=== PATIENT | male | born 1965 | race Caucasian/White ===

== ENCOUNTER 2017-11-19 14:26 | Outpatient (RCR) | payer MEDICAID, SELFPAY ==
[2017-11-19 16:52] VITALS: BP 143/73; PULSE 69; RESP 24; TEMP 36.4; BMI 62.6
--- NOTE | 2017-11-19 18:53 | PCM.WC.HP ---
(1) Nonhealing ulcer of left lower extremity with fat layer exposed Status: Acute Code(s): L97.922 - Non-pressure chronic ulcer of unspecified part of left lower leg with fat layer exposed (2) Nonhealing ulcer of right lower extremity with fat layer exposed Status: Acute Code(s): L97.912 - Non-pressure chronic ulcer of unspecified part of right lower leg with fat layer exposed (3) Decreased dorsalis pedis pulse Status: Acute Code(s): R09.89 - Other specified symptoms and signs involving the circulatory and respiratory systems (4) Lymphedema of both lower extremities Status: Acute Code(s): I89.0 - Lymphedema, not elsewhere classified (5) Pain, lower extremity Status: Acute Code(s): M79.606 - Pain in leg, unspecified (6) Morbid obesity with BMI of 60.0-69.9, adult Status: Acute Code(s): E66.01 - Morbid (severe) obesity due to excess calories; Z68.44 - Body mass index (BMI) 60.0-69.9, adult History of Present Illness Date of Service: 11/19/17 Chief Complaint: Nonhealing ulcers bilateral lower extremities since July 2017 History of Wound: This is a 51-year-old morbidly obese white male who presents to the wound healing center with a chief complaint of nonhealing bilateral lower extremity ulcers since July 2017. He states that his wound treatment has consisted of covering with a dry dressing and gauze and that he wears compression stockings as well. He does state that he has a history of ulcers on the lower extremities as well and a history of venous insufficiency. No recent vascular studies. Patient denies any obvious trauma that preceded these ulcerations. He does state that the ulcerations are painful at times though denies any obvious exudate, warmth, or systemic signs of infection. He denies any other acute complaints at this time. The patient otherwise denies any fever, chills, nausea, vomiting, shortness of breath, chest pain or pressure, palpitations, orthopnea, lower extremity edema, syncope or presyncopal episodes. Past Medical History Surgical History: no surgical history Lives: Spouse/ Significant Other Smoking Status: Former smoker Alcohol: None Drugs: None Review of Systems Constitutional: Denies: Chills, Fever, Weight Change Eyes: Denies: Pain, Vision Change HEENT: Denies: Difficulty Hearing, Difficulty Swallowing, Sinus Congestion Cardiovascular: Denies: Chest Pain, Palpitations Respiratory: Denies: Cough, Shortness of Breath Gastrointestinal: Denies: Diarrhea, Nausea, Vomiting Genitourinary: Denies: Dysuria, Hematuria Skin: Reports: Wounds - See HPI Psychiatric: Denies: Anxiety, Depression Endocrine: Denies: Heat/ Cold Intolerance, Polydipsia, Polyuria Hematologic/ Lymphatic: Denies: Easy Bruising, Easy Bleeding - Physical Exam Vital Signs Temp Pulse Resp BP 97.5 F L 69 24 H 143/73 H 11/19/17 16:52 11/19/17 16:52 11/19/17 16:52 11/19/17 16:52 General: Alert, Oriented x3, Cooperative, No apparent distress HEENT: Atraumatic, PERRLA Neck: Supple, No JVD Lungs: Clear to auscultation, Normal air movement Cardiovascular: Regular rate, Regular Rhythm Abdomen: Soft, Non Tender, Obese, - - large circular area noted lower pannus beneath skin with palpable fluctuance- pt advised to follow up with PCP regarding this. Extremities: Capillary Refill Less than 3 Seconds, Diminished Peripheral Pulses, Edema - BLLE 3+ pitting Skin: Ulcer/ Wound - Bilateral lower extremity ulcers on the anterior surface with moderate amount of slough and fibrous tissue present. There is some degree of hemosiderin staining. 3+ bilateral pitting edema, no redness or warmth. Site is tender to touch Musculoskeletal: No Tenderness to Palpation of Joints or Extremities Lymphatic: No Cervical, Supraclavicular, or Inguinal Adenopathy Neurological: Neuro grossly intact Psych/Mental Status: Normal Affect, Alert and oriented to time, place, person, mood and affect Debridement Note Wound debrided: Right lower extremity ulcer anterior Laterality: Right Type of Debridement: Excisional debridement Anesthesia Used: 5% Lidocaine Gel Depth: in the subcutaneous layer Percentage of wound debrided: 100 Instrument Used: 5mm curette Tissue Removed: Slough and devitalized tissue Severity: Fat Layer Exposed Amount of bleeding with debridement: Mild Bleeding Controlled with: Pressure Patient tolerated procedure well - Additional Wound Wound debrided: Left anterior lower extremity ulcer Laterality: Left Type of Debridement: Excisional debridement Anesthesia Used: 5% Lidocaine Gel Depth: in the subcutaneous layer Percentage of wound debrided: 100 Instrument Used: 5mm curette Tissue Removed: Slough and devitalized tissue Severity: Fat Layer Exposed Amount of bleeding with debridement: Mild Bleeding Controlled with: Pressure Patient tolerated procedure: Patient tolerated procedure well Assessment/Plan Assessment: Nonhealing ulcers bilateral lower extremities with fat layer exposed. Bilateral lower extremity edema. Decreased dorsal pedis pulses. Morbid obesity with BMI greater than 60. History of chronic venous insufficiency Plan: The patient was seen and examined at the wound center today and was updated on the plan of care. A subcutaneous debridement was performed today. The patient tolerated the procedure well. The patients wound care will consist of: Aquasol silver dressings daily and continue with his home compression stockings that he is wearing for lymphedema management. Wound cultures were collected. Baseline bloodwork ordered. Vascular studies ordered. Patient educated on the importance of diet on wound healing and instructed to increase protein and vitamin C intake. Patient verbalized understanding. Patient will follow up at wound healing center in one week or sooner if needed. Discussed red flag symptoms of systemic infection that require urgent medical attention. this note was generated with [employer] dictation software. It may contain incorrect words, spelling, and punctuation that were not noted in checking the note before signing. Code Visit Office Visits / Consults: 20997 OV L4 Est 111xxx-113xx: [id number] Nneka subq tissue 20 sq cm/<
[2017-11-19 19:03] LABS: Hematocrit 44.9 % (40-54); Hemoglobin 14.7 g/dl (13.0-16.5); Mean Corp Hgb Conc 32.7 g/gl (32-36); Mean Corpuscular Hgb 29.2 pg (27.0-32.0); Mean Corpuscular Volume 89.1 fL (80-94); Mean Platelet Vol. 10.2 fl (6.2-12.0); Platelet Count 356 K/mm3 (150-450); RBC Distribution Width CV 13.8 % (11.6-14.6); RBC Distribution Width SD 44.7 fl (35.1-43.9); Red Blood Count 5.04 M/mm3 (4.6-6.2); White Blood Count 8.8 K/mm3 (4.4-11.0)
[2017-11-19 19:06] LABS: Scan Indicated on CBC? Y/N NO
[2017-11-19 19:21] LABS: ALB/GLOB Ratio 0.8 RATIO (0.9-2.4); AST(SGOT) 23 U/L (15-37); Alanine Aminotransfer ALT/SGPT 48 U/L (16-61); Albumin, Serum 3.5 g/dL (3.2-5.0); Alkaline Phosphatase 93 U/L (45-117); Anion Gap 3 (5-15); BUN 16 mg/dL (7-18); BUN/Creat Ratio 15.5 RATIO (10-20); Calcium,Total 9.1 mg/dL (8.5-10.1); Chloride 106 mmol/L (98-107); Creatinine, Serum 1.03 mg/dL (0.70-1.30); EST Glomerular Filtration Rate 81 mL/min (>60); Est Glom Filt Rate - Afr Amer 98 mL/min (>60); Estimated Creatinine Clearance 86.75 ml/min; Globulin 4.2 g/dL (2.2-4.2); Glucose 89 mg/dL (74-106); Potassium 4.3 mmol/L (3.5-5.1); Prealbumin 21.8 mg/dL (20.0-40.0); Protein, Total 7.7 g/dL (6.4-8.2); Sodium Level 140 mmol/L (136-145)
[2017-11-19 19:22] LABS: Hemoglobin A1c 5.4 % (4.2-6.3)
--- NOTE | 2017-11-25 16:03 | HP.PCM_ITS ---
(1) Nonhealing ulcer of left lower extremity with fat layer exposed Status: Acute Code(s): L97.922 - Non-pressure chronic ulcer of unspecified part of left lower leg with fat layer exposed (2) Nonhealing ulcer of right lower extremity with fat layer exposed Status: Acute Code(s): L97.912 - Non-pressure chronic ulcer of unspecified part of right lower leg with fat layer exposed (3) Decreased dorsalis pedis pulse Status: Acute Code(s): R09.89 - Other specified symptoms and signs involving the circulatory and respiratory systems (4) Lymphedema of both lower extremities Status: Acute Code(s): I89.0 - Lymphedema, not elsewhere classified (5) Pain, lower extremity Status: Acute Code(s): M79.606 - Pain in leg, unspecified (6) Morbid obesity with BMI of 60.0-69.9, adult Status: Acute Code(s): E66.01 - Morbid (severe) obesity due to excess calories ; Z68.44 - Body mass index (BMI) 60.0-69.9, adult History of Present Illness Date of Service: 11/19/17 Chief Complaint: Nonhealing ulcers bilateral lower extremities since July 2017 History of Wound: This is a 51-year-old morbidly obese white male who presents to the wound healing center with a chief complaint of nonhealing bilateral lower extremity ulcers since July 2017. He states that his wound treatment has consisted of covering with a dry dressing and gauze and that he wears compression stockings as well. He does state that he has a history of ulcers on the lower extremities as well and a history of venous insufficiency. No recent vascular studies. Patient denies any obvious trauma that preceded these ulcerations. He does state that the ulcerations are painful at times though denies any obvious exudate, warmth, or systemic signs of infection. He denies any other acute complaints at this time. The patient otherwise denies any fever , chills, nausea, vomiting, shortness of breath, chest pain or pressure, palpitations, orthopnea, lower extremity edema, syncope or presyncopal episodes. Past Medical History Surgical History: no surgical history Lives: Spouse/ Significant Other Smoking Status: Former smoker Alcohol: None Drugs: None Review of Systems Constitutional: Denies: Chills, Fever, Weight Change Eyes: Denies: Pain, Vision Change HEENT: Denies: Difficulty Hearing, Difficulty Swallowing, Sinus Congestion Cardiovascular: Denies: Chest Pain, Palpitations Respiratory: Denies: Cough, Shortness of Breath Gastrointestinal: Denies: Diarrhea, Nausea, Vomiting Genitourinary: Denies: Dysuria, Hematuria Skin: Reports: Wounds - See HPI Psychiatric: Denies: Anxiety, Depression Endocrine: Denies: Heat/ Cold Intolerance, Polydipsia, Polyuria Hematologic/ Lymphatic: Denies: Easy Bruising, Easy Bleeding - Physical Exam Vital Signs Temp Pulse Resp BP 97.5 F L 69 24 H 143/73 H 11/19/17 16:52 11/19/17 16:52 11/19/17 16:52 11/19/17 16:52 General: Alert, Oriented x3, Cooperative, No apparent distress HEENT: Atraumatic, PERRLA Neck: Supple, No JVD Lungs: Clear to auscultation, Normal air movement Cardiovascular: Regular rate, Regular Rhythm Abdomen: Soft, Non Tender, Obese, - - large circular area noted lower pannus beneath skin with palpable fluctuance- pt advised to follow up with PCP regarding this. Extremities: Capillary Refill Less than 3 Seconds, Diminished Peripheral Pulses , Edema - BLLE 3+ pitting Skin: Ulcer/ Wound - Bilateral lower extremity ulcers on the anterior surface with moderate amount of slough and fibrous tissue present. There is some degree of hemosiderin staining. 3+ bilateral pitting edema, no redness or warmth. Site is tender to touch Musculoskeletal: No Tenderness to Palpation of Joints or Extremities Lymphatic: No Cervical, Supraclavicular, or Inguinal Adenopathy Neurological: Neuro grossly intact Psych/Mental Status: Normal Affect, Alert and oriented to time, place, person, mood and affect Debridement Note Wound debrided: Right lower extremity ulcer anterior Laterality: Right Type of Debridement: Excisional debridement Anesthesia Used: 5% Lidocaine Gel Depth: in the subcutaneous layer Percentage of wound debrided: 100 Instrument Used: 5mm curette Tissue Removed: Slough and devitalized tissue Severity: Fat Layer Exposed Amount of bleeding with debridement: Mild Bleeding Controlled with: Pressure Patient tolerated procedure well - Additional Wound Wound debrided: Left anterior lower extremity ulcer Laterality: Left Type of Debridement: Excisional debridement Anesthesia Used: 5% Lidocaine Gel Depth: in the subcutaneous layer Percentage of wound debrided: 100 Instrument Used: 5mm curette Tissue Removed: Slough and devitalized tissue Severity: Fat Layer Exposed Amount of bleeding with debridement: Mild Bleeding Controlled with: Pressure Patient tolerated procedure: Patient tolerated procedure well Assessment/Plan Assessment: Nonhealing ulcers bilateral lower extremities with fat layer exposed. Bilateral lower extremity edema. Decreased dorsal pedis pulses. Morbid obesity with BMI greater than 60. History of chronic venous insufficiency Plan: The patient was seen and examined at the wound center today and was updated on the plan of care. A subcutaneous debridement was performed today. The patient tolerated the procedure well. The patients wound care will consist of: Aquasol silver dressings daily and continue with his home compression stockings that he is wearing for lymphedema management. Wound cultures were collected. Baseline bloodwork ordered. Vascular studies ordered. Patient educated on the importance of diet on wound healing and instructed to increase protein and vitamin C intake. Patient verbalized understanding. Patient will follow up at wound healing center in one week or sooner if needed. Discussed red flag symptoms of systemic infection that require urgent medical attention. this note was generated with [employer] dictation software. It may contain incorrect words, spelling, and punctuation that were not noted in checking the note before signing. Code Visit Office Visits / Consults: [id number] OV L4 Est 111xxx-113xx: [id number] Nneka subq tissue 20 sq cm/<
== END 2017-11-23 23:59 ==
LOC: WC 14:26
PROVIDERS: Family Provider Internal Medicine; PCP Internal Medicine; Visit Provider Nurse Practitioner Family
DX: I87.2 Venous insufficiency (chronic) (peripheral) (principal); I89.0 Lymphedema, not elsewhere classified; M79.606 Pain in leg, unspecified; E66.01 Morbid (severe) obesity due to excess calories; Z68.44 Body mass index [BMI] 60.0-69.9, adult; Z71.3 Dietary counseling and surveillance; Z87.891 Personal history of nicotine dependence; L97.822 Non-pressure chronic ulcer of other part of left lower leg with fat layer exposed; L97.812 Non-pressure chronic ulcer of other part of right lower leg with fat layer exposed; R60.0 Localized edema
CPT/HCPCS: 11042; 11045; 80053; 83036; 84134; 85027; 87070; 87075; 87077; 87186; 87205; 99204; G0463

== ENCOUNTER 2017-12-24 17:00 | Outpatient (RCR) | payer MEDICAID, SELFPAY ==
[2017-11-24 01:17] VITALS: PULSE 69; RESP 24; TEMP 36.4
[2017-11-26 15:19] VITALS: BP 137/64; PULSE 68; RESP 18; TEMP 36.2
--- NOTE | 2017-11-26 18:49 | PCM.WC.PN ---
(1) Nonhealing ulcer of right lower extremity with fat layer exposed Status: Acute Code(s): L97.912 - Non-pressure chronic ulcer of unspecified part of right lower leg with fat layer exposed (2) Nonhealing ulcer of left lower extremity with fat layer exposed Status: Acute Code(s): L97.922 - Non-pressure chronic ulcer of unspecified part of left lower leg with fat layer exposed (3) Decreased dorsalis pedis pulse Status: Acute Code(s): R09.89 - Other specified symptoms and signs involving the circulatory and respiratory systems (4) Lymphedema of both lower extremities Status: Acute Code(s): I89.0 - Lymphedema, not elsewhere classified (5) Morbid obesity with BMI of 60.0-69.9, adult Status: Acute Code(s): E66.01 - Morbid (severe) obesity due to excess calories; Z68.44 - Body mass index (BMI) 60.0-69.9, adult (6) Pain, lower extremity Status: Acute Code(s): M79.606 - Pain in leg, unspecified Type of Wound Date of Service: 11/26/17 Chief Complaint: nonhealing ulcers BLLE since July 2017 History of Wound: This is a 51-year-old morbidly obese white male who presents to the wound healing center with a chief complaint of nonhealing bilateral lower extremity ulcers since July 2017. He states that his wound treatment has consisted of covering with a dry dressing and gauze and that he wears compression stockings as well. He does state that he has a history of ulcers on the lower extremities as well and a history of venous insufficiency. No recent vascular studies. Patient denies any obvious trauma that preceded these ulcerations. He does state that the ulcerations are painful at times though denies any obvious exudate, warmth, or systemic signs of infection. He denies any other acute complaints at this time. The patient otherwise denies any fever, chills, nausea, vomiting, shortness of breath, chest pain or pressure, palpitations, orthopnea, lower extremity edema, syncope or presyncopal episodes. Progress of Wound: 11/26/2017 -stable, no marked improvement as patient missed 2 days of wound care due to lack of supplies, left lower extremity ulcer is worsened as patient states that he had a recent trauma to by bumping into a hard object. - Physical Exam Vital Signs Temp Pulse Resp BP 97.1 F L 68 18 137/64 H 11/26/17 15:19 11/26/17 15:19 11/26/17 15:19 11/26/17 15:19 General: Alert, Oriented x3, Cooperative, No apparent distress HEENT: Atraumatic Cardiovascular: Regular rate Extremities: Diminished Peripheral Pulses, Edema - 3+ BLLE Skin: Ulcer/ Wound - Ulcerations present bilateral lower extremity with large amount of slough present, Neurological: Neuro grossly intact Psych/Mental Status: Normal Affect, Appropriate, Alert and oriented to time, place, person, mood and affect Debridement Note Post-Debridement Measurements/Treatment WC - Nurse 2 - General Ulcer CM Notes Start: 11/26/17 15:18 Freq: Status: Active Protocol: Activity Type Activity Date Activity User E-Sign Co-Sign Detail Recorded Client Recorded Date Recorded By Document 11/26/17 16:09 DV [id number] 11/26/17 16:15 DV 11/26/17 16:09 Wound Center Nurse 2 #2 LEFT MARTINEZ -Time 16:10 -Correct Patient Yes -Correct Side, Site, Position Yes -Correct Procedure Yes -Procedure Performed Yes -Type of Procedure Debridement -Clinical Debridement Subcutaneous -Post Debridement Size (cm) - Length 8.0 -Post Debridement Size (cm) - Width 2.3 -Post Debridement Size (cm) - Depth 0.5 -Total Square Cm 18.40 -Wound/Ulcer Outcome Not Healed -Ulcer Cleansing Rinsed/ Irrigated with Saline -Foul Odor after Cleansing No -Bioengineered Tissue No -Bleeding Controlled with Pressure -Treatment Response Procedure Tolerated Well #1 RIGHT MARTINEZ -Time 16:12 -Correct Patient Yes -Correct Side, Site, Position Yes -Correct Procedure Yes -Procedure Performed Yes -Type of Procedure Debridement -Clinical Debridement Subcutaneous -Post Debridement Size (cm) - Length 10.5 -Post Debridement Size (cm) - Width 8.5 -Post Debridement Size (cm) - Depth 0.3 -Total Square Cm 89.25 -Wound/Ulcer Outcome Not Healed -Ulcer Cleansing Rinsed/ Irrigated with Saline -Foul Odor after Cleansing No -Bioengineered Tissue No -Bleeding Controlled with Pressure -Treatment Response Procedure Tolerated Well Pain Scale: 0-10 Numeric Is Patient Pain Free? Yes Wound debrided: Left anterior lower extremity ulcer Laterality: Left Anesthesia Used: 5% Lidocaine Gel Depth: Down to and including healthy tissue, in the subcutaneous layer Percentage of wound debrided: 100 Instrument Used: 7mm curette Tissue Removed: Large amount of slough and devitalized tissue Amount of bleeding with debridement: Mild Bleeding Controlled with: Pressure Patient tolerated procedure well - Additional Wound Wound debrided: Right anterior lower extremity ulcer Type of Debridement: Excisional debridement Anesthesia Used: 5% Lidocaine Gel Depth: in the subcutaneous layer Percentage of wound debrided: 100 Instrument Used: 7mm curette Tissue Removed: Large amount of slough and devitalized tissue Severity: Fat Layer Exposed Amount of bleeding with debridement: Mild Bleeding Controlled with: Pressure Patient tolerated procedure: Patient tolerated procedure well Assessment/Plan Assessment: Assessment: Nonhealing ulcers bilateral lower extremities with fat layer exposed. Bilateral lower extremity edema. Decreased dorsal pedis pulses. Morbid obesity with BMI greater than 60. History of chronic venous insufficiency Plan: Plan: The patient was seen and examined at the wound center today and was updated on the plan of care. A subcutaneous debridement was performed today. The patient tolerated the procedure well. The patients wound care will consist of: Aquasol silver dressings daily and continue with his home compression stockings that he is wearing for lymphedema management. Wound cultures were reviewed and demonstrated MRSA and a facialis, patient will be started on Bactrim DS twice daily ?10 days. Baseline bloodwork reviewed and demonstrated slightly low pre-albumin, encourage the use of [id number] diet. Vascular studies pending. Patient educated on the importance of diet on wound healing and instructed to increase protein and vitamin C intake. Patient verbalized understanding. Patient will follow up at wound healing center in one week or sooner if needed. Discussed red flag symptoms of systemic infection that require urgent medical attention. this note was generated with [employer] software. It may contain incorrect words, spelling, and punctuation that were not noted in checking the note before signing. Code Visit 111xxx-113xx: [id number] Nneka subq tissue 20 sq cm/< Add On Codes: [id number] Nneka subq tissue add-on
--- NOTE | 2017-12-02 13:50 | PN.PCM_ITS ---
(1) Nonhealing ulcer of right lower extremity with fat layer exposed Status: Acute Code(s): L97.912 - Non-pressure chronic ulcer of unspecified part of right lower leg with fat layer exposed (2) Nonhealing ulcer of left lower extremity with fat layer exposed Status: Acute Code(s): L97.922 - Non-pressure chronic ulcer of unspecified part of left lower leg with fat layer exposed (3) Decreased dorsalis pedis pulse Status: Acute Code(s): R09.89 - Other specified symptoms and signs involving the circulatory and respiratory systems (4) Lymphedema of both lower extremities Status: Acute Code(s): I89.0 - Lymphedema, not elsewhere classified (5) Morbid obesity with BMI of 60.0-69.9, adult Status: Acute Code(s): E66.01 - Morbid (severe) obesity due to excess calories ; Z68.44 - Body mass index (BMI) 60.0-69.9, adult (6) Pain, lower extremity Status: Acute Code(s): M79.606 - Pain in leg, unspecified Type of Wound Date of Service: 11/26/17 Chief Complaint: nonhealing ulcers BLLE since July 2017 History of Wound: This is a 51-year-old morbidly obese white male who presents to the wound healing center with a chief complaint of nonhealing bilateral lower extremity ulcers since July 2017. He states that his wound treatment has consisted of covering with a dry dressing and gauze and that he wears compression stockings as well. He does state that he has a history of ulcers on the lower extremities as well and a history of venous insufficiency. No recent vascular studies. Patient denies any obvious trauma that preceded these ulcerations. He does state that the ulcerations are painful at times though denies any obvious exudate, warmth, or systemic signs of infection. He denies any other acute complaints at this time. The patient otherwise denies any fever , chills, nausea, vomiting, shortness of breath, chest pain or pressure, palpitations, orthopnea, lower extremity edema, syncope or presyncopal episodes. Progress of Wound: 11/26/2017 -stable, no marked improvement as patient missed 2 days of wound care due to lack of supplies, left lower extremity ulcer is worsened as patient states that he had a recent trauma to by bumping into a hard object. - Physical Exam Vital Signs Temp Pulse Resp BP 97.1 F L 68 18 137/64 H 11/26/17 15:19 11/26/17 15:19 11/26/17 15:19 11/26/17 15:19 General: Alert, Oriented x3, Cooperative, No apparent distress HEENT: Atraumatic Cardiovascular: Regular rate Extremities: Diminished Peripheral Pulses, Edema - 3+ BLLE Skin: Ulcer/ Wound - Ulcerations present bilateral lower extremity with large amount of slough present, Neurological: Neuro grossly intact Psych/Mental Status: Normal Affect, Appropriate, Alert and oriented to time, place, person, mood and affect Debridement Note Post-Debridement Measurements/Treatment WC - Nurse 2 - General Ulcer CM Notes Start: 11/26/17 15:18 Freq: Status: Active Protocol: Activity Type Activity Date Activity User E-Sign Co-Sign Detail Recorded Client Recorded Date Recorded By Document 11/26/17 16:09 DV [id number] 11/26/17 16:15 DV 11/26/17 16:09 Wound Center Nurse 2 #2 LEFT MARTINEZ -Time 16:10 -Correct Patient Yes -Correct Side, Site, Position Yes -Correct Procedure Yes -Procedure Performed Yes -Type of Procedure Debridement -Clinical Debridement Subcutaneous -Post Debridement Size (cm) - Length 8.0 -Post Debridement Size (cm) - Width 2.3 -Post Debridement Size (cm) - Depth 0.5 -Total Square Cm 18.40 -Wound/Ulcer Outcome Not Healed -Ulcer Cleansing Rinsed/ Irrigated with Saline -Foul Odor after Cleansing No -Bioengineered Tissue No -Bleeding Controlled with Pressure -Treatment Response Procedure Tolerated Well #1 RIGHT MARTINEZ -Time 16:12 -Correct Patient Yes -Correct Side, Site, Position Yes -Correct Procedure Yes -Procedure Performed Yes -Type of Procedure Debridement -Clinical Debridement Subcutaneous -Post Debridement Size (cm) - Length 10.5 -Post Debridement Size (cm) - Width 8.5 -Post Debridement Size (cm) - Depth 0.3 -Total Square Cm 89.25 -Wound/Ulcer Outcome Not Healed -Ulcer Cleansing Rinsed/ Irrigated with Saline -Foul Odor after Cleansing No -Bioengineered Tissue No -Bleeding Controlled with Pressure -Treatment Response Procedure Tolerated Well Pain Scale: 0-10 Numeric Is Patient Pain Free? Yes Wound debrided: Left anterior lower extremity ulcer Laterality: Left Anesthesia Used: 5% Lidocaine Gel Depth: Down to and including healthy tissue, in the subcutaneous layer Percentage of wound debrided: 100 Instrument Used: 7mm curette Tissue Removed: Large amount of slough and devitalized tissue Amount of bleeding with debridement: Mild Bleeding Controlled with: Pressure Patient tolerated procedure well - Additional Wound Wound debrided: Right anterior lower extremity ulcer Type of Debridement: Excisional debridement Anesthesia Used: 5% Lidocaine Gel Depth: in the subcutaneous layer Percentage of wound debrided: 100 Instrument Used: 7mm curette Tissue Removed: Large amount of slough and devitalized tissue Severity: Fat Layer Exposed Amount of bleeding with debridement: Mild Bleeding Controlled with: Pressure Patient tolerated procedure: Patient tolerated procedure well Assessment/Plan Assessment: Assessment: Nonhealing ulcers bilateral lower extremities with fat layer exposed. Bilateral lower extremity edema. Decreased dorsal pedis pulses. Morbid obesity with BMI greater than 60. History of chronic venous insufficiency Plan: Plan: The patient was seen and examined at the wound center today and was updated on the plan of care. A subcutaneous debridement was performed today. The patient tolerated the procedure well. The patients wound care will consist of: Aquasol silver dressings daily and continue with his home compression stockings that he is wearing for lymphedema management. Wound cultures were reviewed and demonstrated MRSA and a facialis, patient will be started on Bactrim DS twice daily ?10 days. Baseline bloodwork reviewed and demonstrated slightly low pre-albumin, encourage the use of [id number] diet. Vascular studies pending. Patient educated on the importance of diet on wound healing and instructed to increase protein and vitamin C intake. Patient verbalized understanding. Patient will follow up at wound healing center in one week or sooner if needed. Discussed red flag symptoms of systemic infection that require urgent medical attention. this note was generated with [employer] software. It may contain incorrect words, spelling, and punctuation that were not noted in checking the note before signing. Code Visit 111xxx-113xx: 34587 Nneka subq tissue 20 sq cm/< Add On Codes: [id number] Nneka subq tissue add-on
[2017-12-10 14:36] VITALS: BP 152/89; PULSE 77; RESP 18; TEMP 36.8
--- NOTE | 2017-12-10 19:39 | PCM.WC.PN ---
(1) Nonhealing ulcer of right lower extremity with fat layer exposed Status: Acute Code(s): L97.912 - Non-pressure chronic ulcer of unspecified part of right lower leg with fat layer exposed (2) Nonhealing ulcer of left lower extremity with fat layer exposed Status: Acute Code(s): L97.922 - Non-pressure chronic ulcer of unspecified part of left lower leg with fat layer exposed (3) Decreased dorsalis pedis pulse Status: Acute Code(s): R09.89 - Other specified symptoms and signs involving the circulatory and respiratory systems (4) Lymphedema of both lower extremities Status: Acute Code(s): I89.0 - Lymphedema, not elsewhere classified (5) Morbid obesity with BMI of 60.0-69.9, adult Status: Acute Code(s): E66.01 - Morbid (severe) obesity due to excess calories; Z68.44 - Body mass index (BMI) 60.0-69.9, adult (6) Pain, lower extremity Status: Acute Code(s): M79.606 - Pain in leg, unspecified Type of Wound Date of Service: 12/10/17 Chief Complaint: nonhealing ulcers BLLE since July 2017 History of Wound: This is a 51-year-old morbidly obese white male who presents to the wound healing center with a chief complaint of nonhealing bilateral lower extremity ulcers since July 2017. He states that his wound treatment has consisted of covering with a dry dressing and gauze and that he wears compression stockings as well. He does state that he has a history of ulcers on the lower extremities as well and a history of venous insufficiency. No recent vascular studies. Patient denies any obvious trauma that preceded these ulcerations. He does state that the ulcerations are painful at times though denies any obvious exudate, warmth, or systemic signs of infection. He denies any other acute complaints at this time. The patient otherwise denies any fever, chills, nausea, vomiting, shortness of breath, chest pain or pressure, palpitations, orthopnea, lower extremity edema, syncope or presyncopal episodes. Progress of Wound: 11/26/2017 -stable, no marked improvement as patient missed 2 days of wound care due to lack of supplies, left lower extremity ulcer is worsened as patient states that he had a recent trauma to by bumping into a hard object. 12/10/2017-patient notes improvement in his wounds. He did miss his previous appointment however. His previous culture was reviewed with him and demonstrated MRSA and he started the Bactrim DS as ordered for him. He denies any signs of systemic infection at this time and denies any worsening pain or purulent drainage. - Physical Exam Vital Signs Temp Pulse Resp BP 98.2 F 77 18 152/89 H 12/10/17 14:36 12/10/17 14:36 12/10/17 14:36 12/10/17 14:36 General: Alert, Oriented x3, Cooperative, No apparent distress HEENT: Atraumatic Lungs: Clear to auscultation Cardiovascular: Regular rate Extremities: Diminished Peripheral Pulses, Edema Skin: Ulcer/ Wound - Ulcers present bilateral lower anterior extremities with moderate amount of slough present, no signs of cellulitis at this time, 2+ bilateral lower extremity edema. No signs of infection such as increase in warmth, drainage, or other systemic signs of infection. Debridement Note Post-Debridement Measurements/Treatment WC - Nurse 2 - General Ulcer CM Notes Start: 11/26/17 15:18 Freq: Status: Active Protocol: Activity Type Activity Date Activity User E-Sign Co-Sign Detail Recorded Client Recorded Date Recorded By Document 11/26/17 16:09 DV [id number] 11/26/17 16:15 DV Document 12/10/17 15:14 DV [id number] 12/10/17 15:18 DV 11/26/17 12/10/17 16:09 15:14 Wound Center Nurse 2 #2 LEFT MARTINEZ -Time 16:10 15:14 -Correct Patient Yes Yes -Correct Side, Site, Position Yes Yes -Correct Procedure Yes Yes -Procedure Performed Yes Yes -Type of Procedure Debridement Debridement -Clinical Debridement Subcutaneous Subcutaneous -Post Debridement Size (cm) - Length 8.0 4.0 -Post Debridement Size (cm) - Width 2.3 1.0 -Post Debridement Size (cm) - Depth 0.5 0.1 -Total Square Cm 18.40 4.00 -Wound/Ulcer Outcome Not Healed Not Healed -Ulcer Cleansing Rinsed/ Rinsed/ Irrigated with Irrigated with Saline Saline -Foul Odor after Cleansing No No -Bioengineered Tissue No No -Bleeding Controlled with Pressure Pressure -Treatment Response Procedure Procedure Tolerated Well Tolerated Well #1 RIGHT MARTINEZ -Time 16:12 15:16 -Correct Patient Yes Yes -Correct Side, Site, Position Yes Yes -Correct Procedure Yes Yes -Procedure Performed Yes Yes -Type of Procedure Debridement Debridement -Clinical Debridement Subcutaneous Subcutaneous -Post Debridement Size (cm) - Length 10.5 10.2 -Post Debridement Size (cm) - Width 8.5 7.1 -Post Debridement Size (cm) - Depth 0.3 0.2 -Total Square Cm 89.25 72.42 -Wound/Ulcer Outcome Not Healed Not Healed -Ulcer Cleansing Rinsed/ Rinsed/ Irrigated with Irrigated with Saline Saline -Foul Odor after Cleansing No No -Bioengineered Tissue No No -Bleeding Controlled with Pressure NA -Treatment Response Procedure Procedure Tolerated Well Tolerated Well Pain Scale: 0-10 Numeric Is Patient Pain Free? Yes Yes Wound debrided: Left lower extremity ulcer Laterality: Left Type of Debridement: Excisional debridement Anesthesia Used: 5% Lidocaine Gel Depth: in the subcutaneous layer Percentage of wound debrided: 100 Instrument Used: 7mm curette Tissue Removed: Slough and fibrous tissue Severity: Fat Layer Exposed Amount of bleeding with debridement: Mild Bleeding Controlled with: Pressure Patient tolerated procedure well - Additional Wound Wound debrided: Right lower extremity ulcer Laterality: Right Type of Debridement: Excisional debridement Anesthesia Used: 5% Lidocaine Gel Depth: in the subcutaneous layer Percentage of wound debrided: 100 Instrument Used: 7mm curette Tissue Removed: Slough and fibrous tissue Severity: Fat Layer Exposed Amount of bleeding with debridement: Mild Bleeding Controlled with: Pressure Patient tolerated procedure: Patient tolerated procedure well Assessment/Plan Assessment: Assessment: Nonhealing ulcers bilateral lower extremities with fat layer exposed. Bilateral lower extremity edema. Decreased dorsal pedis pulses. Morbid obesity with BMI greater than 60. History of chronic venous insufficiency Plan: Plan: The patient was seen and examined at the wound center today and was updated on the plan of care. A subcutaneous debridement was performed today. The patient tolerated the procedure well. The patients wound care will consist of: Cleanse bilateral lower extremities with Jacinta hex then apply Aquasol silver dressings daily and continue with his home compression stockings that he is wearing for lymphedema management. Wound cultures were reviewed and demonstrated MRSA and a facialis, patient was started on Bactrim DS twice daily ?10 days. Baseline bloodwork reviewed and demonstrated slightly low pre-albumin, encourage the use of [id number] diet. Vascular studies pending. Patient educated on the importance of diet on wound healing and instructed to increase protein and vitamin C intake. Patient verbalized understanding. Patient will follow up at wound healing center in one week or sooner if needed. Discussed red flag symptoms of systemic infection that require urgent medical attention. this note was generated with [employer] dictation software. It may contain incorrect words, spelling, and punctuation that were not noted in checking the note before signing. Code Visit 111xxx-113xx: 95074 Nneka subq tissue 20 sq cm/< Add On Codes: [id number] Nneka subq tissue add-on
--- NOTE | 2017-12-14 19:50 | PN.PCM_ITS ---
(1) Nonhealing ulcer of right lower extremity with fat layer exposed Status: Acute Code(s): L97.912 - Non-pressure chronic ulcer of unspecified part of right lower leg with fat layer exposed (2) Nonhealing ulcer of left lower extremity with fat layer exposed Status: Acute Code(s): L97.922 - Non-pressure chronic ulcer of unspecified part of left lower leg with fat layer exposed (3) Decreased dorsalis pedis pulse Status: Acute Code(s): R09.89 - Other specified symptoms and signs involving the circulatory and respiratory systems (4) Lymphedema of both lower extremities Status: Acute Code(s): I89.0 - Lymphedema, not elsewhere classified (5) Morbid obesity with BMI of 60.0-69.9, adult Status: Acute Code(s): E66.01 - Morbid (severe) obesity due to excess calories ; Z68.44 - Body mass index (BMI) 60.0-69.9, adult (6) Pain, lower extremity Status: Acute Code(s): M79.606 - Pain in leg, unspecified Type of Wound Date of Service: 12/10/17 Chief Complaint: nonhealing ulcers BLLE since July 2017 History of Wound: This is a 51-year-old morbidly obese white male who presents to the wound healing center with a chief complaint of nonhealing bilateral lower extremity ulcers since July 2017. He states that his wound treatment has consisted of covering with a dry dressing and gauze and that he wears compression stockings as well. He does state that he has a history of ulcers on the lower extremities as well and a history of venous insufficiency. No recent vascular studies. Patient denies any obvious trauma that preceded these ulcerations. He does state that the ulcerations are painful at times though denies any obvious exudate, warmth, or systemic signs of infection. He denies any other acute complaints at this time. The patient otherwise denies any fever , chills, nausea, vomiting, shortness of breath, chest pain or pressure, palpitations, orthopnea, lower extremity edema, syncope or presyncopal episodes. Progress of Wound: 11/26/2017 -stable, no marked improvement as patient missed 2 days of wound care due to lack of supplies, left lower extremity ulcer is worsened as patient states that he had a recent trauma to by bumping into a hard object. 12/10/2017-patient notes improvement in his wounds. He did miss his previous appointment however. His previous culture was reviewed with him and demonstrated MRSA and he started the Bactrim DS as ordered for him. He denies any signs of systemic infection at this time and denies any worsening pain or purulent drainage. - Physical Exam Vital Signs Temp Pulse Resp BP 98.2 F 77 18 152/89 H 12/10/17 14:36 12/10/17 14:36 12/10/17 14:36 12/10/17 14:36 General: Alert, Oriented x3, Cooperative, No apparent distress HEENT: Atraumatic Lungs: Clear to auscultation Cardiovascular: Regular rate Extremities: Diminished Peripheral Pulses, Edema Skin: Ulcer/ Wound - Ulcers present bilateral lower anterior extremities with moderate amount of slough present, no signs of cellulitis at this time, 2+ bilateral lower extremity edema. No signs of infection such as increase in warmth, drainage, or other systemic signs of infection. Debridement Note Post-Debridement Measurements/Treatment WC - Nurse 2 - General Ulcer CM Notes Start: 11/26/17 15:18 Freq: Status: Active Protocol: Activity Type Activity Date Activity User E-Sign Co-Sign Detail Recorded Client Recorded Date Recorded By Document 11/26/17 16:09 DV [id number] 11/26/17 16:15 DV Document 12/10/17 15:14 DV [id number] 12/10/17 15:18 DV 11/26/17 12/10/17 16:09 15:14 Wound Center Nurse 2 #2 LEFT MARTINEZ -Time 16:10 15:14 -Correct Patient Yes Yes -Correct Side, Site, Position Yes Yes -Correct Procedure Yes Yes -Procedure Performed Yes Yes -Type of Procedure Debridement Debridement -Clinical Debridement Subcutaneous Subcutaneous -Post Debridement Size (cm) - Length 8.0 4.0 -Post Debridement Size (cm) - Width 2.3 1.0 -Post Debridement Size (cm) - Depth 0.5 0.1 -Total Square Cm 18.40 4.00 -Wound/Ulcer Outcome Not Healed Not Healed -Ulcer Cleansing Rinsed/ Rinsed/ Irrigated with Irrigated with Saline Saline -Foul Odor after Cleansing No No -Bioengineered Tissue No No -Bleeding Controlled with Pressure Pressure -Treatment Response Procedure Procedure Tolerated Well Tolerated Well #1 RIGHT MARTINEZ -Time 16:12 15:16 -Correct Patient Yes Yes -Correct Side, Site, Position Yes Yes -Correct Procedure Yes Yes -Procedure Performed Yes Yes -Type of Procedure Debridement Debridement -Clinical Debridement Subcutaneous Subcutaneous -Post Debridement Size (cm) - Length 10.5 10.2 -Post Debridement Size (cm) - Width 8.5 7.1 -Post Debridement Size (cm) - Depth 0.3 0.2 -Total Square Cm 89.25 72.42 -Wound/Ulcer Outcome Not Healed Not Healed -Ulcer Cleansing Rinsed/ Rinsed/ Irrigated with Irrigated with Saline Saline -Foul Odor after Cleansing No No -Bioengineered Tissue No No -Bleeding Controlled with Pressure NA -Treatment Response Procedure Procedure Tolerated Well Tolerated Well Pain Scale: 0-10 Numeric Is Patient Pain Free? Yes Yes Wound debrided: Left lower extremity ulcer Laterality: Left Type of Debridement: Excisional debridement Anesthesia Used: 5% Lidocaine Gel Depth: in the subcutaneous layer Percentage of wound debrided: 100 Instrument Used: 7mm curette Tissue Removed: Slough and fibrous tissue Severity: Fat Layer Exposed Amount of bleeding with debridement: Mild Bleeding Controlled with: Pressure Patient tolerated procedure well - Additional Wound Wound debrided: Right lower extremity ulcer Laterality: Right Type of Debridement: Excisional debridement Anesthesia Used: 5% Lidocaine Gel Depth: in the subcutaneous layer Percentage of wound debrided: 100 Instrument Used: 7mm curette Tissue Removed: Slough and fibrous tissue Severity: Fat Layer Exposed Amount of bleeding with debridement: Mild Bleeding Controlled with: Pressure Patient tolerated procedure: Patient tolerated procedure well Assessment/Plan Assessment: Assessment: Nonhealing ulcers bilateral lower extremities with fat layer exposed. Bilateral lower extremity edema. Decreased dorsal pedis pulses. Morbid obesity with BMI greater than 60. History of chronic venous insufficiency Plan: Plan: The patient was seen and examined at the wound center today and was updated on the plan of care. A subcutaneous debridement was performed today. The patient tolerated the procedure well. The patients wound care will consist of: Cleanse bilateral lower extremities with Jacinta hex then apply Aquasol silver dressings daily and continue with his home compression stockings that he is wearing for lymphedema management. Wound cultures were reviewed and demonstrated MRSA and a facialis, patient was started on Bactrim DS twice daily ?10 days. Baseline bloodwork reviewed and demonstrated slightly low pre-albumin , encourage the use of akhv-szuygro-hcbetfltdm diet. Vascular studies pending. Patient educated on the importance of diet on wound healing and instructed to increase protein and vitamin C intake. Patient verbalized understanding. Patient will follow up at wound healing center in one week or sooner if needed. Discussed red flag symptoms of systemic infection that require urgent medical attention. this note was generated with [employer] dictation software. It may contain incorrect words, spelling, and punctuation that were not noted in checking the note before signing. Code Visit 111xxx-113xx: 07606 Nneka subq tissue 20 sq cm/< Add On Codes: [id number] Nneka subq tissue add-on
[2017-12-17 17:47] VITALS: BP 140/78; PULSE 70; RESP 24; TEMP 36.2
--- NOTE | 2017-12-17 19:28 | PCM.WC.PN ---
(1) Nonhealing ulcer of right lower extremity with fat layer exposed Status: Acute Code(s): L97.912 - Non-pressure chronic ulcer of unspecified part of right lower leg with fat layer exposed (2) Nonhealing ulcer of left lower extremity with fat layer exposed Status: Acute Code(s): L97.922 - Non-pressure chronic ulcer of unspecified part of left lower leg with fat layer exposed (3) Decreased dorsalis pedis pulse Status: Acute Code(s): R09.89 - Other specified symptoms and signs involving the circulatory and respiratory systems (4) Lymphedema of both lower extremities Status: Acute Code(s): I89.0 - Lymphedema, not elsewhere classified (5) Morbid obesity with BMI of 60.0-69.9, adult Status: Acute Code(s): E66.01 - Morbid (severe) obesity due to excess calories; Z68.44 - Body mass index (BMI) 60.0-69.9, adult (6) Pain, lower extremity Status: Acute Code(s): M79.606 - Pain in leg, unspecified Type of Wound Date of Service: 12/17/17 Chief Complaint: nonhealing ulcers BLLE since July 2017 History of Wound: This is a 51-year-old morbidly obese white male who presents to the wound healing center with a chief complaint of nonhealing bilateral lower extremity ulcers since July 2017. He states that his wound treatment has consisted of covering with a dry dressing and gauze and that he wears compression stockings as well. He does state that he has a history of ulcers on the lower extremities as well and a history of venous insufficiency. No recent vascular studies. Patient denies any obvious trauma that preceded these ulcerations. He does state that the ulcerations are painful at times though denies any obvious exudate, warmth, or systemic signs of infection. He denies any other acute complaints at this time. The patient otherwise denies any fever, chills, nausea, vomiting, shortness of breath, chest pain or pressure, palpitations, orthopnea, lower extremity edema, syncope or presyncopal episodes. Progress of Wound: 11/26/2017 -stable, no marked improvement as patient missed 2 days of wound care due to lack of supplies, left lower extremity ulcer is worsened as patient states that he had a recent trauma to by bumping into a hard object. 12/10/2017-patient notes improvement in his wounds. He did miss his previous appointment however. His previous culture was reviewed with him and demonstrated MRSA and he started the Bactrim DS as ordered for him. He denies any signs of systemic infection at this time and denies any worsening pain or purulent drainage. 12/17/17-patient notes improvement in his wounds, left lower extremity ulcer healed. His previous culture was reviewed with him and demonstrated MRSA and has completed the Bactrim DS as ordered for him. He denies any signs of systemic infection at this time and denies any worsening pain or purulent drainage. - Physical Exam Vital Signs Temp Pulse Resp BP 97.1 F L 70 24 H 140/78 H 12/17/17 17:47 12/17/17 17:47 12/17/17 17:47 12/17/17 17:47 General: Alert, Oriented x3, Cooperative, No apparent distress HEENT: Atraumatic Cardiovascular: Regular rate Extremities: Diminished Peripheral Pulses, Edema - 2+ bilateral lower extremity edema Skin: Ulcer/ Wound - Lower extremity ulcer has healed, right anterior lower extremity with large amount of slough present. No purulent drainage, redness, warmth, or increase in pain noted Neurological: Neuro grossly intact Psych/Mental Status: Normal Affect, Alert and oriented to time, place, person, mood and affect Debridement Note Post-Debridement Measurements/Treatment WC - Nurse 2 - General Ulcer CM Notes Start: 11/26/17 15:18 Freq: Status: Active Protocol: Activity Type Activity Date Activity User E-Sign Co-Sign Detail Recorded Client Recorded Date Recorded By Document 11/26/17 16:09 DV [id number] 11/26/17 16:15 DV Document 12/10/17 15:14 DV [id number] 12/10/17 15:18 DV Document 12/17/17 18:12 JS [id number] 12/17/17 18:21 JS 11/26/17 12/10/17 12/17/17 16:09 15:14 18:12 Wound Center Nurse 2 #2 LEFT MARTINEZ -Time 16:10 15:14 18:12 -Correct Patient Yes Yes Yes -Correct Side, Site, Position Yes Yes Yes -Correct Procedure Yes Yes Yes -Procedure Performed Yes Yes No -Type of Procedure Debridement Debridement -Clinical Debridement Subcutaneous Subcutaneous -Post Debridement Size (cm) - Length 8.0 4.0 0 -Post Debridement Size (cm) - Width 2.3 1.0 0 -Post Debridement Size (cm) - Depth 0.5 0.1 0 -Total Square Cm 18.40 4.00 0 -Wound/Ulcer Outcome Not Healed Not Healed Healed- Epithelialized -Ulcer Cleansing Rinsed/ Rinsed/ Irrigated with Irrigated with Saline Saline -Foul Odor after Cleansing No No -Bioengineered Tissue No No -Bleeding Controlled with Pressure Pressure -Treatment Response Procedure Procedure Tolerated Well Tolerated Well #1 RIGHT MARTINEZ -Time 16:12 15:16 18:12 -Correct Patient Yes Yes Yes -Correct Side, Site, Position Yes Yes Yes -Correct Procedure Yes Yes Yes -Procedure Performed Yes Yes Yes -Type of Procedure Debridement Debridement Debridement -Clinical Debridement Subcutaneous Subcutaneous Subcutaneous -Post Debridement Size (cm) - Length 10.5 10.2 7.5 -Post Debridement Size (cm) - Width 8.5 7.1 6.7 -Post Debridement Size (cm) - Depth 0.3 0.2 0.2 -Total Square Cm 89.25 72.42 50.25 -Wound/Ulcer Outcome Not Healed Not Healed Not Healed -Ulcer Cleansing Rinsed/ Rinsed/ Rinsed/ Irrigated with Irrigated with Irrigated with Saline Saline Saline -Foul Odor after Cleansing No No No -Bioengineered Tissue No No No -Topical Lidocaine (%) 4 -Lidocaine (ml) 10 -Bleeding Controlled with Pressure NA NA -Treatment Response Procedure Procedure Procedure Tolerated Well Tolerated Well Tolerated Well Pain Scale: 0-10 Numeric Is Patient Pain Free? Yes Yes Yes Wound debrided: Right lower extremity ulcer Laterality: Right Type of Debridement: Excisional debridement Anesthesia Used: 5% Lidocaine Gel Depth: Down to and including healthy tissue, in the subcutaneous layer Percentage of wound debrided: 100 Instrument Used: 7mm curette Tissue Removed: Large amount of adherent slough and devitalized tissue Severity: Fat Layer Exposed Amount of bleeding with debridement: Mild Bleeding Controlled with: Pressure Patient tolerated procedure well Assessment/Plan Assessment: Assessment: Nonhealing ulcers bilateral lower extremities with fat layer exposed. Bilateral lower extremity edema. Decreased dorsal pedis pulses. Morbid obesity with BMI greater than 60. History of chronic venous insufficiency Plan: Plan: The patient was seen and examined at the wound center today and was updated on the plan of care. His left lower extremity ulcer has healed. A subcutaneous debridement was performed today as described above. The patient tolerated the procedure well. The patients wound care will consist of: Cleanse bilateral lower extremities with Jacinta hex then apply Aquacel silver dressing daily and continue with his home compression stockings that he is wearing for lymphedema management, though currently not compliant with. Wound cultures were reviewed and demonstrated MRSA and a facialis, patient was started on Bactrim DS twice daily ?10 days. Baseline bloodwork reviewed and demonstrated slightly low pre-albumin, encourage the use of [id number] diet. Vascular studies pending. Patient educated on the importance of diet on wound healing and instructed to increase protein and vitamin C intake. Patient verbalized understanding. Patient will follow up at wound healing center in one week or sooner if needed. Discussed red flag symptoms of systemic infection that require urgent medical attention. this note was generated with [employer] dictation software. It may contain incorrect words, spelling, and punctuation that were not noted in checking the note before signing. Code Visit 111xxx-113xx: [id number] Nneka subq tissue 20 sq cm/<
--- NOTE | 2017-12-23 11:36 | PN.PCM_ITS ---
(1) Nonhealing ulcer of right lower extremity with fat layer exposed Status: Acute Code(s): L97.912 - Non-pressure chronic ulcer of unspecified part of right lower leg with fat layer exposed (2) Nonhealing ulcer of left lower extremity with fat layer exposed Status: Acute Code(s): L97.922 - Non-pressure chronic ulcer of unspecified part of left lower leg with fat layer exposed (3) Decreased dorsalis pedis pulse Status: Acute Code(s): R09.89 - Other specified symptoms and signs involving the circulatory and respiratory systems (4) Lymphedema of both lower extremities Status: Acute Code(s): I89.0 - Lymphedema, not elsewhere classified (5) Morbid obesity with BMI of 60.0-69.9, adult Status: Acute Code(s): E66.01 - Morbid (severe) obesity due to excess calories ; Z68.44 - Body mass index (BMI) 60.0-69.9, adult (6) Pain, lower extremity Status: Acute Code(s): M79.606 - Pain in leg, unspecified Type of Wound Date of Service: 12/17/17 Chief Complaint: nonhealing ulcers BLLE since July 2017 History of Wound: This is a 51-year-old morbidly obese white male who presents to the wound healing center with a chief complaint of nonhealing bilateral lower extremity ulcers since July 2017. He states that his wound treatment has consisted of covering with a dry dressing and gauze and that he wears compression stockings as well. He does state that he has a history of ulcers on the lower extremities as well and a history of venous insufficiency. No recent vascular studies. Patient denies any obvious trauma that preceded these ulcerations. He does state that the ulcerations are painful at times though denies any obvious exudate, warmth, or systemic signs of infection. He denies any other acute complaints at this time. The patient otherwise denies any fever , chills, nausea, vomiting, shortness of breath, chest pain or pressure, palpitations, orthopnea, lower extremity edema, syncope or presyncopal episodes. Progress of Wound: 11/26/2017 -stable, no marked improvement as patient missed 2 days of wound care due to lack of supplies, left lower extremity ulcer is worsened as patient states that he had a recent trauma to by bumping into a hard object. 12/10/2017-patient notes improvement in his wounds. He did miss his previous appointment however. His previous culture was reviewed with him and demonstrated MRSA and he started the Bactrim DS as ordered for him. He denies any signs of systemic infection at this time and denies any worsening pain or purulent drainage. 12/17/17-patient notes improvement in his wounds, left lower extremity ulcer healed. His previous culture was reviewed with him and demonstrated MRSA and has completed the Bactrim DS as ordered for him. He denies any signs of systemic infection at this time and denies any worsening pain or purulent drainage. - Physical Exam Vital Signs Temp Pulse Resp BP 97.1 F L 70 24 H 140/78 H 12/17/17 17:47 12/17/17 17:47 12/17/17 17:47 12/17/17 17:47 General: Alert, Oriented x3, Cooperative, No apparent distress HEENT: Atraumatic Cardiovascular: Regular rate Extremities: Diminished Peripheral Pulses, Edema - 2+ bilateral lower extremity edema Skin: Ulcer/ Wound - Lower extremity ulcer has healed, right anterior lower extremity with large amount of slough present. No purulent drainage, redness, warmth, or increase in pain noted Neurological: Neuro grossly intact Psych/Mental Status: Normal Affect, Alert and oriented to time, place, person, mood and affect Debridement Note Post-Debridement Measurements/Treatment WC - Nurse 2 - General Ulcer CM Notes Start: 11/26/17 15:18 Freq: Status: Active Protocol: Activity Type Activity Date Activity User E-Sign Co-Sign Detail Recorded Client Recorded Date Recorded By Document 11/26/17 16:09 DV [id number] 11/26/17 16:15 DV Document 12/10/17 15:14 DV [id number] 12/10/17 15:18 DV Document 12/17/17 18:12 JS [id number] 12/17/17 18:21 JS 11/26/17 12/10/17 12/17/17 16:09 15:14 18:12 Wound Center Nurse 2 #2 LEFT MARTINEZ -Time 16:10 15:14 18:12 -Correct Patient Yes Yes Yes -Correct Side, Site, Position Yes Yes Yes -Correct Procedure Yes Yes Yes -Procedure Performed Yes Yes No -Type of Procedure Debridement Debridement -Clinical Debridement Subcutaneous Subcutaneous -Post Debridement Size (cm) - Length 8.0 4.0 0 -Post Debridement Size (cm) - Width 2.3 1.0 0 -Post Debridement Size (cm) - Depth 0.5 0.1 0 -Total Square Cm 18.40 4.00 0 -Wound/Ulcer Outcome Not Healed Not Healed Healed- Epithelialized -Ulcer Cleansing Rinsed/ Rinsed/ Irrigated with Irrigated with Saline Saline -Foul Odor after Cleansing No No -Bioengineered Tissue No No -Bleeding Controlled with Pressure Pressure -Treatment Response Procedure Procedure Tolerated Well Tolerated Well #1 RIGHT MARTINEZ -Time 16:12 15:16 18:12 -Correct Patient Yes Yes Yes -Correct Side, Site, Position Yes Yes Yes -Correct Procedure Yes Yes Yes -Procedure Performed Yes Yes Yes -Type of Procedure Debridement Debridement Debridement -Clinical Debridement Subcutaneous Subcutaneous Subcutaneous -Post Debridement Size (cm) - Length 10.5 10.2 7.5 -Post Debridement Size (cm) - Width 8.5 7.1 6.7 -Post Debridement Size (cm) - Depth 0.3 0.2 0.2 -Total Square Cm 89.25 72.42 50.25 -Wound/Ulcer Outcome Not Healed Not Healed Not Healed -Ulcer Cleansing Rinsed/ Rinsed/ Rinsed/ Irrigated with Irrigated with Irrigated with Saline Saline Saline -Foul Odor after Cleansing No No No -Bioengineered Tissue No No No -Topical Lidocaine (%) 4 -Lidocaine (ml) 10 -Bleeding Controlled with Pressure NA NA -Treatment Response Procedure Procedure Procedure Tolerated Well Tolerated Well Tolerated Well Pain Scale: 0-10 Numeric Is Patient Pain Free? Yes Yes Yes Wound debrided: Right lower extremity ulcer Laterality: Right Type of Debridement: Excisional debridement Anesthesia Used: 5% Lidocaine Gel Depth: Down to and including healthy tissue, in the subcutaneous layer Percentage of wound debrided: 100 Instrument Used: 7mm curette Tissue Removed: Large amount of adherent slough and devitalized tissue Severity: Fat Layer Exposed Amount of bleeding with debridement: Mild Bleeding Controlled with: Pressure Patient tolerated procedure well Assessment/Plan Assessment: Assessment: Nonhealing ulcers bilateral lower extremities with fat layer exposed. Bilateral lower extremity edema. Decreased dorsal pedis pulses. Morbid obesity with BMI greater than 60. History of chronic venous insufficiency Plan: Plan: The patient was seen and examined at the wound center today and was updated on the plan of care. His left lower extremity ulcer has healed. A subcutaneous debridement was performed today as described above. The patient tolerated the procedure well. The patients wound care will consist of: Cleanse bilateral lower extremities with Jacinta hex then apply Aquacel silver dressing daily and continue with his home compression stockings that he is wearing for lymphedema management, though currently not compliant with. Wound cultures were reviewed and demonstrated MRSA and a facialis, patient was started on Bactrim DS twice daily ?10 days. Baseline bloodwork reviewed and demonstrated slightly low pre-albumin, encourage the use of [id number] diet. Vascular studies pending. Patient educated on the importance of diet on wound healing and instructed to increase protein and vitamin C intake. Patient verbalized understanding. Patient will follow up at wound healing center in one week or sooner if needed. Discussed red flag symptoms of systemic infection that require urgent medical attention. this note was generated with [employer] dictation software. It may contain incorrect words, spelling, and punctuation that were not noted in checking the note before signing. Code Visit 111xxx-113xx: [id number] Nneka subq tissue 20 sq cm/<
--- NOTE | 2017-12-24 08:58 | VDLE_ITS ---
Reason For Study: Non-healing wound RIGHT LEFT CFV is compressible, spontaneous, phasic, CFV is compressible, spontaneous, phasic, competent and demonstrates normal competent, and demonstrates normal augmentation. augmentation. FV is compressible, spontaneous, phasic, FV is compressible, spontaneous, phasic, competent and demonstrates normal competent and demonstrates normal augmentation. augmentation. POP V is compressible, spontaneous, phasic, POP V is compressible, spontaneous, phasic, competent and demonstrates normal competent and demonstrates normal augmentation. augmentation. T/P Trunk is compressible. T/P Trunk is compressible. PTV is compressible. PTV is compressible. GSV competent GSV INCOMPETENT reflux greater than .5 sec SSV competent. and diameter of.75 x .79 cm Procedure SSV is competent. Exam performed in department. Technically limited due to body habitus. SFJ not assessed. PER V not visualized. A preliminary report was called and/or faxed to [facility]. Interpretation Summary Deep veins of the lower extremities are bilaterally patent and compressible segmentally. There is no evidence of deep vein thrombosis on either side. Valvular competence appears intact within the proximal deep venous systems bilaterally. The greater saphenous veins appear bilaterally patent and compressible segmentally. The right greater saphenous vein appears segmentally competent. The left greater saphenous vein appears segmentally incompetent. Small saphenous veins are patent and competent bilaterally. Ordering Physician: Geoffrey Kiser Referring Physician: Geoffrey Kiser Performed By: Daxa Lucero RVT
[2017-12-24 16:53] VITALS: BP 129/72; PULSE 83; RESP 20; TEMP 36.3
--- NOTE | 2017-12-24 19:06 | PCM.WC.PN ---
(1) Nonhealing ulcer of right lower extremity with fat layer exposed Status: Acute Code(s): L97.912 - Non-pressure chronic ulcer of unspecified part of right lower leg with fat layer exposed (2) Nonhealing ulcer of left lower extremity with fat layer exposed Status: Acute Code(s): L97.922 - Non-pressure chronic ulcer of unspecified part of left lower leg with fat layer exposed (3) Decreased dorsalis pedis pulse Status: Acute Code(s): R09.89 - Other specified symptoms and signs involving the circulatory and respiratory systems (4) Lymphedema of both lower extremities Status: Acute Code(s): I89.0 - Lymphedema, not elsewhere classified (5) Morbid obesity with BMI of 60.0-69.9, adult Status: Acute Code(s): E66.01 - Morbid (severe) obesity due to excess calories; Z68.44 - Body mass index (BMI) 60.0-69.9, adult (6) Pain, lower extremity Status: Acute Code(s): M79.606 - Pain in leg, unspecified Type of Wound Date of Service: 12/24/17 Chief Complaint: nonhealing ulcers BLLE since July 2017 History of Wound: This is a 51-year-old morbidly obese white male who presents to the wound healing center with a chief complaint of nonhealing bilateral lower extremity ulcers since July 2017. He states that his wound treatment has consisted of covering with a dry dressing and gauze and that he wears compression stockings as well. He does state that he has a history of ulcers on the lower extremities as well and a history of venous insufficiency. No recent vascular studies. Patient denies any obvious trauma that preceded these ulcerations. He does state that the ulcerations are painful at times though denies any obvious exudate, warmth, or systemic signs of infection. He denies any other acute complaints at this time. The patient otherwise denies any fever, chills, nausea, vomiting, shortness of breath, chest pain or pressure, palpitations, orthopnea, lower extremity edema, syncope or presyncopal episodes. Progress of Wound: 11/26/2017 -stable, no marked improvement as patient missed 2 days of wound care due to lack of supplies, left lower extremity ulcer is worsened as patient states that he had a recent trauma to by bumping into a hard object. 12/10/2017-patient notes improvement in his wounds. He did miss his previous appointment however. His previous culture was reviewed with him and demonstrated MRSA and he started the Bactrim DS as ordered for him. He denies any signs of systemic infection at this time and denies any worsening pain or purulent drainage. 12/17/17-patient notes improvement in his wounds, left lower extremity ulcer healed. His previous culture was reviewed with him and demonstrated MRSA and has completed the Bactrim DS as ordered for him. He denies any signs of systemic infection at this time and denies any worsening pain or purulent drainage. 12/24/2017, patient notes subjective improvement in his wounds, however he notes that the swelling has increased due to him having increased fluid intake in his diet. He previously completed his antibiotic and denies any systemic infection at this time. Vascular studies were done which demonstrated right PATRICK 1.3 and left PATRICK 1.28. - Physical Exam Vital Signs Temp Pulse Resp BP 97.3 F L 83 20 H 129/72 H 12/24/17 16:53 12/24/17 16:53 12/24/17 16:53 12/24/17 16:53 General: Alert, Oriented x3, Cooperative, No apparent distress HEENT: Atraumatic Extremities: Diminished Peripheral Pulses, Edema - 2-3+ pitting edema bilateral lower extremities with hemosiderin staining Skin: Ulcer/ Wound - Ulcer present right lower anterior extremity with large amount of adherent slough present, no purulent drainage or signs of infection at this time. Wound Measurements and Assessment WC - Nurse 1 - General Ulcer Measurement Start: 11/26/17 15:18 Freq: Status: Active Protocol: Activity Type Activity Date Activity User E-Sign Co-Sign Detail Recorded Client Recorded Date Recorded By Document 12/24/17 16:53 DL [id number] 12/24/17 17:08 DL 12/24/17 16:53 Wound Center Nurse 1 [Ulcer Assessment] #1 RIGHT MARTINEZ -Combined with other wound No -Current Size (cm) - Length 7.0 -Current Size (cm) - Width 6.7 -Current Size (cm) - Depth 0.3 -Total Square Cm 46.90 -Date of Last Picture (Recall this 12/17/17 field) -Photo Taken No -Epithelialization Small 1-33% -Tunneling No -Undermining/Tunneling No -Circular Undermining No -Classification - Thickness Full Thickness without Exposed Support Structure -Exudate Amt Medium (34-66%) -Exudate Type Serosanguineous -Wound Margin Distinct, Outline Attached -Granulation Amt Small (1-33%) -Granulation Quality Red -Slough/Fibrin Yes -Necrosis Amt None Present (0 %) -Necrotic Tissue Type Adherent Slough -Structure Exposed None/Limited to Skin Breakdown -Texture (Meri-wound Skin Appearance) Localized Edema -Moisture (Meri-wound Skin Appearance Maceration ) -Color (Meri-wound Skin Appearance) No Abnormality -Temperature (Meri-wound Skin No Abnormality Appearance) (Pt Warm) -Tenderness on Palpation (Meri-wound No Skin Appearance) -Ulcer Cleansing Rinsed/ Irrigated with Saline -Foul Odor after Cleansing No -Anesthetic Used 4% Lidocaine Solution [Edema Assessment] -Lower Limb Edema Present Yes -Right Calf (cm) 54 -Right Ankle (cm) 33 -Left Calf (cm) 54 -Left Ankle (cm) 33.5 WC - Nurse 2 - General Ulcer CM Notes Start: 11/26/17 15:18 Freq: Status: Active Protocol: Activity Type Activity Date Activity User E-Sign Co-Sign Detail Recorded Client Recorded Date Recorded By Document 12/24/17 16:53 DL [id number] 12/24/17 17:08 DL 12/24/17 16:53 Wound Center Nurse 2 [Procedure/Treatment] #1 RIGHT MARTINEZ -Time 17:02 -Correct Patient Yes -Correct Side, Site, Position Yes -Correct Procedure Yes -Procedure Performed Yes -Type of Procedure Debridement -Clinical Debridement Subcutaneous -Post Debridement Size (cm) - Length 7.1 -Post Debridement Size (cm) - Width 7.0 -Post Debridement Size (cm) - Depth 0.2 -Total Square Cm 49.70 -Wound/Ulcer Outcome Not Healed -Ulcer Cleansing Rinsed/ Irrigated with Saline -Foul Odor after Cleansing No -Bioengineered Tissue No -Topical Lidocaine (%) 4 -Lidocaine (ml) 20 -Bleeding Controlled with NA -Treatment Response Procedure Tolerated Well Neurological: Neuro grossly intact Psych/Mental Status: Normal Affect, Alert and oriented to time, place, person, mood and affect Debridement Note Post-Debridement Measurements/Treatment WC - Nurse 2 - General Ulcer CM Notes Start: 11/26/17 15:18 Freq: Status: Active Protocol: Activity Type Activity Date Activity User E-Sign Co-Sign Detail Recorded Client Recorded Date Recorded By Document 11/26/17 16:09 DV [id number] 11/26/17 16:15 DV Document 12/10/17 15:14 DV [id number] 12/10/17 15:18 DV Document 12/17/17 18:12 JS [id number] 12/17/17 18:21 JS Document 12/24/17 16:53 DL [id number] 12/24/17 17:08 DL 11/26/17 12/10/17 12/17/17 16:09 15:14 18:12 Wound Center Nurse 2 #2 LEFT MARTINEZ -Time 16:10 15:14 18:12 -Correct Patient Yes Yes Yes -Correct Side, Site, Position Yes Yes Yes -Correct Procedure Yes Yes Yes -Procedure Performed Yes Yes No -Type of Procedure Debridement Debridement -Clinical Debridement Subcutaneous Subcutaneous -Post Debridement Size (cm) - Length 8.0 4.0 0 -Post Debridement Size (cm) - Width 2.3 1.0 0 -Post Debridement Size (cm) - Depth 0.5 0.1 0 -Total Square Cm 18.40 4.00 0 -Wound/Ulcer Outcome Not Healed Not Healed Healed- Epithelialized -Ulcer Cleansing Rinsed/ Rinsed/ Irrigated with Irrigated with Saline Saline -Foul Odor after Cleansing No No -Bioengineered Tissue No No -Bleeding Controlled with Pressure Pressure -Treatment Response Procedure Procedure Tolerated Well Tolerated Well #1 RIGHT MARTINEZ -Time 16:12 15:16 18:12 -Correct Patient Yes Yes Yes -Correct Side, Site, Position Yes Yes Yes -Correct Procedure Yes Yes Yes -Procedure Performed Yes Yes Yes -Type of Procedure Debridement Debridement Debridement -Clinical Debridement Subcutaneous Subcutaneous Subcutaneous -Post Debridement Size (cm) - Length 10.5 10.2 7.5 -Post Debridement Size (cm) - Width 8.5 7.1 6.7 -Post Debridement Size (cm) - Depth 0.3 0.2 0.2 -Total Square Cm 89.25 72.42 50.25 -Wound/Ulcer Outcome Not Healed Not Healed Not Healed -Ulcer Cleansing Rinsed/ Rinsed/ Rinsed/ Irrigated with Irrigated with Irrigated with Saline Saline Saline -Foul Odor after Cleansing No No No -Bioengineered Tissue No No No -Topical Lidocaine (%) 4 -Lidocaine (ml) 10 -Bleeding Controlled with Pressure NA NA -Treatment Response Procedure Procedure Procedure Tolerated Well Tolerated Well Tolerated Well Pain Scale: 0-10 Numeric Is Patient Pain Free? Yes Yes Yes 12/24/17 16:53 Wound Center Nurse 2 #2 LEFT MARTINEZ -Time -Correct Patient -Correct Side, Site, Position -Correct Procedure -Procedure Performed -Type of Procedure -Clinical Debridement -Post Debridement Size (cm) - Length -Post Debridement Size (cm) - Width -Post Debridement Size (cm) - Depth -Total Square Cm -Wound/Ulcer Outcome -Ulcer Cleansing -Foul Odor after Cleansing -Bioengineered Tissue -Bleeding Controlled with -Treatment Response #1 RIGHT MARTINEZ -Time 17:02 -Correct Patient Yes -Correct Side, Site, Position Yes -Correct Procedure Yes -Procedure Performed Yes -Type of Procedure Debridement -Clinical Debridement Subcutaneous -Post Debridement Size (cm) - Length 7.1 -Post Debridement Size (cm) - Width 7.0 -Post Debridement Size (cm) - Depth 0.2 -Total Square Cm 49.70 -Wound/Ulcer Outcome Not Healed -Ulcer Cleansing Rinsed/ Irrigated with Saline -Foul Odor after Cleansing No -Bioengineered Tissue No -Topical Lidocaine (%) 4 -Lidocaine (ml) 20 -Bleeding Controlled with NA -Treatment Response Procedure Tolerated Well Pain Scale: 0-10 Numeric Is Patient Pain Free? Wound debrided: Right anterior lower extremity ulcer Laterality: Right Type of Debridement: Excisional debridement Anesthesia Used: 5% Lidocaine Gel Depth: in the subcutaneous layer Percentage of wound debrided: 100 Instrument Used: 7mm curette Tissue Removed: Large amount of slough removed Severity: Fat Layer Exposed Amount of bleeding with debridement: Mild Bleeding Controlled with: Pressure Patient tolerated procedure well Assessment/Plan Assessment: Assessment: Nonhealing ulcers bilateral lower extremities with fat layer exposed. Bilateral lower extremity edema. Decreased dorsal pedis pulses. Morbid obesity with BMI greater than 60. History of chronic venous insufficiency Plan: Plan: The patient was seen and examined at the wound center today and was updated on the plan of care. His left lower extremity ulcer has healed. A subcutaneous debridement was performed today as described above. The patient tolerated the procedure well. The patients wound care will consist of: Aquasol silver and 3M wraps bilaterally for edema. Wound cultures were reviewed and demonstrated MRSA and a facialis, patient was started on Bactrim DS twice daily ?10 days which she completed. Baseline bloodwork reviewed and demonstrated slightly low pre-albumin, encourage the use of [id number] diet. Vascular studies demonstrated minimal venous insufficiency and a right PATRICK of 1.3 and a left PATRICK of 1.28. Patient educated on the importance of diet on wound healing and instructed to increase protein and vitamin C intake. Patient verbalized understanding. Patient will follow up at wound healing center in one week or sooner if needed. Discussed red flag symptoms of systemic infection that require urgent medical attention. this note was generated with [employer] dictation software. It may contain incorrect words, spelling, and punctuation that were not noted in checking the note before signing. Code Visit 111xxx-113xx: 68803 Nneka subq tissue 20 sq cm/<
--- NOTE | 2017-12-26 11:09 | PN.PCM_ITS ---
(1) Nonhealing ulcer of right lower extremity with fat layer exposed Status: Acute Code(s): L97.912 - Non-pressure chronic ulcer of unspecified part of right lower leg with fat layer exposed (2) Nonhealing ulcer of left lower extremity with fat layer exposed Status: Acute Code(s): L97.922 - Non-pressure chronic ulcer of unspecified part of left lower leg with fat layer exposed (3) Decreased dorsalis pedis pulse Status: Acute Code(s): R09.89 - Other specified symptoms and signs involving the circulatory and respiratory systems (4) Lymphedema of both lower extremities Status: Acute Code(s): I89.0 - Lymphedema, not elsewhere classified (5) Morbid obesity with BMI of 60.0-69.9, adult Status: Acute Code(s): E66.01 - Morbid (severe) obesity due to excess calories ; Z68.44 - Body mass index (BMI) 60.0-69.9, adult (6) Pain, lower extremity Status: Acute Code(s): M79.606 - Pain in leg, unspecified Type of Wound Date of Service: 12/24/17 Chief Complaint: nonhealing ulcers BLLE since July 2017 History of Wound: This is a 51-year-old morbidly obese white male who presents to the wound healing center with a chief complaint of nonhealing bilateral lower extremity ulcers since July 2017. He states that his wound treatment has consisted of covering with a dry dressing and gauze and that he wears compression stockings as well. He does state that he has a history of ulcers on the lower extremities as well and a history of venous insufficiency. No recent vascular studies. Patient denies any obvious trauma that preceded these ulcerations. He does state that the ulcerations are painful at times though denies any obvious exudate, warmth, or systemic signs of infection. He denies any other acute complaints at this time. The patient otherwise denies any fever , chills, nausea, vomiting, shortness of breath, chest pain or pressure, palpitations, orthopnea, lower extremity edema, syncope or presyncopal episodes. Progress of Wound: 11/26/2017 -stable, no marked improvement as patient missed 2 days of wound care due to lack of supplies, left lower extremity ulcer is worsened as patient states that he had a recent trauma to by bumping into a hard object. 12/10/2017-patient notes improvement in his wounds. He did miss his previous appointment however. His previous culture was reviewed with him and demonstrated MRSA and he started the Bactrim DS as ordered for him. He denies any signs of systemic infection at this time and denies any worsening pain or purulent drainage. 12/17/17-patient notes improvement in his wounds, left lower extremity ulcer healed. His previous culture was reviewed with him and demonstrated MRSA and has completed the Bactrim DS as ordered for him. He denies any signs of systemic infection at this time and denies any worsening pain or purulent drainage. 12/24/2017, patient notes subjective improvement in his wounds, however he notes that the swelling has increased due to him having increased fluid intake in his diet. He previously completed his antibiotic and denies any systemic infection at this time. Vascular studies were done which demonstrated right PATRICK 1.3 and left PATRICK 1.28. - Physical Exam Vital Signs Temp Pulse Resp BP 97.3 F L 83 20 H 129/72 H 12/24/17 16:53 12/24/17 16:53 12/24/17 16:53 12/24/17 16:53 General: Alert, Oriented x3, Cooperative, No apparent distress HEENT: Atraumatic Extremities: Diminished Peripheral Pulses, Edema - 2-3+ pitting edema bilateral lower extremities with hemosiderin staining Skin: Ulcer/ Wound - Ulcer present right lower anterior extremity with large amount of adherent slough present, no purulent drainage or signs of infection at this time. Wound Measurements and Assessment WC - Nurse 1 - General Ulcer Measurement Start: 11/26/17 15:18 Freq: Status: Active Protocol: Activity Type Activity Date Activity User E-Sign Co-Sign Detail Recorded Client Recorded Date Recorded By Document 12/24/17 16:53 DL [id number] 12/24/17 17:08 DL 12/24/17 16:53 Wound Center Nurse 1 [Ulcer Assessment] #1 RIGHT MARTINEZ -Combined with other wound No -Current Size (cm) - Length 7.0 -Current Size (cm) - Width 6.7 -Current Size (cm) - Depth 0.3 -Total Square Cm 46.90 -Date of Last Picture (Recall this 12/17/17 field) -Photo Taken No -Epithelialization Small 1-33% -Tunneling No -Undermining/Tunneling No -Circular Undermining No -Classification - Thickness Full Thickness without Exposed Support Structure -Exudate Amt Medium (34-66%) -Exudate Type Serosanguineous -Wound Margin Distinct, Outline Attached -Granulation Amt Small (1-33%) -Granulation Quality Red -Slough/Fibrin Yes -Necrosis Amt None Present (0 %) -Necrotic Tissue Type Adherent Slough -Structure Exposed None/Limited to Skin Breakdown -Texture (Meri-wound Skin Appearance) Localized Edema -Moisture (Meri-wound Skin Appearance Maceration ) -Color (Meri-wound Skin Appearance) No Abnormality -Temperature (Meri-wound Skin No Abnormality Appearance) (Pt Warm) -Tenderness on Palpation (Meri-wound No Skin Appearance) -Ulcer Cleansing Rinsed/ Irrigated with Saline -Foul Odor after Cleansing No -Anesthetic Used 4% Lidocaine Solution [Edema Assessment] -Lower Limb Edema Present Yes -Right Calf (cm) 54 -Right Ankle (cm) 33 -Left Calf (cm) 54 -Left Ankle (cm) 33.5 WC - Nurse 2 - General Ulcer CM Notes Start: 11/26/17 15:18 Freq: Status: Active Protocol: Activity Type Activity Date Activity User E-Sign Co-Sign Detail Recorded Client Recorded Date Recorded By Document 12/24/17 16:53 DL [id number] 12/24/17 17:08 DL 12/24/17 16:53 Wound Center Nurse 2 [Procedure/Treatment] #1 RIGHT MARTINEZ -Time 17:02 -Correct Patient Yes -Correct Side, Site, Position Yes -Correct Procedure Yes -Procedure Performed Yes -Type of Procedure Debridement -Clinical Debridement Subcutaneous -Post Debridement Size (cm) - Length 7.1 -Post Debridement Size (cm) - Width 7.0 -Post Debridement Size (cm) - Depth 0.2 -Total Square Cm 49.70 -Wound/Ulcer Outcome Not Healed -Ulcer Cleansing Rinsed/ Irrigated with Saline -Foul Odor after Cleansing No -Bioengineered Tissue No -Topical Lidocaine (%) 4 -Lidocaine (ml) 20 -Bleeding Controlled with NA -Treatment Response Procedure Tolerated Well Neurological: Neuro grossly intact Psych/Mental Status: Normal Affect, Alert and oriented to time, place, person, mood and affect Debridement Note Post-Debridement Measurements/Treatment WC - Nurse 2 - General Ulcer CM Notes Start: 11/26/17 15:18 Freq: Status: Active Protocol: Activity Type Activity Date Activity User E-Sign Co-Sign Detail Recorded Client Recorded Date Recorded By Document 11/26/17 16:09 DV [id number] 11/26/17 16:15 DV Document 12/10/17 15:14 DV [id number] 12/10/17 15:18 DV Document 12/17/17 18:12 JS [id number] 12/17/17 18:21 JS Document 12/24/17 16:53 DL [id number] 12/24/17 17:08 DL 11/26/17 12/10/17 12/17/17 16:09 15:14 18:12 Wound Center Nurse 2 #2 LEFT MARTINEZ -Time 16:10 15:14 18:12 -Correct Patient Yes Yes Yes -Correct Side, Site, Position Yes Yes Yes -Correct Procedure Yes Yes Yes -Procedure Performed Yes Yes No -Type of Procedure Debridement Debridement -Clinical Debridement Subcutaneous Subcutaneous -Post Debridement Size (cm) - Length 8.0 4.0 0 -Post Debridement Size (cm) - Width 2.3 1.0 0 -Post Debridement Size (cm) - Depth 0.5 0.1 0 -Total Square Cm 18.40 4.00 0 -Wound/Ulcer Outcome Not Healed Not Healed Healed- Epithelialized -Ulcer Cleansing Rinsed/ Rinsed/ Irrigated with Irrigated with Saline Saline -Foul Odor after Cleansing No No -Bioengineered Tissue No No -Bleeding Controlled with Pressure Pressure -Treatment Response Procedure Procedure Tolerated Well Tolerated Well #1 RIGHT MARTINEZ -Time 16:12 15:16 18:12 -Correct Patient Yes Yes Yes -Correct Side, Site, Position Yes Yes Yes -Correct Procedure Yes Yes Yes -Procedure Performed Yes Yes Yes -Type of Procedure Debridement Debridement Debridement -Clinical Debridement Subcutaneous Subcutaneous Subcutaneous -Post Debridement Size (cm) - Length 10.5 10.2 7.5 -Post Debridement Size (cm) - Width 8.5 7.1 6.7 -Post Debridement Size (cm) - Depth 0.3 0.2 0.2 -Total Square Cm 89.25 72.42 50.25 -Wound/Ulcer Outcome Not Healed Not Healed Not Healed -Ulcer Cleansing Rinsed/ Rinsed/ Rinsed/ Irrigated with Irrigated with Irrigated with Saline Saline Saline -Foul Odor after Cleansing No No No -Bioengineered Tissue No No No -Topical Lidocaine (%) 4 -Lidocaine (ml) 10 -Bleeding Controlled with Pressure NA NA -Treatment Response Procedure Procedure Procedure Tolerated Well Tolerated Well Tolerated Well Pain Scale: 0-10 Numeric Is Patient Pain Free? Yes Yes Yes 12/24/17 16:53 Wound Center Nurse 2 #2 LEFT MARTINEZ -Time -Correct Patient -Correct Side, Site, Position -Correct Procedure -Procedure Performed -Type of Procedure -Clinical Debridement -Post Debridement Size (cm) - Length -Post Debridement Size (cm) - Width -Post Debridement Size (cm) - Depth -Total Square Cm -Wound/Ulcer Outcome -Ulcer Cleansing -Foul Odor after Cleansing -Bioengineered Tissue -Bleeding Controlled with -Treatment Response #1 RIGHT MARTINEZ -Time 17:02 -Correct Patient Yes -Correct Side, Site, Position Yes -Correct Procedure Yes -Procedure Performed Yes -Type of Procedure Debridement -Clinical Debridement Subcutaneous -Post Debridement Size (cm) - Length 7.1 -Post Debridement Size (cm) - Width 7.0 -Post Debridement Size (cm) - Depth 0.2 -Total Square Cm 49.70 -Wound/Ulcer Outcome Not Healed -Ulcer Cleansing Rinsed/ Irrigated with Saline -Foul Odor after Cleansing No -Bioengineered Tissue No -Topical Lidocaine (%) 4 -Lidocaine (ml) 20 -Bleeding Controlled with NA -Treatment Response Procedure Tolerated Well Pain Scale: 0-10 Numeric Is Patient Pain Free? Wound debrided: Right anterior lower extremity ulcer Laterality: Right Type of Debridement: Excisional debridement Anesthesia Used: 5% Lidocaine Gel Depth: in the subcutaneous layer Percentage of wound debrided: 100 Instrument Used: 7mm curette Tissue Removed: Large amount of slough removed Severity: Fat Layer Exposed Amount of bleeding with debridement: Mild Bleeding Controlled with: Pressure Patient tolerated procedure well Assessment/Plan Assessment: Assessment: Nonhealing ulcers bilateral lower extremities with fat layer exposed. Bilateral lower extremity edema. Decreased dorsal pedis pulses. Morbid obesity with BMI greater than 60. History of chronic venous insufficiency Plan: Plan: The patient was seen and examined at the wound center today and was updated on the plan of care. His left lower extremity ulcer has healed. A subcutaneous debridement was performed today as described above. The patient tolerated the procedure well. The patients wound care will consist of: Aquasol silver and 3M wraps bilaterally for edema. Wound cultures were reviewed and demonstrated MRSA and a facialis, patient was started on Bactrim DS twice daily ?10 days which she completed. Baseline bloodwork reviewed and demonstrated slightly low pre-albumin, encourage the use of [id number] diet. Vascular studies demonstrated minimal venous insufficiency and a right PATRICK of 1.3 and a left PATRICK of 1.28. Patient educated on the importance of diet on wound healing and instructed to increase protein and vitamin C intake. Patient verbalized understanding. Patient will follow up at wound healing center in one week or sooner if needed. Discussed red flag symptoms of systemic infection that require urgent medical attention. this note was generated with [employer] dictation software. It may contain incorrect words, spelling, and punctuation that were not noted in checking the note before signing. Code Visit 111xxx-113xx: [id number] Nneka subq tissue 20 sq cm/<
--- NOTE | 2018-01-08 17:41 | LEAS ---
Arterial Study - Arterial Study Arterial Study: This is a 52-year-old male with a history of smoking. The patient presents with a chronic, nonhealing wound to the right lower extremity. Suspecting the presence of atherosclerotic peripheral arterial occlusive disease, the patient was brought to the noninvasive vascular laboratory at this time for the purpose of bilateral noninvasive lower extremity arterial assessment. Doppler signal assessment was used to evaluate the pulses at ankle level bilaterally. The posterior tibial and dorsalis pedis pulses were triphasic bilaterally. Segmental limb pressures were obtained bilaterally. The right ankle pressure, as determined by posterior tibial pulse, was measured at 168 mmHg. The right ankle pressure, as determined by dorsalis pedis pulse, was measured at 179 mmHg. The right digital pressure was measured at 171 mmHg. The left ankle pressure, as determined by posterior tibial pulse, was measured at 177 mmHg. The left ankle pressure, as determined by dorsalis pedis pulse, was measured at 162 mmHg. The left digital pressure was measured at 170 mmHg. Pulse-volume recordings were obtained bilaterally and segmentally. Waveform amplitudes appeared to be satisfactory at all levels bilaterally, including calf, ankle, and digital levels. Resting ankle-brachial indices were calculated bilaterally. The resting right ankle-brachial index was calculated to be 1.30. The resting left ankle-brachial index was calculated to be 1.28. Digital-brachial indices were calculated bilaterally. The right digital-brachial index was calculated to be 1.24. The left digital-brachial index was calculated to be 1.23. Impression: Based upon the findings of this resting noninvasive lower extremity arterial study, there is no evidence of significant atherosclerotic peripheral arterial occlusive disease in the lower extremities bilaterally. Triphasic waveforms were noted at ankle level bilaterally. Resting ankle-brachial indices were bilaterally normal. Digital-brachial indices were also normal bilaterally. In summary, this represents a normal resting noninvasive lower extremity arterial study bilaterally.
--- NOTE | 2018-01-08 17:48 | LEAS_ITS ---
Arterial Study - Arterial Study Arterial Study: This is a 52-year-old male with a history of smoking. The patient presents with a chronic, nonhealing wound to the right lower extremity. Suspecting the presence of atherosclerotic peripheral arterial occlusive disease, the patient was brought to the noninvasive vascular laboratory at this time for the purpose of bilateral noninvasive lower extremity arterial assessment. Doppler signal assessment was used to evaluate the pulses at ankle level bilaterally. The posterior tibial and dorsalis pedis pulses were triphasic bilaterally. Segmental limb pressures were obtained bilaterally. The right ankle pressure, as determined by posterior tibial pulse, was measured at 168 mmHg. The right ankle pressure, as determined by dorsalis pedis pulse, was measured at 179 mmHg. The right digital pressure was measured at 171 mmHg. The left ankle pressure, as determined by posterior tibial pulse, was measured at 177 mmHg. The left ankle pressure, as determined by dorsalis pedis pulse, was measured at 162 mmHg. The left digital pressure was measured at 170 mmHg. Pulse-volume recordings were obtained bilaterally and segmentally. Waveform amplitudes appeared to be satisfactory at all levels bilaterally, including calf , ankle, and digital levels. Resting ankle-brachial indices were calculated bilaterally. The resting right ankle-brachial index was calculated to be 1.30. The resting left ankle- brachial index was calculated to be 1.28. Digital-brachial indices were calculated bilaterally. The right digital- brachial index was calculated to be 1.24. The left digital-brachial index was calculated to be 1.23. Impression: Based upon the findings of this resting noninvasive lower extremity arterial study, there is no evidence of significant atherosclerotic peripheral arterial occlusive disease in the lower extremities bilaterally. Triphasic waveforms were noted at ankle level bilaterally. Resting ankle-brachial indices were bilaterally normal. Digital-brachial indices were also normal bilaterally. In summary, this represents a normal resting noninvasive lower extremity arterial study bilaterally.
== END 2017-12-24 23:59 ==
LOC: WC 17:00
PROVIDERS: Family Provider Internal Medicine; PCP Internal Medicine; Visit Provider Nurse Practitioner Family
DX: L97.912 Non-pressure chronic ulcer of unspecified part of right lower leg with fat layer exposed (principal); L97.922 Non-pressure chronic ulcer of unspecified part of left lower leg with fat layer exposed; R09.89 Other specified symptoms and signs involving the circulatory and respiratory systems; I89.0 Lymphedema, not elsewhere classified; E66.01 Morbid (severe) obesity due to excess calories; M79.606 Pain in leg, unspecified; Z68.44 Body mass index [BMI] 60.0-69.9, adult
CPT/HCPCS: 11042; 11045; 29581; 93923; 93970

== ENCOUNTER 2018-01-21 16:00 | Outpatient (RCR) | payer MEDICAID, SELFPAY ==
[2017-12-25 01:04] VITALS: BP 129/72; PULSE 83; RESP 20; TEMP 36.3
--- NOTE | 2017-12-31 11:11 | PCM.WC.PN ---
(1) Lymphedema of both lower extremities Status: Acute Code(s): I89.0 - Lymphedema, not elsewhere classified (2) Morbid obesity with BMI of 60.0-69.9, adult Status: Acute Code(s): E66.01 - Morbid (severe) obesity due to excess calories; Z68.44 - Body mass index (BMI) 60.0-69.9, adult (3) Nonhealing ulcer of right lower extremity with fat layer exposed Status: Acute Code(s): L97.912 - Non-pressure chronic ulcer of unspecified part of right lower leg with fat layer exposed (4) Pain, lower extremity Status: Acute Code(s): M79.606 - Pain in leg, unspecified Type of Wound Date of Service: 12/31/17 Chief Complaint: nonhealing ulcers BLLE since July 2017 History of Wound: This is a 51-year-old morbidly obese white male who presents to the wound healing center with a chief complaint of nonhealing bilateral lower extremity ulcers since July 2017. He states that his wound treatment has consisted of covering with a dry dressing and gauze and that he wears compression stockings as well. He does state that he has a history of ulcers on the lower extremities as well and a history of venous insufficiency. No recent vascular studies. Patient denies any obvious trauma that preceded these ulcerations. He does state that the ulcerations are painful at times though denies any obvious exudate, warmth, or systemic signs of infection. He denies any other acute complaints at this time. The patient otherwise denies any fever, chills, nausea, vomiting, shortness of breath, chest pain or pressure, palpitations, orthopnea, lower extremity edema, syncope or presyncopal episodes. Progress of Wound: 11/26/2017 -stable, no marked improvement as patient missed 2 days of wound care due to lack of supplies, left lower extremity ulcer is worsened as patient states that he had a recent trauma to by bumping into a hard object. 12/10/2017-patient notes improvement in his wounds. He did miss his previous appointment however. His previous culture was reviewed with him and demonstrated MRSA and he started the Bactrim DS as ordered for him. He denies any signs of systemic infection at this time and denies any worsening pain or purulent drainage. 12/17/17-patient notes improvement in his wounds, left lower extremity ulcer healed. His previous culture was reviewed with him and demonstrated MRSA and has completed the Bactrim DS as ordered for him. He denies any signs of systemic infection at this time and denies any worsening pain or purulent drainage. 12/31/17- Patient completed abx and states pain and size of wound RLE improving, denies systemic signs of infection - Physical Exam Vital Signs Temp Pulse Resp BP 97.3 F L 83 20 H 129/72 H 12/25/17 01:04 12/25/17 01:04 12/25/17 01:04 12/25/17 01:04 General: Alert, Oriented x3, Cooperative, No apparent distress HEENT: Atraumatic Cardiovascular: Regular rate Extremities: Edema - =1 BLLE pitting edema Skin: Ulcer/ Wound - right lower extremity with slough present Neurological: Neuro grossly intact Psych/Mental Status: Normal Affect, Alert and oriented to time, place, person, mood and affect Debridement Note Wound debrided: RLE ulcer Laterality: Right Type of Debridement: Excisional debridement Anesthesia Used: 5% Lidocaine Gel Depth: in the subcutaneous layer Percentage of wound debrided: 100 Instrument Used: 7mm curette Tissue Removed: slough and devitalized tissue Severity: Fat Layer Exposed Amount of bleeding with debridement: Mild Bleeding Controlled with: Pressure Patient tolerated procedure well Assessment/Plan Assessment: Assessment: Nonhealing ulcers bilateral lower extremities with fat layer exposed. Bilateral lower extremity edema. Decreased dorsal pedis pulses. Morbid obesity with BMI greater than 60. History of chronic venous insufficiency Plan: Plan: The patient was seen and examined at the wound center today and was updated on the plan of care. His left lower extremity ulcer has healed. A subcutaneous debridement was performed today as described above. The patient tolerated the procedure well. The patients wound care will consist of: aquacell silver with 3M wrap applied for compression. Wound cultures were reviewed and demonstrated MRSA and a facialis, patient was started on Bactrim DS twice daily ?10 days. Baseline bloodwork reviewed and demonstrated slightly low pre-albumin, encourage the use of [id number] diet. Vascular studies pending. Patient educated on the importance of diet on wound healing and instructed to increase protein and vitamin C intake. Patient verbalized understanding. Patient will follow up at wound healing center in one week or sooner if needed. Discussed red flag symptoms of systemic infection that require urgent medical attention. this note was generated with [employer] dictation software. It may contain incorrect words, spelling, and punctuation that were not noted in checking the note before signing. Code Visit 111xxx-113xx: 07296 Nneka subq tissue 20 sq cm/<
--- NOTE | 2018-01-06 11:15 | PN.PCM_ITS ---
(1) Lymphedema of both lower extremities Status: Acute Code(s): I89.0 - Lymphedema, not elsewhere classified (2) Morbid obesity with BMI of 60.0-69.9, adult Status: Acute Code(s): E66.01 - Morbid (severe) obesity due to excess calories ; Z68.44 - Body mass index (BMI) 60.0-69.9, adult (3) Nonhealing ulcer of right lower extremity with fat layer exposed Status: Acute Code(s): L97.912 - Non-pressure chronic ulcer of unspecified part of right lower leg with fat layer exposed (4) Pain, lower extremity Status: Acute Code(s): M79.606 - Pain in leg, unspecified Type of Wound Date of Service: 12/31/17 Chief Complaint: nonhealing ulcers BLLE since July 2017 History of Wound: This is a 51-year-old morbidly obese white male who presents to the wound healing center with a chief complaint of nonhealing bilateral lower extremity ulcers since July 2017. He states that his wound treatment has consisted of covering with a dry dressing and gauze and that he wears compression stockings as well. He does state that he has a history of ulcers on the lower extremities as well and a history of venous insufficiency. No recent vascular studies. Patient denies any obvious trauma that preceded these ulcerations. He does state that the ulcerations are painful at times though denies any obvious exudate, warmth, or systemic signs of infection. He denies any other acute complaints at this time. The patient otherwise denies any fever , chills, nausea, vomiting, shortness of breath, chest pain or pressure, palpitations, orthopnea, lower extremity edema, syncope or presyncopal episodes. Progress of Wound: 11/26/2017 -stable, no marked improvement as patient missed 2 days of wound care due to lack of supplies, left lower extremity ulcer is worsened as patient states that he had a recent trauma to by bumping into a hard object. 12/10/2017-patient notes improvement in his wounds. He did miss his previous appointment however. His previous culture was reviewed with him and demonstrated MRSA and he started the Bactrim DS as ordered for him. He denies any signs of systemic infection at this time and denies any worsening pain or purulent drainage. 12/17/17-patient notes improvement in his wounds, left lower extremity ulcer healed. His previous culture was reviewed with him and demonstrated MRSA and has completed the Bactrim DS as ordered for him. He denies any signs of systemic infection at this time and denies any worsening pain or purulent drainage. 12/31/17- Patient completed abx and states pain and size of wound RLE improving, denies systemic signs of infection - Physical Exam Vital Signs Temp Pulse Resp BP 97.3 F L 83 20 H 129/72 H 12/25/17 01:04 12/25/17 01:04 12/25/17 01:04 12/25/17 01:04 General: Alert, Oriented x3, Cooperative, No apparent distress HEENT: Atraumatic Cardiovascular: Regular rate Extremities: Edema - =1 BLLE pitting edema Skin: Ulcer/ Wound - right lower extremity with slough present Neurological: Neuro grossly intact Psych/Mental Status: Normal Affect, Alert and oriented to time, place, person, mood and affect Debridement Note Wound debrided: RLE ulcer Laterality: Right Type of Debridement: Excisional debridement Anesthesia Used: 5% Lidocaine Gel Depth: in the subcutaneous layer Percentage of wound debrided: 100 Instrument Used: 7mm curette Tissue Removed: slough and devitalized tissue Severity: Fat Layer Exposed Amount of bleeding with debridement: Mild Bleeding Controlled with: Pressure Patient tolerated procedure well Assessment/Plan Assessment: Assessment: Nonhealing ulcers bilateral lower extremities with fat layer exposed. Bilateral lower extremity edema. Decreased dorsal pedis pulses. Morbid obesity with BMI greater than 60. History of chronic venous insufficiency Plan: Plan: The patient was seen and examined at the wound center today and was updated on the plan of care. His left lower extremity ulcer has healed. A subcutaneous debridement was performed today as described above. The patient tolerated the procedure well. The patients wound care will consist of: aquacell silver with 3M wrap applied for compression. Wound cultures were reviewed and demonstrated MRSA and a facialis, patient was started on Bactrim DS twice daily ?10 days. Baseline bloodwork reviewed and demonstrated slightly low pre-albumin , encourage the use of [id number] diet. Vascular studies pending. Patient educated on the importance of diet on wound healing and instructed to increase protein and vitamin C intake. Patient verbalized understanding. Patient will follow up at wound healing center in one week or sooner if needed. Discussed red flag symptoms of systemic infection that require urgent medical attention. this note was generated with [employer] dictation software. It may contain incorrect words, spelling, and punctuation that were not noted in checking the note before signing. Code Visit 111xxx-113xx: 48604 Nneka subq tissue 20 sq cm/<
[2018-01-07 16:27] VITALS: BP 129/70; PULSE 72; RESP 18; TEMP 36.9
--- NOTE | 2018-01-07 21:52 | PCM.WC.PN ---
(1) Nonhealing ulcer of right lower extremity with fat layer exposed Status: Acute Code(s): L97.912 - Non-pressure chronic ulcer of unspecified part of right lower leg with fat layer exposed (2) Lymphedema of both lower extremities Status: Acute Code(s): I89.0 - Lymphedema, not elsewhere classified (3) Morbid obesity with BMI of 60.0-69.9, adult Status: Acute Code(s): E66.01 - Morbid (severe) obesity due to excess calories; Z68.44 - Body mass index (BMI) 60.0-69.9, adult (4) Pain, lower extremity Status: Acute Code(s): M79.606 - Pain in leg, unspecified Type of Wound Date of Service: 01/07/18 Chief Complaint: nonhealing ulcers BLLE since July 2017 History of Wound: This is a 51-year-old morbidly obese white male who presents to the wound healing center with a chief complaint of nonhealing bilateral lower extremity ulcers since July 2017. He states that his wound treatment has consisted of covering with a dry dressing and gauze and that he wears compression stockings as well. He does state that he has a history of ulcers on the lower extremities as well and a history of venous insufficiency. No recent vascular studies. Patient denies any obvious trauma that preceded these ulcerations. He does state that the ulcerations are painful at times though denies any obvious exudate, warmth, or systemic signs of infection. He denies any other acute complaints at this time. The patient otherwise denies any fever, chills, nausea, vomiting, shortness of breath, chest pain or pressure, palpitations, orthopnea, lower extremity edema, syncope or presyncopal episodes. Progress of Wound: 11/26/2017 -stable, no marked improvement as patient missed 2 days of wound care due to lack of supplies, left lower extremity ulcer is worsened as patient states that he had a recent trauma to by bumping into a hard object. 12/10/2017-patient notes improvement in his wounds. He did miss his previous appointment however. His previous culture was reviewed with him and demonstrated MRSA and he started the Bactrim DS as ordered for him. He denies any signs of systemic infection at this time and denies any worsening pain or purulent drainage. 12/17/17-patient notes improvement in his wounds, left lower extremity ulcer healed. His previous culture was reviewed with him and demonstrated MRSA and has completed the Bactrim DS as ordered for him. He denies any signs of systemic infection at this time and denies any worsening pain or purulent drainage. 12/31/17- Patient completed abx and states pain and size of wound RLE improving, denies systemic signs of infection. 01/07/2018, patient states pain has improved and the size of the right lower extremity ulcer improving, denies any systemic signs of infection at this time. - Physical Exam Vital Signs Temp Pulse Resp BP 98.4 F 72 18 129/70 H 01/07/18 16:27 01/07/18 16:27 01/07/18 16:27 01/07/18 16:27 General: Alert, Oriented x3, Cooperative HEENT: Atraumatic Lungs: Clear to auscultation, Normal air movement Cardiovascular: Regular rate, Regular Rhythm Abdomen: Obese Extremities: Edema - +1 pitting bilateral lower extremity edema Skin: Ulcer/ Wound - Right lower extremity ulcer present with slough and macerated wound edges due to have a drainage though overall ulcer has improved, no signs of infection at this time. Neurological: Neuro grossly intact Psych/Mental Status: Normal Affect, Alert and oriented to time, place, person, mood and affect Debridement Note Post-Debridement Measurements/Treatment WC - Nurse 2 - General Ulcer CM Notes Start: 01/07/18 16:27 Freq: Status: Active Protocol: Activity Type Activity Date Activity User E-Sign Co-Sign Detail Recorded Client Recorded Date Recorded By Document 01/07/18 17:21 DV [id number] 01/07/18 17:23 DV 01/07/18 17:21 Wound Center Nurse 2 #1 RIGHT MARTINEZ -Time 17:22 -Correct Patient Yes -Correct Side, Site, Position Yes -Correct Procedure Yes -Procedure Performed Yes -Type of Procedure Debridement -Clinical Debridement Subcutaneous -Post Debridement Size (cm) - Length 6.4 -Post Debridement Size (cm) - Width 6.4 -Post Debridement Size (cm) - Depth 0.1 -Total Square Cm 40.96 -Wound/Ulcer Outcome Not Healed -Ulcer Cleansing Rinsed/ Irrigated with Saline -Foul Odor after Cleansing No -Bioengineered Tissue No -Bleeding Controlled with Pressure -Treatment Response Procedure Tolerated Well Pain Scale: 0-10 Numeric Is Patient Pain Free? Yes Wound debrided: Right lower extremity ulcer Laterality: Right Type of Debridement: Excisional debridement Anesthesia Used: 5% Lidocaine Gel Depth: in the subcutaneous layer Percentage of wound debrided: 100 Instrument Used: 7mm curette Tissue Removed: Slough and devitalized tissue and macerated wound edges Severity: Fat Layer Exposed Amount of bleeding with debridement: Mild Bleeding Controlled with: Pressure Patient tolerated procedure well Assessment/Plan Assessment: Assessment: Nonhealing ulcers bilateral lower extremities with fat layer exposed. Bilateral lower extremity edema. Decreased dorsal pedis pulses. Morbid obesity with BMI greater than 60. History of chronic venous insufficiency Plan: Plan: The patient was seen and examined at the wound center today and was updated on the plan of care. His left lower extremity ulcer has healed. A subcutaneous debridement was performed today as described above. The patient tolerated the procedure well. The patients wound care will consist of: double layer melgisorb for heavy drainage with 3M wrap applied for compression. Wound cultures were reviewed and demonstrated MRSA and a facialis, patient was started on Bactrim DS twice daily ?10 days which he completed. Baseline bloodwork reviewed and demonstrated slightly low pre-albumin, encourage the use of [id number] diet. Vascular studies pending. Patient educated on the importance of diet on wound healing and instructed to increase protein and vitamin C intake. Patient verbalized understanding. Patient will follow up at wound healing center in one week or sooner if needed. Discussed red flag symptoms of systemic infection that require urgent medical attention. this note was generated with [employer] dictation software. It may contain incorrect words, spelling, and punctuation that were not noted in checking the note before signing. Code Visit 111xxx-113xx: 19079 Nneka subq tissue 20 sq cm/< Add On Codes: 32078 Nneka subq tissue add-on
--- NOTE | 2018-01-13 09:56 | PN.PCM_ITS ---
(1) Nonhealing ulcer of right lower extremity with fat layer exposed Status: Acute Code(s): L97.912 - Non-pressure chronic ulcer of unspecified part of right lower leg with fat layer exposed (2) Lymphedema of both lower extremities Status: Acute Code(s): I89.0 - Lymphedema, not elsewhere classified (3) Morbid obesity with BMI of 60.0-69.9, adult Status: Acute Code(s): E66.01 - Morbid (severe) obesity due to excess calories ; Z68.44 - Body mass index (BMI) 60.0-69.9, adult (4) Pain, lower extremity Status: Acute Code(s): M79.606 - Pain in leg, unspecified Type of Wound Date of Service: 01/07/18 Chief Complaint: nonhealing ulcers BLLE since July 2017 History of Wound: This is a 51-year-old morbidly obese white male who presents to the wound healing center with a chief complaint of nonhealing bilateral lower extremity ulcers since July 2017. He states that his wound treatment has consisted of covering with a dry dressing and gauze and that he wears compression stockings as well. He does state that he has a history of ulcers on the lower extremities as well and a history of venous insufficiency. No recent vascular studies. Patient denies any obvious trauma that preceded these ulcerations. He does state that the ulcerations are painful at times though denies any obvious exudate, warmth, or systemic signs of infection. He denies any other acute complaints at this time. The patient otherwise denies any fever , chills, nausea, vomiting, shortness of breath, chest pain or pressure, palpitations, orthopnea, lower extremity edema, syncope or presyncopal episodes. Progress of Wound: 11/26/2017 -stable, no marked improvement as patient missed 2 days of wound care due to lack of supplies, left lower extremity ulcer is worsened as patient states that he had a recent trauma to by bumping into a hard object. 12/10/2017-patient notes improvement in his wounds. He did miss his previous appointment however. His previous culture was reviewed with him and demonstrated MRSA and he started the Bactrim DS as ordered for him. He denies any signs of systemic infection at this time and denies any worsening pain or purulent drainage. 12/17/17-patient notes improvement in his wounds, left lower extremity ulcer healed. His previous culture was reviewed with him and demonstrated MRSA and has completed the Bactrim DS as ordered for him. He denies any signs of systemic infection at this time and denies any worsening pain or purulent drainage. 12/31/17- Patient completed abx and states pain and size of wound RLE improving, denies systemic signs of infection. 01/07/2018, patient states pain has improved and the size of the right lower extremity ulcer improving, denies any systemic signs of infection at this time. - Physical Exam Vital Signs Temp Pulse Resp BP 98.4 F 72 18 129/70 H 01/07/18 16:27 01/07/18 16:27 01/07/18 16:27 01/07/18 16:27 General: Alert, Oriented x3, Cooperative HEENT: Atraumatic Lungs: Clear to auscultation, Normal air movement Cardiovascular: Regular rate, Regular Rhythm Abdomen: Obese Extremities: Edema - +1 pitting bilateral lower extremity edema Skin: Ulcer/ Wound - Right lower extremity ulcer present with slough and macerated wound edges due to have a drainage though overall ulcer has improved, no signs of infection at this time. Neurological: Neuro grossly intact Psych/Mental Status: Normal Affect, Alert and oriented to time, place, person, mood and affect Debridement Note Post-Debridement Measurements/Treatment WC - Nurse 2 - General Ulcer CM Notes Start: 01/07/18 16:27 Freq: Status: Active Protocol: Activity Type Activity Date Activity User E-Sign Co-Sign Detail Recorded Client Recorded Date Recorded By Document 01/07/18 17:21 DV [id number] 01/07/18 17:23 DV 01/07/18 17:21 Wound Center Nurse 2 #1 RIGHT MARTINEZ -Time 17:22 -Correct Patient Yes -Correct Side, Site, Position Yes -Correct Procedure Yes -Procedure Performed Yes -Type of Procedure Debridement -Clinical Debridement Subcutaneous -Post Debridement Size (cm) - Length 6.4 -Post Debridement Size (cm) - Width 6.4 -Post Debridement Size (cm) - Depth 0.1 -Total Square Cm 40.96 -Wound/Ulcer Outcome Not Healed -Ulcer Cleansing Rinsed/ Irrigated with Saline -Foul Odor after Cleansing No -Bioengineered Tissue No -Bleeding Controlled with Pressure -Treatment Response Procedure Tolerated Well Pain Scale: 0-10 Numeric Is Patient Pain Free? Yes Wound debrided: Right lower extremity ulcer Laterality: Right Type of Debridement: Excisional debridement Anesthesia Used: 5% Lidocaine Gel Depth: in the subcutaneous layer Percentage of wound debrided: 100 Instrument Used: 7mm curette Tissue Removed: Slough and devitalized tissue and macerated wound edges Severity: Fat Layer Exposed Amount of bleeding with debridement: Mild Bleeding Controlled with: Pressure Patient tolerated procedure well Assessment/Plan Assessment: Assessment: Nonhealing ulcers bilateral lower extremities with fat layer exposed. Bilateral lower extremity edema. Decreased dorsal pedis pulses. Morbid obesity with BMI greater than 60. History of chronic venous insufficiency Plan: Plan: The patient was seen and examined at the wound center today and was updated on the plan of care. His left lower extremity ulcer has healed. A subcutaneous debridement was performed today as described above. The patient tolerated the procedure well. The patients wound care will consist of: double layer melgisorb for heavy drainage with 3M wrap applied for compression. Wound cultures were reviewed and demonstrated MRSA and a facialis, patient was started on Bactrim DS twice daily ?10 days which he completed. Baseline bloodwork reviewed and demonstrated slightly low pre-albumin, encourage the use of lykj-suciuvs-fptjrlwjys diet. Vascular studies pending. Patient educated on the importance of diet on wound healing and instructed to increase protein and vitamin C intake. Patient verbalized understanding. Patient will follow up at wound healing center in one week or sooner if needed. Discussed red flag symptoms of systemic infection that require urgent medical attention. this note was generated with [facility] dictation software. It may contain incorrect words, spelling, and punctuation that were not noted in checking the note before signing. Code Visit 111xxx-113xx: 79768 Nneka subq tissue 20 sq cm/< Add On Codes: 55414 Nneka subq tissue add-on
[2018-01-14 16:24] VITALS: BP 137/70; PULSE 70; RESP 18; TEMP 36.3
--- NOTE | 2018-01-14 21:22 | PCM.WC.PN ---
(1) Nonhealing ulcer of right lower extremity with fat layer exposed Status: Acute Code(s): L97.912 - Non-pressure chronic ulcer of unspecified part of right lower leg with fat layer exposed (2) Lymphedema of both lower extremities Status: Acute Code(s): I89.0 - Lymphedema, not elsewhere classified (3) Morbid obesity with BMI of 60.0-69.9, adult Status: Acute Code(s): E66.01 - Morbid (severe) obesity due to excess calories; Z68.44 - Body mass index (BMI) 60.0-69.9, adult (4) Pain, lower extremity Status: Acute Code(s): M79.606 - Pain in leg, unspecified Type of Wound Date of Service: 01/14/18 Chief Complaint: nonhealing ulcers BLLE since July 2017 History of Wound: This is a 51-year-old morbidly obese white male who presents to the wound healing center with a chief complaint of nonhealing bilateral lower extremity ulcers since July 2017. He states that his wound treatment has consisted of covering with a dry dressing and gauze and that he wears compression stockings as well. He does state that he has a history of ulcers on the lower extremities as well and a history of venous insufficiency. No recent vascular studies. Patient denies any obvious trauma that preceded these ulcerations. He does state that the ulcerations are painful at times though denies any obvious exudate, warmth, or systemic signs of infection. He denies any other acute complaints at this time. The patient otherwise denies any fever, chills, nausea, vomiting, shortness of breath, chest pain or pressure, palpitations, orthopnea, lower extremity edema, syncope or presyncopal episodes. Progress of Wound: 11/26/2017 -stable, no marked improvement as patient missed 2 days of wound care due to lack of supplies, left lower extremity ulcer is worsened as patient states that he had a recent trauma to by bumping into a hard object. 12/10/2017-patient notes improvement in his wounds. He did miss his previous appointment however. His previous culture was reviewed with him and demonstrated MRSA and he started the Bactrim DS as ordered for him. He denies any signs of systemic infection at this time and denies any worsening pain or purulent drainage. 12/17/17-patient notes improvement in his wounds, left lower extremity ulcer healed. His previous culture was reviewed with him and demonstrated MRSA and has completed the Bactrim DS as ordered for him. He denies any signs of systemic infection at this time and denies any worsening pain or purulent drainage. 12/31/17- Patient completed abx and states pain and size of wound RLE improving, denies systemic signs of infection. 01/07/2018, patient states pain has improved and the size of the right lower extremity ulcer improving, denies any systemic signs of infection at this time. 01/20/18- site is improving, size decreasing and pain decreased - Physical Exam Vital Signs Temp Pulse Resp BP 97.3 F L 70 18 137/70 H 01/14/18 16:24 01/14/18 16:24 01/14/18 16:24 01/14/18 16:24 General: Alert, Oriented x3, Cooperative, No apparent distress HEENT: Atraumatic Cardiovascular: Regular rate Abdomen: Obese Extremities: Edema - +1 BLLE Skin: Ulcer/ Wound - RLE ulcer present with adherant slough, no signs of acute infection, no pain or purulent drainage Neurological: Neuro grossly intact Psych/Mental Status: Normal Affect, Alert and oriented to time, place, person, mood and affect Debridement Note Post-Debridement Measurements/Treatment WC - Nurse 2 - General Ulcer CM Notes Start: 01/07/18 16:27 Freq: Status: Active Protocol: Activity Type Activity Date Activity User E-Sign Co-Sign Detail Recorded Client Recorded Date Recorded By Document 01/07/18 17:21 DV [id number] 01/07/18 17:23 DV 01/07/18 17:21 Wound Center Nurse 2 #1 RIGHT MARTINEZ -Time 17:22 -Correct Patient Yes -Correct Side, Site, Position Yes -Correct Procedure Yes -Procedure Performed Yes -Type of Procedure Debridement -Clinical Debridement Subcutaneous -Post Debridement Size (cm) - Length 6.4 -Post Debridement Size (cm) - Width 6.4 -Post Debridement Size (cm) - Depth 0.1 -Total Square Cm 40.96 -Wound/Ulcer Outcome Not Healed -Ulcer Cleansing Rinsed/ Irrigated with Saline -Foul Odor after Cleansing No -Bioengineered Tissue No -Bleeding Controlled with Pressure -Treatment Response Procedure Tolerated Well Pain Scale: 0-10 Numeric Is Patient Pain Free? Yes Wound debrided: RLE ulcer Laterality: Right Type of Debridement: Excisional debridement Anesthesia Used: 5% Lidocaine Gel Depth: in the subcutaneous layer Percentage of wound debrided: 100 Instrument Used: 7mm curette Tissue Removed: slough and devitalized tissue Severity: Fat Layer Exposed Amount of bleeding with debridement: Mild Bleeding Controlled with: Pressure Patient tolerated procedure well Assessment/Plan Assessment: Assessment: Nonhealing ulcers bilateral lower extremities with fat layer exposed. Bilateral lower extremity edema. Decreased dorsal pedis pulses. Morbid obesity with BMI greater than 60. History of chronic venous insufficiency Plan: Plan: The patient was seen and examined at the wound center today and was updated on the plan of care. His left lower extremity ulcer has healed. A subcutaneous debridement was performed today as described above. The patient tolerated the procedure well. The patients wound care will consist of: double layer melgisorb for heavy drainage with 3M wrap applied for compression. Wound cultures were reviewed and demonstrated MRSA and a facialis, patient was started on Bactrim DS twice daily ?10 days which he completed. Baseline bloodwork reviewed and demonstrated slightly low pre-albumin, encourage the use of nmei-jqvseyn-ijcpahccsm diet. Vascular studies pending. Patient educated on the importance of diet on wound healing and instructed to increase protein and vitamin C intake. Patient verbalized understanding. Patient will follow up at wound healing center in one week or sooner if needed. Discussed red flag symptoms of systemic infection that require urgent medical attention. this note was generated with [employer] dictation software. It may contain incorrect words, spelling, and punctuation that were not noted in checking the note before signing. Code Visit 111xxx-113xx: 33535 Nneka subq tissue 20 sq cm/<
--- NOTE | 2018-01-20 10:25 | PN.PCM_ITS ---
(1) Nonhealing ulcer of right lower extremity with fat layer exposed Status: Acute Code(s): L97.912 - Non-pressure chronic ulcer of unspecified part of right lower leg with fat layer exposed (2) Lymphedema of both lower extremities Status: Acute Code(s): I89.0 - Lymphedema, not elsewhere classified (3) Morbid obesity with BMI of 60.0-69.9, adult Status: Acute Code(s): E66.01 - Morbid (severe) obesity due to excess calories ; Z68.44 - Body mass index (BMI) 60.0-69.9, adult (4) Pain, lower extremity Status: Acute Code(s): M79.606 - Pain in leg, unspecified Type of Wound Date of Service: 01/14/18 Chief Complaint: nonhealing ulcers BLLE since July 2017 History of Wound: This is a 51-year-old morbidly obese white male who presents to the wound healing center with a chief complaint of nonhealing bilateral lower extremity ulcers since July 2017. He states that his wound treatment has consisted of covering with a dry dressing and gauze and that he wears compression stockings as well. He does state that he has a history of ulcers on the lower extremities as well and a history of venous insufficiency. No recent vascular studies. Patient denies any obvious trauma that preceded these ulcerations. He does state that the ulcerations are painful at times though denies any obvious exudate, warmth, or systemic signs of infection. He denies any other acute complaints at this time. The patient otherwise denies any fever , chills, nausea, vomiting, shortness of breath, chest pain or pressure, palpitations, orthopnea, lower extremity edema, syncope or presyncopal episodes. Progress of Wound: 11/26/2017 -stable, no marked improvement as patient missed 2 days of wound care due to lack of supplies, left lower extremity ulcer is worsened as patient states that he had a recent trauma to by bumping into a hard object. 12/10/2017-patient notes improvement in his wounds. He did miss his previous appointment however. His previous culture was reviewed with him and demonstrated MRSA and he started the Bactrim DS as ordered for him. He denies any signs of systemic infection at this time and denies any worsening pain or purulent drainage. 12/17/17-patient notes improvement in his wounds, left lower extremity ulcer healed. His previous culture was reviewed with him and demonstrated MRSA and has completed the Bactrim DS as ordered for him. He denies any signs of systemic infection at this time and denies any worsening pain or purulent drainage. 12/31/17- Patient completed abx and states pain and size of wound RLE improving, denies systemic signs of infection. 01/07/2018, patient states pain has improved and the size of the right lower extremity ulcer improving, denies any systemic signs of infection at this time. 01/20/18- site is improving, size decreasing and pain decreased - Physical Exam Vital Signs Temp Pulse Resp BP 97.3 F L 70 18 137/70 H 01/14/18 16:24 01/14/18 16:24 01/14/18 16:24 01/14/18 16:24 General: Alert, Oriented x3, Cooperative, No apparent distress HEENT: Atraumatic Cardiovascular: Regular rate Abdomen: Obese Extremities: Edema - +1 BLLE Skin: Ulcer/ Wound - RLE ulcer present with adherant slough, no signs of acute infection, no pain or purulent drainage Neurological: Neuro grossly intact Psych/Mental Status: Normal Affect, Alert and oriented to time, place, person, mood and affect Debridement Note Post-Debridement Measurements/Treatment WC - Nurse 2 - General Ulcer CM Notes Start: 01/07/18 16:27 Freq: Status: Active Protocol: Activity Type Activity Date Activity User E-Sign Co-Sign Detail Recorded Client Recorded Date Recorded By Document 01/07/18 17:21 DV [id number] 01/07/18 17:23 DV 01/07/18 17:21 Wound Center Nurse 2 #1 RIGHT MARTINEZ -Time 17:22 -Correct Patient Yes -Correct Side, Site, Position Yes -Correct Procedure Yes -Procedure Performed Yes -Type of Procedure Debridement -Clinical Debridement Subcutaneous -Post Debridement Size (cm) - Length 6.4 -Post Debridement Size (cm) - Width 6.4 -Post Debridement Size (cm) - Depth 0.1 -Total Square Cm 40.96 -Wound/Ulcer Outcome Not Healed -Ulcer Cleansing Rinsed/ Irrigated with Saline -Foul Odor after Cleansing No -Bioengineered Tissue No -Bleeding Controlled with Pressure -Treatment Response Procedure Tolerated Well Pain Scale: 0-10 Numeric Is Patient Pain Free? Yes Wound debrided: RLE ulcer Laterality: Right Type of Debridement: Excisional debridement Anesthesia Used: 5% Lidocaine Gel Depth: in the subcutaneous layer Percentage of wound debrided: 100 Instrument Used: 7mm curette Tissue Removed: slough and devitalized tissue Severity: Fat Layer Exposed Amount of bleeding with debridement: Mild Bleeding Controlled with: Pressure Patient tolerated procedure well Assessment/Plan Assessment: Assessment: Nonhealing ulcers bilateral lower extremities with fat layer exposed. Bilateral lower extremity edema. Decreased dorsal pedis pulses. Morbid obesity with BMI greater than 60. History of chronic venous insufficiency Plan: Plan: The patient was seen and examined at the wound center today and was updated on the plan of care. His left lower extremity ulcer has healed. A subcutaneous debridement was performed today as described above. The patient tolerated the procedure well. The patients wound care will consist of: double layer melgisorb for heavy drainage with 3M wrap applied for compression. Wound cultures were reviewed and demonstrated MRSA and a facialis, patient was started on Bactrim DS twice daily ?10 days which he completed. Baseline bloodwork reviewed and demonstrated slightly low pre-albumin, encourage the use of [id number]-[id number] diet. Vascular studies pending. Patient educated on the importance of diet on wound healing and instructed to increase protein and vitamin C intake. Patient verbalized understanding. Patient will follow up at wound healing center in one week or sooner if needed. Discussed red flag symptoms of systemic infection that require urgent medical attention. this note was generated with [email or web address] dictation software. It may contain incorrect words, spelling, and punctuation that were not noted in checking the note before signing. Code Visit 111xxx-113xx: 09369 Nneka subq tissue 20 sq cm/<
[2018-01-21 16:32] VITALS: BP 146/72; PULSE 63; RESP 18; TEMP 36.6
--- NOTE | 2018-01-21 20:14 | PCM.WC.PN ---
(1) Nonhealing ulcer of right lower extremity with fat layer exposed Status: Acute Code(s): L97.912 - Non-pressure chronic ulcer of unspecified part of right lower leg with fat layer exposed (2) Lymphedema of both lower extremities Status: Acute Code(s): I89.0 - Lymphedema, not elsewhere classified (3) Morbid obesity with BMI of 60.0-69.9, adult Status: Acute Code(s): E66.01 - Morbid (severe) obesity due to excess calories; Z68.44 - Body mass index (BMI) 60.0-69.9, adult (4) Pain, lower extremity Status: Acute Code(s): M79.606 - Pain in leg, unspecified Type of Wound Date of Service: 01/21/18 Chief Complaint: nonhealing ulcers BLLE since July 2017 History of Wound: This is a 51-year-old morbidly obese white male who presents to the wound healing center with a chief complaint of nonhealing bilateral lower extremity ulcers since July 2017. He states that his wound treatment has consisted of covering with a dry dressing and gauze and that he wears compression stockings as well. He does state that he has a history of ulcers on the lower extremities as well and a history of venous insufficiency. No recent vascular studies. Patient denies any obvious trauma that preceded these ulcerations. He does state that the ulcerations are painful at times though denies any obvious exudate, warmth, or systemic signs of infection. He denies any other acute complaints at this time. The patient otherwise denies any fever, chills, nausea, vomiting, shortness of breath, chest pain or pressure, palpitations, orthopnea, lower extremity edema, syncope or presyncopal episodes. Progress of Wound: 11/26/2017 -stable, no marked improvement as patient missed 2 days of wound care due to lack of supplies, left lower extremity ulcer is worsened as patient states that he had a recent trauma to by bumping into a hard object. 12/10/2017-patient notes improvement in his wounds. He did miss his previous appointment however. His previous culture was reviewed with him and demonstrated MRSA and he started the Bactrim DS as ordered for him. He denies any signs of systemic infection at this time and denies any worsening pain or purulent drainage. 12/17/17-patient notes improvement in his wounds, left lower extremity ulcer healed. His previous culture was reviewed with him and demonstrated MRSA and has completed the Bactrim DS as ordered for him. He denies any signs of systemic infection at this time and denies any worsening pain or purulent drainage. 12/31/17- Patient completed abx and states pain and size of wound RLE improving, denies systemic signs of infection. 01/07/2018, patient states pain has improved and the size of the right lower extremity ulcer improving, denies any systemic signs of infection at this time. 01/21/18- site is improving, size decreasing and pain decreased - Physical Exam Vital Signs Temp Pulse Resp BP 97.8 F 63 18 146/72 H 01/21/18 16:32 01/21/18 16:32 01/21/18 16:32 01/21/18 16:32 General: Alert, Oriented x3, Cooperative, No apparent distress HEENT: Atraumatic Cardiovascular: Regular rate Abdomen: Obese Extremities: Diminished Peripheral Pulses, Edema - 1+ pitting edema bilateral lower extremity Skin: Ulcer/ Wound - Ulcer present right lower extremity with adherent slough, no signs of acute infection at this time Debridement Note Post-Debridement Measurements/Treatment WC - Nurse 2 - General Ulcer CM Notes Start: 01/07/18 16:27 Freq: Status: Active Protocol: Activity Type Activity Date Activity User E-Sign Co-Sign Detail Recorded Client Recorded Date Recorded By Document 01/07/18 17:21 DV [id number] 01/07/18 17:23 DV Document 01/21/18 17:04 [id number] 01/21/18 17:10 01/07/18 01/21/18 17:21 17:04 Wound Center Nurse 2 #1 RIGHT MARTINEZ -Time 17:22 17:04 -Correct Patient Yes Yes -Correct Side, Site, Position Yes Yes -Correct Procedure Yes Yes -Procedure Performed Yes Yes -Type of Procedure Debridement Debridement -Clinical Debridement Subcutaneous Subcutaneous -Post Debridement Size (cm) - Length 6.4 5.4 -Post Debridement Size (cm) - Width 6.4 4.9 -Post Debridement Size (cm) - Depth 0.1 0.1 -Total Square Cm 40.96 26.46 -Wound/Ulcer Outcome Not Healed Not Healed -Ulcer Cleansing Rinsed/ Rinsed/ Irrigated with Irrigated with Saline Saline -Foul Odor after Cleansing No No -Bioengineered Tissue No No -Topical Lidocaine (%) 4 -Lidocaine (ml) 5 -Bleeding Controlled with Pressure NA -Treatment Response Procedure Procedure Tolerated Well Tolerated Well Pain Scale: 0-10 Numeric Is Patient Pain Free? Yes Yes Wound debrided: Right lower anterior extremity ulcer Laterality: Right Type of Debridement: Excisional debridement Anesthesia Used: 5% Lidocaine Gel Depth: in the subcutaneous layer Percentage of wound debrided: 100 Instrument Used: 7mm curette Tissue Removed: Slough and devitalized tissue Severity: Fat Layer Exposed Amount of bleeding with debridement: Mild Bleeding Controlled with: Pressure Patient tolerated procedure well Assessment/Plan Assessment: Assessment: Nonhealing ulcers bilateral lower extremities with fat layer exposed. Bilateral lower extremity edema. Decreased dorsal pedis pulses. Morbid obesity with BMI greater than 60. History of chronic venous insufficiency Plan: Plan: The patient was seen and examined at the wound center today and was updated on the plan of care. His left lower extremity ulcer has healed. A subcutaneous debridement was performed today as described above. The patient tolerated the procedure well. The patients wound care will consist of: double layer melgisorb for heavy drainage with 3M wrap applied for compression. Circaids will be ordered for compression after wounds are healed. Wound cultures were reviewed and demonstrated MRSA and a facialis, patient was started on Bactrim DS twice daily ?10 days which he completed. Baseline bloodwork reviewed and demonstrated slightly low pre-albumin, encourage the use of [id number] diet. Vascular studies pending. Patient educated on the importance of diet on wound healing and instructed to increase protein and vitamin C intake. Patient verbalized understanding. Patient will follow up at wound healing center in one week or sooner if needed. Discussed red flag symptoms of systemic infection that require urgent medical attention. this note was generated with [employer] dictation software. It may contain incorrect words, spelling, and punctuation that were not noted in checking the note before signing. Code Visit 111xxx-113xx: 33535 Nneka subq tissue 20 sq cm/<
--- NOTE | 2018-01-28 13:17 | PN.PCM_ITS ---
(1) Nonhealing ulcer of right lower extremity with fat layer exposed Status: Acute Code(s): L97.912 - Non-pressure chronic ulcer of unspecified part of right lower leg with fat layer exposed (2) Lymphedema of both lower extremities Status: Acute Code(s): I89.0 - Lymphedema, not elsewhere classified (3) Morbid obesity with BMI of 60.0-69.9, adult Status: Acute Code(s): E66.01 - Morbid (severe) obesity due to excess calories ; Z68.44 - Body mass index (BMI) 60.0-69.9, adult (4) Pain, lower extremity Status: Acute Code(s): M79.606 - Pain in leg, unspecified Type of Wound Date of Service: 01/21/18 Chief Complaint: nonhealing ulcers BLLE since July 2017 History of Wound: This is a 51-year-old morbidly obese white male who presents to the wound healing center with a chief complaint of nonhealing bilateral lower extremity ulcers since July 2017. He states that his wound treatment has consisted of covering with a dry dressing and gauze and that he wears compression stockings as well. He does state that he has a history of ulcers on the lower extremities as well and a history of venous insufficiency. No recent vascular studies. Patient denies any obvious trauma that preceded these ulcerations. He does state that the ulcerations are painful at times though denies any obvious exudate, warmth, or systemic signs of infection. He denies any other acute complaints at this time. The patient otherwise denies any fever , chills, nausea, vomiting, shortness of breath, chest pain or pressure, palpitations, orthopnea, lower extremity edema, syncope or presyncopal episodes. Progress of Wound: 11/26/2017 -stable, no marked improvement as patient missed 2 days of wound care due to lack of supplies, left lower extremity ulcer is worsened as patient states that he had a recent trauma to by bumping into a hard object. 12/10/2017-patient notes improvement in his wounds. He did miss his previous appointment however. His previous culture was reviewed with him and demonstrated MRSA and he started the Bactrim DS as ordered for him. He denies any signs of systemic infection at this time and denies any worsening pain or purulent drainage. 12/17/17-patient notes improvement in his wounds, left lower extremity ulcer healed. His previous culture was reviewed with him and demonstrated MRSA and has completed the Bactrim DS as ordered for him. He denies any signs of systemic infection at this time and denies any worsening pain or purulent drainage. 12/31/17- Patient completed abx and states pain and size of wound RLE improving, denies systemic signs of infection. 01/07/2018, patient states pain has improved and the size of the right lower extremity ulcer improving, denies any systemic signs of infection at this time. 01/21/18- site is improving, size decreasing and pain decreased - Physical Exam Vital Signs Temp Pulse Resp BP 97.8 F 63 18 146/72 H 01/21/18 16:32 01/21/18 16:32 01/21/18 16:32 01/21/18 16:32 General: Alert, Oriented x3, Cooperative, No apparent distress HEENT: Atraumatic Cardiovascular: Regular rate Abdomen: Obese Extremities: Diminished Peripheral Pulses, Edema - 1+ pitting edema bilateral lower extremity Skin: Ulcer/ Wound - Ulcer present right lower extremity with adherent slough, no signs of acute infection at this time Debridement Note Post-Debridement Measurements/Treatment WC - Nurse 2 - General Ulcer CM Notes Start: 01/07/18 16:27 Freq: Status: Active Protocol: Activity Type Activity Date Activity User E-Sign Co-Sign Detail Recorded Client Recorded Date Recorded By Document 01/07/18 17:21 DV [id number] 01/07/18 17:23 DV Document 01/21/18 17:04 [id number] 01/21/18 17:10 01/07/18 01/21/18 17:21 17:04 Wound Center Nurse 2 #1 RIGHT MARTINEZ -Time 17:22 17:04 -Correct Patient Yes Yes -Correct Side, Site, Position Yes Yes -Correct Procedure Yes Yes -Procedure Performed Yes Yes -Type of Procedure Debridement Debridement -Clinical Debridement Subcutaneous Subcutaneous -Post Debridement Size (cm) - Length 6.4 5.4 -Post Debridement Size (cm) - Width 6.4 4.9 -Post Debridement Size (cm) - Depth 0.1 0.1 -Total Square Cm 40.96 26.46 -Wound/Ulcer Outcome Not Healed Not Healed -Ulcer Cleansing Rinsed/ Rinsed/ Irrigated with Irrigated with Saline Saline -Foul Odor after Cleansing No No -Bioengineered Tissue No No -Topical Lidocaine (%) 4 -Lidocaine (ml) 5 -Bleeding Controlled with Pressure NA -Treatment Response Procedure Procedure Tolerated Well Tolerated Well Pain Scale: 0-10 Numeric Is Patient Pain Free? Yes Yes Wound debrided: Right lower anterior extremity ulcer Laterality: Right Type of Debridement: Excisional debridement Anesthesia Used: 5% Lidocaine Gel Depth: in the subcutaneous layer Percentage of wound debrided: 100 Instrument Used: 7mm curette Tissue Removed: Slough and devitalized tissue Severity: Fat Layer Exposed Amount of bleeding with debridement: Mild Bleeding Controlled with: Pressure Patient tolerated procedure well Assessment/Plan Assessment: Assessment: Nonhealing ulcers bilateral lower extremities with fat layer exposed. Bilateral lower extremity edema. Decreased dorsal pedis pulses. Morbid obesity with BMI greater than 60. History of chronic venous insufficiency Plan: Plan: The patient was seen and examined at the wound center today and was updated on the plan of care. His left lower extremity ulcer has healed. A subcutaneous debridement was performed today as described above. The patient tolerated the procedure well. The patients wound care will consist of: double layer melgisorb for heavy drainage with 3M wrap applied for compression. Circaids will be ordered for compression after wounds are healed. Wound cultures were reviewed and demonstrated MRSA and a facialis, patient was started on Bactrim DS twice daily ?10 days which he completed. Baseline bloodwork reviewed and demonstrated slightly low pre-albumin, encourage the use of [id number] diet. Vascular studies pending. Patient educated on the importance of diet on wound healing and instructed to increase protein and vitamin C intake. Patient verbalized understanding. Patient will follow up at wound healing center in one week or sooner if needed. Discussed red flag symptoms of systemic infection that require urgent medical attention. this note was generated with [employer] dictation software. It may contain incorrect words, spelling, and punctuation that were not noted in checking the note before signing. Code Visit 111xxx-113xx: 45829 Nneka subq tissue 20 sq cm/<
== END 2018-01-23 23:59 ==
LOC: WC 16:00
PROVIDERS: Family Provider Internal Medicine; PCP Internal Medicine; Visit Provider Nurse Practitioner Family
DX: I87.2 Venous insufficiency (chronic) (peripheral) (principal); I89.0 Lymphedema, not elsewhere classified; E66.01 Morbid (severe) obesity due to excess calories; Z68.44 Body mass index [BMI] 60.0-69.9, adult; Z71.3 Dietary counseling and surveillance; M79.606 Pain in leg, unspecified; L97.812 Non-pressure chronic ulcer of other part of right lower leg with fat layer exposed; Z86.14 Personal history of Methicillin resistant Staphylococcus aureus infection
CPT/HCPCS: 11042; 11045; 29581; 99212; G0463

== ENCOUNTER 2018-02-11 16:15 | Outpatient (RCR) | payer MEDICAID, SELFPAY ==
[2018-01-24 00:53] VITALS: BP 146/72; PULSE 63; RESP 18; TEMP 36.6
[2018-01-28 16:51] VITALS: BP 164/84; PULSE 84; RESP 18; TEMP 36.3
--- NOTE | 2018-01-28 19:16 | PCM.WC.PN ---
(1) Nonhealing ulcer of right lower extremity with fat layer exposed Status: Acute Code(s): L97.912 - Non-pressure chronic ulcer of unspecified part of right lower leg with fat layer exposed (2) Skin tear of left lower leg without complication Status: Acute Code(s): S81.812A - Laceration without foreign body, left lower leg, initial encounter (3) Decreased dorsalis pedis pulse Status: Acute Code(s): R09.89 - Other specified symptoms and signs involving the circulatory and respiratory systems (4) Lymphedema of both lower extremities Status: Acute Code(s): I89.0 - Lymphedema, not elsewhere classified (5) Morbid obesity with BMI of 60.0-69.9, adult Status: Acute Code(s): E66.01 - Morbid (severe) obesity due to excess calories; Z68.44 - Body mass index (BMI) 60.0-69.9, adult Type of Wound Date of Service: 01/28/18 Chief Complaint: nonhealing ulcers BLLE since July 2017 History of Wound: This is a 51-year-old morbidly obese white male who presents to the wound healing center with a chief complaint of nonhealing bilateral lower extremity ulcers since July 2017. He states that his wound treatment has consisted of covering with a dry dressing and gauze and that he wears compression stockings as well. He does state that he has a history of ulcers on the lower extremities as well and a history of venous insufficiency. No recent vascular studies. Patient denies any obvious trauma that preceded these ulcerations. He does state that the ulcerations are painful at times though denies any obvious exudate, warmth, or systemic signs of infection. He denies any other acute complaints at this time. The patient otherwise denies any fever, chills, nausea, vomiting, shortness of breath, chest pain or pressure, palpitations, orthopnea, lower extremity edema, syncope or presyncopal episodes. Progress of Wound: 11/26/2017 -stable, no marked improvement as patient missed 2 days of wound care due to lack of supplies, left lower extremity ulcer is worsened as patient states that he had a recent trauma to by bumping into a hard object. 12/10/2017-patient notes improvement in his wounds. He did miss his previous appointment however. His previous culture was reviewed with him and demonstrated MRSA and he started the Bactrim DS as ordered for him. He denies any signs of systemic infection at this time and denies any worsening pain or purulent drainage. 12/17/17-patient notes improvement in his wounds, left lower extremity ulcer healed. His previous culture was reviewed with him and demonstrated MRSA and has completed the Bactrim DS as ordered for him. He denies any signs of systemic infection at this time and denies any worsening pain or purulent drainage. 12/31/17- Patient completed abx and states pain and size of wound RLE improving, denies systemic signs of infection. 01/07/2018, patient states pain has improved and the size of the right lower extremity ulcer improving, denies any systemic signs of infection at this time. 01/20/18- site is improving, size decreasing and pain decreased. 01/28/18- RLE improving almost healed, new skin tear left lower extremity after rubbing up against blackberry rey - Physical Exam Vital Signs Temp Pulse Resp BP 97.3 F L 84 18 164/84 H 01/28/18 16:51 01/28/18 16:51 01/28/18 16:51 01/28/18 16:51 General: Alert, Oriented x3, Cooperative, No apparent distress HEENT: Atraumatic Cardiovascular: Regular rate Abdomen: Obese Skin: Ulcer/ Wound - ulcer rle with adherant slough, Skin Tear - small skin tear left lower extremity without signs of infection, anterior Neurological: Neuro grossly intact Psych/Mental Status: Normal Affect, Appropriate, Alert and oriented to time, place, person, mood and affect Debridement Note Post-Debridement Measurements/Treatment WC - Nurse 2 - General Ulcer CM Notes Start: 01/28/18 16:51 Freq: Status: Active Protocol: Activity Type Activity Date Activity User E-Sign Co-Sign Detail Recorded Client Recorded Date Recorded By Document 01/28/18 17:16 [id number] 01/28/18 17:18 01/28/18 17:16 Wound Center Nurse 2 #3-left superior rodrigues -Time 17:16 -Correct Patient Yes -Correct Side, Site, Position Yes -Correct Procedure Yes -Procedure Performed Yes -Type of Procedure Debridement -Clinical Debridement Subcutaneous -Post Debridement Size (cm) - Length 0.9 -Post Debridement Size (cm) - Width 1.0 -Post Debridement Size (cm) - Depth 0.1 -Total Square Cm 0.90 -Wound/Ulcer Outcome Not Healed -Ulcer Cleansing Rinsed/ Irrigated with Saline -Foul Odor after Cleansing No -Bioengineered Tissue No -Topical Lidocaine (%) 4 -Bleeding Controlled with Pressure -Treatment Response Procedure Tolerated Well #1 RIGHT RODRIGUES -Time 17:17 -Correct Patient Yes -Correct Side, Site, Position Yes -Correct Procedure Yes -Procedure Performed Yes -Type of Procedure Debridement -Clinical Debridement Subcutaneous -Post Debridement Size (cm) - Length 0.4 -Post Debridement Size (cm) - Width 2.0 -Post Debridement Size (cm) - Depth 0.1 -Total Square Cm 0.80 -Wound/Ulcer Outcome Not Healed -Ulcer Cleansing Rinsed/ Irrigated with Saline -Foul Odor after Cleansing No -Bioengineered Tissue No -Topical Lidocaine (%) 4 -Bleeding Controlled with Pressure -Treatment Response Procedure Tolerated Well Pain Scale: 0-10 Numeric Is Patient Pain Free? Yes Wound debrided: RLE ulcer Type of Debridement: Excisional debridement Anesthesia Used: 5% Lidocaine Gel Depth: in the subcutaneous layer Percentage of wound debrided: 100 Instrument Used: 7mm curette Tissue Removed: slough and devitalized tissue Severity: Fat Layer Exposed Amount of bleeding with debridement: Mild Bleeding Controlled with: Pressure Patient tolerated procedure well Assessment/Plan Assessment: Assessment: Nonhealing ulcers bilateral lower extremities with fat layer exposed. Bilateral lower extremity edema. Decreased dorsal pedis pulses. Morbid obesity with BMI greater than 60. History of chronic venous insufficiency Plan: Plan: The patient was seen and examined at the wound center today and was updated on the plan of care. His left lower extremity ulcer has healed. New small left skin tear anterior lower extremity as described above. A subcutaneous debridement was performed today as described above. The patient tolerated the procedure well. The patients wound care will consist of: datatracker ag with 3M wrap applied for compression. Wound cultures were reviewed and demonstrated MRSA and a facialis, patient was started on Bactrim DS twice daily ?10 days which he completed. Baseline bloodwork reviewed and demonstrated slightly low pre-albumin, encourage the use of [id number] diet. Vascular studies demonstrated venous insufficiency. Patient educated on the importance of diet on wound healing and instructed to increase protein and vitamin C intake. Patient verbalized understanding. Patient will follow up at wound healing center in one week or sooner if needed. Circaid script pending. Discussed red flag symptoms of systemic infection that require urgent medical attention. this note was generated with [email or web address] dictation software. It may contain incorrect words, spelling, and punctuation that were not noted in checking the note before signing. Code Visit 111xxx-113xx: 71098 Nneka subq tissue 20 sq cm/<
--- NOTE | 2018-02-02 11:23 | PN.PCM_ITS ---
(1) Nonhealing ulcer of right lower extremity with fat layer exposed Status: Acute Code(s): L97.912 - Non-pressure chronic ulcer of unspecified part of right lower leg with fat layer exposed (2) Skin tear of left lower leg without complication Status: Acute Code(s): S81.812A - Laceration without foreign body, left lower leg, initial encounter (3) Decreased dorsalis pedis pulse Status: Acute Code(s): R09.89 - Other specified symptoms and signs involving the circulatory and respiratory systems (4) Lymphedema of both lower extremities Status: Acute Code(s): I89.0 - Lymphedema, not elsewhere classified (5) Morbid obesity with BMI of 60.0-69.9, adult Status: Acute Code(s): E66.01 - Morbid (severe) obesity due to excess calories ; Z68.44 - Body mass index (BMI) 60.0-69.9, adult Type of Wound Date of Service: 01/28/18 Chief Complaint: nonhealing ulcers BLLE since July 2017 History of Wound: This is a 51-year-old morbidly obese white male who presents to the wound healing center with a chief complaint of nonhealing bilateral lower extremity ulcers since July 2017. He states that his wound treatment has consisted of covering with a dry dressing and gauze and that he wears compression stockings as well. He does state that he has a history of ulcers on the lower extremities as well and a history of venous insufficiency. No recent vascular studies. Patient denies any obvious trauma that preceded these ulcerations. He does state that the ulcerations are painful at times though denies any obvious exudate, warmth, or systemic signs of infection. He denies any other acute complaints at this time. The patient otherwise denies any fever , chills, nausea, vomiting, shortness of breath, chest pain or pressure, palpitations, orthopnea, lower extremity edema, syncope or presyncopal episodes. Progress of Wound: 11/26/2017 -stable, no marked improvement as patient missed 2 days of wound care due to lack of supplies, left lower extremity ulcer is worsened as patient states that he had a recent trauma to by bumping into a hard object. 12/10/2017-patient notes improvement in his wounds. He did miss his previous appointment however. His previous culture was reviewed with him and demonstrated MRSA and he started the Bactrim DS as ordered for him. He denies any signs of systemic infection at this time and denies any worsening pain or purulent drainage. 12/17/17-patient notes improvement in his wounds, left lower extremity ulcer healed. His previous culture was reviewed with him and demonstrated MRSA and has completed the Bactrim DS as ordered for him. He denies any signs of systemic infection at this time and denies any worsening pain or purulent drainage. 12/31/17- Patient completed abx and states pain and size of wound RLE improving, denies systemic signs of infection. 01/07/2018, patient states pain has improved and the size of the right lower extremity ulcer improving, denies any systemic signs of infection at this time. 01/20/18- site is improving, size decreasing and pain decreased. 01/28/18- RLE improving almost healed, new skin tear left lower extremity after rubbing up against blackberry rey - Physical Exam Vital Signs Temp Pulse Resp BP 97.3 F L 84 18 164/84 H 01/28/18 16:51 01/28/18 16:51 01/28/18 16:51 01/28/18 16:51 General: Alert, Oriented x3, Cooperative, No apparent distress HEENT: Atraumatic Cardiovascular: Regular rate Abdomen: Obese Skin: Ulcer/ Wound - ulcer rle with adherant slough, Skin Tear - small skin tear left lower extremity without signs of infection, anterior Neurological: Neuro grossly intact Psych/Mental Status: Normal Affect, Appropriate, Alert and oriented to time, place, person, mood and affect Debridement Note Post-Debridement Measurements/Treatment WC - Nurse 2 - General Ulcer CM Notes Start: 01/28/18 16:51 Freq: Status: Active Protocol: Activity Type Activity Date Activity User E-Sign Co-Sign Detail Recorded Client Recorded Date Recorded By Document 01/28/18 17:16 [id number] 01/28/18 17:18 01/28/18 17:16 Wound Center Nurse 2 #3-left superior rodrigues -Time 17:16 -Correct Patient Yes -Correct Side, Site, Position Yes -Correct Procedure Yes -Procedure Performed Yes -Type of Procedure Debridement -Clinical Debridement Subcutaneous -Post Debridement Size (cm) - Length 0.9 -Post Debridement Size (cm) - Width 1.0 -Post Debridement Size (cm) - Depth 0.1 -Total Square Cm 0.90 -Wound/Ulcer Outcome Not Healed -Ulcer Cleansing Rinsed/ Irrigated with Saline -Foul Odor after Cleansing No -Bioengineered Tissue No -Topical Lidocaine (%) 4 -Bleeding Controlled with Pressure -Treatment Response Procedure Tolerated Well #1 RIGHT RODRIGUES -Time 17:17 -Correct Patient Yes -Correct Side, Site, Position Yes -Correct Procedure Yes -Procedure Performed Yes -Type of Procedure Debridement -Clinical Debridement Subcutaneous -Post Debridement Size (cm) - Length 0.4 -Post Debridement Size (cm) - Width 2.0 -Post Debridement Size (cm) - Depth 0.1 -Total Square Cm 0.80 -Wound/Ulcer Outcome Not Healed -Ulcer Cleansing Rinsed/ Irrigated with Saline -Foul Odor after Cleansing No -Bioengineered Tissue No -Topical Lidocaine (%) 4 -Bleeding Controlled with Pressure -Treatment Response Procedure Tolerated Well Pain Scale: 0-10 Numeric Is Patient Pain Free? Yes Wound debrided: RLE ulcer Type of Debridement: Excisional debridement Anesthesia Used: 5% Lidocaine Gel Depth: in the subcutaneous layer Percentage of wound debrided: 100 Instrument Used: 7mm curette Tissue Removed: slough and devitalized tissue Severity: Fat Layer Exposed Amount of bleeding with debridement: Mild Bleeding Controlled with: Pressure Patient tolerated procedure well Assessment/Plan Assessment: Assessment: Nonhealing ulcers bilateral lower extremities with fat layer exposed. Bilateral lower extremity edema. Decreased dorsal pedis pulses. Morbid obesity with BMI greater than 60. History of chronic venous insufficiency Plan: Plan: The patient was seen and examined at the wound center today and was updated on the plan of care. His left lower extremity ulcer has healed. New small left skin tear anterior lower extremity as described above. A subcutaneous debridement was performed today as described above. The patient tolerated the procedure well. The patients wound care will consist of: PenBlade ag with 3M wrap applied for compression. Wound cultures were reviewed and demonstrated MRSA and a facialis, patient was started on Bactrim DS twice daily ?10 days which he completed. Baseline bloodwork reviewed and demonstrated slightly low pre-albumin, encourage the use of qxdx-xnwyebo-dkhrncdoit diet. Vascular studies demonstrated venous insufficiency. Patient educated on the importance of diet on wound healing and instructed to increase protein and vitamin C intake. Patient verbalized understanding. Patient will follow up at wound healing center in one week or sooner if needed. Circaid script pending. Discussed red flag symptoms of systemic infection that require urgent medical attention. this note was generated with [employer] dictation software. It may contain incorrect words, spelling, and punctuation that were not noted in checking the note before signing. Code Visit 111xxx-113xx: 32669 Nneka subq tissue 20 sq cm/<
[2018-02-04 15:39] VITALS: BP 148/71; PULSE 76; RESP 24; TEMP 36.4
--- NOTE | 2018-02-04 19:11 | PCM.WC.PN ---
(1) Nonhealing ulcer of right lower extremity with fat layer exposed Status: Acute Code(s): L97.912 - Non-pressure chronic ulcer of unspecified part of right lower leg with fat layer exposed (2) Skin tear of left lower leg without complication Status: Acute Code(s): S81.812A - Laceration without foreign body, left lower leg, initial encounter (3) Decreased dorsalis pedis pulse Status: Acute Code(s): R09.89 - Other specified symptoms and signs involving the circulatory and respiratory systems (4) Lymphedema of both lower extremities Status: Acute Code(s): I89.0 - Lymphedema, not elsewhere classified (5) Morbid obesity with BMI of 60.0-69.9, adult Status: Acute Code(s): E66.01 - Morbid (severe) obesity due to excess calories; Z68.44 - Body mass index (BMI) 60.0-69.9, adult Type of Wound Date of Service: 02/04/18 Chief Complaint: nonhealing ulcers BLLE since July 2017 History of Wound: This is a 51-year-old morbidly obese white male who presents to the wound healing center with a chief complaint of nonhealing bilateral lower extremity ulcers since July 2017. He states that his wound treatment has consisted of covering with a dry dressing and gauze and that he wears compression stockings as well. He does state that he has a history of ulcers on the lower extremities as well and a history of venous insufficiency. No recent vascular studies. Patient denies any obvious trauma that preceded these ulcerations. He does state that the ulcerations are painful at times though denies any obvious exudate, warmth, or systemic signs of infection. He denies any other acute complaints at this time. The patient otherwise denies any fever, chills, nausea, vomiting, shortness of breath, chest pain or pressure, palpitations, orthopnea, lower extremity edema, syncope or presyncopal episodes. Progress of Wound: 11/26/2017 -stable, no marked improvement as patient missed 2 days of wound care due to lack of supplies, left lower extremity ulcer is worsened as patient states that he had a recent trauma to by bumping into a hard object. 12/10/2017-patient notes improvement in his wounds. He did miss his previous appointment however. His previous culture was reviewed with him and demonstrated MRSA and he started the Bactrim DS as ordered for him. He denies any signs of systemic infection at this time and denies any worsening pain or purulent drainage. 12/17/17-patient notes improvement in his wounds, left lower extremity ulcer healed. His previous culture was reviewed with him and demonstrated MRSA and has completed the Bactrim DS as ordered for him. He denies any signs of systemic infection at this time and denies any worsening pain or purulent drainage. 12/31/17- Patient completed abx and states pain and size of wound RLE improving, denies systemic signs of infection. 01/07/2018, patient states pain has improved and the size of the right lower extremity ulcer improving, denies any systemic signs of infection at this time. 01/20/18- site is improving, size decreasing and pain decreased. 01/28/18- RLE improving almost healed, new skin tear left lower extremity after rubbing up against blackberry rey. 02/09- RLE is almost entirely healed, pending lypmhedema pumps ordered at this time - Physical Exam Vital Signs Temp Pulse Resp BP 97.5 F L 76 24 H 148/71 H 02/04/18 15:39 02/04/18 15:39 02/04/18 15:39 02/04/18 15:39 General: Alert, Oriented x3, Cooperative, No apparent distress HEENT: Atraumatic Abdomen: Obese Extremities: Edema - 1+ BLLE edema Skin: Ulcer/ Wound - Very small ulceration RLE with adherant slough Debridement Note Post-Debridement Measurements/Treatment WC - Nurse 2 - General Ulcer CM Notes Start: 01/28/18 16:51 Freq: Status: Active Protocol: Activity Type Activity Date Activity User E-Sign Co-Sign Detail Recorded Client Recorded Date Recorded By Document 01/28/18 17:16 TM [id number] 01/28/18 17:18 TM Document 02/04/18 16:36 JS [id number] 02/04/18 16:39 01/28/18 02/04/18 17:16 16:36 Wound Center Nurse 2 #3-left superior rodrigues -Time 17:16 16:36 -Correct Patient Yes Yes -Correct Side, Site, Position Yes Yes -Correct Procedure Yes Yes -Procedure Performed Yes Yes -Type of Procedure Debridement Debridement -Clinical Debridement Subcutaneous Subcutaneous -Post Debridement Size (cm) - Length 0.9 0.1 -Post Debridement Size (cm) - Width 1.0 0.1 -Post Debridement Size (cm) - Depth 0.1 0.1 -Total Square Cm 0.90 0.01 -Wound/Ulcer Outcome Not Healed Not Healed -Ulcer Cleansing Rinsed/ Rinsed/ Irrigated with Irrigated with Saline Saline -Foul Odor after Cleansing No No -Bioengineered Tissue No No -Topical Lidocaine (%) 4 4 -Lidocaine (ml) 5 -Bleeding Controlled with Pressure NA -Treatment Response Procedure Procedure Tolerated Well Tolerated Well #1 RIGHT RODRIGUES -Time 17:17 16:36 -Correct Patient Yes Yes -Correct Side, Site, Position Yes Yes -Correct Procedure Yes Yes -Procedure Performed Yes Yes -Type of Procedure Debridement Debridement -Clinical Debridement Subcutaneous Subcutaneous -Post Debridement Size (cm) - Length 0.4 0.1 -Post Debridement Size (cm) - Width 2.0 0.1 -Post Debridement Size (cm) - Depth 0.1 0.1 -Total Square Cm 0.80 0.01 -Wound/Ulcer Outcome Not Healed Not Healed -Ulcer Cleansing Rinsed/ Rinsed/ Irrigated with Irrigated with Saline Saline -Foul Odor after Cleansing No No -Bioengineered Tissue No No -Topical Lidocaine (%) 4 4 -Lidocaine (ml) 5 -Bleeding Controlled with Pressure NA -Treatment Response Procedure Procedure Tolerated Well Tolerated Well Pain Scale: 0-10 Numeric Is Patient Pain Free? Yes Yes Wound debrided: RLE ulcer Laterality: Right Type of Debridement: Excisional debridement Anesthesia Used: 5% Lidocaine Gel Depth: in the subcutaneous layer Percentage of wound debrided: 100 Instrument Used: 5mm curette Tissue Removed: slough and devitalized tissue Severity: Fat Layer Exposed Amount of bleeding with debridement: Mild Bleeding Controlled with: Pressure Patient tolerated procedure well Assessment/Plan Assessment: Assessment: Nonhealing ulcers bilateral lower extremities with fat layer exposed. Bilateral lower extremity edema. Decreased dorsal pedis pulses. Morbid obesity with BMI greater than 60. History of chronic venous insufficiency Plan: Plan: The patient was seen and examined at the wound center today and was updated on the plan of care. His left lower extremity ulcer has healed. New small left skin tear anterior lower extremity healed and RLE ulcer is almost entirely healed. A subcutaneous debridement was performed today as described above. The patient tolerated the procedure well. The patients wound care will consist of: aquacell ag with 3M wrap applied for compression. Wound cultures were reviewed and demonstrated MRSA and a facialis, patient was started on Bactrim DS twice daily ?10 days which he completed. Baseline bloodwork reviewed and demonstrated slightly low pre-albumin, encourage the use of bimz-cilqcbo-rrlkwfklir diet. Vascular studies demonstrated venous insufficiency. Patient educated on the importance of diet on wound healing and instructed to increase protein and vitamin C intake. Patient verbalized understanding. Patient will follow up at wound healing center in one week or sooner if needed. Lymphedema pumps pending. Discussed red flag symptoms of systemic infection that require urgent medical attention. this note was generated with [employer] dictation software. It may contain incorrect words, spelling, and punctuation that were not noted in checking the note before signing. Code Visit 111xxx-113xx: 28935 Nneka subq tissue 20 sq cm/<
--- NOTE | 2018-02-09 11:14 | PN.PCM_ITS ---
(1) Nonhealing ulcer of right lower extremity with fat layer exposed Status: Acute Code(s): L97.912 - Non-pressure chronic ulcer of unspecified part of right lower leg with fat layer exposed (2) Skin tear of left lower leg without complication Status: Acute Code(s): S81.812A - Laceration without foreign body, left lower leg, initial encounter (3) Decreased dorsalis pedis pulse Status: Acute Code(s): R09.89 - Other specified symptoms and signs involving the circulatory and respiratory systems (4) Lymphedema of both lower extremities Status: Acute Code(s): I89.0 - Lymphedema, not elsewhere classified (5) Morbid obesity with BMI of 60.0-69.9, adult Status: Acute Code(s): E66.01 - Morbid (severe) obesity due to excess calories ; Z68.44 - Body mass index (BMI) 60.0-69.9, adult Type of Wound Date of Service: 02/04/18 Chief Complaint: nonhealing ulcers BLLE since July 2017 History of Wound: This is a 51-year-old morbidly obese white male who presents to the wound healing center with a chief complaint of nonhealing bilateral lower extremity ulcers since July 2017. He states that his wound treatment has consisted of covering with a dry dressing and gauze and that he wears compression stockings as well. He does state that he has a history of ulcers on the lower extremities as well and a history of venous insufficiency. No recent vascular studies. Patient denies any obvious trauma that preceded these ulcerations. He does state that the ulcerations are painful at times though denies any obvious exudate, warmth, or systemic signs of infection. He denies any other acute complaints at this time. The patient otherwise denies any fever , chills, nausea, vomiting, shortness of breath, chest pain or pressure, palpitations, orthopnea, lower extremity edema, syncope or presyncopal episodes. Progress of Wound: 11/26/2017 -stable, no marked improvement as patient missed 2 days of wound care due to lack of supplies, left lower extremity ulcer is worsened as patient states that he had a recent trauma to by bumping into a hard object. 12/10/2017-patient notes improvement in his wounds. He did miss his previous appointment however. His previous culture was reviewed with him and demonstrated MRSA and he started the Bactrim DS as ordered for him. He denies any signs of systemic infection at this time and denies any worsening pain or purulent drainage. 12/17/17-patient notes improvement in his wounds, left lower extremity ulcer healed. His previous culture was reviewed with him and demonstrated MRSA and has completed the Bactrim DS as ordered for him. He denies any signs of systemic infection at this time and denies any worsening pain or purulent drainage. 12/31/17- Patient completed abx and states pain and size of wound RLE improving, denies systemic signs of infection. 01/07/2018, patient states pain has improved and the size of the right lower extremity ulcer improving, denies any systemic signs of infection at this time. 01/20/18- site is improving, size decreasing and pain decreased. 01/28/18- RLE improving almost healed, new skin tear left lower extremity after rubbing up against blackberry rey. 02/09- RLE is almost entirely healed, pending lypmhedema pumps ordered at this time - Physical Exam Vital Signs Temp Pulse Resp BP 97.5 F L 76 24 H 148/71 H 02/04/18 15:39 02/04/18 15:39 02/04/18 15:39 02/04/18 15:39 General: Alert, Oriented x3, Cooperative, No apparent distress HEENT: Atraumatic Abdomen: Obese Extremities: Edema - 1+ BLLE edema Skin: Ulcer/ Wound - Very small ulceration RLE with adherant slough Debridement Note Post-Debridement Measurements/Treatment WC - Nurse 2 - General Ulcer CM Notes Start: 01/28/18 16:51 Freq: Status: Active Protocol: Activity Type Activity Date Activity User E-Sign Co-Sign Detail Recorded Client Recorded Date Recorded By Document 01/28/18 17:16 TM [id number] 01/28/18 17:18 TM Document 02/04/18 16:36 JS [id number] 02/04/18 16:39 01/28/18 02/04/18 17:16 16:36 Wound Center Nurse 2 #3-left superior rodrigues -Time 17:16 16:36 -Correct Patient Yes Yes -Correct Side, Site, Position Yes Yes -Correct Procedure Yes Yes -Procedure Performed Yes Yes -Type of Procedure Debridement Debridement -Clinical Debridement Subcutaneous Subcutaneous -Post Debridement Size (cm) - Length 0.9 0.1 -Post Debridement Size (cm) - Width 1.0 0.1 -Post Debridement Size (cm) - Depth 0.1 0.1 -Total Square Cm 0.90 0.01 -Wound/Ulcer Outcome Not Healed Not Healed -Ulcer Cleansing Rinsed/ Rinsed/ Irrigated with Irrigated with Saline Saline -Foul Odor after Cleansing No No -Bioengineered Tissue No No -Topical Lidocaine (%) 4 4 -Lidocaine (ml) 5 -Bleeding Controlled with Pressure NA -Treatment Response Procedure Procedure Tolerated Well Tolerated Well #1 RIGHT RODRIGUES -Time 17:17 16:36 -Correct Patient Yes Yes -Correct Side, Site, Position Yes Yes -Correct Procedure Yes Yes -Procedure Performed Yes Yes -Type of Procedure Debridement Debridement -Clinical Debridement Subcutaneous Subcutaneous -Post Debridement Size (cm) - Length 0.4 0.1 -Post Debridement Size (cm) - Width 2.0 0.1 -Post Debridement Size (cm) - Depth 0.1 0.1 -Total Square Cm 0.80 0.01 -Wound/Ulcer Outcome Not Healed Not Healed -Ulcer Cleansing Rinsed/ Rinsed/ Irrigated with Irrigated with Saline Saline -Foul Odor after Cleansing No No -Bioengineered Tissue No No -Topical Lidocaine (%) 4 4 -Lidocaine (ml) 5 -Bleeding Controlled with Pressure NA -Treatment Response Procedure Procedure Tolerated Well Tolerated Well Pain Scale: 0-10 Numeric Is Patient Pain Free? Yes Yes Wound debrided: RLE ulcer Laterality: Right Type of Debridement: Excisional debridement Anesthesia Used: 5% Lidocaine Gel Depth: in the subcutaneous layer Percentage of wound debrided: 100 Instrument Used: 5mm curette Tissue Removed: slough and devitalized tissue Severity: Fat Layer Exposed Amount of bleeding with debridement: Mild Bleeding Controlled with: Pressure Patient tolerated procedure well Assessment/Plan Assessment: Assessment: Nonhealing ulcers bilateral lower extremities with fat layer exposed. Bilateral lower extremity edema. Decreased dorsal pedis pulses. Morbid obesity with BMI greater than 60. History of chronic venous insufficiency Plan: Plan: The patient was seen and examined at the wound center today and was updated on the plan of care. His left lower extremity ulcer has healed. New small left skin tear anterior lower extremity healed and RLE ulcer is almost entirely healed. A subcutaneous debridement was performed today as described above. The patient tolerated the procedure well. The patients wound care will consist of: aquacell ag with 3M wrap applied for compression. Wound cultures were reviewed and demonstrated MRSA and a facialis, patient was started on Bactrim DS twice daily ?10 days which he completed. Baseline bloodwork reviewed and demonstrated slightly low pre-albumin, encourage the use of high-protein- containing diet. Vascular studies demonstrated venous insufficiency. Patient educated on the importance of diet on wound healing and instructed to increase protein and vitamin C intake. Patient verbalized understanding. Patient will follow up at wound healing center in one week or sooner if needed. Lymphedema pumps pending. Discussed red flag symptoms of systemic infection that require urgent medical attention. this note was generated with [employer] dictation software. It may contain incorrect words, spelling, and punctuation that were not noted in checking the note before signing. Code Visit 111xxx-113xx: 46410 Nneka subq tissue 20 sq cm/<
--- NOTE | 2018-02-11 16:16 | PCM.WC.PN ---
(1) Nonhealing ulcer of right lower extremity with fat layer exposed Status: Acute Code(s): L97.912 - Non-pressure chronic ulcer of unspecified part of right lower leg with fat layer exposed (2) Skin tear of left lower leg without complication Status: Acute Code(s): S81.812A - Laceration without foreign body, left lower leg, initial encounter (3) Decreased dorsalis pedis pulse Status: Acute Code(s): R09.89 - Other specified symptoms and signs involving the circulatory and respiratory systems (4) Lymphedema of both lower extremities Status: Acute Code(s): I89.0 - Lymphedema, not elsewhere classified (5) Morbid obesity with BMI of 60.0-69.9, adult Status: Acute Code(s): E66.01 - Morbid (severe) obesity due to excess calories; Z68.44 - Body mass index (BMI) 60.0-69.9, adult Type of Wound Date of Service: 02/11/18 Chief Complaint: nonhealing ulcers BLLE since July 2017 History of Wound: This is a 51-year-old morbidly obese white male who presents to the wound healing center with a chief complaint of nonhealing bilateral lower extremity ulcers since July 2017. He states that his wound treatment has consisted of covering with a dry dressing and gauze and that he wears compression stockings as well. He does state that he has a history of ulcers on the lower extremities as well and a history of venous insufficiency. No recent vascular studies. Patient denies any obvious trauma that preceded these ulcerations. He does state that the ulcerations are painful at times though denies any obvious exudate, warmth, or systemic signs of infection. He denies any other acute complaints at this time. The patient otherwise denies any fever, chills, nausea, vomiting, shortness of breath, chest pain or pressure, palpitations, orthopnea, lower extremity edema, syncope or presyncopal episodes. Progress of Wound: 11/26/2017 -stable, no marked improvement as patient missed 2 days of wound care due to lack of supplies, left lower extremity ulcer is worsened as patient states that he had a recent trauma to by bumping into a hard object. 12/10/2017-patient notes improvement in his wounds. He did miss his previous appointment however. His previous culture was reviewed with him and demonstrated MRSA and he started the Bactrim DS as ordered for him. He denies any signs of systemic infection at this time and denies any worsening pain or purulent drainage. 12/17/17-patient notes improvement in his wounds, left lower extremity ulcer healed. His previous culture was reviewed with him and demonstrated MRSA and has completed the Bactrim DS as ordered for him. He denies any signs of systemic infection at this time and denies any worsening pain or purulent drainage. 12/31/17- Patient completed abx and states pain and size of wound RLE improving, denies systemic signs of infection. 01/07/2018, patient states pain has improved and the size of the right lower extremity ulcer improving, denies any systemic signs of infection at this time. 01/20/18- site is improving, size decreasing and pain decreased. 01/28/18- RLE improving almost healed, new skin tear left lower extremity after rubbing up against blackberry rey. 02/11- RLE is almost entirely healed, pending lypmhedema pumps ordered at this time - Physical Exam Vital Signs Temp Pulse Resp BP 98.0 F 76 20 H 150/66 H 02/11/18 16:29 02/11/18 16:29 02/11/18 16:29 02/11/18 16:29 General: Alert, Oriented x3, Cooperative, No apparent distress HEENT: Atraumatic Cardiovascular: Regular rate Extremities: Edema - generalized BLLE edema Skin: Ulcer/ Wound - very small Ulcer present RLE. woundbed moist no slough Neurological: Neuro grossly intact Psych/Mental Status: Normal Affect, Appropriate Debridement Note Post-Debridement Measurements/Treatment WC - Nurse 2 - General Ulcer CM Notes Start: 01/28/18 16:51 Freq: Status: Active Protocol: Activity Type Activity Date Activity User E-Sign Co-Sign Detail Recorded Client Recorded Date Recorded By Document 01/28/18 17:16 TM [id number] 01/28/18 17:18 Document 02/04/18 16:36 [id number] 02/04/18 16:39 01/28/18 02/04/18 17:16 16:36 Wound Center Nurse 2 #3-left superior rodrigues -Time 17:16 16:36 -Correct Patient Yes Yes -Correct Side, Site, Position Yes Yes -Correct Procedure Yes Yes -Procedure Performed Yes Yes -Type of Procedure Debridement Debridement -Clinical Debridement Subcutaneous Subcutaneous -Post Debridement Size (cm) - Length 0.9 0.1 -Post Debridement Size (cm) - Width 1.0 0.1 -Post Debridement Size (cm) - Depth 0.1 0.1 -Total Square Cm 0.90 0.01 -Wound/Ulcer Outcome Not Healed Not Healed -Ulcer Cleansing Rinsed/ Rinsed/ Irrigated with Irrigated with Saline Saline -Foul Odor after Cleansing No No -Bioengineered Tissue No No -Topical Lidocaine (%) 4 4 -Lidocaine (ml) 5 -Bleeding Controlled with Pressure NA -Treatment Response Procedure Procedure Tolerated Well Tolerated Well #1 RIGHT RODRIGUES -Time 17:17 16:36 -Correct Patient Yes Yes -Correct Side, Site, Position Yes Yes -Correct Procedure Yes Yes -Procedure Performed Yes Yes -Type of Procedure Debridement Debridement -Clinical Debridement Subcutaneous Subcutaneous -Post Debridement Size (cm) - Length 0.4 0.1 -Post Debridement Size (cm) - Width 2.0 0.1 -Post Debridement Size (cm) - Depth 0.1 0.1 -Total Square Cm 0.80 0.01 -Wound/Ulcer Outcome Not Healed Not Healed -Ulcer Cleansing Rinsed/ Rinsed/ Irrigated with Irrigated with Saline Saline -Foul Odor after Cleansing No No -Bioengineered Tissue No No -Topical Lidocaine (%) 4 4 -Lidocaine (ml) 5 -Bleeding Controlled with Pressure NA -Treatment Response Procedure Procedure Tolerated Well Tolerated Well Pain Scale: 0-10 Numeric Is Patient Pain Free? Yes Yes No debridement was completed today - no adherant slough and wound is .1 x .1x .1 RLE ulcer Assessment/Plan Assessment: Assessment: Nonhealing ulcers bilateral lower extremities with fat layer exposed. Bilateral lower extremity edema. Decreased dorsal pedis pulses. Morbid obesity with BMI greater than 60. History of chronic venous insufficiency Plan: Plan: The patient was seen and examined at the wound center today and was updated on the plan of care. His left lower extremity ulcer has healed. New small left skin tear anterior lower extremity healed and RLE ulcer is almost entirely healed. A subcutaneous debridement was not performed today as no indication. The patient tolerated the procedure well. The patients wound care will consist of: IceRocket with 3M wrap applied for compression. Wound cultures were reviewed and demonstrated MRSA and a facialis, patient was started on Bactrim DS twice daily ?10 days which he completed. Baseline bloodwork reviewed and demonstrated slightly low pre-albumin, encourage the use of [id number] diet. Vascular studies demonstrated venous insufficiency. Patient educated on the importance of diet on wound healing and instructed to increase protein and vitamin C intake. Patient verbalized understanding. Patient will follow up at wound healing center in one week or sooner if needed for nurse visit to change wraps and 2 weeks with provider. Lymphedema pumps pending. Discussed red flag symptoms of systemic infection that require urgent medical attention. this note was generated with [employer] dictation software. It may contain incorrect words, spelling, and punctuation that were not noted in checking the note before signing. Code Visit Office Visits / Consults: [id number] OV L3 Est
[2018-02-11 16:29] VITALS: BP 150/66; PULSE 76; RESP 20; TEMP 36.7
--- NOTE | 2018-02-16 16:21 | PN.PCM_ITS ---
(1) Nonhealing ulcer of right lower extremity with fat layer exposed Status: Acute Code(s): L97.912 - Non-pressure chronic ulcer of unspecified part of right lower leg with fat layer exposed (2) Skin tear of left lower leg without complication Status: Acute Code(s): S81.812A - Laceration without foreign body, left lower leg, initial encounter (3) Decreased dorsalis pedis pulse Status: Acute Code(s): R09.89 - Other specified symptoms and signs involving the circulatory and respiratory systems (4) Lymphedema of both lower extremities Status: Acute Code(s): I89.0 - Lymphedema, not elsewhere classified (5) Morbid obesity with BMI of 60.0-69.9, adult Status: Acute Code(s): E66.01 - Morbid (severe) obesity due to excess calories ; Z68.44 - Body mass index (BMI) 60.0-69.9, adult Type of Wound Date of Service: 02/11/18 Chief Complaint: nonhealing ulcers BLLE since July 2017 History of Wound: This is a 51-year-old morbidly obese white male who presents to the wound healing center with a chief complaint of nonhealing bilateral lower extremity ulcers since July 2017. He states that his wound treatment has consisted of covering with a dry dressing and gauze and that he wears compression stockings as well. He does state that he has a history of ulcers on the lower extremities as well and a history of venous insufficiency. No recent vascular studies. Patient denies any obvious trauma that preceded these ulcerations. He does state that the ulcerations are painful at times though denies any obvious exudate, warmth, or systemic signs of infection. He denies any other acute complaints at this time. The patient otherwise denies any fever , chills, nausea, vomiting, shortness of breath, chest pain or pressure, palpitations, orthopnea, lower extremity edema, syncope or presyncopal episodes. Progress of Wound: 11/26/2017 -stable, no marked improvement as patient missed 2 days of wound care due to lack of supplies, left lower extremity ulcer is worsened as patient states that he had a recent trauma to by bumping into a hard object. 12/10/2017-patient notes improvement in his wounds. He did miss his previous appointment however. His previous culture was reviewed with him and demonstrated MRSA and he started the Bactrim DS as ordered for him. He denies any signs of systemic infection at this time and denies any worsening pain or purulent drainage. 12/17/17-patient notes improvement in his wounds, left lower extremity ulcer healed. His previous culture was reviewed with him and demonstrated MRSA and has completed the Bactrim DS as ordered for him. He denies any signs of systemic infection at this time and denies any worsening pain or purulent drainage. 12/31/17- Patient completed abx and states pain and size of wound RLE improving, denies systemic signs of infection. 01/07/2018, patient states pain has improved and the size of the right lower extremity ulcer improving, denies any systemic signs of infection at this time. 01/20/18- site is improving, size decreasing and pain decreased. 01/28/18- RLE improving almost healed, new skin tear left lower extremity after rubbing up against blackberry rey. 02/11- RLE is almost entirely healed, pending lypmhedema pumps ordered at this time - Physical Exam Vital Signs Temp Pulse Resp BP 98.0 F 76 20 H 150/66 H 02/11/18 16:29 02/11/18 16:29 02/11/18 16:29 02/11/18 16:29 General: Alert, Oriented x3, Cooperative, No apparent distress HEENT: Atraumatic Cardiovascular: Regular rate Extremities: Edema - generalized BLLE edema Skin: Ulcer/ Wound - very small Ulcer present RLE. woundbed moist no slough Neurological: Neuro grossly intact Psych/Mental Status: Normal Affect, Appropriate Debridement Note Post-Debridement Measurements/Treatment WC - Nurse 2 - General Ulcer CM Notes Start: 01/28/18 16:51 Freq: Status: Active Protocol: Activity Type Activity Date Activity User E-Sign Co-Sign Detail Recorded Client Recorded Date Recorded By Document 01/28/18 17:16 TM [id number] 01/28/18 17:18 Document 02/04/18 16:36 [id number] 02/04/18 16:39 01/28/18 02/04/18 17:16 16:36 Wound Center Nurse 2 #3-left superior rodrigues -Time 17:16 16:36 -Correct Patient Yes Yes -Correct Side, Site, Position Yes Yes -Correct Procedure Yes Yes -Procedure Performed Yes Yes -Type of Procedure Debridement Debridement -Clinical Debridement Subcutaneous Subcutaneous -Post Debridement Size (cm) - Length 0.9 0.1 -Post Debridement Size (cm) - Width 1.0 0.1 -Post Debridement Size (cm) - Depth 0.1 0.1 -Total Square Cm 0.90 0.01 -Wound/Ulcer Outcome Not Healed Not Healed -Ulcer Cleansing Rinsed/ Rinsed/ Irrigated with Irrigated with Saline Saline -Foul Odor after Cleansing No No -Bioengineered Tissue No No -Topical Lidocaine (%) 4 4 -Lidocaine (ml) 5 -Bleeding Controlled with Pressure NA -Treatment Response Procedure Procedure Tolerated Well Tolerated Well #1 RIGHT RODRIGUES -Time 17:17 16:36 -Correct Patient Yes Yes -Correct Side, Site, Position Yes Yes -Correct Procedure Yes Yes -Procedure Performed Yes Yes -Type of Procedure Debridement Debridement -Clinical Debridement Subcutaneous Subcutaneous -Post Debridement Size (cm) - Length 0.4 0.1 -Post Debridement Size (cm) - Width 2.0 0.1 -Post Debridement Size (cm) - Depth 0.1 0.1 -Total Square Cm 0.80 0.01 -Wound/Ulcer Outcome Not Healed Not Healed -Ulcer Cleansing Rinsed/ Rinsed/ Irrigated with Irrigated with Saline Saline -Foul Odor after Cleansing No No -Bioengineered Tissue No No -Topical Lidocaine (%) 4 4 -Lidocaine (ml) 5 -Bleeding Controlled with Pressure NA -Treatment Response Procedure Procedure Tolerated Well Tolerated Well Pain Scale: 0-10 Numeric Is Patient Pain Free? Yes Yes No debridement was completed today - no adherant slough and wound is .1 x .1x .1 RLE ulcer Assessment/Plan Assessment: Assessment: Nonhealing ulcers bilateral lower extremities with fat layer exposed. Bilateral lower extremity edema. Decreased dorsal pedis pulses. Morbid obesity with BMI greater than 60. History of chronic venous insufficiency Plan: Plan: The patient was seen and examined at the wound center today and was updated on the plan of care. His left lower extremity ulcer has healed. New small left skin tear anterior lower extremity healed and RLE ulcer is almost entirely healed. A subcutaneous debridement was not performed today as no indication. The patient tolerated the procedure well. The patients wound care will consist of: Aqua-tools with 3M wrap applied for compression. Wound cultures were reviewed and demonstrated MRSA and a facialis, patient was started on Bactrim DS twice daily ?10 days which he completed. Baseline bloodwork reviewed and demonstrated slightly low pre-albumin, encourage the use of [id number] diet. Vascular studies demonstrated venous insufficiency. Patient educated on the importance of diet on wound healing and instructed to increase protein and vitamin C intake. Patient verbalized understanding. Patient will follow up at wound healing center in one week or sooner if needed for nurse visit to change wraps and 2 weeks with provider. Lymphedema pumps pending. Discussed red flag symptoms of systemic infection that require urgent medical attention. this note was generated with [employer] dictation software. It may contain incorrect words, spelling, and punctuation that were not noted in checking the note before signing. Code Visit Office Visits / Consults: [id number] OV L3 Est
[2018-02-17 14:30] VITALS: BP 127/62; PULSE 73; RESP 22; TEMP 37.1
== END 2018-02-23 23:59 ==
LOC: WC 16:15
PROVIDERS: Family Provider Internal Medicine; PCP Internal Medicine; Visit Provider Nurse Practitioner Family
DX: I87.2 Venous insufficiency (chronic) (peripheral) (principal); I89.0 Lymphedema, not elsewhere classified; E66.01 Morbid (severe) obesity due to excess calories; Z68.44 Body mass index [BMI] 60.0-69.9, adult; Z71.3 Dietary counseling and surveillance; L97.912 Non-pressure chronic ulcer of unspecified part of right lower leg with fat layer exposed; R60.0 Localized edema; S81.812A Laceration without foreign body, left lower leg, initial encounter; W26.8XXA Contact with other sharp object(s), not elsewhere classified, initial encounter
CPT/HCPCS: 11042; 29581; 99211; 99212; G0463

== ENCOUNTER 2018-02-25 14:07 | Outpatient (RCR) | payer MEDICAID, SELFPAY ==
[2018-02-24 00:52] VITALS: BP 127/62; PULSE 73; RESP 22; TEMP 37.1
[2018-02-25 16:14] VITALS: BP 142/69; PULSE 76; RESP 18; TEMP 36.3
--- NOTE | 2018-02-25 20:43 | PCM.WC.PN ---
(1) Nonhealing ulcer of right lower extremity with fat layer exposed Status: Acute Code(s): L97.912 - Non-pressure chronic ulcer of unspecified part of right lower leg with fat layer exposed (2) Decreased dorsalis pedis pulse Status: Acute Code(s): R09.89 - Other specified symptoms and signs involving the circulatory and respiratory systems (3) Lymphedema of both lower extremities Status: Acute Code(s): I89.0 - Lymphedema, not elsewhere classified (4) Morbid obesity with BMI of 60.0-69.9, adult Status: Acute Code(s): E66.01 - Morbid (severe) obesity due to excess calories; Z68.44 - Body mass index (BMI) 60.0-69.9, adult (5) Nonhealing ulcer of left lower extremity with fat layer exposed Status: Acute Code(s): L97.922 - Non-pressure chronic ulcer of unspecified part of left lower leg with fat layer exposed (6) Pain, lower extremity Status: Acute Code(s): M79.606 - Pain in leg, unspecified (7) Skin tear of left lower leg without complication Status: Acute Code(s): S81.812A - Laceration without foreign body, left lower leg, initial encounter Type of Wound Date of Service: 02/25/18 Chief Complaint: nonhealing ulcers BLLE since July 2017 History of Wound: This is a 51-year-old morbidly obese white male who presents to the wound healing center with a chief complaint of nonhealing bilateral lower extremity ulcers since July 2017. He states that his wound treatment has consisted of covering with a dry dressing and gauze and that he wears compression stockings as well. He does state that he has a history of ulcers on the lower extremities as well and a history of venous insufficiency. No recent vascular studies. Patient denies any obvious trauma that preceded these ulcerations. He does state that the ulcerations are painful at times though denies any obvious exudate, warmth, or systemic signs of infection. He denies any other acute complaints at this time. The patient otherwise denies any fever, chills, nausea, vomiting, shortness of breath, chest pain or pressure, palpitations, orthopnea, lower extremity edema, syncope or presyncopal episodes. Progress of Wound: 11/26/2017 -stable, no marked improvement as patient missed 2 days of wound care due to lack of supplies, left lower extremity ulcer is worsened as patient states that he had a recent trauma to by bumping into a hard object. 12/10/2017-patient notes improvement in his wounds. He did miss his previous appointment however. His previous culture was reviewed with him and demonstrated MRSA and he started the Bactrim DS as ordered for him. He denies any signs of systemic infection at this time and denies any worsening pain or purulent drainage. 12/17/17-patient notes improvement in his wounds, left lower extremity ulcer healed. His previous culture was reviewed with him and demonstrated MRSA and has completed the Bactrim DS as ordered for him. He denies any signs of systemic infection at this time and denies any worsening pain or purulent drainage. 12/31/17- Patient completed abx and states pain and size of wound RLE improving, denies systemic signs of infection. 01/07/2018, patient states pain has improved and the size of the right lower extremity ulcer improving, denies any systemic signs of infection at this time. 01/20/18- site is improving, size decreasing and pain decreased. 01/28/18- RLE improving almost healed, new skin tear left lower extremity after rubbing up against blackberry rey. 02/11- RLE is almost entirely healed, pending lypmhedema pumps ordered at this time. 02/25/18- all wounds are healed and edema is minimal, pt brought in double layer compression stockings and return demnstrated on how to utilize them. Denies any signs of infection, denies and fever, chills nausea vomitting SOB, CP syncope or presyncope. - Physical Exam Vital Signs Temp Pulse Resp BP 97.4 F L 76 18 142/69 H 02/25/18 16:14 02/25/18 16:14 02/25/18 16:14 02/25/18 16:14 General: Alert, Oriented x3, Cooperative, No apparent distress HEENT: Atraumatic, PERRLA Lungs: Clear to auscultation, Normal air movement Cardiovascular: Regular rate, Regular Rhythm Abdomen: Bowel Sounds Present, Obese Extremities: No clubbing, No cyanosis, No edema, Peripheral Pulses Normal Skin: Ulcer/ Wound - all wounds healed Neurological: Neuro grossly intact Psych/Mental Status: Normal Affect, Appropriate, Alert and oriented to time, place, person, mood and affect Debridement Note Post-Debridement Measurements/Treatment WC - Nurse 2 - General Ulcer CM Notes Start: 02/25/18 16:14 Freq: Status: Active Protocol: Activity Type Activity Date Activity User E-Sign Co-Sign Detail Recorded Client Recorded Date Recorded By Document 02/25/18 16:35 CS [id number] 02/25/18 16:36 CS 02/25/18 16:35 Pain Scale: 0-10 Numeric Is Patient Pain Free? Yes No debridement was completed today Assessment/Plan Assessment: Assessment: Nonhealing ulcers bilateral lower extremities with fat layer exposed. Bilateral lower extremity edema. Decreased dorsal pedis pulses. Morbid obesity with BMI greater than 60. History of chronic venous insufficiency Plan: Plan: The patient was seen and examined at the wound center today and was updated on the plan of care. All wounds are now healed. For compression the patient will utilize double layer compression stockings. Return demonstration done in office how to use them. Patient to f/u with podiatry for onychomycosis of toenails. Pt to f.u at [facility]. Discharged from [facility] today. Code Visit Office Visits / Consults: [id number] OV L3 Est
--- NOTE | 2018-03-02 11:48 | PN.PCM_ITS ---
(1) Nonhealing ulcer of right lower extremity with fat layer exposed Status: Acute Code(s): L97.912 - Non-pressure chronic ulcer of unspecified part of right lower leg with fat layer exposed (2) Decreased dorsalis pedis pulse Status: Acute Code(s): R09.89 - Other specified symptoms and signs involving the circulatory and respiratory systems (3) Lymphedema of both lower extremities Status: Acute Code(s): I89.0 - Lymphedema, not elsewhere classified (4) Morbid obesity with BMI of 60.0-69.9, adult Status: Acute Code(s): E66.01 - Morbid (severe) obesity due to excess calories ; Z68.44 - Body mass index (BMI) 60.0-69.9, adult (5) Nonhealing ulcer of left lower extremity with fat layer exposed Status: Acute Code(s): L97.922 - Non-pressure chronic ulcer of unspecified part of left lower leg with fat layer exposed (6) Pain, lower extremity Status: Acute Code(s): M79.606 - Pain in leg, unspecified (7) Skin tear of left lower leg without complication Status: Acute Code(s): S81.812A - Laceration without foreign body, left lower leg, initial encounter Type of Wound Date of Service: 02/25/18 Chief Complaint: nonhealing ulcers BLLE since July 2017 History of Wound: This is a 51-year-old morbidly obese white male who presents to the wound healing center with a chief complaint of nonhealing bilateral lower extremity ulcers since July 2017. He states that his wound treatment has consisted of covering with a dry dressing and gauze and that he wears compression stockings as well. He does state that he has a history of ulcers on the lower extremities as well and a history of venous insufficiency. No recent vascular studies. Patient denies any obvious trauma that preceded these ulcerations. He does state that the ulcerations are painful at times though denies any obvious exudate, warmth, or systemic signs of infection. He denies any other acute complaints at this time. The patient otherwise denies any fever , chills, nausea, vomiting, shortness of breath, chest pain or pressure, palpitations, orthopnea, lower extremity edema, syncope or presyncopal episodes. Progress of Wound: 11/26/2017 -stable, no marked improvement as patient missed 2 days of wound care due to lack of supplies, left lower extremity ulcer is worsened as patient states that he had a recent trauma to by bumping into a hard object. 12/10/2017-patient notes improvement in his wounds. He did miss his previous appointment however. His previous culture was reviewed with him and demonstrated MRSA and he started the Bactrim DS as ordered for him. He denies any signs of systemic infection at this time and denies any worsening pain or purulent drainage. 12/17/17-patient notes improvement in his wounds, left lower extremity ulcer healed. His previous culture was reviewed with him and demonstrated MRSA and has completed the Bactrim DS as ordered for him. He denies any signs of systemic infection at this time and denies any worsening pain or purulent drainage. 12/31/17- Patient completed abx and states pain and size of wound RLE improving, denies systemic signs of infection. 01/07/2018, patient states pain has improved and the size of the right lower extremity ulcer improving, denies any systemic signs of infection at this time. 01/20/18- site is improving, size decreasing and pain decreased. 01/28/18- RLE improving almost healed, new skin tear left lower extremity after rubbing up against blackberry rey. 02/11- RLE is almost entirely healed, pending lypmhedema pumps ordered at this time. 02/25/18- all wounds are healed and edema is minimal, pt brought in double layer compression stockings and return demnstrated on how to utilize them. Denies any signs of infection, denies and fever, chills nausea vomitting SOB, CP syncope or presyncope. - Physical Exam Vital Signs Temp Pulse Resp BP 97.4 F L 76 18 142/69 H 02/25/18 16:14 02/25/18 16:14 02/25/18 16:14 02/25/18 16:14 General: Alert, Oriented x3, Cooperative, No apparent distress HEENT: Atraumatic, PERRLA Lungs: Clear to auscultation, Normal air movement Cardiovascular: Regular rate, Regular Rhythm Abdomen: Bowel Sounds Present, Obese Extremities: No clubbing, No cyanosis, No edema, Peripheral Pulses Normal Skin: Ulcer/ Wound - all wounds healed Neurological: Neuro grossly intact Psych/Mental Status: Normal Affect, Appropriate, Alert and oriented to time, place, person, mood and affect Debridement Note Post-Debridement Measurements/Treatment WC - Nurse 2 - General Ulcer CM Notes Start: 02/25/18 16:14 Freq: Status: Active Protocol: Activity Type Activity Date Activity User E-Sign Co-Sign Detail Recorded Client Recorded Date Recorded By Document 02/25/18 16:35 CS [id number] 02/25/18 16:36 CS 02/25/18 16:35 Pain Scale: 0-10 Numeric Is Patient Pain Free? Yes No debridement was completed today Assessment/Plan Assessment: Assessment: Nonhealing ulcers bilateral lower extremities with fat layer exposed. Bilateral lower extremity edema. Decreased dorsal pedis pulses. Morbid obesity with BMI greater than 60. History of chronic venous insufficiency Plan: Plan: The patient was seen and examined at the wound center today and was updated on the plan of care. All wounds are now healed. For compression the patient will utilize double layer compression stockings. Return demonstration done in office how to use them. Patient to f/u with podiatry for onychomycosis of toenails. Pt to f.u at [facility]. Discharged from [facility] today. Code Visit Office Visits / Consults: [id number] OV L3 Est
== END 2018-03-26 23:59 ==
LOC: WC 14:07
PROVIDERS: Family Provider Internal Medicine; PCP Internal Medicine; Visit Provider Nurse Practitioner Family
DX: Z09 Encounter for follow-up examination after completed treatment for conditions other than malignant neoplasm (principal); I87.2 Venous insufficiency (chronic) (peripheral)
CPT/HCPCS: 99211; G0463

== ENCOUNTER 2018-05-20 14:00 | Outpatient (RCR) | payer MEDICAID, SELFPAY ==
[2018-05-06 13:52] VITALS: BP 165/73; PULSE 81; RESP 20; TEMP 36.9; BMI 58.8
--- NOTE | 2018-05-07 09:31 | PCM.WC.HP ---
(1) Nonhealing ulcer of right lower extremity with fat layer exposed Status: Acute Current Visit: Yes Code(s): L97.912 - Non-pressure chronic ulcer of unspecified part of right lower leg with fat layer exposed (2) Decreased dorsalis pedis pulse Status: Acute Current Visit: Yes Code(s): R09.89 - Other specified symptoms and signs involving the circulatory and respiratory systems (3) Lymphedema of both lower extremities Status: Acute Current Visit: Yes Code(s): I89.0 - Lymphedema, not elsewhere classified (4) Morbid obesity with BMI of 60.0-69.9, adult Status: Acute Current Visit: Yes Code(s): E66.01 - Morbid (severe) obesity due to excess calories; Z68.44 - Body mass index (BMI) 60.0-69.9, adult (5) Venous insufficiency (chronic) (peripheral) Status: Acute Current Visit: Yes Code(s): I87.2 - Venous insufficiency (chronic) (peripheral) History of Present Illness Chief Complaint: nonhealing ulcers RLE x 1 month History of Wound: This is a 51-year-old morbidly obese white male who presents to the wound healing center with a chief complaint of nonhealing right lower extremity ulcer x 1 month. He has a past medical history as listed above and is a known patient to me. He was recently discharged from the wound center approximately 2 months ago. He states that recently his diuretics were adjusted down and he was not being compliant with his compression stockings and he noted an increase in fluid retention to his bilateral lower extremities. He stated about a month ago, fluid started seeping out of the anterior right lower extremity and this developed into an ulceration. He was using leftover Aquacel silver that he had and did not note much improvement. He has not discussed with his primary care about adjusting his diuretics. He had vascular studies done in which demonstrated venous insufficiency and a right PATRICK of 1.3 and a left PATRICK 1.28. In the past he has done well with 3M wraps when he was not being compliant with his compression stockings. Patient denies any obvious trauma that preceded these ulcerations. He does state that the ulceration is painful at times though denies any obvious exudate, warmth, or systemic signs of infection. He denies any other acute complaints at this time. The patient otherwise denies any fever, chills, nausea, vomiting, shortness of breath, chest pain or pressure, palpitations, orthopnea, syncope or presyncopal episodes. Past Medical History Allergies/Adverse Reactions: Allergies No Known Allergies Allergy (Verified 05/06/18 14:07) Home Medications: Ambulatory Orders Medication Instructions Recorded Aldactone 1 tablet PO BID 05/06/18 Lasix 80 mg PO BREAKFAST 05/06/18 Smoking Status: Former smoker Review of Systems Constitutional: Denies: Chills, Fever, Weight Change Eyes: Denies: Pain, Vision Change HEENT: Denies: Difficulty Hearing, Difficulty Swallowing, Sinus Congestion Cardiovascular: Reports: Edema - BLLE edema. Denies: Chest Pain, Orthopnea, Palpitations Respiratory: Denies: Cough, Shortness of Breath Gastrointestinal: Denies: Diarrhea, Nausea, Vomiting Genitourinary: Denies: Dysuria, Hematuria Skin: Reports: Wounds - see hpi Psychiatric: Denies: Anxiety, Depression Endocrine: Denies: Heat/ Cold Intolerance, Polydipsia, Polyuria Hematologic/ Lymphatic: Denies: Easy Bruising, Easy Bleeding - Physical Exam Vital Signs Temp Pulse Resp BP 98.4 F 81 20 H 165/73 H 05/06/18 13:52 05/06/18 13:52 05/06/18 13:52 05/06/18 13:52 General: Alert, Oriented x3, Cooperative, No apparent distress HEENT: Atraumatic, PERRLA Lungs: Clear to auscultation, Normal air movement Cardiovascular: Regular rate, Regular Rhythm Abdomen: Obese Extremities: No clubbing, No cyanosis, Diminished Peripheral Pulses, Edema - 4+ BLLE edema pitting Skin: Ulcer/ Wound Wound Measurements and Assessment WC - Nurse 1 - General Ulcer Measurement Start: 05/06/18 13:52 Freq: Status: Active Protocol: Activity Type Activity Date Activity User E-Sign Co-Sign Detail Recorded Client Recorded Date Recorded By Document 05/06/18 13:52 DONATO [id number] 05/06/18 14:00 DONATO 05/06/18 13:52 Wound Center Nurse 1 [Ulcer Assessment] #4 RIGHT ANTERIOR WSHIN -Combined with other wound No -Current Size (cm) - Length 5.2 -Current Size (cm) - Width 4.0 -Current Size (cm) - Depth 0.1 -Total Square Cm 20.80 -Date of Last Picture (Recall this 05/06/18 field) -Photo Taken Yes -Tunneling No -Undermining/Tunneling No -Circular Undermining No -Classification - Thickness Full Thickness without Exposed Support Structure -Exudate Amt Medium (34-66%) -Exudate Type Serous -Wound Margin Distinct, Outline Attached -Granulation Amt Small (1-33%) -Granulation Quality [place] Red -Slough/Fibrin Yes -Necrosis Amt None Present (0 %) -Necrotic Tissue Type Adherent Slough -Structure Exposed None/Limited to Skin Breakdown -Texture (Meri-wound Skin Appearance) Friable -Moisture (Meri-wound Skin Appearance Maceration ) -Color (Meri-wound Skin Appearance) No Abnormality Hemosiderin Staining -Temperature (Meri-wound Skin No Abnormality Appearance) (Pt Warm) -Tenderness on Palpation (Meri-wound No Skin Appearance) -Ulcer Cleansing Rinsed/ Irrigated with Saline -Foul Odor after Cleansing No -Anesthetic Used 4% Lidocaine Solution [Edema Assessment] -Lower Limb Edema Present Yes -Right Calf (cm) 61.5 -Right Ankle (cm) 31.6 -Left Calf (cm) 55.5 -Left Ankle (cm) 30.5 WC - Nurse 2 - General Ulcer CM Notes Start: 05/06/18 13:52 Freq: Status: Active Protocol: Activity Type Activity Date Activity User E-Sign Co-Sign Detail Recorded Client Recorded Date Recorded By Document 05/06/18 14:54 [id number] 05/06/18 14:58 05/06/18 14:54 Wound Center Nurse 2 [Procedure/Treatment] #4 RIGHT ANTERIOR WSHIN -Time 14:55 -Correct Patient Yes -Correct Side, Site, Position Yes -Correct Procedure Yes -Procedure Performed Yes -Type of Procedure Debridement -Clinical Debridement Subcutaneous -Post Debridement Size (cm) - Length 5.4 -Post Debridement Size (cm) - Width 3.9 -Post Debridement Size (cm) - Depth 0.1 -Total Square Cm 21.06 -Wound/Ulcer Outcome Not Healed -Ulcer Cleansing Rinsed/ Irrigated with Saline -Foul Odor after Cleansing No -Bioengineered Tissue No -Topical Lidocaine (%) 4 -Bleeding Controlled with Pressure -Treatment Response Procedure Tolerated Well [See Physician Procedure note for Specifics] Pain Scale: 0-10 Numeric [Pain] -Is Patient Pain Free? Yes Musculoskeletal: No Muscle Wasting Neurological: Cranial nerves II-XII grossly intact, Neuro grossly intact Psych/Mental Status: Normal Affect, Appropriate, Alert and oriented to time, place, person, mood and affect Debridement Note Post-Debridement Measurements/Treatment WC - Nurse 2 - General Ulcer CM Notes Start: 05/06/18 13:52 Freq: Status: Active Protocol: Activity Type Activity Date Activity User E-Sign Co-Sign Detail Recorded Client Recorded Date Recorded By Document 05/06/18 14:54 [id number] 05/06/18 14:58 05/06/18 14:54 Wound Center Nurse 2 #4 RIGHT ANTERIOR WSHIN -Time 14:55 -Correct Patient Yes -Correct Side, Site, Position Yes -Correct Procedure Yes -Procedure Performed Yes -Type of Procedure Debridement -Clinical Debridement Subcutaneous -Post Debridement Size (cm) - Length 5.4 -Post Debridement Size (cm) - Width 3.9 -Post Debridement Size (cm) - Depth 0.1 -Total Square Cm 21.06 -Wound/Ulcer Outcome Not Healed -Ulcer Cleansing Rinsed/ Irrigated with Saline -Foul Odor after Cleansing No -Bioengineered Tissue No -Topical Lidocaine (%) 4 -Bleeding Controlled with Pressure -Treatment Response Procedure Tolerated Well Pain Scale: 0-10 Numeric Is Patient Pain Free? Yes Wound debrided: right lower extremity anterior ulcer Laterality: Right Type of Debridement: Excisional debridement Anesthesia Used: 5% Lidocaine Gel Depth: in the subcutaneous layer Percentage of wound debrided: 100 Instrument Used: 5mm curette Tissue Removed: slough and devitalized tissue Severity: Fat Layer Exposed Amount of bleeding with debridement: Mild Bleeding Controlled with: Pressure Patient tolerated procedure well Assessment/Plan Active Problems Nonhealing ulcer of right lower extremity with fat layer exposed (Acute) Decreased dorsalis pedis pulse (Acute) Lymphedema of both lower extremities (Acute) Morbid obesity with BMI of 60.0-69.9, adult (Acute) Venous insufficiency (chronic) (peripheral) (Acute) Assessment: Assessment: Nonhealing ulcers right lower extremities with fat layer exposed. Bilateral lower extremity edema. Decreased dorsal pedis pulses. Morbid obesity with BMI greater than 60. chronic venous insufficiency Plan: Plan: The patient was seen and examined at the wound center today and was updated on the plan of care. Patient has done well with 3M wraps in the past, will utilize Aquacel AG over the ulcer and then bilateral 3M wraps. After edema is controlled, will resume his compression stockings. Instructed on the importance of adhering to his daily compression stocking regimen. Patient verbalized understanding. Did discuss following up with his PCP regarding management of his diuretics. We will hold off on cultures at this time due to presentation of ulceration. No vascular sugar blood work indicated at this time as this was recently done earlier this year and reviewed. Educated on the importance of increasing protein intake and vitamin C for wound healing. Patient verbalized understanding. Patient to follow-up in 1 week for nurse visit and 2 weeks for provider visit. This note was generated with [employer] dictation software. It may contain incorrect words, spelling, and punctuation that were not noted in checking the note before signing. Code Visit Office Visits / Consults: [id number] OV L4 Est 114x: [id number] Exc tr-ext b9+hali 1.1-2 cm
[2018-05-13 11:18] VITALS: BP 132/68; PULSE 81; RESP 20; TEMP 36.9; BMI 58.8
[2018-05-20 14:14] VITALS: BP 162/74; PULSE 80; RESP 18; TEMP 37.2; BMI 58.8
[2018-05-20 14:19] VITALS: BP 162/74; PULSE 80; RESP 18; TEMP 37.2; BMI 58.8
--- NOTE | 2018-05-20 17:34 | PCM.WC.PN ---
(1) Nonhealing ulcer of right lower extremity with fat layer exposed Status: Acute Current Visit: Yes Code(s): L97.912 - Non-pressure chronic ulcer of unspecified part of right lower leg with fat layer exposed (2) Decreased dorsalis pedis pulse Status: Acute Current Visit: Yes Code(s): R09.89 - Other specified symptoms and signs involving the circulatory and respiratory systems (3) Lymphedema of both lower extremities Status: Acute Current Visit: Yes Code(s): I89.0 - Lymphedema, not elsewhere classified (4) Morbid obesity with BMI of 60.0-69.9, adult Status: Acute Current Visit: Yes Code(s): E66.01 - Morbid (severe) obesity due to excess calories; Z68.44 - Body mass index (BMI) 60.0-69.9, adult (5) Venous insufficiency (chronic) (peripheral) Status: Acute Current Visit: Yes Code(s): I87.2 - Venous insufficiency (chronic) (peripheral) Type of Wound Date of Service: 05/20/18 Chief Complaint: nonhealing ulcers RLE x 1 month History of Wound: This is a 51-year-old morbidly obese white male who presents to the wound healing center with a chief complaint of nonhealing right lower extremity ulcer x 1 month. He has a past medical history as listed above and is a known patient to me. He was recently discharged from the wound center approximately 2 months ago. He states that recently his diuretics were adjusted down and he was not being compliant with his compression stockings and he noted an increase in fluid retention to his bilateral lower extremities. He stated about a month ago, fluid started seeping out of the anterior right lower extremity and this developed into an ulceration. He was using leftover Aquacel silver that he had and did not note much improvement. He has not discussed with his primary care about adjusting his diuretics. He had vascular studies done in which demonstrated venous insufficiency and a right PATRICK of 1.3 and a left PATRICK 1.28. In the past he has done well with 3M wraps when he was not being compliant with his compression stockings. Patient denies any obvious trauma that preceded these ulcerations. He does state that the ulceration is painful at times though denies any obvious exudate, warmth, or systemic signs of infection. He denies any other acute complaints at this time. The patient otherwise denies any fever, chills, nausea, vomiting, shortness of breath, chest pain or pressure, palpitations, orthopnea, syncope or presyncopal episodes. Progress of Wound: Ulcer on RLE is now healed. Patient denies any signs of infection at this time. Denies any fever, chills, nausea, vomiting, shortness of breath, chest pain or pressure, syncope or presyncopal episodes. - Physical Exam Vital Signs Temp Pulse Resp BP 98.9 F 80 18 162/74 H 05/20/18 14:19 05/20/18 14:19 05/20/18 14:19 05/20/18 14:19 General: Alert, Oriented x3, Cooperative, No apparent distress HEENT: Atraumatic Neck: Supple, No JVD, Negative Carotid Bruits Lungs: Clear to auscultation Cardiovascular: Regular rate, Regular Rhythm Abdomen: Obese Extremities: Edema - 2+ pitting edema bilateral lower extremities Skin: Ulcer/ Wound - Ulcer right lower extremity healed Wound Measurements and Assessment WC - Nurse 1 - General Ulcer Measurement Start: 05/06/18 13:52 Freq: Status: Active Protocol: Activity Type Activity Date Activity User E-Sign Co-Sign Detail Recorded Client Recorded Date Recorded By Document 05/20/18 14:14 [facility] [id number] 05/20/18 14:18 [facility] Document 05/20/18 14:19 [facility] [id number] 05/20/18 14:23 [facility] 05/20/18 05/20/18 14:14 14:19 Wound Center Nurse 1 [Ulcer Assessment] #4 RIGHT ANTERIOR WSHIN -Combined with other wound No -Current Size (cm) - Length 0.1 -Current Size (cm) - Width 0.1 -Current Size (cm) - Depth 0.1 -Total Square Cm 0.01 -Photo Taken Yes -Epithelialization None Present -Tunneling No -Undermining/Tunneling No -Circular Undermining No -Exudate Amt None Present (0 %) -Granulation Amt None Present (0 %) -Necrosis Amt None Present (0 %) -Structure Exposed None/Limited to Skin Breakdown -Texture (Meri-wound Skin Appearance) Localized Edema -Color (Meri-wound Skin Appearance) Erythema -Temperature (Meri-wound Skin No Abnormality Appearance) (Pt Warm) -Tenderness on Palpation (Meri-wound No Skin Appearance) -Ulcer Cleansing soap and water -Foul Odor after Cleansing No [Edema Assessment] -Right Calf (cm) 53.1 -Right Ankle (cm) 30.5 -Left Calf (cm) 58.6 -Left Ankle (cm) 29.7 Neurological: Neuro grossly intact Psych/Mental Status: Normal Affect, Appropriate, Alert and oriented to time, place, person, mood and affect Debridement Note Post-Debridement Measurements/Treatment WC - Nurse 2 - General Ulcer CM Notes Start: 05/06/18 13:52 Freq: Status: Active Protocol: Activity Type Activity Date Activity User E-Sign Co-Sign Detail Recorded Client Recorded Date Recorded By Document 05/06/18 14:54 [id number] 05/06/18 14:58 05/06/18 14:54 Wound Center Nurse 2 #4 RIGHT ANTERIOR WSHIN -Time 14:55 -Correct Patient Yes -Correct Side, Site, Position Yes -Correct Procedure Yes -Procedure Performed Yes -Type of Procedure Debridement -Clinical Debridement Subcutaneous -Post Debridement Size (cm) - Length 5.4 -Post Debridement Size (cm) - Width 3.9 -Post Debridement Size (cm) - Depth 0.1 -Total Square Cm 21.06 -Wound/Ulcer Outcome Not Healed -Ulcer Cleansing Rinsed/ Irrigated with Saline -Foul Odor after Cleansing No -Bioengineered Tissue No -Topical Lidocaine (%) 4 -Bleeding Controlled with Pressure -Treatment Response Procedure Tolerated Well Pain Scale: 0-10 Numeric Is Patient Pain Free? Yes No debridement was completed today Assessment/Plan Active Problems Nonhealing ulcer of right lower extremity with fat layer exposed (Acute) Decreased dorsalis pedis pulse (Acute) Lymphedema of both lower extremities (Acute) Morbid obesity with BMI of 60.0-69.9, adult (Acute) Venous insufficiency (chronic) (peripheral) (Acute) Assessment: Assessment: Nonhealing ulcers right lower extremities with fat layer exposed. Bilateral lower extremity edema. Decreased dorsal pedis pulses. Morbid obesity with BMI greater than 60. chronic venous insufficiency Plan: Plan: The patient was seen and examined at the wound center today and was updated on the plan of care. Patient has done well with 3M wraps and his right lower extremity ulceration is now healed. Did discuss the importance of adhering to his daily compression stocking regimen. He does have double layer compression stockings at home. Patient verbalized understanding. Did discuss following up with his PCP regarding management of his diuretics. Educated on the importance of increasing protein intake and vitamin C for wound healing. Patient verbalized understanding. Discussed signs and symptoms of infection that require urgent medical attention. Patient discharged from the wound healing center and to follow-up as needed. This note was generated with [employer] dictation software. It may contain incorrect words, spelling, and punctuation that were not noted in checking the note before signing. Code Visit Office Visits / Consults: [id number] OV L3 Est
--- NOTE | 2018-05-21 16:38 | PN.PCM_ITS ---
(1) Nonhealing ulcer of right lower extremity with fat layer exposed Status: Acute Current Visit: Yes Code(s): L97.912 - Non-pressure chronic ulcer of unspecified part of right lower leg with fat layer exposed (2) Decreased dorsalis pedis pulse Status: Acute Current Visit: Yes Code(s): R09.89 - Other specified symptoms and signs involving the circulatory and respiratory systems (3) Lymphedema of both lower extremities Status: Acute Current Visit: Yes Code(s): I89.0 - Lymphedema, not elsewhere classified (4) Morbid obesity with BMI of 60.0-69.9, adult Status: Acute Current Visit: Yes Code(s): E66.01 - Morbid (severe) obesity due to excess calories; Z68.44 - Body mass index (BMI) 60.0-69.9, adult (5) Venous insufficiency (chronic) (peripheral) Status: Acute Current Visit: Yes Code(s): I87.2 - Venous insufficiency (chronic) (peripheral) Type of Wound Date of Service: 05/20/18 Chief Complaint: nonhealing ulcers RLE x 1 month History of Wound: This is a 51-year-old morbidly obese white male who presents to the wound healing center with a chief complaint of nonhealing right lower extremity ulcer x 1 month. He has a past medical history as listed above and is a known patient to me. He was recently discharged from the wound center approximately 2 months ago. He states that recently his diuretics were adjusted down and he was not being compliant with his compression stockings and he noted an increase in fluid retention to his bilateral lower extremities. He stated about a month ago, fluid started seeping out of the anterior right lower extremity and this developed into an ulceration. He was using leftover Aquacel silver that he had and did not note much improvement. He has not discussed with his primary care about adjusting his diuretics. He had vascular studies done in which demonstrated venous insufficiency and a right PATRICK of 1.3 and a left PATRICK 1.28. In the past he has done well with 3M wraps when he was not being compliant with his compression stockings. Patient denies any obvious trauma that preceded these ulcerations. He does state that the ulceration is painful at times though denies any obvious exudate, warmth, or systemic signs of infection. He denies any other acute complaints at this time. The patient otherwise denies any fever, chills, nausea, vomiting, shortness of breath, chest pain or pressure, palpitations, orthopnea, syncope or presyncopal episodes. Progress of Wound: Ulcer on RLE is now healed. Patient denies any signs of infection at this time. Denies any fever, chills, nausea, vomiting, shortness of breath, chest pain or pressure, syncope or presyncopal episodes. - Physical Exam Vital Signs Temp Pulse Resp BP 98.9 F 80 18 162/74 H 05/20/18 14:19 05/20/18 14:19 05/20/18 14:19 05/20/18 14:19 General: Alert, Oriented x3, Cooperative, No apparent distress HEENT: Atraumatic Neck: Supple, No JVD, Negative Carotid Bruits Lungs: Clear to auscultation Cardiovascular: Regular rate, Regular Rhythm Abdomen: Obese Extremities: Edema - 2+ pitting edema bilateral lower extremities Skin: Ulcer/ Wound - Ulcer right lower extremity healed Wound Measurements and Assessment WC - Nurse 1 - General Ulcer Measurement Start: 05/06/18 13:52 Freq: Status: Active Protocol: Activity Type Activity Date Activity User E-Sign Co-Sign Detail Recorded Client Recorded Date Recorded By Document 05/20/18 14:14 [facility] [id number] 05/20/18 14:18 [facility] Document 05/20/18 14:19 [facility] [id number] 05/20/18 14:23 [facility] 05/20/18 05/20/18 14:14 14:19 Wound Center Nurse 1 [Ulcer Assessment] #4 RIGHT ANTERIOR WSHIN -Combined with other wound No -Current Size (cm) - Length 0.1 -Current Size (cm) - Width 0.1 -Current Size (cm) - Depth 0.1 -Total Square Cm 0.01 -Photo Taken Yes -Epithelialization None Present -Tunneling No -Undermining/Tunneling No -Circular Undermining No -Exudate Amt None Present (0 %) -Granulation Amt None Present (0 %) -Necrosis Amt None Present (0 %) -Structure Exposed None/Limited to Skin Breakdown -Texture (Meri-wound Skin Appearance) Localized Edema -Color (Meri-wound Skin Appearance) Erythema -Temperature (Meri-wound Skin No Abnormality Appearance) (Pt Warm) -Tenderness on Palpation (Meri-wound No Skin Appearance) -Ulcer Cleansing soap and water -Foul Odor after Cleansing No [Edema Assessment] -Right Calf (cm) 53.1 -Right Ankle (cm) 30.5 -Left Calf (cm) 58.6 -Left Ankle (cm) 29.7 Neurological: Neuro grossly intact Psych/Mental Status: Normal Affect, Appropriate, Alert and oriented to time, place, person, mood and affect Debridement Note Post-Debridement Measurements/Treatment WC - Nurse 2 - General Ulcer CM Notes Start: 05/06/18 13:52 Freq: Status: Active Protocol: Activity Type Activity Date Activity User E-Sign Co-Sign Detail Recorded Client Recorded Date Recorded By Document 05/06/18 14:54 [id number] 05/06/18 14:58 05/06/18 14:54 Wound Center Nurse 2 #4 RIGHT ANTERIOR WSHIN -Time 14:55 -Correct Patient Yes -Correct Side, Site, Position Yes -Correct Procedure Yes -Procedure Performed Yes -Type of Procedure Debridement -Clinical Debridement Subcutaneous -Post Debridement Size (cm) - Length 5.4 -Post Debridement Size (cm) - Width 3.9 -Post Debridement Size (cm) - Depth 0.1 -Total Square Cm 21.06 -Wound/Ulcer Outcome Not Healed -Ulcer Cleansing Rinsed/ Irrigated with Saline -Foul Odor after Cleansing No -Bioengineered Tissue No -Topical Lidocaine (%) 4 -Bleeding Controlled with Pressure -Treatment Response Procedure Tolerated Well Pain Scale: 0-10 Numeric Is Patient Pain Free? Yes No debridement was completed today Assessment/Plan Active Problems Nonhealing ulcer of right lower extremity with fat layer exposed (Acute) Decreased dorsalis pedis pulse (Acute) Lymphedema of both lower extremities (Acute) Morbid obesity with BMI of 60.0-69.9, adult (Acute) Venous insufficiency (chronic) (peripheral) (Acute) Assessment: Assessment: Nonhealing ulcers right lower extremities with fat layer exposed. Bilateral lower extremity edema. Decreased dorsal pedis pulses. Morbid obesity with BMI greater than 60. chronic venous insufficiency Plan: Plan: The patient was seen and examined at the wound center today and was updated on the plan of care. Patient has done well with 3M wraps and his right lower extremity ulceration is now healed. Did discuss the importance of adhering to his daily compression stocking regimen. He does have double layer compression stockings at home. Patient verbalized understanding. Did discuss following up with his PCP regarding management of his diuretics. Educated on the importance of increasing protein intake and vitamin C for wound healing. Patient verbalized understanding. Discussed signs and symptoms of infection that require urgent medical attention. Patient discharged from the wound healing center and to follow-up as needed. This note was generated with [employer] dictation software. It may contain incorrect words, spelling, and punctuation that were not noted in checking the note before signing. Code Visit Office Visits / Consults: [id number] OV L3 Est
== END 2018-05-26 23:59 ==
LOC: WC 14:00
PROVIDERS: Family Provider Internal Medicine; PCP Internal Medicine; Visit Provider Nurse Practitioner Family
DX: I87.2 Venous insufficiency (chronic) (peripheral) (principal); L97.812 Non-pressure chronic ulcer of other part of right lower leg with fat layer exposed; I89.0 Lymphedema, not elsewhere classified; E66.01 Morbid (severe) obesity due to excess calories; Z68.43 Body mass index [BMI] 50.0-59.9, adult; Z71.3 Dietary counseling and surveillance
CPT/HCPCS: 11042; 11045; 29581; 99212; 99213; G0463

== ENCOUNTER 2018-09-23 14:30 | Outpatient (RCR) | payer MEDICAID, SELFPAY ==
[2018-09-16 13:40] VITALS: BP 146/83; PULSE 77; RESP 20; TEMP 36.9; BMI 63.0
--- NOTE | 2018-09-16 16:59 | PCM.WC.HP ---
(1) Nonhealing ulcer of right lower extremity with fat layer exposed Status: Acute Current Visit: Yes Code(s): L97.912 - Non-pressure chronic ulcer of unspecified part of right lower leg with fat layer exposed (2) Nonhealing ulcer of left lower extremity with fat layer exposed Status: Acute Current Visit: Yes Code(s): L97.922 - Non-pressure chronic ulcer of unspecified part of left lower leg with fat layer exposed Comment: x 2 anterior and posterior (3) Decreased dorsalis pedis pulse Status: Acute Current Visit: Yes Code(s): R09.89 - Other specified symptoms and signs involving the circulatory and respiratory systems (4) Lymphedema of both lower extremities Status: Acute Current Visit: Yes Code(s): I89.0 - Lymphedema, not elsewhere classified (5) Morbid obesity with BMI of 60.0-69.9, adult Status: Acute Current Visit: Yes Code(s): E66.01 - Morbid (severe) obesity due to excess calories; Z68.44 - Body mass index (BMI) 60.0-69.9, adult (6) Venous insufficiency (chronic) (peripheral) Status: Acute Current Visit: Yes Code(s): I87.2 - Venous insufficiency (chronic) (peripheral) History of Present Illness Date of Service: 09/16/18 Chief Complaint: nonhealing ulcers BLLE x 1 month History of Wound: This is a 52-year-old morbidly obese white male who presents to the wound healing center with a chief complaint of nonhealing bilateral lower extremity ulcers x 1 month. He has a past medical history as listed above and is a known patient to me. He was seen by myself at the wound center in the past. The patient states that he has not been using his compression appropriately as he did not feel as necessary. He does note an increase in fluid retention to his bilateral lower extremities. He states that at first he used some of his excess Aquasol silver, however he ran out of the supplies and has not been using anything for the last couple weeks for wound care. He had vascular studies done in which demonstrated venous insufficiency and a right PATRICK of 1.3 and a left PATRICK 1.28. In the past he has done well with 3M wraps when he was not being compliant with his compression stockings. Patient denies any obvious trauma that preceded these ulcerations. He does state that the ulceration is painful at times though denies any obvious exudate, warmth, or systemic signs of infection. He denies any other acute complaints at this time. The patient otherwise denies any fever, chills, nausea, vomiting, shortness of breath, chest pain or pressure, palpitations, orthopnea, syncope or presyncopal episodes. Past Medical History Allergies/Adverse Reactions: Allergies No Known Allergies Allergy (Verified 09/16/18 14:37) Home Medications: Ambulatory Orders Medication Instructions Recorded Aldactone 20 mg PO BID 05/06/18 Lasix 100 mg PO BREAKFAST 05/06/18 Lisinopril 5 mg PO DAILY 09/16/18 Smoking Status: Former smoker Review of Systems Constitutional: Denies: Chills, Fever, Weight Change Eyes: Denies: Pain, Vision Change HEENT: Denies: Difficulty Hearing, Difficulty Swallowing, Sinus Congestion Cardiovascular: Denies: Chest Pain, Palpitations Respiratory: Denies: Cough, Shortness of Breath Gastrointestinal: Denies: Diarrhea, Nausea, Vomiting Genitourinary: Denies: Dysuria, Hematuria Skin: Reports: Wounds - see hpi Psychiatric: Denies: Anxiety, Depression Endocrine: Denies: Heat/ Cold Intolerance, Polydipsia, Polyuria Hematologic/ Lymphatic: Denies: Easy Bruising, Easy Bleeding - Physical Exam Vital Signs Temp Pulse Resp BP 98.4 F 77 20 H 146/83 H 09/16/18 13:40 09/16/18 13:40 09/16/18 13:40 09/16/18 13:40 General: Alert, Oriented x3, Cooperative, No apparent distress HEENT: Atraumatic, PERRLA Oral: Moist Mucosa Neck: Supple, No JVD Lungs: Clear to auscultation, Normal air movement Cardiovascular: Regular rate, Regular Rhythm, Normal S1, Normal S2 Abdomen: Bowel Sounds Present, Soft, Non Tender, Non-Distended, Obese Extremities: No clubbing, No cyanosis, Diminished Peripheral Pulses, Edema Skin: Ulcer/ Wound - Cluster ulceration present right anterior lower extremity with adherent slough, cluster ulcer present left anterior and posterior lower extremity with adherent slough, no signs of infection, no foul-smelling discharge or signs of cellulitis at this time, no redness, streaking, or purulent drainage. Wound Measurements and Assessment WC - Nurse 1 - General Ulcer Measurement Start: 09/16/18 13:40 Freq: Status: Active Protocol: Activity Type Activity Date Activity User E-Sign Co-Sign Detail Recorded Client Recorded Date Recorded By Document 09/16/18 13:40 [facility] [id number] 09/16/18 14:02 [facility] 09/16/18 13:40 Wound Center Nurse 1 [Ulcer Assessment] #7- LT CALF -Combined with other wound No -Current Size (cm) - Length 0.8 -Current Size (cm) - Width 1 -Current Size (cm) - Depth 0.2 -Total Square Cm 0.8 -Date of Last Picture (Recall this 09/16/18 field) -Photo Taken Yes -Epithelialization None Present -Tunneling No -Undermining/Tunneling No -Circular Undermining No -Exudate Amt Small -Exudate Type Serous -Wound Margin Flat & Intact -Granulation Amt Large (67-100%) -Granulation Quality Red -Slough/Fibrin Yes -Necrosis Amt Small (1-33%) -Necrotic Tissue Type Adherent Slough -Texture (Meri-wound Skin Appearance) Scarring -Moisture (Meri-wound Skin Appearance Dry/Scaly ) -Color (Meri-wound Skin Appearance) Hemosiderin Staining -Temperature (Meri-wound Skin No Abnormality Appearance) (Pt Warm) -Tenderness on Palpation (Meri-wound No Skin Appearance) -Ulcer Cleansing Wound Cleanser -Foul Odor after Cleansing No -Anesthetic Used 5% Lidocaine Gel #6- LT MARTINEZ CLUSTER -Combined with other wound No -Current Size (cm) - Length 7.3 -Current Size (cm) - Width 1.5 -Current Size (cm) - Depth 0.1 -Total Square Cm 10.95 -Date of Last Picture (Recall this 09/16/18 field) -Photo Taken Yes -Epithelialization None Present -Tunneling No -Undermining/Tunneling No -Circular Undermining No -Exudate Amt Medium -Exudate Type Serous -Wound Margin Flat & Intact -Granulation Amt Small (1-33%) -Granulation Quality [place] -Slough/Fibrin Yes -Necrosis Amt Large (67-100%) -Necrotic Tissue Type Adherent Slough -Texture (Meri-wound Skin Appearance) Scarring -Moisture (Meri-wound Skin Appearance Maceration ) Dry/Scaly -Color (Meri-wound Skin Appearance) Hemosiderin Staining Palor -Temperature (Meri-wound Skin No Abnormality Appearance) (Pt Warm) -Tenderness on Palpation (Meri-wound No Skin Appearance) -Ulcer Cleansing Wound Cleanser -Foul Odor after Cleansing No -Anesthetic Used 5% Lidocaine Gel #5- RT MARTINEZ CLUSTER -Combined with other wound No -Current Size (cm) - Length 13.5 -Current Size (cm) - Width 15 -Current Size (cm) - Depth 0.1 -Total Square Cm 202.5 -Date of Last Picture (Recall this 09/16/18 field) -Photo Taken Yes -Epithelialization None Present -Tunneling No -Undermining/Tunneling No -Circular Undermining No -Exudate Amt Medium -Exudate Type Serous -Wound Margin Flat & Intact -Granulation Amt Medium (34-66%) -Granulation Quality [place] -Slough/Fibrin Yes -Necrosis Amt Medium (34-66%) -Necrotic Tissue Type Adherent Slough -Structure Exposed None/Limited to Skin Breakdown -Texture (Meri-wound Skin Appearance) Scarring -Moisture (Meri-wound Skin Appearance Maceration ) Dry/Scaly -Color (Meri-wound Skin Appearance) Hemosiderin Staining Palor -Temperature (Meri-wound Skin No Abnormality Appearance) (Pt Warm) -Tenderness on Palpation (Meri-wound No Skin Appearance) -Ulcer Cleansing Wound Cleanser -Foul Odor after Cleansing No -Anesthetic Used 5% Lidocaine Gel [Edema Assessment] -Lower Limb Edema Present Yes -Right Calf (cm) 62 -Right Ankle (cm) 33.1 -Left Calf (cm) 55.1 -Left Ankle (cm) 32.6 WC - Nurse 2 - General Ulcer CM Notes Start: 09/16/18 13:40 Freq: Status: Active Protocol: Activity Type Activity Date Activity User E-Sign Co-Sign Detail Recorded Client Recorded Date Recorded By Document 09/16/18 14:26 DV [id number] 09/16/18 14:34 DV 09/16/18 14:26 Wound Center Nurse 2 [Procedure/Treatment] #7- LT CALF -Time 14:27 -Correct Patient Yes -Correct Side, Site, Position Yes -Correct Procedure Yes -Procedure Performed Yes -Type of Procedure Debridement -Clinical Debridement Subcutaneous -Post Debridement Size (cm) - Length 4.0 -Post Debridement Size (cm) - Width 1.5 -Post Debridement Size (cm) - Depth 0.1 -Total Square Cm 6.00 -Wound/Ulcer Outcome Not Healed -Ulcer Cleansing Rinsed/ Irrigated with Saline -Foul Odor after Cleansing No -Bioengineered Tissue No -Bleeding Controlled with Pressure -Offloading No -Treatment Response Procedure Tolerated Well #6- LT MARTINEZ CLUSTER -Time 14:27 -Correct Patient Yes -Correct Side, Site, Position Yes -Correct Procedure Yes -Procedure Performed Yes -Type of Procedure Debridement -Clinical Debridement Subcutaneous -Post Debridement Size (cm) - Length 7.6 -Post Debridement Size (cm) - Width 2.0 -Post Debridement Size (cm) - Depth 0.1 -Total Square Cm 15.20 -Wound/Ulcer Outcome Not Healed -Ulcer Cleansing Rinsed/ Irrigated with Saline -Foul Odor after Cleansing No -Bioengineered Tissue No -Bleeding Controlled with Pressure -Offloading No -Treatment Response Procedure Tolerated Well #5- RT MARTINEZ CLUSTER -Time 14:28 -Correct Patient Yes -Correct Side, Site, Position Yes -Correct Procedure Yes -Procedure Performed Yes -Type of Procedure Debridement -Clinical Debridement Subcutaneous -Post Debridement Size (cm) - Length 12.0 -Post Debridement Size (cm) - Width 15.0 -Post Debridement Size (cm) - Depth 0.1 -Total Square Cm 180.00 -Wound/Ulcer Outcome Not Healed -Ulcer Cleansing Rinsed/ Irrigated with Saline -Foul Odor after Cleansing No -Bioengineered Tissue No -Bleeding Controlled with Pressure -Offloading No -Treatment Response Procedure Tolerated Well [See Physician Procedure note for Specifics] Pain Scale: 0-10 Numeric [Pain] -Is Patient Pain Free? Yes Musculoskeletal: No Muscle Wasting Neurological: Neuro grossly intact Psych/Mental Status: Normal Affect, Appropriate, Alert and oriented to time, place, person, mood and affect Debridement Note Post-Debridement Measurements/Treatment WC - Nurse 2 - General Ulcer CM Notes Start: 09/16/18 13:40 Freq: Status: Active Protocol: Activity Type Activity Date Activity User E-Sign Co-Sign Detail Recorded Client Recorded Date Recorded By Document 09/16/18 14:26 DV [id number] 09/16/18 14:34 DV 09/16/18 14:26 Wound Center Nurse 2 #7- LT CALF -Time 14:27 -Correct Patient Yes -Correct Side, Site, Position Yes -Correct Procedure Yes -Procedure Performed Yes -Type of Procedure Debridement -Clinical Debridement Subcutaneous -Post Debridement Size (cm) - Length 4.0 -Post Debridement Size (cm) - Width 1.5 -Post Debridement Size (cm) - Depth 0.1 -Total Square Cm 6.00 -Wound/Ulcer Outcome Not Healed -Ulcer Cleansing Rinsed/ Irrigated with Saline -Foul Odor after Cleansing No -Bioengineered Tissue No -Bleeding Controlled with Pressure -Offloading No -Treatment Response Procedure Tolerated Well #6- LT MARTINEZ CLUSTER -Time 14:27 -Correct Patient Yes -Correct Side, Site, Position Yes -Correct Procedure Yes -Procedure Performed Yes -Type of Procedure Debridement -Clinical Debridement Subcutaneous -Post Debridement Size (cm) - Length 7.6 -Post Debridement Size (cm) - Width 2.0 -Post Debridement Size (cm) - Depth 0.1 -Total Square Cm 15.20 -Wound/Ulcer Outcome Not Healed -Ulcer Cleansing Rinsed/ Irrigated with Saline -Foul Odor after Cleansing No -Bioengineered Tissue No -Bleeding Controlled with Pressure -Offloading No -Treatment Response Procedure Tolerated Well #5- RT MARTINEZ CLUSTER -Time 14:28 -Correct Patient Yes -Correct Side, Site, Position Yes -Correct Procedure Yes -Procedure Performed Yes -Type of Procedure Debridement -Clinical Debridement Subcutaneous -Post Debridement Size (cm) - Length 12.0 -Post Debridement Size (cm) - Width 15.0 -Post Debridement Size (cm) - Depth 0.1 -Total Square Cm 180.00 -Wound/Ulcer Outcome Not Healed -Ulcer Cleansing Rinsed/ Irrigated with Saline -Foul Odor after Cleansing No -Bioengineered Tissue No -Bleeding Controlled with Pressure -Offloading No -Treatment Response Procedure Tolerated Well Pain Scale: 0-10 Numeric Is Patient Pain Free? Yes Wound debrided: Left anterior and posterior lower extremity venous leg ulcer Type of Debridement: Excisional debridement Anesthesia Used: 5% Lidocaine Gel Depth: in the subcutaneous layer Percentage of wound debrided: 100 Instrument Used: 7mm curette Tissue Removed: Slough and devitalized tissue Severity: Fat Layer Exposed Amount of bleeding with debridement: Mild Bleeding Controlled with: Pressure Patient tolerated procedure well - Additional Wound Wound debrided: Right anterior lower extremity ulcer venous Laterality: Right Type of Debridement: Excisional debridement Anesthesia Used: 5% Lidocaine Gel Depth: in the subcutaneous layer Percentage of wound debrided: 100 Instrument Used: 7mm curette Tissue Removed: Slough and devitalized tissue Severity: Fat Layer Exposed Amount of bleeding with debridement: Mild Bleeding Controlled with: Pressure Patient tolerated procedure: Patient tolerated procedure well Assessment/Plan Active Problems Nonhealing ulcer of left lower extremity with fat layer exposed (Acute) x 2 anterior and posterior Nonhealing ulcer of right lower extremity with fat layer exposed (Acute) Decreased dorsalis pedis pulse (Acute) Lymphedema of both lower extremities (Acute) Morbid obesity with BMI of 60.0-69.9, adult (Acute) Venous insufficiency (chronic) (peripheral) (Acute) Assessment: Assessment: Nonhealing venous ulcers bilateral lower extremities with fat layer exposed. Bilateral lower extremity edema. Decreased dorsal pedis pulses. Morbid obesity with BMI greater than 60. chronic venous insufficiency Plan: Plan: The patient was seen and examined at the wound center today and was updated on the plan of care. Patient's wound care will consist of application of double layer Aquacel extra with 3M wrap for compression as he has done well with this in the past. Did discuss the importance of adhering to his daily compression stocking regimen. He does have double layer compression stockings at home but is noncompliant with them. Patient verbalized understanding. Educated on the importance of increasing protein intake and vitamin C for wound healing. Patient verbalized understanding. Discussed signs and symptoms of infection that require urgent medical attention. Patient discharged from the wound healing center and to follow-up as needed. This note was generated with [employer] dictation software. It may contain incorrect words, spelling, and punctuation that were not noted in checking the note before signing. Code Visit Office Visits / Consults: [id number] OV L4 Est [id number]: [id number] Nneka subq tissue 20 sq cm/<
[2018-09-23 14:57] VITALS: BP 136/73; PULSE 83; RESP 16; TEMP 37.1; BMI 63.0
--- NOTE | 2018-09-23 18:35 | PCM.WC.PN ---
(1) Nonhealing ulcer of right lower extremity with fat layer exposed Status: Acute Code(s): L97.912 - Non-pressure chronic ulcer of unspecified part of right lower leg with fat layer exposed (2) Nonhealing ulcer of left lower extremity with fat layer exposed Status: Acute Code(s): L97.922 - Non-pressure chronic ulcer of unspecified part of left lower leg with fat layer exposed Comment: x 2 anterior and posterior (3) Decreased dorsalis pedis pulse Status: Acute Code(s): R09.89 - Other specified symptoms and signs involving the circulatory and respiratory systems (4) Lymphedema of both lower extremities Status: Acute Code(s): I89.0 - Lymphedema, not elsewhere classified (5) Morbid obesity with BMI of 60.0-69.9, adult Status: Acute Code(s): E66.01 - Morbid (severe) obesity due to excess calories; Z68.44 - Body mass index (BMI) 60.0-69.9, adult (6) Venous insufficiency (chronic) (peripheral) Status: Acute Code(s): I87.2 - Venous insufficiency (chronic) (peripheral) Type of Wound Date of Service: 09/23/18 Chief Complaint: nonhealing ulcers BLLE x 1 month History of Wound: This is a 52-year-old morbidly obese white male who presents to the wound healing center with a chief complaint of nonhealing bilateral lower extremity ulcers x 1 month. He has a past medical history as listed above and is a known patient to me. He was seen by myself at the wound center in the past. The patient states that he has not been using his compression appropriately as he did not feel as necessary. He does note an increase in fluid retention to his bilateral lower extremities. He states that at first he used some of his excess Aquasol silver, however he ran out of the supplies and has not been using anything for the last couple weeks for wound care. He had vascular studies done in which demonstrated venous insufficiency and a right PATRICK of 1.3 and a left PATRICK 1.28. In the past he has done well with 3M wraps when he was not being compliant with his compression stockings. Patient denies any obvious trauma that preceded these ulcerations. He does state that the ulceration is painful at times though denies any obvious exudate, warmth, or systemic signs of infection. He denies any other acute complaints at this time. The patient otherwise denies any fever, chills, nausea, vomiting, shortness of breath, chest pain or pressure, palpitations, orthopnea, syncope or presyncopal episodes. Progress of Wound: Patient's ulcerations are improving, wound beds are moist and pink and without signs of infection at this time. - Physical Exam Vital Signs Temp Pulse Resp BP 98.7 F 83 16 136/73 H 09/23/18 14:57 09/23/18 14:57 09/23/18 14:57 09/23/18 14:57 General: Alert, Oriented x3, Cooperative, No apparent distress HEENT: Atraumatic Lungs: Clear to auscultation Cardiovascular: Regular rate Abdomen: Obese Skin: Ulcer/ Wound - Ulcerations to left anterior and posterior lower extremity and right anterior lower extremity with adherent slough to wound bed, no signs of infection at this time, no redness, streaking, warmth, or exudate noted on exam Neurological: Neuro grossly intact Psych/Mental Status: Normal Affect, Appropriate, Alert and oriented to time, place, person, mood and affect Debridement Note Post-Debridement Measurements/Treatment WC - Nurse 2 - General Ulcer CM Notes Start: 09/16/18 13:40 Freq: Status: Active Protocol: Activity Type Activity Date Activity User E-Sign Co-Sign Detail Recorded Client Recorded Date Recorded By Document 09/16/18 14:26 DV [id number] 09/16/18 14:34 DV Document 09/23/18 15:29 MW [id number] 09/23/18 15:35 MW 09/16/18 09/23/18 14:26 15:29 Wound Center Nurse 2 #7- LT CALF -Time 14:27 15:29 -Correct Patient Yes Yes -Correct Side, Site, Position Yes Yes -Correct Procedure Yes Yes -Procedure Performed Yes Yes -Type of Procedure Debridement Debridement -Clinical Debridement Subcutaneous Subcutaneous -Post Debridement Size (cm) - Length 4.0 2.0 -Post Debridement Size (cm) - Width 1.5 1.0 -Post Debridement Size (cm) - Depth 0.1 0.1 -Total Square Cm 6.00 2.00 -Wound/Ulcer Outcome Not Healed Not Healed -Ulcer Cleansing Rinsed/ Rinsed/ Irrigated with Irrigated with Saline Saline -Foul Odor after Cleansing No No -Bioengineered Tissue No No -Bleeding Controlled with Pressure Pressure -Offloading No No -Treatment Response Procedure Procedure Tolerated Well Tolerated Well #6- LT MARTINEZ CLUSTER -Time 14:27 15:29 -Correct Patient Yes Yes -Correct Side, Site, Position Yes Yes -Correct Procedure Yes Yes -Procedure Performed Yes Yes -Type of Procedure Debridement Debridement -Clinical Debridement Subcutaneous Subcutaneous -Post Debridement Size (cm) - Length 7.6 4.5 -Post Debridement Size (cm) - Width 2.0 1.0 -Post Debridement Size (cm) - Depth 0.1 0.1 -Total Square Cm 15.20 4.50 -Wound/Ulcer Outcome Not Healed Not Healed -Ulcer Cleansing Rinsed/ Rinsed/ Irrigated with Irrigated with Saline Saline -Foul Odor after Cleansing No No -Bioengineered Tissue No No -Bleeding Controlled with Pressure Pressure -Offloading No No -Treatment Response Procedure Procedure Tolerated Well Tolerated Well #5- RT MARTINEZ CLUSTER -Time 14:28 15:30 -Correct Patient Yes Yes -Correct Side, Site, Position Yes Yes -Correct Procedure Yes Yes -Procedure Performed Yes Yes -Type of Procedure Debridement Debridement -Clinical Debridement Subcutaneous Subcutaneous -Post Debridement Size (cm) - Length 12.0 6.5 -Post Debridement Size (cm) - Width 15.0 1.0 -Post Debridement Size (cm) - Depth 0.1 0.1 -Total Square Cm 180.00 6.50 -Wound/Ulcer Outcome Not Healed Not Healed -Ulcer Cleansing Rinsed/ Rinsed/ Irrigated with Irrigated with Saline Saline -Foul Odor after Cleansing No No -Bioengineered Tissue No No -Bleeding Controlled with Pressure Pressure -Offloading No No -Treatment Response Procedure Procedure Tolerated Well Tolerated Well Pain Scale: 0-10 Numeric Is Patient Pain Free? Yes Yes Wound debrided: Anterior and posterior venous leg ulcer Laterality: Left Type of Debridement: Excisional debridement Anesthesia Used: 5% Lidocaine Gel Depth: in the subcutaneous layer Percentage of wound debrided: 100 Instrument Used: 5mm curette Tissue Removed: Slough and devitalized tissue Severity: Fat Layer Exposed Amount of bleeding with debridement: Mild Bleeding Controlled with: Pressure Patient tolerated procedure well - Additional Wound Wound debrided: Right anterior venous leg ulcer Laterality: Right Type of Debridement: Excisional debridement Anesthesia Used: 5% Lidocaine Gel Depth: in the subcutaneous layer Percentage of wound debrided: 100 Instrument Used: 5mm curette Tissue Removed: Slough and devitalized tissue Severity: Fat Layer Exposed Amount of bleeding with debridement: Mild Bleeding Controlled with: Pressure Patient tolerated procedure: Patient tolerated procedure well Assessment/Plan Assessment: Assessment: Nonhealing venous ulcers bilateral lower extremities with fat layer exposed. Bilateral lower extremity edema. Decreased dorsal pedis pulses. Morbid obesity with BMI greater than 60. chronic venous insufficiency Plan: Plan: The patient was seen and examined at the wound center today and was updated on the plan of care. Patient's wound care will consist of application of double layer Aquacel extra with 3M wrap for compression as he has done well with this in the past. Did discuss the importance of adhering to his daily compression stocking regimen. He does have double layer compression stockings at home but is noncompliant with them. Patient verbalized understanding. Educated on the importance of increasing protein intake and vitamin C for wound healing. Patient verbalized understanding. Discussed signs and symptoms of infection that require urgent medical attention. This note was generated with [employer] dictation software. It may contain incorrect words, spelling, and punctuation that were not noted in checking the note before signing. Code Visit 111xxx-113xx: [id number] Nneka subq tissue 20 sq cm/<
== END 2018-09-23 23:59 ==
LOC: WC 14:30
PROVIDERS: Family Provider Internal Medicine; PCP Internal Medicine; Visit Provider Nurse Practitioner Family
DX: I87.2 Venous insufficiency (chronic) (peripheral) (principal); I89.0 Lymphedema, not elsewhere classified; E66.01 Morbid (severe) obesity due to excess calories; Z68.44 Body mass index [BMI] 60.0-69.9, adult; Z71.3 Dietary counseling and surveillance; Z87.891 Personal history of nicotine dependence; L97.822 Non-pressure chronic ulcer of other part of left lower leg with fat layer exposed; L97.812 Non-pressure chronic ulcer of other part of right lower leg with fat layer exposed
CPT/HCPCS: 11042; 11045; 29581; 99213; G0463

== ENCOUNTER 2018-10-21 14:45 | Outpatient (RCR) | payer MEDICAID, SELFPAY ==
[2018-09-24 01:50] VITALS: BP 136/73; PULSE 83; RESP 16; TEMP 37.1
[2018-09-30 15:10] VITALS: BP 131/66; PULSE 75; RESP 16; TEMP 36.1; BMI 63.0
--- NOTE | 2018-10-05 11:41 | PN.PCM_ITS ---
(1) Nonhealing ulcer of right lower extremity with fat layer exposed Status: Acute Code(s): L97.912 - Non-pressure chronic ulcer of unspecified part of right lower leg with fat layer exposed (2) Nonhealing ulcer of left lower extremity with fat layer exposed Status: Acute Code(s): L97.922 - Non-pressure chronic ulcer of unspecified part of left lower leg with fat layer exposed Comment: x 2 anterior and posterior (3) Decreased dorsalis pedis pulse Status: Acute Code(s): R09.89 - Other specified symptoms and signs involving the circulatory and respiratory systems (4) Lymphedema of both lower extremities Status: Acute Code(s): I89.0 - Lymphedema, not elsewhere classified (5) Morbid obesity with BMI of 60.0-69.9, adult Status: Acute Code(s): E66.01 - Morbid (severe) obesity due to excess calories; Z68.44 - Body mass index (BMI) 60.0-69.9, adult (6) Venous insufficiency (chronic) (peripheral) Status: Acute Code(s): I87.2 - Venous insufficiency (chronic) (peripheral) Type of Wound Date of Service: 09/30/18 Chief Complaint: nonhealing ulcers BLLE x 1 month History of Wound: This is a 52-year-old morbidly obese white male who presents to the wound healing center with a chief complaint of nonhealing bilateral lower extremity ulcers x 1 month. He has a past medical history as listed above and is a known patient to me. He was seen by myself at the wound center in the past. The patient states that he has not been using his compression appropr iately as he did not feel as necessary. He does note an increase in fluid retention to his bilateral lower extremities. He states that at first he used some of his excess Aquasol silver, however he ran out of the supplies and has not been using anything for the last couple weeks for wound care. He had vascular studies done in which demonstrated venous insufficiency and a right PATRICK of 1.3 and a left PATRICK 1.28. In the past he has done well with 3M wraps when he was not being compliant with his compression stockings. Patient denies any obvious trauma that preceded these ulcerations. He does state that the ulceration is painful at times though denies any obvious exudate, warmth, or systemic signs of infection. He denies any other acute complaints at this time. The patient otherwise denies any fever, chills, nausea, vomiting, shortness of breath, chest pain or pressure, palpitations, orthopnea, syncope or presyncopal episodes. Progress of Wound: All wounds are improving and size, wound beds are moist and pink without signs of infection at this time. - Physical Exam Vital Signs Temp Pulse Resp BP 97.0 F L 75 16 131/66 H 09/30/18 15:10 09/30/18 15:10 09/30/18 15:10 09/30/18 15:10 General: Alert, Oriented x3, Cooperative, No apparent distress HEENT: Atraumatic Oral: Moist Mucosa Lungs: Clear to auscultation Cardiovascular: Regular rate Abdomen: Soft, Non Tender, Obese Extremities: No clubbing, No cyanosis, Diminished Peripheral Pulses, Edema - 2+ bilateral lower extremity pitting edema Skin: Ulcer/ Wound - Ulcerations to right anterior lower extremity, left anterior and posterior lower extremity with adherent slough to the wound bed, no signs of infection at this time. Neurological: Neuro grossly intact Psych/Mental Status: Normal Affect, Appropriate, Alert and oriented to time, place, person, mood and affect Debridement Note Post-Debridement Measurements/Treatment WC - Nurse 2 - General Ulcer CM Notes Start: 09/30/18 14:51 Freq: Status: Active Protocol: Activity Type Activity Date Activity User E-Sign Co-Sign Detail Recorded Client Recorded Date Recorded By Document 09/30/18 15:35 AN [id number] 09/30/18 15:43 AN 09/30/18 15:35 Wound Center Nurse 2 #7- LT CALF posterior -Time 15:41 -Correct Patient Yes -Correct Side, Site, Position Yes -Correct Procedure Yes -Procedure Performed Yes -Type of Procedure Debridement -Clinical Debridement Subcutaneous -Post Debridement Size (cm) - Length 2.3 -Post Debridement Size (cm) - Width 0.9 -Post Debridement Size (cm) - Depth 0.1 -Total Square Cm 2.07 -Wound/Ulcer Outcome Not Healed -Ulcer Cleansing Rinsed/ Irrigated with Saline -Foul Odor after Cleansing No -Bioengineered Tissue No -Bleeding Controlled with Pressure -Offloading No -Treatment Response Procedure Tolerated Well #6- LT MARTINEZ CLUSTER -Time 15:36 -Correct Patient Yes -Correct Side, Site, Position Yes -Correct Procedure Yes -Procedure Performed Yes -Type of Procedure Debridement -Clinical Debridement Subcutaneous -Post Debridement Size (cm) - Length 3 -Post Debridement Size (cm) - Width 0.5 -Post Debridement Size (cm) - Depth 0.1 -Total Square Cm 1.5 -Wound/Ulcer Outcome Not Healed -Ulcer Cleansing Rinsed/ Irrigated with Saline -Foul Odor after Cleansing No -Bleeding Controlled with Pressure -Offloading No -Treatment Response Procedure Tolerated Well #5- RT MARTINEZ CLUSTER -Time 15:35 -Correct Patient Yes -Correct Side, Site, Position Yes -Correct Procedure Yes -Procedure Performed Yes -Type of Procedure Debridement -Clinical Debridement Subcutaneous -Post Debridement Size (cm) - Length 5.5 -Post Debridement Size (cm) - Width 1 -Post Debridement Size (cm) - Depth 0.1 -Total Square Cm 5.5 -Wound/Ulcer Outcome Not Healed -Ulcer Cleansing Rinsed/ Irrigated with Saline -Foul Odor after Cleansing No -Bioengineered Tissue No -Bleeding Controlled with Pressure -Offloading No -Treatment Response Procedure Tolerated Well Wound debrided: Right anterior lower extremity venous leg ulcer Laterality: Right Type of Debridement: Excisional debridement Anesthesia Used: 5% Lidocaine Gel Depth: in the subcutaneous layer Percentage of wound debrided: 100 Instrument Used: 5mm curette Tissue Removed: Slough and devitalized tissue Severity: Fat Layer Exposed Amount of bleeding with debridement: Mild Bleeding Controlled with: Pressure Patient tolerated procedure well - Additional Wound Wound debrided: Left anterior and posterior venous leg ulcer Laterality: Left Type of Debridement: Excisional debridement Anesthesia Used: 5% Lidocaine Gel Depth: in the subcutaneous layer Percentage of wound debrided: 100 Instrument Used: 5mm curette Tissue Removed: Slough and devitalized tissue Severity: Fat Layer Exposed Amount of bleeding with debridement: Mild Bleeding Controlled with: Pressure Patient tolerated procedure: Patient tolerated procedure well Assessment/Plan Assessment: Assessment: Nonhealing venous ulcers bilateral lower extremities with fat layer exposed. Bilateral lower extremity edema. Decreased dorsal pedis pulses. Morbid obesity with BMI greater than 60. chronic venous insufficiency Plan: Plan: The patient was seen and examined at the wound center today and was updated on the plan of care. Patient's wound care will consist of application of double layer Aquacel extra with 3M wrap for compression as he has done well with this in the past. Did discuss the importance of adhering to his daily compression stocking regimen. He does have double layer compression stockings at home but is noncompliant with them. Patient verbalized understanding. Educated on the importance of increasing protein intake and vitamin C for wound healing. Patient verbalized understanding. Discussed signs and symptoms of infection that require urgent medical attention. Patient discharged from the wound healing center and to follow-up as needed. This note was generated with [employer] dictation software. It may contain incorrect words, spelling, and punctuation that were not noted in checking the note before signing. Code Visit 111xxx-113xx: [id number] Nneka subq tissue 20 sq cm/<
[2018-10-07 15:10] VITALS: BP 135/67; PULSE 83; RESP 20; TEMP 37.2; BMI 63.0
--- NOTE | 2018-10-12 13:32 | PN.PCM_ITS ---
(1) Nonhealing ulcer of right lower extremity with fat layer exposed Status: Acute Code(s): L97.912 - Non-pressure chronic ulcer of unspecified part of right lower leg with fat layer exposed (2) Nonhealing ulcer of left lower extremity with fat layer exposed Status: Acute Code(s): L97.922 - Non-pressure chronic ulcer of unspecified part of left lower leg with fat layer exposed Comment: x 2 anterior and posterior (3) Decreased dorsalis pedis pulse Status: Acute Code(s): R09.89 - Other specified symptoms and signs involving the circulatory and respiratory systems (4) Lymphedema of both lower extremities Status: Acute Code(s): I89.0 - Lymphedema, not elsewhere classified (5) Morbid obesity with BMI of 60.0-69.9, adult Status: Acute Code(s): E66.01 - Morbid (severe) obesity due to excess calories; Z68.44 - Body mass index (BMI) 60.0-69.9, adult (6) Venous insufficiency (chronic) (peripheral) Status: Acute Code(s): I87.2 - Venous insufficiency (chronic) (peripheral) Type of Wound Date of Service: 10/07/18 Chief Complaint: nonhealing ulcers BLLE x 1 month History of Wound: This is a 52-year-old morbidly obese white male who presents to the wound healing center with a chief complaint of nonhealing bilateral lower extremity ulcers x 1 month. He has a past medical history as listed above and is a known patient to me. He was seen by myself at the wound center in the past. The patient states that he has not been using his compression appropr iately as he did not feel as necessary. He does note an increase in fluid retention to his bilateral lower extremities. He states that at first he used some of his excess Aquasol silver, however he ran out of the supplies and has not been using anything for the last couple weeks for wound care. He had vascular studies done in which demonstrated venous insufficiency and a right PATRICK of 1.3 and a left PATRICK 1.28. In the past he has done well with 3M wraps when he was not being compliant with his compression stockings. Patient denies any obvious trauma that preceded these ulcerations. He does state that the ulceration is painful at times though denies any obvious exudate, warmth, or systemic signs of infection. He denies any other acute complaints at this time. The patient otherwise denies any fever, chills, nausea, vomiting, shortness of breath, chest pain or pressure, palpitations, orthopnea, syncope or presyncopal episodes. Progress of Wound: All ulcers are improving and size, wound beds are moist and pink without signs of infection at this time. Ulcers to left leg have now healed - Physical Exam Vital Signs Temp Pulse Resp BP 98.9 F 83 20 H 135/67 H 10/07/18 15:10 10/07/18 15:10 10/07/18 15:10 10/07/18 15:10 General: Alert, Oriented x3, Cooperative, No apparent distress HEENT: Atraumatic Oral: Moist Mucosa Lungs: Clear to auscultation Cardiovascular: Regular rate Abdomen: Soft, Non Tender, Obese Extremities: No clubbing, No cyanosis, Diminished Peripheral Pulses, Edema - 2+ pitting edema bilateral lower extremities Skin: Ulcer/ Wound - Ulceration to right anterior lower extremity with adherent slough, otherwise wound bed appears moist and without any signs of infection at this time Neurological: Neuro grossly intact Psych/Mental Status: Normal Affect, Appropriate, Alert and oriented to time, place, person, mood and affect Debridement Note Post-Debridement Measurements/Treatment WC - Nurse 2 - General Ulcer CM Notes Start: 09/30/18 14:51 Freq: Status: Active Protocol: Activity Type Activity Date Activity User E-Sign Co-Sign Detail Recorded Client Recorded Date Recorded By Document 09/30/18 15:35 AN [id number] 09/30/18 15:43 AN Document 10/07/18 15:55 AN [id number] 10/07/18 15:58 AN 09/30/18 10/07/18 15:35 15:55 Wound Center Nurse 2 #7- LT CALF posterior -Time 15:41 15:57 -Correct Patient Yes -Correct Side, Site, Position Yes -Correct Procedure Yes -Procedure Performed Yes -Type of Procedure Debridement -Clinical Debridement Subcutaneous -Post Debridement Size (cm) - Length 2.3 0.1 -Post Debridement Size (cm) - Width 0.9 0.1 -Post Debridement Size (cm) - Depth 0.1 0.1 -Total Square Cm 2.07 0.01 -Wound/Ulcer Outcome Not Healed -Ulcer Cleansing Rinsed/ Irrigated with Saline -Foul Odor after Cleansing No -Bioengineered Tissue No -Bleeding Controlled with Pressure -Offloading No -Treatment Response Procedure Tolerated Well #6- LT MARTINEZ CLUSTER -Time 15:36 -Correct Patient Yes -Correct Side, Site, Position Yes -Correct Procedure Yes -Procedure Performed Yes -Type of Procedure Debridement -Clinical Debridement Subcutaneous -Post Debridement Size (cm) - Length 3 -Post Debridement Size (cm) - Width 0.5 -Post Debridement Size (cm) - Depth 0.1 -Total Square Cm 1.5 -Wound/Ulcer Outcome Not Healed -Ulcer Cleansing Rinsed/ Irrigated with Saline -Foul Odor after Cleansing No -Bleeding Controlled with Pressure -Offloading No -Treatment Response Procedure Tolerated Well #5- RT MARTINEZ CLUSTER -Time 15:35 15:57 -Correct Patient Yes Yes -Correct Side, Site, Position Yes Yes -Correct Procedure Yes Yes -Procedure Performed Yes Yes -Type of Procedure Debridement Debridement -Clinical Debridement Subcutaneous Subcutaneous -Post Debridement Size (cm) - Length 5.5 2.9 -Post Debridement Size (cm) - Width 1 1 -Post Debridement Size (cm) - Depth 0.1 0.1 -Total Square Cm 5.5 2.9 -Wound/Ulcer Outcome Not Healed Not Healed -Ulcer Cleansing Rinsed/ Rinsed/ Irrigated with Irrigated with Saline Saline -Foul Odor after Cleansing No No -Bioengineered Tissue No No -Bleeding Controlled with Pressure Pressure -Offloading No No -Treatment Response Procedure Procedure Tolerated Well Tolerated Well Pain Scale: 0-10 Numeric Is Patient Pain Free? Yes Wound debrided: Right anterior lower extremity venous ulceration Laterality: Right Type of Debridement: Excisional debridement Anesthesia Used: 5% Lidocaine Gel Depth: in the subcutaneous layer Percentage of wound debrided: 100 Instrument Used: 5mm curette Tissue Removed: Slough and devitalized tissue Severity: Fat Layer Exposed Amount of bleeding with debridement: Mild Bleeding Controlled with: Pressure Patient tolerated procedure well Assessment/Plan Assessment: Assessment: Nonhealing venous ulcers bilateral lower extremities with fat layer exposed. Bilateral lower extremity edema. Decreased dorsal pedis pulses. Morbid obesity with BMI greater than 60. chronic venous insufficiency Plan: Plan: The patient was seen and examined at the wound center today and was updated on the plan of care. Patient's wound care will consist of application of double layer Aquacel extra with 3M wrap for compression as he has done well with this in the past. Did discuss the importance of adhering to his daily compression stocking regimen. He does have double layer compression stockings at home but is noncompliant with them. Patient verbalized understanding. Educated on the importance of increasing protein intake and vitamin C for wound healing. Patient verbalized understanding. Discussed signs and symptoms of infection that require urgent medical attention. Patient discharged from the wound healing center and to follow-up as needed. This note was generated with [employer] dictation software. It may contain incorrect words, spelling, and punctuation that were not noted in checking the note before signing. Code Visit 111xxx-113xx: [id number] Nneka subq tissue 20 sq cm/<
[2018-10-21 14:50] VITALS: BP 132/66; PULSE 76; RESP 18; TEMP 37; BMI 63.0
--- NOTE | 2018-10-21 20:39 | PCM.WC.PN ---
(1) Nonhealing ulcer of right lower extremity with fat layer exposed Status: Acute Code(s): L97.912 - Non-pressure chronic ulcer of unspecified part of right lower leg with fat layer exposed (2) Nonhealing ulcer of left lower extremity with fat layer exposed Status: Acute Code(s): L97.922 - Non-pressure chronic ulcer of unspecified part of left lower leg with fat layer exposed Comment: x 2 anterior and posterior (3) Decreased dorsalis pedis pulse Status: Acute Code(s): R09.89 - Other specified symptoms and signs involving the circulatory and respiratory systems (4) Lymphedema of both lower extremities Status: Acute Code(s): I89.0 - Lymphedema, not elsewhere classified (5) Morbid obesity with BMI of 60.0-69.9, adult Status: Acute Code(s): E66.01 - Morbid (severe) obesity due to excess calories; Z68.44 - Body mass index (BMI) 60.0-69.9, adult (6) Venous insufficiency (chronic) (peripheral) Status: Acute Code(s): I87.2 - Venous insufficiency (chronic) (peripheral) Type of Wound Date of Service: 10/21/18 Chief Complaint: nonhealing ulcers BLLE x 1 month History of Wound: This is a 52-year-old morbidly obese white male who presents to the wound healing center with a chief complaint of nonhealing bilateral lower extremity ulcers x 1 month. He has a past medical history as listed above and is a known patient to me. He was seen by myself at the wound center in the past. The patient states that he has not been using his compression appropriately as he did not feel as necessary. He does note an increase in fluid retention to his bilateral lower extremities. He states that at first he used some of his excess Aquasol silver, however he ran out of the supplies and has not been using anything for the last couple weeks for wound care. He had vascular studies done in which demonstrated venous insufficiency and a right PATRICK of 1.3 and a left PATRICK 1.28. In the past he has done well with 3M wraps when he was not being compliant with his compression stockings. Patient denies any obvious trauma that preceded these ulcerations. He does state that the ulceration is painful at times though denies any obvious exudate, warmth, or systemic signs of infection. He denies any other acute complaints at this time. The patient otherwise denies any fever, chills, nausea, vomiting, shortness of breath, chest pain or pressure, palpitations, orthopnea, syncope or presyncopal episodes. Progress of Wound: All ulcers have healed without signs of infection at this time. Patient denies any signs of infection at this time. The patient otherwise denies any fever, chills, nausea, vomiting, shortness of breath, chest pain or pressure, palpitations, orthopnea, lower extremity edema, syncope or presyncopal episodes. - Physical Exam Vital Signs Temp Pulse Resp BP 98.6 F 76 18 132/66 H 10/21/18 14:50 10/21/18 14:50 10/21/18 14:50 10/21/18 14:50 General: Alert, Oriented x3, Cooperative, No apparent distress HEENT: Atraumatic Neck: Supple Lungs: Clear to auscultation, Normal air movement, No rhonchi, No wheeze, No rales Cardiovascular: Regular rate, Regular Rhythm Abdomen: Obese Extremities: No clubbing, No cyanosis, Edema - +1 pitting edema bilateral lower extremities starts just below the calf Skin: Ulcer/ Wound - All ulcerations are healed Neurological: Neuro grossly intact Psych/Mental Status: Normal Affect, Appropriate, Alert and oriented to time, place, person, mood and affect Debridement Note Post-Debridement Measurements/Treatment WC - Nurse 2 - General Ulcer CM Notes Start: 09/30/18 14:51 Freq: Status: Active Protocol: Activity Type Activity Date Activity User E-Sign Co-Sign Detail Recorded Client Recorded Date Recorded By Document 09/30/18 15:35 AN [id number] 09/30/18 15:43 AN Document 10/07/18 15:55 AN [id number] 10/07/18 15:58 AN Document 10/21/18 16:47 AN [id number] 10/21/18 16:49 AN 09/30/18 10/07/18 10/21/18 15:35 15:55 16:47 Wound Center Nurse 2 #7- LT CALF posterior -Time 15:41 15:57 -Correct Patient Yes -Correct Side, Site, Position Yes -Correct Procedure Yes -Procedure Performed Yes -Type of Procedure Debridement -Clinical Debridement Subcutaneous -Post Debridement Size (cm) - Length 2.3 0.1 -Post Debridement Size (cm) - Width 0.9 0.1 -Post Debridement Size (cm) - Depth 0.1 0.1 -Total Square Cm 2.07 0.01 -Wound/Ulcer Outcome Not Healed -Ulcer Cleansing Rinsed/ Irrigated with Saline -Foul Odor after Cleansing No -Bioengineered Tissue No -Bleeding Controlled with Pressure -Offloading No -Treatment Response Procedure Tolerated Well #6- LT MARTINEZ CLUSTER -Time 15:36 -Correct Patient Yes -Correct Side, Site, Position Yes -Correct Procedure Yes -Procedure Performed Yes -Type of Procedure Debridement -Clinical Debridement Subcutaneous -Post Debridement Size (cm) - Length 3 -Post Debridement Size (cm) - Width 0.5 -Post Debridement Size (cm) - Depth 0.1 -Total Square Cm 1.5 -Wound/Ulcer Outcome Not Healed -Ulcer Cleansing Rinsed/ Irrigated with Saline -Foul Odor after Cleansing No -Bleeding Controlled with Pressure -Offloading No -Treatment Response Procedure Tolerated Well #5- RT MARTINEZ CLUSTER -Time 15:35 15:57 -Correct Patient Yes Yes -Correct Side, Site, Position Yes Yes -Correct Procedure Yes Yes -Procedure Performed Yes Yes -Type of Procedure Debridement Debridement -Clinical Debridement Subcutaneous Subcutaneous -Post Debridement Size (cm) - Length 5.5 2.9 -Post Debridement Size (cm) - Width 1 1 -Post Debridement Size (cm) - Depth 0.1 0.1 -Total Square Cm 5.5 2.9 -Wound/Ulcer Outcome Not Healed Not Healed -Ulcer Cleansing Rinsed/ Rinsed/ Irrigated with Irrigated with Saline Saline -Foul Odor after Cleansing No No -Bioengineered Tissue No No -Bleeding Controlled with Pressure Pressure -Offloading No No -Treatment Response Procedure Procedure Tolerated Well Tolerated Well Pain Scale: 0-10 Numeric Is Patient Pain Free? Yes Yes No debridement was completed today Assessment/Plan Assessment: Assessment: Nonhealing venous ulcers bilateral lower extremities with fat layer exposed. Bilateral lower extremity edema. Decreased dorsal pedis pulses. Morbid obesity with BMI greater than 60. chronic venous insufficiency Plan: Plan: The patient was seen and examined at the wound center today and was updated on the plan of care. All of the patient's ulcers are healed at this time. Did discuss the importance of compliance with his double layer to compression stockings. Will be discharged from the wound healing center and instructed to follow-up in 1 week for a nurse visit for a recheck to make sure patient is remaining compliant with his compression. Discussed signs and symptoms of infection that require urgent medical attention. Patient discharged from the wound healing center and to follow-up as needed. This note was generated with [employer] software. It may contain incorrect words, spelling, and punctuation that were not noted in checking the note before signing. Code Visit Office Visits / Consults: [id number] OV L3 Est
--- NOTE | 2018-10-27 10:43 | PN.PCM_ITS ---
(1) Nonhealing ulcer of right lower extremity with fat layer exposed Status: Acute Code(s): L97.912 - Non-pressure chronic ulcer of unspecified part of right lower leg with fat layer exposed (2) Nonhealing ulcer of left lower extremity with fat layer exposed Status: Acute Code(s): L97.922 - Non-pressure chronic ulcer of unspecified part of left lower leg with fat layer exposed Comment: x 2 anterior and posterior (3) Decreased dorsalis pedis pulse Status: Acute Code(s): R09.89 - Other specified symptoms and signs involving the circulatory and respiratory systems (4) Lymphedema of both lower extremities Status: Acute Code(s): I89.0 - Lymphedema, not elsewhere classified (5) Morbid obesity with BMI of 60.0-69.9, adult Status: Acute Code(s): E66.01 - Morbid (severe) obesity due to excess calories; Z68.44 - Body mass index (BMI) 60.0-69.9, adult (6) Venous insufficiency (chronic) (peripheral) Status: Acute Code(s): I87.2 - Venous insufficiency (chronic) (peripheral) Type of Wound Date of Service: 10/21/18 Chief Complaint: nonhealing ulcers BLLE x 1 month History of Wound: This is a 52-year-old morbidly obese white male who presents to the wound healing center with a chief complaint of nonhealing bilateral lower extremity ulcers x 1 month. He has a past medical history as listed above and is a known patient to me. He was seen by myself at the wound center in the past. The patient states that he has not been using his compression appropr iately as he did not feel as necessary. He does note an increase in fluid retention to his bilateral lower extremities. He states that at first he used some of his excess Aquasol silver, however he ran out of the supplies and has not been using anything for the last couple weeks for wound care. He had vascular studies done in which demonstrated venous insufficiency and a right PATRICK of 1.3 and a left PATRICK 1.28. In the past he has done well with 3M wraps when he was not being compliant with his compression stockings. Patient denies any obvious trauma that preceded these ulcerations. He does state that the ulceration is painful at times though denies any obvious exudate, warmth, or systemic signs of infection. He denies any other acute complaints at this time. The patient otherwise denies any fever, chills, nausea, vomiting, shortness of breath, chest pain or pressure, palpitations, orthopnea, syncope or presyncopal episodes. Progress of Wound: All ulcers have healed without signs of infection at this time. Patient denies any signs of infection at this time. The patient otherwise denies any fever, chills, nausea, vomiting, shortness of breath, chest pain or pressure, palpitations, orthopnea, lower extremity edema, syncope or presyncopal episodes. - Physical Exam Vital Signs Temp Pulse Resp BP 98.6 F 76 18 132/66 H 10/21/18 14:50 10/21/18 14:50 10/21/18 14:50 10/21/18 14:50 General: Alert, Oriented x3, Cooperative, No apparent distress HEENT: Atraumatic Neck: Supple Lungs: Clear to auscultation, Normal air movement, No rhonchi, No wheeze, No rales Cardiovascular: Regular rate, Regular Rhythm Abdomen: Obese Extremities: No clubbing, No cyanosis, Edema - +1 pitting edema bilateral lower extremities starts just below the calf Skin: Ulcer/ Wound - All ulcerations are healed Neurological: Neuro grossly intact Psych/Mental Status: Normal Affect, Appropriate, Alert and oriented to time, place, person, mood and affect Debridement Note Post-Debridement Measurements/Treatment WC - Nurse 2 - General Ulcer CM Notes Start: 09/30/18 14:51 Freq: Status: Active Protocol: Activity Type Activity Date Activity User E-Sign Co-Sign Detail Recorded Client Recorded Date Recorded By Document 09/30/18 15:35 AN [id number] 09/30/18 15:43 AN Document 10/07/18 15:55 AN [id number] 10/07/18 15:58 AN Document 10/21/18 16:47 AN [id number] 10/21/18 16:49 AN 09/30/18 10/07/18 10/21/18 15:35 15:55 16:47 Wound Center Nurse 2 #7- LT CALF posterior -Time 15:41 15:57 -Correct Patient Yes -Correct Side, Site, Position Yes -Correct Procedure Yes -Procedure Performed Yes -Type of Procedure Debridement -Clinical Debridement Subcutaneous -Post Debridement Size (cm) - Length 2.3 0.1 -Post Debridement Size (cm) - Width 0.9 0.1 -Post Debridement Size (cm) - Depth 0.1 0.1 -Total Square Cm 2.07 0.01 -Wound/Ulcer Outcome Not Healed -Ulcer Cleansing Rinsed/ Irrigated with Saline -Foul Odor after Cleansing No -Bioengineered Tissue No -Bleeding Controlled with Pressure -Offloading No -Treatment Response Procedure Tolerated Well #6- LT MARTINEZ CLUSTER -Time 15:36 -Correct Patient Yes -Correct Side, Site, Position Yes -Correct Procedure Yes -Procedure Performed Yes -Type of Procedure Debridement -Clinical Debridement Subcutaneous -Post Debridement Size (cm) - Length 3 -Post Debridement Size (cm) - Width 0.5 -Post Debridement Size (cm) - Depth 0.1 -Total Square Cm 1.5 -Wound/Ulcer Outcome Not Healed -Ulcer Cleansing Rinsed/ Irrigated with Saline -Foul Odor after Cleansing No -Bleeding Controlled with Pressure -Offloading No -Treatment Response Procedure Tolerated Well #5- RT MARTINEZ CLUSTER -Time 15:35 15:57 -Correct Patient Yes Yes -Correct Side, Site, Position Yes Yes -Correct Procedure Yes Yes -Procedure Performed Yes Yes -Type of Procedure Debridement Debridement -Clinical Debridement Subcutaneous Subcutaneous -Post Debridement Size (cm) - Length 5.5 2.9 -Post Debridement Size (cm) - Width 1 1 -Post Debridement Size (cm) - Depth 0.1 0.1 -Total Square Cm 5.5 2.9 -Wound/Ulcer Outcome Not Healed Not Healed -Ulcer Cleansing Rinsed/ Rinsed/ Irrigated with Irrigated with Saline Saline -Foul Odor after Cleansing No No -Bioengineered Tissue No No -Bleeding Controlled with Pressure Pressure -Offloading No No -Treatment Response Procedure Procedure Tolerated Well Tolerated Well Pain Scale: 0-10 Numeric Is Patient Pain Free? Yes Yes No debridement was completed today Assessment/Plan Assessment: Assessment: Nonhealing venous ulcers bilateral lower extremities with fat layer exposed. Bilateral lower extremity edema. Decreased dorsal pedis pulses. Morbid obesity with BMI greater than 60. chronic venous insufficiency Plan: Plan: The patient was seen and examined at the wound center today and was updated on the plan of care. All of the patient's ulcers are healed at this time. Did discuss the importance of compliance with his double layer to compression stockings. Will be discharged from the wound healing center and instructed to follow-up in 1 week for a nurse visit for a recheck to make sure patient is remaining compliant with his compression. Discussed signs and symptoms of infection that require urgent medical attention. Patient discharged from the wound healing center and to follow-up as needed. This note was generated with [employer] dictation software. It may contain incorrect words, spelling, and punctuation that were not noted in checking the note before signing. Code Visit Office Visits / Consults: [id number] OV L3 Est
== END 2018-10-24 23:59 ==
LOC: WC 14:45
PROVIDERS: Family Provider Internal Medicine; PCP Internal Medicine; Visit Provider Nurse Practitioner Family
DX: I87.2 Venous insufficiency (chronic) (peripheral) (principal); L97.812 Non-pressure chronic ulcer of other part of right lower leg with fat layer exposed; L97.822 Non-pressure chronic ulcer of other part of left lower leg with fat layer exposed; E66.01 Morbid (severe) obesity due to excess calories; Z68.44 Body mass index [BMI] 60.0-69.9, adult; Z71.3 Dietary counseling and surveillance; I89.0 Lymphedema, not elsewhere classified; Z91.19 Patient's noncompliance with other medical treatment and regimen
CPT/HCPCS: 11042; 99213; G0463

== ENCOUNTER 2020-05-22 09:45 | Outpatient (RCR) | payer MEDICAID, SELFPAY ==
[2020-05-15 10:53] VITALS: BP 152/87; PULSE 74; RESP 16; TEMP 36.7; BMI 64.2
--- NOTE | 2020-05-15 12:53 | HP.PCM_ITS ---
(1) Swelling of lower extremity Status: Chronic Code(s): M79.89 - Other specified soft tissue disorders (2) Edema of both legs Status: Chronic Code(s): R60.0 - Localized edema (3) Ulcer of right lower leg Status: Chronic Qualifiers: Non-pressure ulcer stage: with fat layer exposed Qualified Code(s): L97.912 - Non-pressure chronic ulcer of unspecified part of right lower leg with fat layer exposed Code(s): L97.919 - Non-pressure chronic ulcer of unspecified part of right lower leg with unspecified severity (4) Venous stasis ulcer Status: Chronic Qualifiers: Venous stasis ulcer site: calf Varicose vein presence: without varicose veins Laterality: right Non-pressure ulcer stage: with fat layer exposed Qualified Code(s): I87.2 - Venous insufficiency (chronic) (peripheral); L97.212 - Non-pressure chronic ulcer of right calf with fat layer exposed Code(s): I83.009 - Varicose veins of unspecified lower extremity with ulcer of unspecified site; L97.909 - Non-pressure chronic ulcer of unspecified part of unspecified lower leg with unspecified severity (5) Dependent edema Status: Chronic Code(s): R60.9 - Edema, unspecified (6) Venous hypertension, chronic, with ulcer and inflammation Status: Chronic Qualifiers: Laterality: bilateral Qualified Code(s): I87.333 - Chronic venous hypertension (idiopathic) with ulcer and inflammation of bilateral lower extremity; L97.919 - Non-pressure chronic ulcer of unspecified part of right lower leg with unspecified severity; L97.929 - Non-pressure chronic ulcer of unspecified part of left lower leg with unspecified severity Code(s): I87.339 - Chronic venous hypertension (idiopathic) with ulcer and inflammation of unspecified lower extremity; L97.909 - Non-pressure chronic ulcer of unspecified part of unspecified lower leg with unspecified severity (7) Venous stasis dermatitis Status: Chronic Qualifiers: Laterality: bilateral Qualified Code(s): I87.2 - Venous insufficiency (chronic) (peripheral) Code(s): I87.2 - Venous insufficiency (chronic) (peripheral) (8) Diabetes mellitus Status: Chronic Qualifiers: Diabetes mellitus type: type 2 Code(s): E11.9 - Type 2 diabetes mellitus without complications (9) Gout Status: Chronic Code(s): M10.9 - Gout, unspecified (10) MASON (obstructive sleep apnea) Status: Chronic Code(s): G47.33 - Obstructive sleep apnea (adult) (pediatric) (11) Hypertension Status: Chronic Code(s): I10 - Essential (primary) hypertension (12) Lymphedema of both lower extremities Status: Chronic Code(s): I89.0 - Lymphedema, not elsewhere classified (13) Morbid obesity with BMI of 60.0-69.9, adult Status: Chronic Code(s): E66.01 - Morbid (severe) obesity due to excess calories; Z68.44 - Body mass index [BMI] 60.0-69.9, adult (14) Venous insufficiency (chronic) (peripheral) Status: Chronic Code(s): I87.2 - Venous insufficiency (chronic) (peripheral) History of Present Illness Date of Service: 05/15/20 Chief Complaint: Severe swelling, edema, and lymphedema of the lower extremities, with ulceration of the right distal lower extremity History of Wound: This is a 54-year-old morbidly obese white male who presents with chronic swelling, edema, and lymphedema in his lower extremities, and a recent ulceration on the right lateral calf. Patient has been treated at our facility in the past for similar medical problems. With respect to his current problems, he has been receiving care recently at a wound clinic in [place], [place]. However, the patient has become dissatisfied with the care he is receiving, and is seeking medical care with our facility. Patient states that the ulceration on the right lateral calf has been present for several months. He has noticed very little improvement. It appears as though debridements have been performed serially, and weekly wraps have been implemented using 3M 2 layer compression wraps. He has recently obtained mechanical pneumatic compression pumps as well. He has a history of MRSA, and is currently on a prophylactic dose of azithromycin 250 mg p.o. daily. Patient claims to sleep on a flat mattress at night. However, he is not active, and spends a good deal of each day in a sitting position. He denies a history of deep vein thrombosis. It appears as though a venous duplex examination has been recently performed in [place], [place], at [facility]. We will attempt to obtain these results. A noninvasive lower extremity arterial study has been performed in 2018, the results of which revealed no evidence of arterial occlusive disease in the lower extremities. The patient also indicates that he was hospitalized for 2 days at [facility] in [place], [place], in January 2020, which was for treatment relative to his lower extremity problems. Past Medical History Past Medical History: Chronic Problems Lymphedema of both lower extremities (Chronic) Morbid obesity with BMI of 60.0-69.9, adult (Chronic) Venous insufficiency (chronic) (peripheral) (Chronic) Swelling of lower extremity (Chronic) Edema of both legs (Chronic) Ulcer of right lower leg (Chronic) Venous stasis ulcer (Chronic) Dependent edema (Chronic) Venous hypertension, chronic, with ulcer and inflammation (Chronic) Venous stasis dermatitis (Chronic) Diabetes mellitus (Chronic) Gout (Chronic) MASON (obstructive sleep apnea) (Chronic) Hypertension (Chronic) Past Medical History: The patient denies a history of myocardial infarction, congestive heart failure, cerebrovascular accident, thyroid disease, and hyperlipidemia. He does have a history of diabetes mellitus, gout, obstructive sleep apnea, hypertension, chronic venous insufficiency, and morbid obesity. Surgical History: herniorrhaphy - Left inguinal Allergies/Adverse Reactions: Allergies shellfish derived Allergy (Verified 05/15/20 11:16) Food Allergy Home Medications: Ambulatory Orders Medication Instructions Recorded Aldactone 25 mg PO BID 05/06/18 Lasix 80 mg PO DAILY 05/06/18 Lisinopril 20 mg PO DAILY 09/16/18 Allopurinol 300 mg PO DAILY 05/15/20 Azithromycin 250 mg PO DAILY 05/15/20 - Family History Paternal - - The patient's father at the age of 68 with a history of renal failure. Patient's mother is living, age 74, and suffers from atrial fibrillation. Social History: The patient is . He denies use of alcohol and tobacco products. He is currently unemployed. Lives: Spouse/ Significant Other Smoking Status: Former smoker Tobacco Use: Non-smoker Alcohol: None Drugs: None Review of Systems Constitutional: Denies: Chills, Fever, Weight Change Eyes: Denies: Pain, Vision Change HEENT: Denies: Difficulty Hearing, Difficulty Swallowing, Sinus Congestion Cardiovascular: Denies: Chest Pain, Palpitations Respiratory: Denies: Cough, Shortness of Breath Gastrointestinal: Denies: Diarrhea, Nausea, Vomiting Genitourinary: Denies: Dysuria, Hematuria Endocrine: Denies: Heat/ Cold Intolerance, Polydipsia, Polyuria Hematologic/ Lymphatic: Denies: Easy Bruising, Easy Bleeding - Physical Exam Vital Signs Temp Pulse Resp BP 98.1 F 74 16 152/87 H 05/15/20 10:53 05/15/20 10:53 05/15/20 10:53 05/15/20 10:53 General: Alert, Oriented x3, Cooperative, No apparent distress, Well developed, Well nourished, - - The patient is morbidly obese HEENT: Atraumatic, PERRLA, EOMI, Normocephalic Oral: Moist Mucosa Neck: No JVD, No Nuchal Rigidity, Trachea Midline Lungs: Normal air movement Abdomen: Non-Distended, Obese Extremities: No clubbing, No cyanosis, No Calf Tenderness Addt'l Extremities Findings: Severe swelling, edema, and lymphedema noted in the patient's lower extremities bilaterally. Severe venous stasis changes are also noted, with hypertrophic changes of the skin. A small ulceration is noted on the right lateral calf. There is no sign of infection or cellulitis. Dimensions are documented elsewhere. There is a moderate amount of bioburden. Wound Measurements and Assessment WC - Nurse 1 - General Ulcer Measurement Start: 05/15/20 10:52 Freq: Status: Active Protocol: Activity Type Activity Date Activity User E-Sign Co-Sign Detail Recorded Client Recorded Date Recorded By Document 05/15/20 10:53 [facility] [id number] 05/15/20 11:14 BM 05/15/20 10:53 Wound Center Nurse 1 [Ulcer Assessment] #8- RLE CIRCUMFERENTIAL -Combined with other wound No -Current Size (cm) - Length 21.4 -Current Size (cm) - Width 49.5 -Current Size (cm) - Depth 0.3 -Total Square Cm 1059.30 -Date of Last Picture (Recall this 05/15/20 field) -Photo Taken Yes -Epithelialization None Present -Tunneling No -Undermining/Tunneling No -Circular Undermining No -Exudate Amt Large -Exudate Type Serosanguineous -Wound Margin Distinct, Outline Attached -Granulation Amt Large (67-100%) -Granulation Quality Pale,[place] -Slough/Fibrin Yes -Necrosis Amt Small (1-33%) -Necrotic Tissue Type Adherent Slough -Texture (Meri-wound Skin Appearance) Assessed, Scarring -Moisture (Meri-wound Skin Appearance Assessed, ) Maceration, Weeping,Dry/ Scaly -Color (Meri-wound Skin Appearance) Assessed, Erythema -Temperature (Meri-wound Skin No Abnormality Appearance) (Pt Warm) -Tenderness on Palpation (Meri-wound No Skin Appearance) -Ulcer Cleansing SOAPY WATER -Foul Odor after Cleansing No -Anesthetic Used 4% Lidocaine Solution [Edema Assessment] -Lower Limb Edema Present Yes -Right Calf (cm) 65 -Right Ankle (cm) 33.5 -Left Calf (cm) 62.1 -Left Ankle (cm) 31.3 WC - Nurse 3 - General Ulcer D/C NN Start: 05/15/20 10:52 Freq: Status: Active Protocol: Activity Type Activity Date Activity User E-Sign Co-Sign Detail Recorded Client Recorded Date Recorded By Document 05/15/20 12:21 [facility] [id number] 05/15/20 12:22 [facility] 05/15/20 12:21 Wound Care Nurse 3 [Wound Dressing] #8- RLE CIRCUMFERENTIAL -Ulcer Cleansing Rinsed/ Irrigated with Saline -Foul Odor after Cleansing No -Primary Dressing Applied Other -Other Dressing UNNA BOOT [Compression Applied] Right -Multi-Layered Wrap Application Unna Boot - Bilateral ($) -Unna Boots (Bilat) ($) 2 Left -Multi-Layered Wrap Application Unna Boot - Bilateral ($) -Unna Boots (Bilat) ($) 2 Pain Scale: 0-10 Numeric [Pain] -Is Patient Pain Free? Yes - Visit Discharge [Visit Discharge Information] -Discharge Condition Stable -Ambulatory Status Ambulatory -Transportation Private Auto -Accompanied by Musculoskeletal: No Muscle Wasting Neurological: Cranial nerves II-XII grossly intact, Neuro grossly intact Psych/Mental Status: Normal Affect, Appropriate, Alert and oriented to time, place, person, mood and affect Debridement Note Post-Debridement Measurements/Treatment - Nurse 3 - General Ulcer D/C NN Start: 05/15/20 10:52 Freq: Status: Active Protocol: Activity Type Activity Date Activity User E-Sign Co-Sign Detail Recorded Client Recorded Date Recorded By Document 05/15/20 12:21 [facility] [id number] 05/15/20 12:22 [facility] 05/15/20 12:21 Wound Care Nurse 3 #8- RLE CIRCUMFERENTIAL -Ulcer Cleansing Rinsed/ Irrigated with Saline -Foul Odor after Cleansing No -Primary Dressing Applied Other -Other Dressing UNNA BOOT Right -Multi-Layered Wrap Application Unna Boot - Bilateral ($) -Unna Boots (Bilat) ($) 2 Left -Multi-Layered Wrap Application Unna Boot - Bilateral ($) -Unna Boots (Bilat) ($) 2 Pain Scale: 0-10 Numeric Is Patient Pain Free? Yes WC - Visit Discharge Discharge Condition Stable Ambulatory Status Ambulatory Transportation Private Auto Accompanied by Laterality: Right - Lateral calf Type of Debridement: Excisional debridement Anesthesia Used: 5% Lidocaine Gel Depth: Down to and including healthy tissue, in the subcutaneous layer Percentage of wound debrided: 100 Instrument Used: 5mm curette Tissue Removed: Bioburden Severity: Fat Layer Exposed Amount of bleeding with debridement: Mild Bleeding Controlled with: Compression and gauze Patient tolerated procedure well Assessment/Plan Active Problems Lymphedema of both lower extremities (Chronic) Morbid obesity with BMI of 60.0-69.9, adult (Chronic) Venous insufficiency (chronic) (peripheral) (Chronic) Swelling of lower extremity (Chronic) Edema of both legs (Chronic) Ulcer of right lower leg (Chronic) Venous stasis ulcer (Chronic) Dependent edema (Chronic) Venous hypertension, chronic, with ulcer and inflammation (Chronic) Venous stasis dermatitis (Chronic) Diabetes mellitus (Chronic) Gout (Chronic) MASON (obstructive sleep apnea) (Chronic) Hypertension (Chronic) Assessment: This is a 54-year-old morbidly obese diabetic white male with multiple medical problems. He presents with profound venous stasis changes in both lower extremities, as well as a small ulceration on the right lateral calf. Is morbidly obese, and relatively inactive. He spends the large portions of each day in an idle sitting position. He has recently received care at a wound clinic in [place], [place]. His prior care has involved serial debridements and the use of multilayer compression wraps. Plan: A lengthy discussion has been undertaken with the patient, and his at the bedside. Conservative treatment measures are to be implemented. There is question as to the patient's likely level of compliance. He has been advised to continue sleeping on a flat mattress at night. Leg elevation has been recommended during daytime hours as well. Leg elevation is to be to heart level, or higher. This is to be accomplished as much as possible. Prolonged idle sitting has been discouraged. Activity has been encouraged, though the patient's morbid obesity will likely preclude any significant increase or enhancement of the patient's activity level. Patient appears to have previously tolerated 3M 2 layer compression wraps to the lower extremities. Therefore, we are to continue compression in both lower extremities, though using a multilayer Unna boot compression wrap bilaterally. This will be changed twice weekly. The patient has in his possession pneumatic mechanical compression pumps, and has been encouraged to use these at least 2 or 3 times daily. We are to request the patient's recent venous duplex examinations from [facility] in [place]. A noninvasive lower extremity arterial study will be obtained in the near future, though a similar study 2 years ago revealed no evidence of significant arterial occlusive disease. Patient is to be scheduled for a dietary consultation for nutrition counseling, as weight loss should be a long-term objective. Optimization of the patient's glycemic control has been recommended. Upon the patient's return, we will arrange for routine laboratory studies as well. The patient is to follow-up in 1 week for reevaluation. The patient is not a smoker. Influenza vaccine was not administered today. The patient weighs 435 pounds. He stands 5 feet 9 inches tall. His BMI is 64.2. Weight loss has been recommended, in collaboration with the patient's primary care physician has been advised.
[2020-05-17 15:40] VITALS: BP 127/67; PULSE 74; RESP 18; TEMP 36.1; BMI 64.2
[2020-05-22 09:21] VITALS: BP 175/90; PULSE 74; RESP 20; TEMP 36.6; BMI 64.2
--- NOTE | 2020-05-22 10:27 | HP.PCM_ITS ---
(1) Swelling of lower extremity Status: Chronic Code(s): M79.89 - Other specified soft tissue disorders (2) Edema of both legs Status: Chronic Code(s): R60.0 - Localized edema (3) Ulcer of right lower leg Status: Chronic Qualifiers: Non-pressure ulcer stage: with fat layer exposed Qualified Code(s): L97.912 - Non-pressure chronic ulcer of unspecified part of right lower leg with fat layer exposed Code(s): L97.919 - Non-pressure chronic ulcer of unspecified part of right lower leg with unspecified severity (4) Venous stasis ulcer Status: Chronic Qualifiers: Venous stasis ulcer site: calf Varicose vein presence: without varicose veins Laterality: right Non-pressure ulcer stage: with fat layer exposed Qualified Code(s): I87.2 - Venous insufficiency (chronic) (peripheral); L97.212 - Non-pressure chronic ulcer of right calf with fat layer exposed Code(s): I83.009 - Varicose veins of unspecified lower extremity with ulcer of unspecified site; L97.909 - Non-pressure chronic ulcer of unspecified part of unspecified lower leg with unspecified severity (5) Dependent edema Status: Chronic Code(s): R60.9 - Edema, unspecified (6) Venous hypertension, chronic, with ulcer and inflammation Status: Chronic Qualifiers: Laterality: bilateral Qualified Code(s): I87.333 - Chronic venous hypertension (idiopathic) with ulcer and inflammation of bilateral lower extremity; L97.919 - Non-pressure chronic ulcer of unspecified part of right lower leg with unspecified severity; L97.929 - Non-pressure chronic ulcer of unspecified part of left lower leg with unspecified severity Code(s): I87.339 - Chronic venous hypertension (idiopathic) with ulcer and inflammation of unspecified lower extremity; L97.909 - Non-pressure chronic ulcer of unspecified part of unspecified lower leg with unspecified severity (7) Venous stasis dermatitis Status: Chronic Qualifiers: Laterality: bilateral Qualified Code(s): I87.2 - Venous insufficiency (chronic) (peripheral) Code(s): I87.2 - Venous insufficiency (chronic) (peripheral) (8) Diabetes mellitus Status: Chronic Qualifiers: Diabetes mellitus type: type 2 Code(s): E11.9 - Type 2 diabetes mellitus without complications (9) Gout Status: Chronic Code(s): M10.9 - Gout, unspecified (10) MASON (obstructive sleep apnea) Status: Chronic Code(s): G47.33 - Obstructive sleep apnea (adult) (pediatric) (11) Hypertension Status: Chronic Code(s): I10 - Essential (primary) hypertension (12) Lymphedema of both lower extremities Status: Chronic Code(s): I89.0 - Lymphedema, not elsewhere classified (13) Morbid obesity with BMI of 60.0-69.9, adult Status: Chronic Code(s): E66.01 - Morbid (severe) obesity due to excess calories; Z68.44 - Body mass index [BMI] 60.0-69.9, adult (14) Venous insufficiency (chronic) (peripheral) Status: Chronic Code(s): I87.2 - Venous insufficiency (chronic) (peripheral) History of Present Illness Date of Service: 05/22/20 Chief Complaint: Severe swelling, edema, and lymphedema of the lower extremities, with ulceration of the right distal lower extremity History of Wound: This is a 54-year-old morbidly obese white male who presented with chronic swelling, edema, and lymphedema in his lower extremities, and a recent ulceration on the right lateral calf. The patient has been treated at our facility in the past for similar medical problems. With respect to his current problems, he has been receiving care recently at a wound clinic in [place], [place]. However, the patient has become dissatisfied with the care he is receiving, and is seeking medical care with our facility. Patient states that the ulceration on the right lateral calf has been present for several months. He has noticed very little improvement. It appears as though debridements have been performed serially, and weekly wraps have been imp lemented using 3M 2 layer compression wraps. He has recently obtained mechanical pneumatic compression pumps as well. He has a history of MRSA, and is currently on a prophylactic dose of azithromycin 250 mg p.o. daily. Patient claims to sleep on a flat mattress at night. However, he is not active, and spends a good deal of each day in a sitting position. He denies a history of deep vein thrombosis. It appears as though a venous duplex examination has been recently performed in [place], [place], at [facility]. We will attempt to obtain these results. A noninvasive lower extremity arterial study has been performed in 2018, the results of which revealed no evidence of arterial occlusive disease in the lower extremities. The patient also indicates that he was hospitalized for 2 days at [facility] in [place], [place], in January 2020, which was for treatment relative to his lower extremity problems. Past Medical History Past Medical History: Chronic Problems Lymphedema of both lower extremities (Chronic) Morbid obesity with BMI of 60.0-69.9, adult (Chronic) Venous insufficiency (chronic) (peripheral) (Chronic) Swelling of lower extremity (Chronic) Edema of both legs (Chronic) Ulcer of right lower leg (Chronic) Venous stasis ulcer (Chronic) Dependent edema (Chronic) Venous hypertension, chronic, with ulcer and inflammation (Chronic) Venous stasis dermatitis (Chronic) Diabetes mellitus (Chronic) Gout (Chronic) MASON (obstructive sleep apnea) (Chronic) Hypertension (Chronic) Surgical History: herniorrhaphy - Left inguinal Allergies/Adverse Reactions: Allergies shellfish derived Allergy (Verified 05/15/20 11:16) Food Allergy Home Medications: Ambulatory Orders Medication Instructions Recorded Aldactone 25 mg PO BID 05/06/18 Lasix 80 mg PO DAILY 05/06/18 Lisinopril 20 mg PO DAILY 09/16/18 Allopurinol 300 mg PO DAILY 05/15/20 Azithromycin 250 mg PO DAILY 05/15/20 - Family History Paternal - - The patient's father at the age of 68 with a history of renal failure. Patient's mother is living, age 74, and suffers from atrial fibrillation. Lives: Spouse/ Significant Other Smoking Status: Former smoker Tobacco Use: Non-smoker Alcohol: None Drugs: None Review of Systems Constitutional: Denies: Chills, Fever, Weight Change Eyes: Denies: Pain, Vision Change HEENT: Denies: Difficulty Hearing, Difficulty Swallowing, Sinus Congestion Cardiovascular: Denies: Chest Pain, Palpitations Respiratory: Denies: Cough, Shortness of Breath Gastrointestinal: Denies: Diarrhea, Nausea, Vomiting Genitourinary: Denies: Dysuria, Hematuria Endocrine: Denies: Heat/ Cold Intolerance, Polydipsia, Polyuria Hematologic/ Lymphatic: Denies: Easy Bruising, Easy Bleeding - Physical Exam Vital Signs Temp Pulse Resp BP 97.8 F 74 20 H 175/90 H 05/22/20 09:21 05/22/20 09:21 05/22/20 09:21 05/22/20 09:21 General: Alert, Oriented x3, Cooperative, No apparent distress, Well developed, Well nourished, - - The patient is morbidly obese. HEENT: Atraumatic, PERRLA, EOMI, Normocephalic Oral: Moist Mucosa Neck: No JVD Lungs: Normal air movement Abdomen: Non-Distended, Obese Extremities: No clubbing, No cyanosis, No Calf Tenderness, Edema, - - Severe swelling and edema persist in the patient's lower extremities bilaterally. Severe venous stasis dermatitis persists as well in both lower extremities, though with slight improvement over that noted previously. Addt'l Wound Findings: The ulceration on the right lateral calf persists. It appears to be smaller in size. It is generally pink and healthy in appearance. Dimensions are documented elsewhere. There is significant venous stasis dermatitis bilaterally in the distal lower extremities. The swelling in the lower extremities is decreased, both visually and by means of circumference measurements, which are documented elsewhere. There is no sign of infection or cellulitis. Wound Measurements and Assessment WC - Nurse 1 - General Ulcer Measurement Start: 05/15/20 10:52 Freq: Status: Active Protocol: Activity Type Activity Date Activity User E-Sign Co-Sign Detail Recorded Client Recorded Date Recorded By Document 05/22/20 09:21 [facility] [id number] 05/22/20 09:35 [facility] 05/22/20 09:21 Wound Center Nurse 1 [Ulcer Assessment] #8- RLE CIRCUMFERENTIAL -Combined with other wound No -Current Size (cm) - Length 1.7 -Current Size (cm) - Width 0.9 -Current Size (cm) - Depth 0.3 -Total Square Cm 1.53 -Photo Taken No -Epithelialization Large 67-100% -Tunneling No -Undermining/Tunneling No -Circular Undermining No -Exudate Amt Small -Exudate Type Serosanguineous -Granulation Amt Small (1-33%) -Granulation Quality Volente -Slough/Fibrin Yes -Necrosis Amt Large (67-100%) -Necrotic Tissue Type Adherent Slough -Texture (Meri-wound Skin Appearance) Assessed, Scarring -Moisture (Meri-wound Skin Appearance Assessed,Dry/ ) Scaly -Color (Meri-wound Skin Appearance) Assessed, Hemosiderin Staining -Temperature (Meri-wound Skin No Abnormality Appearance) (Pt Warm) -Tenderness on Palpation (Meri-wound No Skin Appearance) -Ulcer Cleansing soapy water -Foul Odor after Cleansing No -Anesthetic Used 4% Lidocaine Solution [Edema Assessment] -Lower Limb Edema Present Yes -Right Calf (cm) 58.7 -Right Ankle (cm) 31.6 -Left Calf (cm) 54.5 -Left Ankle (cm) 31.6 Neurological: Cranial nerves II-XII grossly intact, Neuro grossly intact Psych/Mental Status: Normal Affect, Appropriate, Alert and oriented to time, place, person, mood and affect Debridement Note Post-Debridement Measurements/Treatment WC - Nurse 2 - General Ulcer CM Notes Start: 05/15/20 10:52 Freq: Status: Active Protocol: Activity Type Activity Date Activity User E-Sign Co-Sign Detail Recorded Client Recorded Date Recorded By Document 05/15/20 13:20 PL [id number] 05/15/20 13:21 PL 05/15/20 13:20 Wound Center Nurse 2 #8- RLE CIRCUMFERENTIAL -Time 11:53 -Correct Patient Yes -Correct Side, Site, Position Yes -Correct Procedure Yes -Procedure Performed Yes -Type of Procedure Debridement -Clinical Debridement Subcutaneous -Tissue Removed Subcutaneous -Post Debridement (cm) - Length 21.4 -Post Debridement (cm) - Width 49.5 -Post Debridement (cm) - Depth 0.3 -Total Square (Post) (cm) 1059.30 -Area of Debridement (cm) - Length 5 -Area of Debridement (cm) - Width 2 -Total Square (Area) (cm) 10 -Tunneling No -Undermining/Tunneling No -Circular Undermining No -Wound/Ulcer Outcome Not Healed -Ulcer Cleansing Rinsed/ Irrigated with Saline -Foul Odor after Cleansing No -Bioengineered Tissue No -Debridement - Subq, 1st 20sq cm Yes Pain Scale: 0-10 Numeric Is Patient Pain Free? Yes WC - Nurse 3 - General Ulcer D/C NN Start: 05/15/20 10:52 Freq: Status: Active Protocol: Activity Type Activity Date Activity User E-Sign Co-Sign Detail Recorded Client Recorded Date Recorded By Document 05/15/20 12:21 BMF [id number] 05/15/20 12:22 BMF Document 05/17/20 15:40 RB [id number] 05/17/20 15:43 RB 05/15/20 05/17/20 12:21 15:40 Wound Care Nurse 3 #8- RLE CIRCUMFERENTIAL -Ulcer Cleansing Rinsed/ Wound Cleanser Irrigated with Saline -Foul Odor after Cleansing No -Primary Dressing Applied Other -Other Dressing UNNA BOOT Right -Multi-Layered Wrap Application Unna Boot - Unna Boot - Bilateral ($) Bilateral ($) -Unna Boots (Bilat) ($) 2 2 Left -Other bilateral unna boots applied Treatment Response Procedure Tolerated Well Vital Signs Temperature (97.8 F-99.1 F) 97 F L Temperature Source Temporal Pulse Rate (60-100) 74 Pulse Location Monitor Respiratory Rate (12-18) 18 Respiratory rate source Observation Blood Pressure (90/60-120/80) 127/67 H Blood Pressure Mean (mm Hg) 87 Source Monitor Position Semi-Fowlers Blood Pressure Location Left Arm Pain Scale: 0-10 Numeric Is Patient Pain Free? Yes Yes WC - Visit Discharge Discharge Condition Stable Stable Ambulatory Status Ambulatory Ambulatory Transportation Private Auto Private Auto Accompanied by Medication Reconcilliation completed & No provided to patient/care provider Clinical Summary of Care Provided Yes Laterality: Right - Lateral calf Type of Debridement: Excisional debridement Anesthesia Used: 5% Lidocaine Gel Depth: Down to and including healthy tissue, in the subcutaneous layer Percentage of wound debrided: 100 Instrument Used: 5mm curette Tissue Removed: Bioburden Severity: Fat Layer Exposed Amount of bleeding with debridement: Mild Bleeding Controlled with: Compression and gauze Patient tolerated procedure well Assessment/Plan Active Problems Lymphedema of both lower extremities (Chronic) Morbid obesity with BMI of 60.0-69.9, adult (Chronic) Venous insufficiency (chronic) (peripheral) (Chronic) Swelling of lower extremity (Chronic) Edema of both legs (Chronic) Ulcer of right lower leg (Chronic) Venous stasis ulcer (Chronic) Dependent edema (Chronic) Venous hypertension, chronic, with ulcer and inflammation (Chronic) Venous stasis dermatitis (Chronic) Diabetes mellitus (Chronic) Gout (Chronic) MASON (obstructive sleep apnea) (Chronic) Hypertension (Chronic) Assessment: This is a 54-year-old morbidly obese diabetic white male with multiple medical problems. He presented with profound venous stasis changes in both lower extremities, as well as a small ulceration on the right lateral calf. He is morbidly obese, and relatively inactive. He spends large portions of each day in an idle sitting position. He has recently received care at a wound clinic in [place], [place]. His prior care has involved serial debridements and the use of multilayer compression wraps. Plan: A lengthy discussion has been undertaken with the patient once again. Conservative treatment measures are to be continued. There is question as to the patient's likely level of compliance. He has been advised to continue sleeping on a flat mattress at night. Leg elevation has been recommended during daytime hours as well. Leg elevation is to be to heart level, or higher. This is to be accomplished as much as possible. Prolonged idle sitting has been discouraged. Activity has been encouraged, though the patient's morbid obesity will likely preclude any significant increase or enhancement of the patient's activity level. Patient appears to have previously tolerated 3M 2 layer compr ession wraps to the lower extremities. Therefore, we are to continue compression in both lower extremities, though using a multilayer Unna boot compression wrap bilaterally. This will be changed twice weekly. The patient has in his possession pneumatic mechanical compression pumps, and has been encouraged to use these at least 2 or 3 times daily. We are to request the patient's recent venous duplex examinations from [facility] in [place]. A noninvasive lower extremity arterial study will be performed later today. Patient is to be scheduled for a dietary consultation for nutrition counseling, as weight loss should be a long-term objective. Optimization of the patient's glycemic control has been recommended. We are to obtain routine laboratory studies as well. The patient is to follow-up in 1 week for reevaluation. The patient is not a smoker. Influenza vaccine was not administered today. The patient weighs 435 pounds. He stands 5 feet 9 inches tall. His BMI is 64.2. Weight loss has been recommended, in collaboration with the patient's primary care physician has been advised.
--- NOTE | 2020-05-22 11:02 | ART_ITS ---
Reason For Study: ulcer Procedure A bilateral lower extremity continuous wave Doppler with analog waveform analysis,segmental pressures,and ankle brachial indexes without exercise. Left Segmental Pressures Left brachial= 142mmHg. Left posterior tibial artery = 151mmHg. Left dorsalis pedis artery = 153mmHg. Left digit = 159 mmHg. The left dorsalis pedis waveforms are triphasic. The left posterior tibial artery waveforms are triphasic. Right Segmental Pressures Right brachial= 141mmHg. Right posterior tibial artery = 162mmHg. Right dorsalis pedis artery = 181mmHg. Right digit = 163 mmHg. The right dorsalis pedis waveforms are triphasic. The right posterior tibial artery waveforms are triphasic. Indices The right ankle brachial index by the dorsalis pedis is 1.27. The right ankle brachial index by the posterior tibial artery is 1.14. The right digital-brachial index is 1.15. The left ankle brachial index by the dorsalis pedis is 1.08. The left ankle brachial index by the posterior tibial artery is 1.06. The left digital-brachial index is 1.12. Interpretation Summary Triphasic Doppler waveforms are noted at ankle level bilaterally. Pulse-volume recordings appear satisfactory at all levels bilaterally, including low-thigh, calf, ankle, and digital levels. Resting ankle-brachial indices are normal bilaterally. Digital-brachial indices are normal bilaterally. There is no evidence of significant arterial occlusive disease in the lower extremities bilaterally. Ordering Physician: Artemio Medina Performed By: Bladimir Stewart RVT and Student
[2020-05-22 11:47] LABS: Absolute Lymphocyte Count 1.48 X10^3/uL (0.83-4.51); Absolute Neutrophil Count 3.2 X10^3/uL (2.0-7.7); Basophil# 0.07 X10^3/uL; Basophil% 1.2 % (0-1); Eosinophil# 0.24 X10^3/uL; Eosinophils% 4.2 % (0-5); Hematocrit 43.7 % (40-54); Hemoglobin 13.8 g/dL (13.0-16.5); Lymphocyte # 1.48 X10^3/ul (4.0); Lymphocyte % 25.9 % (19-41); Mean Corp Hgb Conc 31.6 g/dL (32-36); Mean Corpuscular Hgb 28.4 pg (27.0-32.0); Mean Corpuscular Volume 89.9 fL (80-94); Mean Platelet Vol. 9.4 fl (6.2-12.0); Monocyte# 0.71 X10^3/uL; Monocyte% 12.4 % (0-10); NRBC Flagged by Analyzer 0 % (0-5); Neutrophil # 3.18 X10^3/uL (2.7-7.7); Neutrophil % 55.6 % (47-70); Platelet Count 404 K/mm3 (150-450); RBC Distribution Width CV 13.8 % (11.6-14.6); Red Blood Count 4.86 M/mm3 (4.6-6.2); White Blood Count 5.7 K/mm3 (4.4-11.0)
[2020-05-22 13:42] LABS: Hemoglobin A1c 5.5 % (3.8-5.6)
[2020-05-22 14:55] LABS: ALB/GLOB Ratio 0.8 RATIO (0.9-2.4); AST(SGOT) 25 U/L (15-37); Albumin, Serum 3.4 g/dL (3.2-5.0); BUN 11 mg/dL (7-18); BUN/Creat Ratio 11.3 RATIO (10-20); Calcium,Total 9.1 mg/dL (8.5-10.1); Creatinine, Serum 0.97 mg/dL (0.70-1.30); EST Glomerular Filtration Rate 86 mL/min (>60); Est Glom Filt Rate - Afr Amer 104 mL/min (>60); Estimated Creatinine Clearance 89.08 ml/min; Globulin 4.4 g/dL (2.2-4.2); Glucose 93 mg/dL (74-106); Protein, Total 7.8 g/dL (6.4-8.2)
[2020-05-22 14:56] LABS: Alanine Aminotransfer ALT/SGPT 46 U/L (16-61); Alkaline Phosphatase 78 U/L (45-117); Anion Gap 4 (5-15); Chloride 104 mmol/L (98-107); Potassium 4.3 mmol/L (3.5-5.1); Prealbumin 26.9 mg/dL (20.0-40.0); Sodium Level 139 mmol/L (136-145)
== END 2020-05-26 23:59 ==
LOC: WC 09:45
PROVIDERS: PCP Internal Medicine; Referring Provider Surgery; Visit Provider Surgery
DX: E11.621 Type 2 diabetes mellitus with foot ulcer (principal); L97.212 Non-pressure chronic ulcer of right calf with fat layer exposed; I87.2 Venous insufficiency (chronic) (peripheral); I87.8 Other specified disorders of veins; R60.9 Edema, unspecified; I87.333 Chronic venous hypertension (idiopathic) with ulcer and inflammation of bilateral lower extremity; M79.89 Other specified soft tissue disorders; M10.9 Gout, unspecified; G47.33 Obstructive sleep apnea (adult) (pediatric); I10 Essential (primary) hypertension; I89.0 Lymphedema, not elsewhere classified; E66.01 Morbid (severe) obesity due to excess calories; Z68.44 Body mass index [BMI] 60.0-69.9, adult; Z56.0 Unemployment, unspecified
CPT/HCPCS: 11042; 29580; 36415; 80053; 83036; 84134; 85025; 93923; 99213; G0463

== ENCOUNTER 2020-06-20 14:15 | Outpatient (RCR) | payer MEDICAID, SELFPAY ==
[2020-06-12 09:55] VITALS: BMI 64.2
[2020-06-19 10:27] VITALS: BMI 64.2
== END 2020-06-25 23:59 ==
LOC: DC 14:15
PROVIDERS: PCP Internal Medicine; Visit Provider Surgery
DX: Z71.3 Dietary counseling and surveillance (principal)
CPT/HCPCS: G0108

== ENCOUNTER 2020-06-22 12:15 | Outpatient (RCR) | payer MEDICAID, SELFPAY ==
[2020-05-27 00:38] VITALS: BP 175/90; PULSE 74; RESP 20; TEMP 36.6
[2020-05-29 10:09] VITALS: BP 138/84; PULSE 77; RESP 20; TEMP 36.3; BMI 64.2
--- NOTE | 2020-05-29 10:24 | PCM.WC.HP ---
(1) Nonhealing ulcer of left lower extremity with fat layer exposed Status: Resolved Code(s): L97.922 - Non-pressure chronic ulcer of unspecified part of left lower leg with fat layer exposed Comment: x 2 anterior and posterior (2) Nonhealing ulcer of right lower extremity with fat layer exposed Status: Chronic Code(s): L97.912 - Non-pressure chronic ulcer of unspecified part of right lower leg with fat layer exposed (3) Decreased dorsalis pedis pulse Status: Chronic Code(s): R09.89 - Other specified symptoms and signs involving the circulatory and respiratory systems (4) Lymphedema of both lower extremities Status: Chronic Code(s): I89.0 - Lymphedema, not elsewhere classified (5) Pain, lower extremity Status: Chronic Qualifiers: Laterality: bilateral Qualified Code(s): M79.604 - Pain in right leg; M79.605 - Pain in left leg Code(s): M79.606 - Pain in leg, unspecified (6) Morbid obesity with BMI of 60.0-69.9, adult Status: Chronic Code(s): E66.01 - Morbid (severe) obesity due to excess calories; Z68.44 - Body mass index [BMI] 60.0-69.9, adult (7) Skin tear of left lower leg without complication Status: Resolved Qualifiers: Encounter type: subsequent encounter Qualified Code(s): S81.812D - Laceration without foreign body, left lower leg, subsequent encounter Code(s): S81.812A - Laceration without foreign body, left lower leg, initial encounter (8) Venous insufficiency (chronic) (peripheral) Status: Chronic Code(s): I87.2 - Venous insufficiency (chronic) (peripheral) (9) Swelling of lower extremity Status: Chronic Code(s): M79.89 - Other specified soft tissue disorders (10) Edema of both legs Status: Chronic Code(s): R60.0 - Localized edema (11) Ulcer of right lower leg Status: Chronic Qualifiers: Non-pressure ulcer stage: with fat layer exposed Code(s): L97.919 - Non-pressure chronic ulcer of unspecified part of right lower leg with unspecified severity (12) Venous stasis ulcer Status: Chronic Qualifiers: Venous stasis ulcer site: calf Laterality: right Non-pressure ulcer stage: with fat layer exposed Code(s): I83.009 - Varicose veins of unspecified lower extremity with ulcer of unspecified site; L97.909 - Non-pressure chronic ulcer of unspecified part of unspecified lower leg with unspecified severity (13) Dependent edema Status: Chronic Code(s): R60.9 - Edema, unspecified (14) Venous hypertension, chronic, with ulcer and inflammation Status: Chronic Qualifiers: Laterality: bilateral Code(s): I87.339 - Chronic venous hypertension (idiopathic) with ulcer and inflammation of unspecified lower extremity; L97.909 - Non-pressure chronic ulcer of unspecified part of unspecified lower leg with unspecified severity (15) Venous stasis dermatitis Status: Chronic Qualifiers: Laterality: bilateral Code(s): I87.2 - Venous insufficiency (chronic) (peripheral) (16) Diabetes mellitus Status: Chronic Code(s): E11.9 - Type 2 diabetes mellitus without complications (17) Gout Status: Chronic Code(s): M10.9 - Gout, unspecified (18) MASON (obstructive sleep apnea) Status: Chronic Code(s): G47.33 - Obstructive sleep apnea (adult) (pediatric) (19) Hypertension Status: Chronic Code(s): I10 - Essential (primary) hypertension History of Present Illness Date of Service: 05/29/20 Chief Complaint: Severe swelling, edema, and lymphedema of the lower extremities, with ulceration of the right distal lower extremity History of Wound: This is a 54-year-old morbidly obese white male who presented with chronic swelling, edema, and lymphedema in his lower extremities, and a recent ulceration on the right lateral calf. The patient has been treated at our facility in the past for similar medical problems. With respect to his current problems, he has been receiving care recently at a wound clinic in [place], [place]. However, the patient has become dissatisfied with the care he is receiving, and is seeking medical care with our facility. Patient states that the ulceration on the right lateral calf has been present for several months. He has noticed very little improvement. It appears as though debridements have been performed serially, and weekly wraps have been implemented using 3M 2 layer compression wraps. He has recently obtained mechanical pneumatic compression pumps as well. He has a history of MRSA, and is currently on a prophylactic dose of azithromycin 250 mg p.o. daily. Patient claims to sleep on a flat mattress at night. However, he is not active, and spends a good deal of each day in a sitting position. He denies a history of deep vein thrombosis. It appears as though a venous duplex examination has been recently performed in [place], [place], at [facility]. We will attempt to obtain these results. A noninvasive lower extremity arterial study has been performed in 2018, the results of which revealed no evidence of arterial occlusive disease in the lower extremities. The patient also indicates that he was hospitalized for 2 days at [facility] in [place], [place], in January 2020, which was for treatment relative to his lower extremity problems. Past Medical History Past Medical History: Chronic Problems Nonhealing ulcer of right lower extremity with fat layer exposed (Chronic) Decreased dorsalis pedis pulse (Chronic) Lymphedema of both lower extremities (Chronic) Pain, lower extremity (Chronic) Morbid obesity with BMI of 60.0-69.9, adult (Chronic) Venous insufficiency (chronic) (peripheral) (Chronic) Swelling of lower extremity (Chronic) Edema of both legs (Chronic) Ulcer of right lower leg (Chronic) Venous stasis ulcer (Chronic) Dependent edema (Chronic) Venous hypertension, chronic, with ulcer and inflammation (Chronic) Venous stasis dermatitis (Chronic) Diabetes mellitus (Chronic) Gout (Chronic) MASON (obstructive sleep apnea) (Chronic) Hypertension (Chronic) Surgical History: herniorrhaphy - Left inguinal Allergies/Adverse Reactions: Allergies shellfish derived Allergy (Verified 05/15/20 11:16) Food Allergy Home Medications: Ambulatory Orders Medication Instructions Recorded Aldactone 25 mg PO BID 05/06/18 Lasix 80 mg PO DAILY 05/06/18 Lisinopril 20 mg PO DAILY 09/16/18 Allopurinol 300 mg PO DAILY 05/15/20 Azithromycin 250 mg PO DAILY 05/15/20 - Family History Paternal - - The patient's father at the age of 68 with a history of renal failure. Patient's mother is living, age 74, and suffers from atrial fibrillation. Smoking Status: Former smoker Tobacco Use: Non-smoker Review of Systems Constitutional: Denies: Chills, Fever, Weight Change Eyes: Denies: Pain, Vision Change HEENT: Denies: Difficulty Hearing, Difficulty Swallowing, Sinus Congestion Cardiovascular: Denies: Chest Pain, Palpitations Respiratory: Denies: Cough, Shortness of Breath Gastrointestinal: Denies: Diarrhea, Nausea, Vomiting Genitourinary: Denies: Dysuria, Hematuria Endocrine: Denies: Heat/ Cold Intolerance, Polydipsia, Polyuria Hematologic/ Lymphatic: Denies: Easy Bruising, Easy Bleeding - Physical Exam Vital Signs Temp Pulse Resp BP 97.3 F L 77 20 H 138/84 H 05/29/20 10:09 05/29/20 10:09 05/29/20 10:09 05/29/20 10:09 General: Alert, Oriented x3, Cooperative, No apparent distress, Well developed, Well nourished, - - The patient is morbidly obese HEENT: Atraumatic, PERRLA, EOMI, Normocephalic Oral: Moist Mucosa Neck: No JVD Lungs: Normal air movement Abdomen: Non-Distended Extremities: No clubbing, No cyanosis, No Calf Tenderness, - - Severe swelling and edema is noted bilaterally in the patient's lower extremities. However, calf and ankle circumferences are diminished bilaterally, according to today's documented measurements. There is mild venous stasis dermatitis bilaterally. Addt'l Wound Findings: An ulceration persists on the right anterolateral calf. There is no sign of infection or cellulitis. Dimensions are documented elsewhere. There is a small amount of bioburden. Wound Measurements and Assessment WC - Nurse 1 - General Ulcer Measurement Start: 05/29/20 10:09 Freq: Status: Active Protocol: Activity Type Activity Date Activity User E-Sign Co-Sign Detail Recorded Client Recorded Date Recorded By Document 05/29/20 10:09 [facility] [id number] 05/29/20 10:10 [facility] 05/29/20 10:09 W[facility] Nurse 1 [Ulcer Assessment] #8- RLE CIRCUMFERENTIAL -Combined with other wound No -Current Size (cm) - Length 0.4 -Current Size (cm) - Width 0.5 -Current Size (cm) - Depth 0.3 -Total Square Cm 0.20 -Photo Taken No -Epithelialization Small 1-33% -Tunneling No -Undermining/Tunneling No -Circular Undermining No -Exudate Amt Small -Exudate Type Serosanguineous -Wound Margin Distinct, Outline Attached -Granulation Amt Small (1-33%) -Granulation Quality Red -Slough/Fibrin Yes -Necrosis Amt Medium (34-66%) -Necrotic Tissue Type Adherent Slough -Texture (Meri-wound Skin Appearance) Assessed, Scarring -Moisture (Meri-wound Skin Appearance Assessed,Dry/ ) Scaly -Color (Meri-wound Skin Appearance) Assessed, Hemosiderin Staining -Temperature (Meri-wound Skin No Abnormality Appearance) (Pt Warm) -Tenderness on Palpation (Meri-wound No Skin Appearance) -Ulcer Cleansing soapy water -Foul Odor after Cleansing No -Anesthetic Used 4% Lidocaine Solution [Edema Assessment] -Lower Limb Edema Present Yes -Right Calf (cm) 56 -Right Ankle (cm) 34.5 -Left Calf (cm) 53 -Left Ankle (cm) 32.2 Musculoskeletal: No Muscle Wasting Neurological: Cranial nerves II-XII grossly intact, Neuro grossly intact Psych/Mental Status: Normal Affect, Appropriate, Alert and oriented to time, place, person, mood and affect Debridement Note Laterality: Right - Anterolateral calf Type of Debridement: Excisional debridement Anesthesia Used: 5% Lidocaine Gel Depth: Down to and including healthy tissue, in the subcutaneous layer Percentage of wound debrided: 100 Instrument Used: 3mm curette Tissue Removed: Bioburden Severity: Fat Layer Exposed Amount of bleeding with debridement: Mild Bleeding Controlled with: Compression and gauze Patient tolerated procedure well Assessment/Plan Assessment: This is a 54-year-old morbidly obese diabetic white male with multiple medical problems. He presented with profound venous stasis changes in both lower extremities, as well as a small ulceration on the right lateral calf. He is morbidly obese, and relatively inactive. He spends large portions of each day in an idle sitting position. He has recently received care at a wound clinic in [place], [place]. His prior care has involved serial debridements and the use of multilayer compression wraps. Routine laboratory studies have been obtained since the patient's last visit, the results of which are as follows: White blood count 5.7, hemoglobin 13.8, hematocrit 43.7, platelets 404,000, glucose 93, BUN 11, creatinine 0.97, total protein 7.8, calcium 9.1, AST 25, alkaline phosphatase 78, ALT 46, total bilirubin 0.40, sodium 139, potassium 4.3, chloride 104, serum prealbumin 26.9. A noninvasive lower extremity arterial study reveals no evidence of significant arterial occlusive disease in the lower extremities bilaterally. Plan: A lengthy discussion has been undertaken with the patient once again. Conservative treatment measures are to be continued. There is question as to the patient's likely level of compliance. He has been advised to continue sleeping on a flat mattress at night. Leg elevation has been recommended during daytime hours as well. Leg elevation is to be to heart level, or higher. This is to be accomplished as much as possible. Prolonged idle sitting has been discouraged. Activity has been encouraged, though the patient's morbid obesity will likely preclude any significant increase or enhancement of the patient's activity level. Patient appears to have previously tolerated 3M 2 layer compression wraps to the lower extremities. Therefore, we are to continue compression in both lower extremities, though using a multilayer Unna boot compression wrap bilaterally. This will be changed twice weekly. The patient has in his possession pneumatic mechanical compression pumps, and has been encouraged to use these at least 2 or 3 times daily. We are to request the patient's recent venous duplex examinations from [facility] in [place]. Patient is to be scheduled for a dietary consultation for nutrition counseling, as weight loss should be a long-term objective. Optimization of the patient's glycemic control has been recommended. The patient is to follow-up in 1 week for reevaluation. The patient is not a smoker. Influenza vaccine was not administered today. The patient weighs 435 pounds. He stands 5 feet 9 inches tall. His BMI is 64.2. Weight loss has been recommended, in collaboration with the patient's primary care physician has been advised.
[2020-05-29 10:44] VITALS: BP 144/68; PULSE 66; RESP 18
[2020-06-05 09:46] VITALS: BP 131/62; PULSE 90; RESP 24; TEMP 36.7; BMI 64.2
--- NOTE | 2020-06-05 14:04 | HP.PCM_ITS ---
(1) Nonhealing ulcer of left lower extremity with fat layer exposed Status: Resolved Code(s): L97.922 - Non-pressure chronic ulcer of unspecified part of left lower leg with fat layer exposed Comment: x 2 anterior and posterior (2) Nonhealing ulcer of right lower extremity with fat layer exposed Status: Chronic Code(s): L97.912 - Non-pressure chronic ulcer of unspecified part of right lower leg with fat layer exposed (3) Decreased dorsalis pedis pulse Status: Chronic Code(s): R09.89 - Other specified symptoms and signs involving the circulatory and respiratory systems (4) Lymphedema of both lower extremities Status: Chronic Code(s): I89.0 - Lymphedema, not elsewhere classified (5) Pain, lower extremity Status: Chronic Qualifiers: Laterality: bilateral Qualified Code(s): M79.604 - Pain in right leg; M79.605 - Pain in left leg Code(s): M79.606 - Pain in leg, unspecified (6) Morbid obesity with BMI of 60.0-69.9, adult Status: Chronic Code(s): E66.01 - Morbid (severe) obesity due to excess calories; Z68.44 - Body mass index [BMI] 60.0-69.9, adult (7) Skin tear of left lower leg without complication Status: Resolved Qualifiers: Encounter type: subsequent encounter Qualified Code(s): S81.812D - Laceration without foreign body, left lower leg, subsequent encounter Code(s): S81.812A - Laceration without foreign body, left lower leg, initial encounter (8) Venous insufficiency (chronic) (peripheral) Status: Chronic Code(s): I87.2 - Venous insufficiency (chronic) (peripheral) (9) Swelling of lower extremity Status: Chronic Code(s): M79.89 - Other specified soft tissue disorders (10) Edema of both legs Status: Chronic Code(s): R60.0 - Localized edema (11) Ulcer of right lower leg Status: Chronic Qualifiers: Non-pressure ulcer stage: with fat layer exposed Code(s): L97.919 - Non-pressure chronic ulcer of unspecified part of right lower leg with unspecified severity (12) Venous stasis ulcer Status: Chronic Qualifiers: Venous stasis ulcer site: calf Laterality: right Non-pressure ulcer stage: with fat layer exposed Code(s): I83.009 - Varicose veins of unspecified lower extremity with ulcer of unspecified site; L97.909 - Non-pressure chronic ulcer of unspecified part of unspecified lower leg with unspecified severity (13) Dependent edema Status: Chronic Code(s): R60.9 - Edema, unspecified (14) Venous hypertension, chronic, with ulcer and inflammation Status: Chronic Qualifiers: Laterality: bilateral Code(s): I87.339 - Chronic venous hypertension (idiopathic) with ulcer and inflammation of unspecified lower extremity; L97.909 - Non-pressure chronic ulcer of unspecified part of unspecified lower leg with unspecified severity (15) Venous stasis dermatitis Status: Chronic Qualifiers: Laterality: bilateral Code(s): I87.2 - Venous insufficiency (chronic) (peripheral) (16) Diabetes mellitus Status: Chronic Code(s): E11.9 - Type 2 diabetes mellitus without complications (17) Gout Status: Chronic Code(s): M10.9 - Gout, unspecified (18) MASON (obstructive sleep apnea) Status: Chronic Code(s): G47.33 - Obstructive sleep apnea (adult) (pediatric) (19) Hypertension Status: Chronic Code(s): I10 - Essential (primary) hypertension History of Present Illness Date of Service: 06/05/20 Chief Complaint: Severe swelling, edema, and lymphedema of the lower extremitie s, with ulceration of the right distal lower extremity History of Wound: This is a 54-year-old morbidly obese white male who presented with chronic swelling, edema, and lymphedema in his lower extremities, and a recent ulceration on the right lateral calf. The patient has been treated at our facility in the past for similar medical problems. With respect to his current problems, he has been receiving care recently at a wound clinic in [place], [place]. However, the patient has become dissatisfied with the care he is receiving, and is seeking medical care with our facility. Patient states that the ulceration on the right lateral calf has been present for several months. He has noticed very little improvement. It appears as though debridements have been performed serially, and weekly wraps have been implemented using 3M 2 layer compression wraps. He has recently obtained mechanical pneumatic compression pumps as well. He has a history of MRSA, and is currently on a prophylactic dose of azithromycin 250 mg p.o. daily. Patient claims to sleep on a flat mattress at night. However, he is not active, and spends a good deal of each day in a sitting position. He denies a history of deep vein thrombosis. It appears as though a venous duplex examination has been recently performed in [place], [place], at [facility]. We will attempt to obtain these results. A noninvasive lower extremity arterial study has been performed in 2018, the results of which revealed no evidence of arterial occlusive disease in the lower extremities. The patient also indicates that he was hospitalized for 2 days at [facility] in [place], [place], in January 2020, which was for treatment relative to his lower extremity problems. Past Medical History Past Medical History: Chronic Problems Nonhealing ulcer of right lower extremity with fat layer exposed (Chronic) Decreased dorsalis pedis pulse (Chronic) Lymphedema of both lower extremities (Chronic) Pain, lower extremity (Chronic) Morbid obesity with BMI of 60.0-69.9, adult (Chronic) Venous insufficiency (chronic) (peripheral) (Chronic) Swelling of lower extremity (Chronic) Edema of both legs (Chronic) Ulcer of right lower leg (Chronic) Venous stasis ulcer (Chronic) Dependent edema (Chronic) Venous hypertension, chronic, with ulcer and inflammation (Chronic) Venous stasis dermatitis (Chronic) Diabetes mellitus (Chronic) Gout (Chronic) MASON (obstructive sleep apnea) (Chronic) Hypertension (Chronic) Surgical History: herniorrhaphy - Left inguinal Allergies/Adverse Reactions: Allergies shellfish derived Allergy (Verified 05/15/20 11:16) Food Allergy Home Medications: Ambulatory Orders Medication Instructions Recorded Aldactone 25 mg PO BID 05/06/18 Lasix 80 mg PO DAILY 05/06/18 Lisinopril 20 mg PO DAILY 09/16/18 Allopurinol 300 mg PO DAILY 05/15/20 Azithromycin 250 mg PO DAILY 05/15/20 - Family History Paternal - - The patient's father at the age of 68 with a history of renal failure. Patient's mother is living, age 74, and suffers from atrial fibrillation. Smoking Status: Former smoker Tobacco Use: Non-smoker Review of Systems Constitutional: Denies: Chills, Fever, Weight Change Eyes: Denies: Pain, Vision Change HEENT: Denies: Difficulty Hearing, Difficulty Swallowing, Sinus Congestion Cardiovascular: Denies: Chest Pain, Palpitations Respiratory: Denies: Cough, Shortness of Breath Gastrointestinal: Denies: Diarrhea, Nausea, Vomiting Genitourinary: Denies: Dysuria, Hematuria Endocrine: Denies: Heat/ Cold Intolerance, Polydipsia, Polyuria Hematologic/ Lymphatic: Denies: Easy Bruising, Easy Bleeding - Physical Exam Vital Signs Temp Pulse Resp BP 98.1 F 90 24 H 131/62 H 06/05/20 09:46 06/05/20 09:46 06/05/20 09:46 06/05/20 09:46 General: Alert, Oriented x3, Cooperative, No apparent distress, Well developed, Well nourished HEENT: Atraumatic, PERRLA, EOMI, Normocephalic Oral: Moist Mucosa Neck: No JVD Lungs: Normal air movement Abdomen: Non-Distended Extremities: No clubbing, No cyanosis, No Calf Tenderness, - - Swelling and edema persist in the patient's lower extremities bilaterally. The ulceration on the right lateral calf persists. Dimensions are documented elsewhere. There is no sign of infection or cellulitis. There is a small amount of bioburden. Addt'l Wound Findings: The ulceration persists on the right lateral calf. Dimensions are documented elsewhere. There is no sign of infection or cellulitis. Wound Measurements and Assessment WC - Nurse 1 - General Ulcer Measurement Start: 05/29/20 10:09 Freq: Status: Active Protocol: Activity Type Activity Date Activity User E-Sign Co-Sign Detail Recorded Client Recorded Date Recorded By Document 06/05/20 09:46 DL [id number] 06/05/20 09:57 DL 06/05/20 09:46 Wound Center Nurse 1 [Ulcer Assessment] #8- RLE CIRCUMFERENTIAL -Current Size (cm) - Length 0.9 -Current Size (cm) - Width 0.7 -Current Size (cm) - Depth 0.2 -Total Square Cm 0.63 -Photo Taken No -Exudate Amt None Present -Wound Margin Distinct, Outline Attached -Granulation Amt None Present (0 %) -Necrosis Amt Large (67-100%) -Necrotic Tissue Type Adherent Slough -Structure Exposed N/A -Texture (Meri-wound Skin Appearance) Excoriation, Scarring -Moisture (Meri-wound Skin Appearance Dry/Scaly ) -Color (Meri-wound Skin Appearance) Hemosiderin Staining -Temperature (Meri-wound Skin No Abnormality Appearance) (Pt Warm) -Tenderness on Palpation (Meri-wound No Skin Appearance) -Ulcer Cleansing Wound Cleanser -Foul Odor after Cleansing No -Anesthetic Used 4% Lidocaine Solution [Edema Assessment] -Right Calf (cm) 57 -Right Ankle (cm) 35 -Left Calf (cm) 54 -Left Ankle (cm) 31.4 WC - Nurse 3 - General Ulcer D/C NN Start: 05/29/20 10:09 Freq: Status: Active Protocol: Activity Type Activity Date Activity User E-Sign Co-Sign Detail Recorded Client Recorded Date Recorded By Document 06/05/20 10:24 DL [id number] 06/05/20 10:25 DL 06/05/20 10:24 Wound Care Nurse 3 [Wound Dressing] #8- RLE CIRCUMFERENTIAL -Ulcer Cleansing Wound Cleanser -Foul Odor after Cleansing No [Compression Applied] Right -Multi-Layered Wrap Application Unna Boot - Right ($) Left -Multi-Layered Wrap Application Unna Boot - Left ($) [Post Procedure Tolerated] -Treatment Response Procedure Tolerated Well Pain Scale: 0-10 Numeric [Pain] -Is Patient Pain Free? Yes WC - Visit Discharge [Visit Discharge Information] -Discharge Condition Stable -Ambulatory Status Ambulatory -Transportation Private Auto Musculoskeletal: No Muscle Wasting Neurological: Cranial nerves II-XII grossly intact, Neuro grossly intact Psych/Mental Status: Normal Affect, Appropriate, Alert and oriented to time, place, person, mood and affect Debridement Note Post-Debridement Measurements/Treatment WC - Nurse 2 - General Ulcer CM Notes Start: 05/29/20 10:09 Freq: Status: Active Protocol: Activity Type Activity Date Activity User E-Sign Co-Sign Detail Recorded Client Recorded Date Recorded By Document 05/29/20 16:15 PL [id number] 05/29/20 16:15 PL 05/29/20 16:15 Wound Center Nurse 2 #8- RLE CIRCUMFERENTIAL -Time 10:15 -Correct Patient Yes -Correct Side, Site, Position Yes -Correct Procedure Yes -Procedure Performed Yes -Type of Procedure Debridement -Clinical Debridement Subcutaneous -Tissue Removed Subcutaneous -Post Debridement (cm) - Length 0.4 -Post Debridement (cm) - Width 0.5 -Post Debridement (cm) - Depth 0.3 -Total Square (Post) (cm) 0.20 -Area of Debridement (cm) - Length 0.4 -Area of Debridement (cm) - Width 0.5 -Total Square (Area) (cm) 0.20 -Tunneling No -Undermining/Tunneling No -Circular Undermining No -Wound/Ulcer Outcome Not Healed -Ulcer Cleansing Rinsed/ Irrigated with Saline -Foul Odor after Cleansing No -Bioengineered Tissue No -Debridement - Subq, 1st 20sq cm Yes Pain Scale: 0-10 Numeric Is Patient Pain Free? Yes - Nurse 3 - General Ulcer D/C NN Start: 05/29/20 10:09 Freq: Status: Active Protocol: Activity Type Activity Date Activity User E-Sign Co-Sign Detail Recorded Client Recorded Date Recorded By Document 05/29/20 10:44 [facility] [id number] 05/29/20 10:45 [facility] Document 06/05/20 10:24 DL [id number] 06/05/20 10:25 DL 05/29/20 06/05/20 10:44 10:24 Wound Care Nurse 3 #8- RLE CIRCUMFERENTIAL -Ulcer Cleansing Rinsed/ Wound Cleanser Irrigated with Saline -Foul Odor after Cleansing No No -Primary Dressing Applied Other -Other Dressing unna boot Right -Multi-Layered Wrap Application Unna Boot - Right ($) Left -Multi-Layered Wrap Application Unna Boot - Unna Boot - Bilateral ($) Left ($) -Unna Boots (Bilat) ($) 2 Treatment Response Procedure Procedure Tolerated Well Tolerated Well Vital Signs Pulse Rate (60-100) 66 Pulse Location Monitor Respiratory Rate (12-18) 18 Respiratory rate source Observation Oxygen Delivery Method Room Air Blood Pressure (90/60-120/80) 144/68 H Blood Pressure Mean (mm Hg) 93 Source Monitor Position Sitting Blood Pressure Location Left Forearm Pain Scale: 0-10 Numeric Is Patient Pain Free? Yes Yes WC - Visit Discharge Discharge Condition Stable Stable Ambulatory Status Ambulatory Ambulatory Transportation Private Auto Private Auto Laterality: Right - Lateral calf Type of Debridement: Excisional debridement Anesthesia Used: 5% Lidocaine Gel Depth: Down to and including healthy tissue, in the subcutaneous layer Percentage of wound debrided: 100 Instrument Used: 5mm curette Severity: Fat Layer Exposed Amount of bleeding with debridement: Mild Bleeding Controlled with: Compression and gauze Patient tolerated procedure well Assessment/Plan Active Problems Nonhealing ulcer of right lower extremity with fat layer exposed (Chronic) Decreased dorsalis pedis pulse (Chronic) Lymphedema of both lower extremities (Chronic) Pain, lower extremity (Chronic) Morbid obesity with BMI of 60.0-69.9, adult (Chronic) Venous insufficiency (chronic) (peripheral) (Chronic) Swelling of lower extremity (Chronic) Edema of both legs (Chronic) Ulcer of right lower leg (Chronic) Venous stasis ulcer (Chronic) Dependent edema (Chronic) Venous hypertension, chronic, with ulcer and inflammation (Chronic) Venous stasis dermatitis (Chronic) Diabetes mellitus (Chronic) Gout (Chronic) MASON (obstructive sleep apnea) (Chronic) Hypertension (Chronic) Assessment: This is a 54-year-old morbidly obese diabetic white male with m ultiple medical problems. He presented with profound venous stasis changes in both lower extremities, as well as a small ulceration on the right lateral calf. He is morbidly obese, and relatively inactive. He spends large portions of each day in an idle sitting position. He has recently received care at a wound clinic in [place], [place]. His prior care has involved serial debridements and the use of multilayer compression wraps. Routine laboratory studies have been obtained since the patient's last visit, the results of which are as follows: White blood count 5.7, hemoglobin 13.8, hematocrit 43.7, platelets 404,000, glucose 93, BUN 11, creatinine 0.97, total protein 7.8, calcium 9.1, AST 25, alkaline phosphatase 78, ALT 46, total bilirubin 0.40, sodium 139, potassium 4.3, chloride 104, serum prealbumin 26.9. A noninvasive lower extremity arterial study reveals no evidence of significant arterial occlusive disease in the lower extremities bilaterally. Plan: A lengthy discussion has been undertaken with the patient once again. Conservative treatment measures are to be continued. There is question as to the patient's likely level of compliance. He has been advised to continue sleeping on a flat mattress at night. Leg elevation has been recommended during daytime hours as well. Leg elevation is to be to heart level, or higher. This is to be accomplished as much as possible. Prolonged idle sitting has been discouraged. Activity has been encouraged, though the patient's morbid obesity will likely preclude any significant increase or enhancement of the patient's activity level. Patient appears to have previously tolerated 3M 2 layer compression wraps to the lower extremities. Therefore, we are to continue compression in both lower extremities, though using a multilayer Unna boot compression wrap bilaterally. This will be changed twice weekly. The patient has in his possession pneumatic mechanical compression pumps, and has been e ncouraged to use these at least 2 or 3 times daily. We are to request the patient's recent venous duplex examinations from [facility] in [place]. Patient is to be scheduled for a dietary consultation for nutrition counseling, as weight loss should be a long-term objective. Optimization of the patient's glycemic control has been recommended. The patient is to follow-up in 1 week for reevaluation. The patient is not a smoker. Influenza vaccine was not administered today. The patient weighs 435 pounds. He stands 5 feet 9 inches tall. His BMI is 64.2. Weight loss has been recommended, in collaboration with the patient's primary care physician has been advised.
[2020-06-08 12:55] VITALS: BP 140/64; PULSE 81; RESP 22; TEMP 36.2; BMI 64.2
[2020-06-12 09:55] VITALS: BP 129/64; PULSE 83; TEMP 35.8; BMI 64.2
--- NOTE | 2020-06-12 10:36 | HP.PCM_ITS ---
(1) Nonhealing ulcer of left lower extremity with fat layer exposed Status: Resolved Code(s): L97.922 - Non-pressure chronic ulcer of unspecified part of left lower leg with fat layer exposed Comment: x 2 anterior and posterior (2) Nonhealing ulcer of right lower extremity with fat layer exposed Status: Chronic Code(s): L97.912 - Non-pressure chronic ulcer of unspecified part of right lower leg with fat layer exposed (3) Decreased dorsalis pedis pulse Status: Chronic Code(s): R09.89 - Other specified symptoms and signs involving the circulatory and respiratory systems (4) Lymphedema of both lower extremities Status: Chronic Code(s): I89.0 - Lymphedema, not elsewhere classified (5) Pain, lower extremity Status: Chronic Qualifiers: Laterality: bilateral Qualified Code(s): M79.604 - Pain in right leg; M79.605 - Pain in left leg Code(s): M79.606 - Pain in leg, unspecified (6) Morbid obesity with BMI of 60.0-69.9, adult Status: Chronic Code(s): E66.01 - Morbid (severe) obesity due to excess calories; Z68.44 - Body mass index [BMI] 60.0-69.9, adult (7) Skin tear of left lower leg without complication Status: Resolved Qualifiers: Encounter type: subsequent encounter Qualified Code(s): S81.812D - Laceration without foreign body, left lower leg, subsequent encounter Code(s): S81.812A - Laceration without foreign body, left lower leg, initial encounter (8) Venous insufficiency (chronic) (peripheral) Status: Chronic Code(s): I87.2 - Venous insufficiency (chronic) (peripheral) (9) Swelling of lower extremity Status: Chronic Code(s): M79.89 - Other specified soft tissue disorders (10) Edema of both legs Status: Chronic Code(s): R60.0 - Localized edema (11) Ulcer of right lower leg Status: Chronic Qualifiers: Non-pressure ulcer stage: with fat layer exposed Code(s): L97.919 - Non-pressure chronic ulcer of unspecified part of right lower leg with unspecified severity (12) Venous stasis ulcer Status: Chronic Qualifiers: Venous stasis ulcer site: calf Laterality: right Non-pressure ulcer stage: with fat layer exposed Code(s): I83.009 - Varicose veins of unspecified lower extremity with ulcer of unspecified site; L97.909 - Non-pressure chronic ulcer of unspecified part of unspecified lower leg with unspecified severity (13) Dependent edema Status: Chronic Code(s): R60.9 - Edema, unspecified (14) Venous hypertension, chronic, with ulcer and inflammation Status: Chronic Qualifiers: Laterality: bilateral Code(s): I87.339 - Chronic venous hypertension (idiopathic) with ulcer and inflammation of unspecified lower extremity; L97.909 - Non-pressure chronic ulcer of unspecified part of unspecified lower leg with unspecified severity (15) Venous stasis dermatitis Status: Chronic Qualifiers: Laterality: bilateral Code(s): I87.2 - Venous insufficiency (chronic) (peripheral) (16) Diabetes mellitus Status: Chronic Code(s): E11.9 - Type 2 diabetes mellitus without complications (17) Gout Status: Chronic Code(s): M10.9 - Gout, unspecified (18) MASON (obstructive sleep apnea) Status: Chronic Code(s): G47.33 - Obstructive sleep apnea (adult) (pediatric) (19) Hypertension Status: Chronic Code(s): I10 - Essential (primary) hypertension History of Present Illness Date of Service: 06/12/20 Chief Complaint: Severe swelling, edema, and lymphedema of the lower extremitie s, with ulceration of the right distal lower extremity History of Wound: This is a 54-year-old morbidly obese white male who presented with chronic swelling, edema, and lymphedema in his lower extremities, and a recent ulceration on the right lateral calf. The patient has been treated at our facility in the past for similar medical problems. With respect to his current problems, he has been receiving care recently at a wound clinic in [place], [place]. However, the patient has become dissatisfied with the care he is receiving, and is seeking medical care with our facility. Patient states that the ulceration on the right lateral calf has been present for several months. He has noticed very little improvement. It appears as though debridements have been performed serially, and weekly wraps have been implemented using 3M 2 layer compression wraps. He has recently obtained mechanical pneumatic compression pumps as well. He has a history of MRSA, and is currently on a prophylactic dose of azithromycin 250 mg p.o. daily. Patient claims to sleep on a flat mattress at night. However, he is not active, and spends a good deal of each day in a sitting position. He denies a history of deep vein thrombosis. It appears as though a venous duplex examination has been recently performed in [place], [place], at [facility]. We will attempt to obtain these results. A noninvasive lower extremity arterial study has been performed in 2018, the results of which revealed no evidence of arterial occlusive disease in the lower extremities. The patient also indicates that he was hospitalized for 2 days at [facility] in [place], [place], in January 2020, which was for treatment relative to his lower extremity problems. Past Medical History Past Medical History: Chronic Problems Nonhealing ulcer of right lower extremity with fat layer exposed (Chronic) Decreased dorsalis pedis pulse (Chronic) Lymphedema of both lower extremities (Chronic) Pain, lower extremity (Chronic) Morbid obesity with BMI of 60.0-69.9, adult (Chronic) Venous insufficiency (chronic) (peripheral) (Chronic) Swelling of lower extremity (Chronic) Edema of both legs (Chronic) Ulcer of right lower leg (Chronic) Venous stasis ulcer (Chronic) Dependent edema (Chronic) Venous hypertension, chronic, with ulcer and inflammation (Chronic) Venous stasis dermatitis (Chronic) Diabetes mellitus (Chronic) Gout (Chronic) MASON (obstructive sleep apnea) (Chronic) Hypertension (Chronic) Surgical History: herniorrhaphy - Left inguinal Allergies/Adverse Reactions: Allergies shellfish derived Allergy (Verified 05/15/20 11:16) Food Allergy Home Medications: Ambulatory Orders Medication Instructions Recorded Aldactone 25 mg PO BID 05/06/18 Lasix 80 mg PO DAILY 05/06/18 Lisinopril 20 mg PO DAILY 09/16/18 Allopurinol 300 mg PO DAILY 05/15/20 Azithromycin 250 mg PO DAILY 05/15/20 - Family History Paternal - - The patient's father at the age of 68 with a history of renal failure. Patient's mother is living, age 74, and suffers from atrial fibrillation. Smoking Status: Former smoker Tobacco Use: Non-smoker Review of Systems Constitutional: Denies: Chills, Fever, Weight Change Eyes: Denies: Pain, Vision Change HEENT: Denies: Difficulty Hearing, Difficulty Swallowing, Sinus Congestion Cardiovascular: Denies: Chest Pain, Palpitations Respiratory: Denies: Cough, Shortness of Breath Gastrointestinal: Denies: Diarrhea, Nausea, Vomiting Genitourinary: Denies: Dysuria, Hematuria Endocrine: Denies: Heat/ Cold Intolerance, Polydipsia, Polyuria Hematologic/ Lymphatic: Denies: Easy Bruising, Easy Bleeding - Physical Exam Vital Signs Temp Pulse Resp BP 96.5 F L 83 22 H 129/64 H 06/12/20 09:55 06/12/20 09:55 06/08/20 12:55 06/12/20 09:55 General: Alert, Oriented x3, Cooperative, No apparent distress, Well developed, Well nourished, - - The patient is morbidly obese. HEENT: Atraumatic, PERRLA, EOMI, Normocephalic Oral: Moist Mucosa Neck: No JVD Lungs: Normal air movement Abdomen: Non-Distended Extremities: No clubbing, No cyanosis, No Calf Tenderness, - - Severe swelling, edema, and lymphedema are noted in the patient's lower extremities bilaterally. Severe, chronic venous stasis changes are noted in the lower extremities bilaterally. Addt'l Wound Findings: A small ulceration is noted on the right lateral calf. Dimensions are documented elsewhere. It is little changed from that noted 1 week ago. There is no obvious sign of infection or cellulitis. Skin: - - Severe and chronic venous stasis dermatitis is noted in the distal lower extremities bilaterally. Wound Measurements and Assessment WC - Nurse 1 - General Ulcer Measurement Start: 05/29/20 10:09 Freq: Status: Active Protocol: Activity Type Activity Date Activity User E-Sign Co-Sign Detail Recorded Client Recorded Date Recorded By Document 06/12/20 09:55 RUPA [id number] 06/12/20 10:12 RUPA 06/12/20 09:55 Wound Center Nurse 1 [Ulcer Assessment] #8- RLE CIRCUMFERENTIAL -Current Size (cm) - Length 0.9 -Current Size (cm) - Width 0.5 -Current Size (cm) - Depth 0.2 -Total Square Cm 0.45 -Photo Taken No -Exudate Amt Small -Exudate Type Serosanguineous -Wound Margin Thickened -Granulation Amt Small (1-33%) -Granulation Quality Red -Necrotic Tissue Type Adherent Slough -Texture (Meri-wound Skin Appearance) Assessed, Crepitus -Moisture (Meri-wound Skin Appearance Assessed,Dry/ ) Scaly -Color (Meri-wound Skin Appearance) No Abnormality -Temperature (Meri-wound Skin No Abnormality Appearance) (Pt Warm) -Tenderness on Palpation (Meri-wound No Skin Appearance) -Ulcer Cleansing soapy water -Foul Odor after Cleansing No -Anesthetic Used 4% Lidocaine Solution [Edema Assessment] -Right Calf (cm) 61 -Right Ankle (cm) 35 -Left Calf (cm) 52 -Left Ankle (cm) 35 Musculoskeletal: No Muscle Wasting Neurological: Cranial nerves II-XII grossly intact, Neuro grossly intact Psych/Mental Status: Normal Affect, Appropriate, Alert and oriented to time, place, person, mood and affect Debridement Note Post-Debridement Measurements/Treatment WC - Nurse 2 - General Ulcer CM Notes Start: 05/29/20 10:09 Freq: Status: Active Protocol: Activity Type Activity Date Activity User E-Sign Co-Sign Detail Recorded Client Recorded Date Recorded By Document 05/29/20 16:15 PL [id number] 05/29/20 16:15 PL Document 06/05/20 18:12 PL [id number] 06/05/20 18:13 PL 05/29/20 06/05/20 16:15 18:12 Wound Center Nurse 2 #8- RLE CIRCUMFERENTIAL -Time 10:15 10:20 -Correct Patient Yes Yes -Correct Side, Site, Position Yes Yes -Correct Procedure Yes Yes -Procedure Performed Yes Yes -Type of Procedure Debridement Debridement -Clinical Debridement Subcutaneous Subcutaneous -Tissue Removed Subcutaneous Subcutaneous -Post Debridement (cm) - Length 0.4 0.9 -Post Debridement (cm) - Width 0.5 0.7 -Post Debridement (cm) - Depth 0.3 0.2 -Total Square (Post) (cm) 0.20 0.63 -Area of Debridement (cm) - Length 0.4 0.9 -Area of Debridement (cm) - Width 0.5 0.7 -Total Square (Area) (cm) 0.20 0.63 -Tunneling No -Undermining/Tunneling No -Circular Undermining No -Wound/Ulcer Outcome Not Healed -Ulcer Cleansing Rinsed/ Rinsed/ Irrigated with Irrigated with Saline Saline -Foul Odor after Cleansing No No -Bioengineered Tissue No No -Debridement - Subq, 1st 20sq cm Yes Yes Pain Scale: 0-10 Numeric Is Patient Pain Free? Yes Yes WC - Nurse 3 - General Ulcer D/C NN Start: 05/29/20 10:09 Freq: Status: Active Protocol: Activity Type Activity Date Activity User E-Sign Co-Sign Detail Recorded Client Recorded Date Recorded By Document 05/29/20 10:44 BM [id number] 05/29/20 10:45 BMF Document 06/05/20 10:24 DL [id number] 06/05/20 10:25 DL Document 06/08/20 12:55 DL [id number] 06/08/20 13:11 DL 05/29/20 06/05/20 06/08/20 10:44 10:24 12:55 Wound Care Nurse 3 #8- RLE CIRCUMFERENTIAL -Ulcer Cleansing Rinsed/ Wound Cleanser Irrigated with Saline -Foul Odor after Cleansing No No -Primary Dressing Applied Other -Other Dressing unna boot Bilateral -Multi-Layered Wrap Application Unna Boot - Bilateral ($) -Unna Boots (Bilat) ($) 2 Right -Multi-Layered Wrap Application Unna Boot - Right ($) Left -Multi-Layered Wrap Application Unna Boot - Unna Boot - Bilateral ($) Left ($) -Unna Boots (Bilat) ($) 2 Treatment Response Procedure Procedure Procedure Tolerated Well Tolerated Well Tolerated Well Temperature (97.8 F-99.1 F) 97.2 F L Temperature Source Temporal Vital Signs Pulse Rate (60-100) 66 81 Pulse Location Monitor Monitor Respiratory Rate (12-18) 18 22 H Respiratory rate source Observation Observation Oxygen Delivery Method Room Air Blood Pressure (90/60-120/80) 144/68 H 140/64 H Blood Pressure Mean (mm Hg) 93 89 Source Monitor Monitor Position Sitting Blood Pressure Location Left Forearm Pain Scale: 0-10 Numeric Is Patient Pain Free? Yes Yes Yes WC - Visit Discharge Discharge Condition Stable Stable Stable Ambulatory Status Ambulatory Ambulatory Ambulatory Transportation Private Auto Private Auto Private Auto Laterality: Right - Lateral calf Type of Debridement: Excisional debridement Anesthesia Used: 5% Lidocaine Gel Depth: Down to and including healthy tissue, in the subcutaneous layer Percentage of wound debrided: 100 Instrument Used: 3mm curette Tissue Removed: Bioburden Severity: Fat Layer Exposed Amount of bleeding with debridement: Mild Bleeding Controlled with: Compression and gauze Patient tolerated procedure well Assessment/Plan Active Problems Nonhealing ulcer of right lower extremity with fat layer exposed (Chronic) Decreased dorsalis pedis pulse (Chronic) Lymphedema of both lower extremities (Chronic) Pain, lower extremity (Chronic) Morbid obesity with BMI of 60.0-69.9, adult (Chronic) Venous insufficiency (chronic) (peripheral) (Chronic) Swelling of lower extremity (Chronic) Edema of both legs (Chronic) Ulcer of right lower leg (Chronic) Venous stasis ulcer (Chronic) Dependent edema (Chronic) Venous hypertension, chronic, with ulcer and inflammation (Chronic) Venous stasis dermatitis (Chronic) Diabetes mellitus (Chronic) Gout (Chronic) MASON (obstructive sleep apnea) (Chronic) Hypertension (Chronic) Assessment: This is a 54-year-old morbidly obese diabetic white male with multiple medical problems. He presented with profound venous stasis changes in both lower extremities, as well as a small ulceration on the right lateral calf. He is morbidly obese, and relatively inactive. He spends large portions of each day in an idle sitting position. He had recently received care at a wound clinic in [place], [place]. His prior care involved serial debridements and the use of multilayer compression wraps. Routine laboratory studies have been obtained, the results of which are as follows: White blood count 5.7, hemoglobin 13.8, hematocrit 43.7, platelets 404,000, glucose 93, BUN 11, creatinine 0.97, total protein 7.8, calcium 9.1, AST 25, alkaline phosphatase 78, ALT 46, total bilirubin 0.40, sodium 139, potassium 4.3, chloride 104, serum prealbumin 26.9. A noninvasive lower extremity arterial study reveals no evidence of significant arterial occlusive disease in the lower extremities bilaterally. Plan: A lengthy discussion has been undertaken with the patient once again. Conservative treatment measures are to be continued. There is question as to the patient's likely level of compliance. He has been advised to continue sleeping on a flat mattress at night. Leg elevation has been recommended during daytime hours as well. Leg elevation is to be to heart level, or higher. This is to be accomplished as much as possible. Prolonged idle sitting has been discouraged. Activity has been encouraged, though the patient's morbid obesity will likely preclude any significant increase or enhancement of the patient's activity level. The patient appears to have previously tolerated 3M 2 layer compression wraps to the lower extremities. Therefore, we are to continue compression in both lower extremities, though using a multilayer Unna boot compression wrap bilaterally. We will implement the use of Promogran topically to the ulceration on the right lateral calf, which will be changed with each change of his Unna boot, twice weekly. The patient has in his possession pneu matic mechanical compression pumps, and has been encouraged to use these at least 2 or 3 times daily. We are to request the patient's recent venous duplex examinations from [facility] in [place]. Patient is to be scheduled for a dietary consultation for nutrition counseling, as weight loss should be a long-term objective. Optimization of the patient's glycemic control has been recommended. The patient is to follow-up in 1 week for reevaluation. Once again, patient compliance is suspected to be an issue. The patient is not a smoker. Influenza vaccine was not administered today. The patient weighs 435 pounds. He stands 5 feet 9 inches tall. His BMI is 64.2. Weight loss has been recommended, in collaboration with the patient's primary care physician has been advised.
[2020-06-15 11:42] VITALS: BMI 64.2
[2020-06-19 10:27] VITALS: BP 157/81; PULSE 83; RESP 18; TEMP 36; BMI 64.2
--- NOTE | 2020-06-19 11:02 | PCM.WC.HP ---
(1) Nonhealing ulcer of left lower extremity with fat layer exposed Status: Resolved Code(s): L97.922 - Non-pressure chronic ulcer of unspecified part of left lower leg with fat layer exposed Comment: x 2 anterior and posterior (2) Nonhealing ulcer of right lower extremity with fat layer exposed Status: Chronic Code(s): L97.912 - Non-pressure chronic ulcer of unspecified part of right lower leg with fat layer exposed (3) Decreased dorsalis pedis pulse Status: Chronic Code(s): R09.89 - Other specified symptoms and signs involving the circulatory and respiratory systems (4) Lymphedema of both lower extremities Status: Chronic Code(s): I89.0 - Lymphedema, not elsewhere classified (5) Pain, lower extremity Status: Chronic Qualifiers: Laterality: bilateral Qualified Code(s): M79.604 - Pain in right leg; M79.605 - Pain in left leg Code(s): M79.606 - Pain in leg, unspecified (6) Morbid obesity with BMI of 60.0-69.9, adult Status: Chronic Code(s): E66.01 - Morbid (severe) obesity due to excess calories; Z68.44 - Body mass index [BMI] 60.0-69.9, adult (7) Skin tear of left lower leg without complication Status: Resolved Qualifiers: Encounter type: subsequent encounter Qualified Code(s): S81.812D - Laceration without foreign body, left lower leg, subsequent encounter Code(s): S81.812A - Laceration without foreign body, left lower leg, initial encounter (8) Venous insufficiency (chronic) (peripheral) Status: Chronic Code(s): I87.2 - Venous insufficiency (chronic) (peripheral) (9) Swelling of lower extremity Status: Chronic Code(s): M79.89 - Other specified soft tissue disorders (10) Edema of both legs Status: Chronic Code(s): R60.0 - Localized edema (11) Ulcer of right lower leg Status: Chronic Qualifiers: Non-pressure ulcer stage: with fat layer exposed Code(s): L97.919 - Non-pressure chronic ulcer of unspecified part of right lower leg with unspecified severity (12) Venous stasis ulcer Status: Chronic Qualifiers: Venous stasis ulcer site: calf Laterality: right Non-pressure ulcer stage: with fat layer exposed Code(s): I83.009 - Varicose veins of unspecified lower extremity with ulcer of unspecified site; L97.909 - Non-pressure chronic ulcer of unspecified part of unspecified lower leg with unspecified severity (13) Dependent edema Status: Chronic Code(s): R60.9 - Edema, unspecified (14) Venous hypertension, chronic, with ulcer and inflammation Status: Chronic Qualifiers: Laterality: bilateral Code(s): I87.339 - Chronic venous hypertension (idiopathic) with ulcer and inflammation of unspecified lower extremity; L97.909 - Non-pressure chronic ulcer of unspecified part of unspecified lower leg with unspecified severity (15) Venous stasis dermatitis Status: Chronic Qualifiers: Laterality: bilateral Code(s): I87.2 - Venous insufficiency (chronic) (peripheral) (16) Diabetes mellitus Status: Chronic Qualifiers: Diabetes mellitus type: type 2 Code(s): E11.9 - Type 2 diabetes mellitus without complications (17) Gout Status: Chronic Code(s): M10.9 - Gout, unspecified (18) MASON (obstructive sleep apnea) Status: Chronic Code(s): G47.33 - Obstructive sleep apnea (adult) (pediatric) (19) Hypertension Status: Chronic Code(s): I10 - Essential (primary) hypertension History of Present Illness Date of Service: 06/19/20 Chief Complaint: Severe swelling, edema, and lymphedema of the lower extremities, with ulceration of the right distal lower extremity History of Wound: This is a 54-year-old morbidly obese white male who presented with chronic swelling, edema, and lymphedema in his lower extremities, and a recent ulceration on the right lateral calf. The patient has been treated at our facility in the past for similar medical problems. With respect to his current problems, he has been receiving care recently at a wound clinic in [place], [place]. However, the patient has become dissatisfied with the care he is receiving, and is seeking medical care with our facility. Patient states that the ulceration on the right lateral calf has been present for several months. He has noticed very little improvement. It appears as though debridements have been performed serially, and weekly wraps have been implemented using 3M 2 layer compression wraps. He has recently obtained mechanical pneumatic compression pumps as well. He has a history of MRSA, and is currently on a prophylactic dose of azithromycin 250 mg p.o. daily. Patient claims to sleep on a flat mattress at night. However, he is not active, and spends a good deal of each day in a sitting position. He denies a history of deep vein thrombosis. It appears as though a venous duplex examination has been recently performed in [place], [place], at [facility]. We will attempt to obtain these results. A noninvasive lower extremity arterial study has been performed in 2018, the results of which revealed no evidence of arterial occlusive disease in the lower extremities. The patient also indicates that he was hospitalized for 2 days at [facility] in [place], [place], in January 2020, which was for treatment relative to his lower extremity problems. Past Medical History Past Medical History: Chronic Problems Nonhealing ulcer of right lower extremity with fat layer exposed (Chronic) Decreased dorsalis pedis pulse (Chronic) Lymphedema of both lower extremities (Chronic) Pain, lower extremity (Chronic) Morbid obesity with BMI of 60.0-69.9, adult (Chronic) Venous insufficiency (chronic) (peripheral) (Chronic) Swelling of lower extremity (Chronic) Edema of both legs (Chronic) Ulcer of right lower leg (Chronic) Venous stasis ulcer (Chronic) Dependent edema (Chronic) Venous hypertension, chronic, with ulcer and inflammation (Chronic) Venous stasis dermatitis (Chronic) Diabetes mellitus (Chronic) Gout (Chronic) MASON (obstructive sleep apnea) (Chronic) Hypertension (Chronic) Surgical History: herniorrhaphy - Left inguinal Allergies/Adverse Reactions: Allergies shellfish derived Allergy (Verified 05/15/20 11:16) Food Allergy Home Medications: Ambulatory Orders Medication Instructions Recorded Aldactone 25 mg PO BID 05/06/18 Lasix 80 mg PO DAILY 05/06/18 Lisinopril 20 mg PO DAILY 09/16/18 Allopurinol 300 mg PO DAILY 05/15/20 Azithromycin 250 mg PO DAILY 05/15/20 - Family History Paternal - - The patient's father at the age of 68 with a history of renal failure. Patient's mother is living, age 74, and suffers from atrial fibrillation. Smoking Status: Former smoker Tobacco Use: Non-smoker Review of Systems Constitutional: Denies: Chills, Fever, Weight Change Eyes: Denies: Pain, Vision Change HEENT: Denies: Difficulty Hearing, Difficulty Swallowing, Sinus Congestion Cardiovascular: Denies: Chest Pain, Palpitations Respiratory: Denies: Cough, Shortness of Breath Gastrointestinal: Denies: Diarrhea, Nausea, Vomiting Genitourinary: Denies: Dysuria, Hematuria Endocrine: Denies: Heat/ Cold Intolerance, Polydipsia, Polyuria Hematologic/ Lymphatic: Denies: Easy Bruising, Easy Bleeding - Physical Exam Vital Signs Temp Pulse Resp BP 96.8 F L 83 18 157/81 H 06/19/20 10:27 06/19/20 10:27 06/19/20 10:27 06/19/20 10:27 General: Alert, Oriented x3, Cooperative, No apparent distress, Well developed, Well nourished, - - The patient is morbidly obese. HEENT: Atraumatic, PERRLA, EOMI, Normocephalic Oral: Moist Mucosa Neck: No JVD Lungs: Normal air movement Abdomen: Non-Distended Extremities: No clubbing, No cyanosis, No Calf Tenderness, - - Severe swelling, edema, and lymphedema are noted in the patient's lower extremities bilaterally. Severe scaly, venous stasis dermatitis is also noted bilaterally. The ulceration on the right lateral calf persists, though slightly smaller in size. There is a moderate amount of bioburden. Addt'l Wound Findings: The ulceration on the right lateral calf persists, slightly smaller in size. Dimensions are documented elsewhere. There is no sign of infection or cellulitis. Wound Measurements and Assessment WC - Nurse 1 - General Ulcer Measurement Start: 05/29/20 10:09 Freq: Status: Active Protocol: Activity Type Activity Date Activity User E-Sign Co-Sign Detail Recorded Client Recorded Date Recorded By Document 06/19/20 10:27 [facility] [id number] 06/19/20 10:39 [facility] 06/19/20 10:27 Wound Center Nurse 1 [Ulcer Assessment] #8- RLE -Combined with other wound No -Current Size (cm) - Length 0.9 -Current Size (cm) - Width 0.5 -Current Size (cm) - Depth 0.4 -Total Square Cm 0.45 -Photo Taken No -Epithelialization None Present -Tunneling No -Undermining/Tunneling No -Circular Undermining No -Exudate Amt Medium -Exudate Type Serosanguineous -Wound Margin Distinct, Outline Attached -Granulation Amt Small (1-33%) -Granulation Quality Pale,[place] -Slough/Fibrin Yes -Necrosis Amt Medium (34-66%) -Necrotic Tissue Type Adherent Slough -Texture (Meri-wound Skin Appearance) Assessed, Excoriation, Scarring -Moisture (Meri-wound Skin Appearance Assessed, ) Maceration -Color (Meri-wound Skin Appearance) Assessed,Rubor -Temperature (Meri-wound Skin No Abnormality Appearance) (Pt Warm) -Tenderness on Palpation (Meri-wound No Skin Appearance) -Ulcer Cleansing soapy water -Foul Odor after Cleansing No -Anesthetic Used 5% Lidocaine Gel [Edema Assessment] -Lower Limb Edema Present Yes -Right Calf (cm) 60.4 -Right Ankle (cm) 34.2 -Left Calf (cm) 53.3 -Left Ankle (cm) 32.2 Musculoskeletal: No Muscle Wasting Neurological: Cranial nerves II-XII grossly intact, Neuro grossly intact Psych/Mental Status: Normal Affect, Appropriate, Alert and oriented to time, place, person, mood and affect Debridement Note Post-Debridement Measurements/Treatment WC - Nurse 2 - General Ulcer CM Notes Start: 05/29/20 10:09 Freq: Status: Active Protocol: Activity Type Activity Date Activity User E-Sign Co-Sign Detail Recorded Client Recorded Date Recorded By Document 05/29/20 16:15 PL [id number] 05/29/20 16:15 PL Document 06/05/20 18:12 PL [id number] 06/05/20 18:13 PL Document 06/12/20 12:35 PL [id number] 06/12/20 12:37 PL 05/29/20 06/05/20 06/12/20 16:15 18:12 12:35 Wound Center Nurse 2 #8- RLE -Time 10:15 10:20 10:25 -Correct Patient Yes Yes Yes -Correct Side, Site, Position Yes Yes Yes -Correct Procedure Yes Yes Yes -Procedure Performed Yes Yes Yes -Type of Procedure Debridement Debridement Debridement -Clinical Debridement Subcutaneous Subcutaneous Subcutaneous -Tissue Removed Subcutaneous Subcutaneous Subcutaneous -Post Debridement (cm) - Length 0.4 0.9 0.9 -Post Debridement (cm) - Width 0.5 0.7 0.5 -Post Debridement (cm) - Depth 0.3 0.2 0.2 -Total Square (Post) (cm) 0.20 0.63 0.45 -Area of Debridement (cm) - Length 0.4 0.9 0.9 -Area of Debridement (cm) - Width 0.5 0.7 0.5 -Total Square (Area) (cm) 0.20 0.63 0.45 -Tunneling No No -Undermining/Tunneling No No -Circular Undermining No No -Wound/Ulcer Outcome Not Healed Not Healed -Ulcer Cleansing Rinsed/ Rinsed/ Rinsed/ Irrigated with Irrigated with Irrigated with Saline Saline Saline -Foul Odor after Cleansing No No No -Bioengineered Tissue No No No -Bleeding Controlled with Pressure -Treatment Response Procedure Tolerated Well -Debridement - Subq, 1st 20sq cm Yes Yes Yes Pain Scale: 0-10 Numeric Is Patient Pain Free? Yes Yes Yes WC - Nurse 3 - General Ulcer D/C NN Start: 05/29/20 10:09 Freq: Status: Active Protocol: Activity Type Activity Date Activity User E-Sign Co-Sign Detail Recorded Client Recorded Date Recorded By Document 05/29/20 10:44 [facility] [id number] 05/29/20 10:45 [facility] Document 06/05/20 10:24 DL [id number] 06/05/20 10:25 DL Document 06/08/20 12:55 DL [id number] 06/08/20 13:11 DL Document 06/12/20 10:40 DL [id number] 06/12/20 10:41 DL Document 06/15/20 11:42 BM [id number] 06/15/20 11:44 [facility] 05/29/20 06/05/20 06/08/20 10:44 10:24 12:55 Wound Care Nurse 3 #8- RLE -Ulcer Cleansing Rinsed/ Wound Cleanser Irrigated with Saline -Foul Odor after Cleansing No No -Primary Dressing Applied Other -Other Dressing unna boot -Other Covering -Promogran Bilateral -Multi-Layered Wrap Application Unna Boot - Bilateral ($) -Unna Boots (Bilat) ($) 2 Right -Multi-Layered Wrap Application Unna Boot - Right ($) Left -Multi-Layered Wrap Application Unna Boot - Unna Boot - Bilateral ($) Left ($) -Unna Boots (Bilat) ($) 2 Treatment Response Procedure Procedure Procedure Tolerated Well Tolerated Well Tolerated Well Temperature (97.8 F-99.1 F) 97.2 F L Temperature Source Temporal Vital Signs Pulse Rate (60-100) 66 81 Pulse Location Monitor Monitor Respiratory Rate (12-18) 18 22 H Respiratory rate source Observation Observation Oxygen Delivery Method Room Air Blood Pressure (90/60-120/80) 144/68 H 140/64 H Blood Pressure Mean (mm Hg) 93 89 Source Monitor Monitor Position Sitting Blood Pressure Location Left Forearm Pain Scale: 0-10 Numeric Is Patient Pain Free? Yes Yes Yes WC - Visit Discharge Discharge Condition Stable Stable Stable Ambulatory Status Ambulatory Ambulatory Ambulatory Transportation [employer] 06/12/20 06/15/20 10:40 11:42 Wound Care Nurse 3 #8- RLE -Ulcer Cleansing Rinsed/ Irrigated with Saline -Foul Odor after Cleansing No -Primary Dressing Applied Promogran Promogran -Other Dressing -Other Covering unna -Promogran 1 1 Bilateral -Multi-Layered Wrap Application Unna Boot - Unna Boot - Bilateral ($) Bilateral ($) -Unna Boots (Bilat) ($) 2 1 Right -Multi-Layered Wrap Application Left -Multi-Layered Wrap Application -Unna Boots (Bilat) ($) Treatment Response Procedure Procedure Tolerated Well Tolerated Well Temperature (97.8 F-99.1 F) Temperature Source Vital Signs Pulse Rate (60-100) Pulse Location Respiratory Rate (12-18) Respiratory rate source Oxygen Delivery Method Blood Pressure (90/60-120/80) Blood Pressure Mean (mm Hg) Source Position Blood Pressure Location Pain Scale: 0-10 Numeric Is Patient Pain Free? Yes Yes WC - Visit Discharge Discharge Condition Stable Stable Ambulatory Status Ambulatory Ambulatory Transportation [employer] Laterality: Right - Lateral calf Type of Debridement: Excisional debridement Anesthesia Used: 5% Lidocaine Gel Depth: Down to and including healthy tissue, in the subcutaneous layer Percentage of wound debrided: 100 Instrument Used: 5mm curette Tissue Removed: Bioburden Severity: Fat Layer Exposed Amount of bleeding with debridement: Mild Bleeding Controlled with: Compression and gauze Patient tolerated procedure well Assessment/Plan Active Problems Nonhealing ulcer of right lower extremity with fat layer exposed (Chronic) Decreased dorsalis pedis pulse (Chronic) Lymphedema of both lower extremities (Chronic) Pain, lower extremity (Chronic) Morbid obesity with BMI of 60.0-69.9, adult (Chronic) Venous insufficiency (chronic) (peripheral) (Chronic) Swelling of lower extremity (Chronic) Edema of both legs (Chronic) Ulcer of right lower leg (Chronic) Venous stasis ulcer (Chronic) Dependent edema (Chronic) Venous hypertension, chronic, with ulcer and inflammation (Chronic) Venous stasis dermatitis (Chronic) Diabetes mellitus (Chronic) Gout (Chronic) MASON (obstructive sleep apnea) (Chronic) Hypertension (Chronic) Assessment: This is a 54-year-old morbidly obese diabetic white male with multiple medical problems. He presented with profound venous stasis changes in both lower extremities, as well as a small ulceration on the right lateral calf. He is morbidly obese, and relatively inactive. He spends large portions of each day in an idle sitting position. He had recently received care at a wound clinic in [place], [place]. His prior care involved serial debridements and the use of multilayer compression wraps. Routine laboratory studies have been obtained, the results of which are as follows: White blood count 5.7, hemoglobin 13.8, hematocrit 43.7, platelets 404,000, glucose 93, BUN 11, creatinine 0.97, total protein 7.8, calcium 9.1, AST 25, alkaline phosphatase 78, ALT 46, total bilirubin 0.40, sodium 139, potassium 4.3, chloride 104, serum prealbumin 26.9. A noninvasive lower extremity arterial study reveals no evidence of significant arterial occlusive disease in the lower extremities bilaterally. Plan: A lengthy discussion has been undertaken with the patient once again. Conservative treatment measures are to be continued. There is question as to the patient's likely level of compliance. He has been advised to continue sleeping on a flat mattress at night. Leg elevation has been recommended during daytime hours as well. Leg elevation is to be to heart level, or higher. This is to be accomplished as much as possible. Prolonged idle sitting has been discouraged. Activity has been encouraged, though the patient's morbid obesity will likely preclude any significant increase or enhancement of the patient's activity level. The patient appears to have previously tolerated 3M 2 layer compression wraps to the lower extremities. Therefore, we are to continue compression in both lower extremities, though using a multilayer Unna boot compression wrap bilaterally. We will implement the use of Promogran topically to the ulceration on the right lateral calf, which will be changed with each change of his Unna boot, twice weekly. The patient has in his possession pneumatic mechanical compression pumps, and has been encouraged to use these at least 2 or 3 times daily. We are to request the patient's recent venous duplex examinations from [facility] in [place]. Patient has been scheduled for a dietary consult, which will transpire tomorrow, 06/20/2020. Significant weight loss is a primary objective. Optimization of the patient's glycemic control has been recommended. The patient is to follow-up in 1 week for reevaluation. Once again, patient compliance is suspected to be an issue. The patient is not a smoker. Influenza vaccine was not administered today. The patient weighs 435 pounds. He stands 5 feet 9 inches tall. His BMI is 64.2. Weight loss has been recommended, in collaboration with the patient's primary care physician has been advised.
[2020-06-22 12:17] VITALS: BP 141/60; PULSE 70; RESP 18; TEMP 36.6; BMI 64.2
--- NOTE | 2020-06-22 12:19 | WC ---
PT CAME TO NURSE VISIT TODAY WITH BILAT FEET CUT OFF UNNA BOOT DRESSING PT STATES I CUT THEM OFF 06/21/20 BECAUSE THEY WERE DIGGINGINTO MY ANKLES
== END 2020-06-25 23:59 ==
LOC: WC 12:15
PROVIDERS: PCP Internal Medicine; Referring Provider Surgery; Visit Provider Surgery
DX: I83.012 Varicose veins of right lower extremity with ulcer of calf (principal); L97.212 Non-pressure chronic ulcer of right calf with fat layer exposed; I87.2 Venous insufficiency (chronic) (peripheral); I87.8 Other specified disorders of veins; M79.89 Other specified soft tissue disorders; I89.0 Lymphedema, not elsewhere classified; M79.605 Pain in left leg; E11.9 Type 2 diabetes mellitus without complications; I10 Essential (primary) hypertension; M10.9 Gout, unspecified; G47.33 Obstructive sleep apnea (adult) (pediatric); E66.01 Morbid (severe) obesity due to excess calories; Z68.44 Body mass index [BMI] 60.0-69.9, adult
CPT/HCPCS: 11042; 29580

== ENCOUNTER 2020-07-09 15:13 | Outpatient (RCR) | payer MEDICAID, SELFPAY ==
[2020-06-12 09:55] VITALS: BMI 64.2
[2020-07-06 13:19] VITALS: BMI 64.2
== END 2020-07-26 23:59 ==
LOC: NS 15:13
PROVIDERS: PCP Internal Medicine; Visit Provider Surgery
DX: Z71.3 Dietary counseling and surveillance (principal); E66.01 Morbid (severe) obesity due to excess calories
CPT/HCPCS: 97802

== ENCOUNTER 2020-07-24 10:30 | Outpatient (RCR) | payer MEDICAID, SELFPAY ==
[2020-06-26 00:35] VITALS: BP 141/60; PULSE 70; RESP 18; TEMP 36.6
[2020-06-29 12:34] VITALS: BP 129/78; PULSE 78; RESP 18; TEMP 36.6; BMI 64.2
[2020-07-06 13:19] VITALS: BP 142/81; PULSE 82; RESP 20; TEMP 36.7; BMI 64.2
[2020-07-10 08:53] VITALS: BP 141/69; PULSE 74; RESP 20; TEMP 36.1; BMI 64.2
--- NOTE | 2020-07-10 12:59 | PN.PCM_ITS ---
Type of Wound Date of Service: 07/10/20 Chief Complaint: Severe swelling, edema, and lymphedema of the lower extremities, with ulceration of the right distal lower extremity History of Wound: This is a 54-year-old morbidly obese white male who presented with chronic swelling, edema, and lymphedema in his lower extremities, and a recent ulceration on the right lateral calf. The patient has been treated at our facility in the past for similar medical problems. With respect to his current problems, he has been receiving care recently at a wound clinic in [place], [place]. However, the patient has become dissatisfied with the care he is receiving, and is seeking medical care with our facility. Patient states that the ulceration on the right lateral calf has been present for several months. He has noticed very little improvement. It appears as though debridements have been performed serially, and weekly wraps have been implemented using 3M 2 layer compression wraps. He has recently obtained mechanical pneumatic compression pumps as well. He has a history of MRSA, and is currently on a prophylactic dose of azithromycin 250 mg p.o. daily. Patient claims to sleep on a flat mattress at night. However, he is not active, and spends a good deal of each day in a sitting position. He denies a history of deep vein thrombosis. It appears as though a venous duplex examination has been recently performed in [place], [place], at [facility]. We will attempt to obtain these results. A noninvasive lower extremity arterial study has been performed in 2018, the results of which revealed no evidence of arterial occlusive disease in the lower extremities. The patient also indicates that he was hospitalized for 2 days at [facility] in [place], [place], in January 2020, which was for treatment relative to his lower extremity problems. - Physical Exam Vital Signs Temp Pulse Resp BP 96.9 F L 74 20 H 141/69 H 07/10/20 08:53 07/10/20 08:53 07/10/20 08:53 07/10/20 08:53 Wound Measurements and Assessment WC - Nurse 1 - General Ulcer Measurement Start: 06/29/20 12:34 Freq: Status: Active Protocol: Activity Type Activity Date Activity User E-Sign Co-Sign Detail Recorded Client Recorded Date Recorded By Document 07/10/20 08:53 DL [id number] 07/10/20 08:58 DL 07/10/20 08:53 Wound Center Nurse 1 [Ulcer Assessment] #8- RLE -Exudate Amt Small -Exudate Type Serosanguineous -Granulation Amt Small (1-33%) -Granulation Quality [place] -Necrosis Amt Small (1-33%) -Necrotic Tissue Type Adherent Slough -Texture (Meri-wound Skin Appearance) No Abnormality -Moisture (Meri-wound Skin Appearance No Abnormality, ) Dry/Scaly -Color (Meri-wound Skin Appearance) No Abnormality, Hemosiderin Staining -Temperature (Meri-wound Skin No Abnormality Appearance) (Pt Warm) -Tenderness on Palpation (Meri-wound No Skin Appearance) -Ulcer Cleansing Wound Cleanser -Foul Odor after Cleansing No [Edema Assessment] -Right Calf (cm) 59.1 -Right Ankle (cm) 33.8 -Left Calf (cm) 52.6 -Left Ankle (cm) 30.8 WC - Nurse 3 - General Ulcer D/C NN Start: 06/29/20 12:34 Freq: Status: Active Protocol: Activity Type Activity Date Activity User E-Sign Co-Sign Detail Recorded Client Recorded Date Recorded By Document 07/10/20 08:53 DL [id number] 07/10/20 08:58 DL 07/10/20 08:53 Vital Signs [Temperature Protocol: VS] -Temperature (97.8 F-99.1 F) 96.9 F L -Temperature Source Temporal [Pulse] -Pulse Rate (60-100) 74 -Pulse Location Monitor [Respirations] -Respiratory Rate (12-18) 20 H -Respiratory rate source Observation [Blood Pressure] -Blood Pressure (90/60-120/80) 141/69 H -Blood Pressure Mean (mm Hg) 93 -Source Monitor Pain Scale: 0-10 Numeric [Pain] -Is Patient Pain Free? Yes Wound Care Nurse 3 [Wound Dressing] #8- RLE -Ulcer Cleansing Wound Cleanser -Foul Odor after Cleansing No -Other Dressing promogram -Other Covering unna [Compression Applied] BILATERAL -Multi-Layered Wrap Application Unna Boot - Bilateral ($) -Unna Boots (Bilat) ($) 2 [Post Procedure Tolerated] -Treatment Response Procedure Tolerated Well WC - Visit Discharge [Visit Discharge Information] -Discharge Condition Stable -Ambulatory Status Ambulatory -Transportation Private Auto Debridement Note Post-Debridement Measurements/Treatment WC - Nurse 3 - General Ulcer D/C NN Start: 06/29/20 12:34 Freq: Status: Active Protocol: Activity Type Activity Date Activity User E-Sign Co-Sign Detail Recorded Client Recorded Date Recorded By Document 06/29/20 12:34 RB [id number] 06/29/20 12:37 RB Document 07/06/20 13:19 DL [id number] 07/06/20 13:23 DL Document 07/10/20 08:53 DL [id number] 07/10/20 08:58 DL 06/29/20 07/06/20 07/10/20 12:34 13:19 08:53 Vital Signs Temperature (97.8 F-99.1 F) 97.8 F 98.1 F 96.9 F L Temperature Source Temporal Temporal Temporal Pulse Rate (60-100) 78 82 74 Pulse Location Monitor Monitor Monitor Respiratory Rate (12-18) 18 20 H 20 H Respiratory rate source Observation Observation Observation Blood Pressure (90/60-120/80) 129/78 H 142/81 H 141/69 H Blood Pressure Mean (mm Hg) 95 101 93 Source Monitor Monitor Monitor Position Semi-Fowlers Blood Pressure Location Left Arm Pain Scale: 0-10 Numeric Is Patient Pain Free? Yes Yes Yes Wound Care Nurse 3 #8- RLE -Ulcer Cleansing Wound Cleanser Wound Cleanser -Foul Odor after Cleansing No No -Primary Dressing Applied Promogran -Other Dressing promogran promogram -Primary Dressing Covered/Secured with Dry Gauze -Other Covering unna -Promogran 1 BILATERAL -Multi-Layered Wrap Application Unna Boot - Unna Boot - Unna Boot - Bilateral ($) Bilateral ($) Bilateral ($) -Unna Boots (Bilat) ($) 2 2 2 Treatment Response Procedure Procedure Procedure Tolerated Well Tolerated Well Tolerated Well WC - Visit Discharge Discharge Condition Stable Stable Stable Ambulatory Status Ambulatory Ambulatory Ambulatory Transportation Private Auto Private Auto Private Auto Medication Reconcilliation completed & No provided to patient/care provider Clinical Summary of Care Provided Yes Assessment/Plan Assessment: This is a 54-year-old morbidly obese diabetic white male with multiple medical problems. He presented with profound venous stasis changes in both lower extremities, as well as a small ulceration on the right lateral calf. He is morbidly obese, and relatively inactive. He spends large portions of each day in an idle sitting position. He had recently received care at a wound clinic in [place], [place]. His prior care involved serial debridements and the use of multilayer compression wraps. Routine laboratory studies have been obtained, the results of which are as follows: White blood count 5.7, hemoglobin 13.8, hematocrit 43.7, platelets 404,000, glucose 93, BUN 11, creatinine 0.97, total protein 7.8, calcium 9.1, AST 25, alkaline phosphatase 78, ALT 46, total bilirubin 0.40, sodium 139, potassium 4.3, chloride 104, serum prealbumin 26.9. A noninvasive lower extremity arterial study reveals no evidence of significant arterial occlusive disease in the lower extremities bilaterally. Plan: A lengthy discussion has been undertaken with the patient once again. Conservative treatment measures are to be continued. There is question as to the patient's likely level of compliance. He has been advised to continue sleeping on a flat mattress at night. Leg elevation has been recommended during daytime hours as well. Leg elevation is to be to heart level, or higher. This is to be accomplished as much as possible. Prolonged idle sitting has been discouraged. Activity has been encouraged, though the patient's morbid obesity will likely preclude any significant increase or enhancement of the patient's activity level. The patient appears to have previously tolerated 3M 2 layer compression wraps to the lower extremities. Therefore, we are to continue compression in both lower extremities, though using a multilayer Unna boot compression wrap bilaterally. We will implement the use of Promogran topically to the ulceration on the right lateral calf, which will be changed with each change of his Unna boot, twice weekly. The patient has in his possession pneumatic mechanical compression pumps, and has been encouraged to use these at least 2 or 3 times daily. We are to request the patient's recent venous duplex examinations from [facility] in [place]. Patient has been scheduled for a dietary consult, which will transpire tomorrow, 06/20/2020. Significant weight loss is a primary objective. Optimization of the patient's glycemic control has been recommended. The patient is to follow-up in 1 week for reevaluation. Once again, patient compliance is suspected to be an issue. The patient is not a smoker. Influenza vaccine was not administered today. The patient weighs 435 pounds. He stands 5 feet 9 inches tall. His BMI is 64.2. Weight loss has been recommended, in collaboration with the patient's primary care physician has been advised. + ++++++++++++++++++++++++++++++++++++++++++++++++++++++++++++++++++++++++++++++++ ++++++++++++++++++++++++++++++++++++++++++++++++++++++++++++++++++++++++++++++++ ++++++++++++++++++++++++++++++++++++++++++++++. 07/10/2020 The patient presented today with Covid-like symptoms. He suffered from upper respiratory symptoms and nasal congestion. Due to concerns regarding possible Covid, the decision was made to continue with current therapy, and the patient was advised to be tested for COVID-19. Current measures are to be continued with respect to his lower extremities. Unna boots were reapplied, and will be changed twice weekly. Promogran is to be continued topically on the right lower extremity ulceration. Patient is to continue using his mechanical pneumatic compression pumps 2-3 times daily. He is to return in 1 week, assuming that he is asymptomatic and that Covid testing has been negative.
[2020-07-13 12:07] VITALS: BP 144/84; PULSE 83; RESP 20; TEMP 36.3; BMI 64.2
[2020-07-17 10:44] VITALS: BP 153/83; PULSE 73; RESP 20; TEMP 36.3; BMI 64.2
--- NOTE | 2020-07-17 13:24 | HP.PCM_ITS ---
(1) Nonhealing ulcer of left lower extremity with fat layer exposed Status: Resolved Code(s): L97.922 - Non-pressure chronic ulcer of unspecified part of left lower leg with fat layer exposed Comment: x 2 anterior and posterior (2) Nonhealing ulcer of right lower extremity with fat layer exposed Status: Chronic Code(s): L97.912 - Non-pressure chronic ulcer of unspecified part of right lower leg with fat layer exposed (3) Decreased dorsalis pedis pulse Status: Chronic Code(s): R09.89 - Other specified symptoms and signs involving the circulatory and respiratory systems (4) Lymphedema of both lower extremities Status: Chronic Code(s): I89.0 - Lymphedema, not elsewhere classified (5) Pain, lower extremity Status: Chronic Qualifiers: Laterality: bilateral Qualified Code(s): M79.604 - Pain in right leg; M79.605 - Pain in left leg Code(s): M79.606 - Pain in leg, unspecified (6) Morbid obesity with BMI of 60.0-69.9, adult Status: Chronic Code(s): E66.01 - Morbid (severe) obesity due to excess calories; Z68.44 - Body mass index [BMI] 60.0-69.9, adult (7) Skin tear of left lower leg without complication Status: Resolved Qualifiers: Encounter type: subsequent encounter Qualified Code(s): S81.812D - Laceration without foreign body, left lower leg, subsequent encounter Code(s): S81.812A - Laceration without foreign body, left lower leg, initial encounter (8) Venous insufficiency (chronic) (peripheral) Status: Chronic Code(s): I87.2 - Venous insufficiency (chronic) (peripheral) (9) Swelling of lower extremity Status: Chronic Code(s): M79.89 - Other specified soft tissue disorders (10) Edema of both legs Status: Chronic Code(s): R60.0 - Localized edema (11) Ulcer of right lower leg Status: Chronic Qualifiers: Non-pressure ulcer stage: with fat layer exposed Code(s): L97.919 - Non-pressure chronic ulcer of unspecified part of right lower leg with unspecified severity (12) Venous stasis ulcer Status: Chronic Qualifiers: Venous stasis ulcer site: calf Laterality: right Non-pressure ulcer stage: with fat layer exposed Code(s): I83.009 - Varicose veins of unspecified lower extremity with ulcer of unspecified site; L97.909 - Non-pressure chronic ulcer of unspecified part of unspecified lower leg with unspecified severity (13) Dependent edema Status: Chronic Code(s): R60.9 - Edema, unspecified (14) Venous hypertension, chronic, with ulcer and inflammation Status: Chronic Qualifiers: Laterality: bilateral Code(s): I87.339 - Chronic venous hypertension (idiopathic) with ulcer and inflammation of unspecified lower extremity; L97.909 - Non-pressure chronic ulcer of unspecified part of unspecified lower leg with unspecified severity (15) Venous stasis dermatitis Status: Chronic Qualifiers: Laterality: bilateral Code(s): I87.2 - Venous insufficiency (chronic) (peripheral) (16) Diabetes mellitus Status: Chronic Qualifiers: Diabetes mellitus type: type 2 Code(s): E11.9 - Type 2 diabetes mellitus without complications (17) Gout Status: Chronic Code(s): M10.9 - Gout, unspecified (18) MASON (obstructive sleep apnea) Status: Chronic Code(s): G47.33 - Obstructive sleep apnea (adult) (pediatric) (19) Hypertension Status: Chronic Code(s): I10 - Essential (primary) hypertension History of Present Illness Date of Service: 07/17/20 Chief Complaint: Severe swelling, edema, and lymphedema of the lower extremities, with ulceration of the right distal lower extremity History of Wound: This is a 54-year-old morbidly obese white male who presented with chronic swelling, edema, and lymphedema in his lower extremities, and a recent ulceration on the right lateral calf. The patient has been treated at our facility in the past for similar medical problems. With respect to his current problems, he has been receiving care recently at a wound clinic in [place], [place]. However, the patient has become dissatisfied with the care he is receiving, and is seeking medical care with our facility. Patient states that the ulceration on the right lateral calf has been present for several months. He has noticed very little improvement. It appears as though debridements have been performed serially, and weekly wraps have been implemented using 3M 2 layer compression wraps. He has recently obtained mechanical pneumatic compression pumps as well. He has a history of MRSA, and is currently on a prophylactic dose of azithromycin 250 mg p.o. daily. Patient claims to sleep on a flat mattress at night. However, he is not active, and spends a good deal of each day in a sitting position. He denies a history of deep vein thrombosis. It appears as though a venous duplex examination has been recently performed in [place], [place], at [facility]. We will attempt to obtain these results. A noninvasive lower extremity arterial study has been performed in 2018, the results of which revealed no evidence of arterial occlusive disease in the lower extremities. The patient also indicates that he was hospitalized for [address] [facility] in [place], [place], in January 2020, which was for treatment relative to his lower extremity problems. Past Medical History Past Medical History: Chronic Problems Nonhealing ulcer of right lower extremity with fat layer exposed (Chronic) Decreased dorsalis pedis pulse (Chronic) Lymphedema of both lower extremities (Chronic) Pain, lower extremity (Chronic) Morbid obesity with BMI of 60.0-69.9, adult (Chronic) Venous insufficiency (chronic) (peripheral) (Chronic) Swelling of lower extremity (Chronic) Edema of both legs (Chronic) Ulcer of right lower leg (Chronic) Venous stasis ulcer (Chronic) Dependent edema (Chronic) Venous hypertension, chronic, with ulcer and inflammation (Chronic) Venous stasis dermatitis (Chronic) Diabetes mellitus (Chronic) Gout (Chronic) MASON (obstructive sleep apnea) (Chronic) Hypertension (Chronic) Surgical History: herniorrhaphy - Left inguinal Allergies/Adverse Reactions: Allergies shellfish derived Allergy (Verified 05/15/20 11:16) Food Allergy Home Medications: Ambulatory Orders Medication Instructions Recorded Aldactone 25 mg PO BID 05/06/18 Lasix 80 mg PO DAILY 05/06/18 Lisinopril 20 mg PO DAILY 09/16/18 Allopurinol 300 mg PO DAILY 05/15/20 Azithromycin 250 mg PO DAILY 05/15/20 - Family History Paternal - - The patient's father at the age of 68 with a history of renal failure. Patient's mother is living, age 74, and suffers from atrial fibrillation. Smoking Status: Former smoker Tobacco Use: Non-smoker Review of Systems Constitutional: Denies: Chills, Fever, Weight Change Eyes: Denies: Pain, Vision Change HEENT: Denies: Difficulty Hearing, Difficulty Swallowing, Sinus Congestion Cardiovascular: Denies: Chest Pain, Palpitations Respiratory: Denies: Cough, Shortness of Breath Gastrointestinal: Denies: Diarrhea, Nausea, Vomiting Genitourinary: Denies: Dysuria, Hematuria Endocrine: Denies: Heat/ Cold Intolerance, Polydipsia, Polyuria Hematologic/ Lymphatic: Denies: Easy Bruising, Easy Bleeding - Physical Exam Vital Signs Temp Pulse Resp BP 97.3 F L 73 20 H 153/83 H 07/17/20 10:44 07/17/20 10:44 07/17/20 10:44 07/17/20 10:44 General: Alert, Oriented x3, Cooperative, No apparent distress, Well developed, Well nourished HEENT: Atraumatic, PERRLA, EOMI, Normocephalic Oral: Moist Mucosa Neck: No JVD Lungs: Normal air movement Abdomen: Non-Distended Extremities: No clubbing, No cyanosis, No Calf Tenderness, - - Severe swelling, edema, and lymphedema persist in the patient's lower extremities bilaterally. There has been no improvement. There is a rather diffuse erythema, likely inflammatory in nature. A diffuse scaly dermatitis is also noted bilaterally. Addt'l Wound Findings: The wound on the right lateral calf persists. There has been no improvement. There is a significant amount of bioburden and some nonviable tissue. Dimensions are documented elsewhere. Wound Measurements and Assessment WC - Nurse 1 - General Ulcer Measurement Start: 06/29/20 12:34 Freq: Status: Active Protocol: Activity Type Activity Date Activity User E-Sign Co-Sign Detail Recorded Client Recorded Date Recorded By Document 07/17/20 10:44 RUPA [id number] 07/17/20 10:59 KR 07/17/20 10:44 Wound Center Nurse 1 [Ulcer Assessment] #8- RLE -Current Size (cm) - Length 0.7 -Current Size (cm) - Width 0.3 -Current Size (cm) - Depth 0.2 -Total Square Cm 0.21 -Exudate Amt Small -Exudate Type Serosanguineous -Wound Margin Distinct, Outline Attached -Granulation Amt None Present (0 %) -Necrosis Amt Small (1-33%) -Necrotic Tissue Type Adherent Slough -Texture (Meri-wound Skin Appearance) Assessed, Scarring -Moisture (Meri-wound Skin Appearance Assessed, ) Weeping,Dry/ Scaly -Color (Meri-wound Skin Appearance) Assessed, Hemosiderin Staining -Temperature (Meri-wound Skin No Abnormality Appearance) (Pt Warm) -Tenderness on Palpation (Meri-wound No Skin Appearance) -Ulcer Cleansing soap and water -Foul Odor after Cleansing No -Anesthetic Used 4% Lidocaine Solution [Edema Assessment] -Right Calf (cm) 60 -Right Ankle (cm) 38 -Left Calf (cm) 57 -Left Ankle (cm) 37 WC - Nurse 3 - General Ulcer D/C NN Start: 06/29/20 12:34 Freq: Status: Active Protocol: Activity Type Activity Date Activity User E-Sign Co-Sign Detail Recorded Client Recorded Date Recorded By Document 07/17/20 11:27 KR [id number] 07/17/20 11:27 KR 07/17/20 11:27 Wound Care Nurse 3 [Wound Dressing] #8- RLE -Ulcer Cleansing Rinsed/ Irrigated with Saline [Compression Applied] BILATERAL -Multi-Layered Wrap Application Unna Boot - Bilateral ($) -Unna Boots (Bilat) ($) 1 Pain Scale: 0-10 Numeric [Pain] -Is Patient Pain Free? Yes WC - Visit Discharge [Visit Discharge Information] -Discharge Condition Stable -Ambulatory Status Ambulatory -Transportation Private Auto -Accompanied by Musculoskeletal: No Muscle Wasting Neurological: Cranial nerves II-XII grossly intact, Neuro grossly intact Psych/Mental Status: Normal Affect, Appropriate, Alert and oriented to time, place, person, mood and affect Debridement Note Post-Debridement Measurements/Treatment WC - Nurse 3 - General Ulcer D/C NN Start: 06/29/20 12:34 Freq: Status: Active Protocol: Activity Type Activity Date Activity User E-Sign Co-Sign Detail Recorded Client Recorded Date Recorded By Document 06/29/20 12:34 RB [id number] 06/29/20 12:37 RB Document 07/06/20 13:19 DL [id number] 07/06/20 13:23 DL Document 07/10/20 08:53 DL [id number] 07/10/20 08:58 DL Document 07/13/20 12:06 BMF [id number] 07/13/20 12:07 BMF Document 07/17/20 11:27 KR [id number] 07/17/20 11:27 KR 06/29/20 07/06/2020 12:34 13:19 08:53 Vital Signs Temperature (97.8 F-99.1 F) 97.8 F 98.1 F 96.9 F L Temperature Source Temporal Temporal Temporal Pulse Rate (60-100) 78 82 74 Pulse Location Monitor Monitor Monitor Respiratory Rate (12-18) 18 20 H 20 H Respiratory rate source Observation Observation Observation Blood Pressure (90/60-120/80) 129/78 H 142/81 H 141/69 H Blood Pressure Mean (mm Hg) 95 101 93 Source Monitor Monitor Monitor Position Semi-Fowlers Blood Pressure Location Left Arm Pain Scale: 0-10 Numeric Is Patient Pain Free? Yes Yes Yes Wound Care Nurse 3 #8- RLE -Ulcer Cleansing Wound Cleanser Wound Cleanser -Foul Odor after Cleansing No No -Primary Dressing Applied Promogran -Other Dressing promogran promogram -Primary Dressing Covered/Secured with Dry Gauze -Other Covering unna -Promogran 1 BILATERAL -Multi-Layered Wrap Application Unna Boot - Unna Boot - Unna Boot - Bilateral ($) Bilateral ($) Bilateral ($) -Unna Boots (Bilat) ($) 2 2 2 Treatment Response Procedure Procedure Procedure Tolerated Well Tolerated Well Tolerated Well WC - Visit Discharge Discharge Condition Stable Stable Stable Ambulatory Status Ambulatory Ambulatory Ambulatory Transportation Private Auto Private Auto Private Auto Accompanied by Medication Reconcilliation completed & No provided to patient/care provider Clinical Summary of Care Provided Yes 07/13/20 07/17/20 12:06 11:27 Vital Signs Temperature (97.8 F-99.1 F) Temperature Source Pulse Rate (60-100) Pulse Location Respiratory Rate (12-18) Respiratory rate source Blood Pressure (90/60-120/80) Blood Pressure Mean (mm Hg) Source Position Blood Pressure Location Pain Scale: 0-10 Numeric Is Patient Pain Free? Yes Yes Wound Care Nurse 3 #8- RLE -Ulcer Cleansing soapy water Rinsed/ Irrigated with Saline -Foul Odor after Cleansing No -Primary Dressing Applied Other -Other Dressing promogran -Primary Dressing Covered/Secured with Other -Other Covering unna boot -Promogran BILATERAL -Multi-Layered Wrap Application Unna Boot - Unna Boot - Bilateral ($) Bilateral ($) -Unna Boots (Bilat) ($) 1 1 Treatment Response Procedure Tolerated Well WC - Visit Discharge Discharge Condition Stable Stable Ambulatory Status Ambulatory Ambulatory Transportation Private Auto Private Auto Accompanied by Medication Reconcilliation completed & provided to patient/care provider Clinical Summary of Care Provided Laterality: Right - Lateral calf Type of Debridement: Excisional debridement Anesthesia Used: 5% Lidocaine Gel Depth: Down to and including healthy tissue, in the subcutaneous layer Percentage of wound debrided: 100 Instrument Used: 5mm curette Tissue Removed: Bioburden and nonviable tissue Severity: Fat Layer Exposed Amount of bleeding with debridement: Mild Bleeding Controlled with: Compression and gauze Patient tolerated procedure well Assessment/Plan Assessment: This is a 54-year-old morbidly obese diabetic white male with multiple medical problems. He presented with profound venous stasis changes in both lower extremities, as well as a small ulceration on the right lateral calf. He is morbidly obese, and relatively inactive. He spends large portions of each day in an idle sitting position. He had recently received care at a wound clinic in [place], [place]. His prior care involved serial debridements and the use of multilayer compression wraps. Routine laboratory studies have been obtained, the results of which are as follows: White blood count 5.7, hemoglobin 13.8, hematocrit 43.7, platelets 404,000, glucose 93, BUN 11, creatinine 0.97, total protein 7.8, calcium 9.1, AST 25, alkaline phosphatase 78, ALT 46, total bilirubin 0.40, sodium 139, potassium 4.3, chloride 104, serum prealbumin 26.9. A noninvasive lower extremity arterial study reveals no evidence of significant arterial occlusive disease in the lower extremities bilaterally. Plan: A lengthy discussion has been undertaken with the patient once again. Conservative treatment measures are to be continued. There is question as to the patient's likely level of compliance. The patient claims to be elevating his lower extremities as advised. He claims to be using his mechanical pneumatic compression pumps 2-3 times daily. However, his elicits a completely different story, indicative of the fact that the patient has not been compliant with recommended measures. This appears to be the reason why the patient has failed to demonstrate significant improvement. He has been advised to continue sleeping on a flat mattress at night. Leg elevation has been recommended during daytime hours as well. Leg elevation is to be to heart level, or higher. This is to be accomplished as much as possible. Prolonged idle sitting has been discouraged. Activity has been encouraged, though the patient's morbid obesity will likely preclude any significant increase or enhancement of the patient's activity level. We are to continue compression in both lower extremities using a multilayer Unna boot compression wrap bilaterally. We will continue the use of Promogran topically to the ulceration on the right lateral calf, which will be changed with each change of his Unna boot, twice weekly. The patient has in his possession pneumatic mechanical compression pumps, and has been encouraged to use these 2 or 3 times daily. We are to request the patient's recent venous duplex examinations from [facility] in [place]. The patient had a dietary consult recently, though the documentation of the encounter has not yet been received. Significant weight loss is a primary objective. Optimization of the patient's glycemic control has been recommended. The patient is to follow-up in 1 week for reevaluation. Once again, patient compliance is suspected to be an issue in regard to the patient's lack of progress. The patient is not a smoker. Influenza vaccine was not a dministered today. The patient weighs 435 pounds. He stands 5 feet 9 inches tall. His BMI is 64.2. Weight loss has been recommended, in collaboration with the patient's primary care physician has been advised. ++++++++++++++++++++++++++++++++++++++++++++++++++++++++++++++++++++++++++++++++ ++++++++++++++++++++++++++++++++++++++++++++++++++++++++++++++++++++++++++++++++ +++++++++++++++++++++++++++++++++++++++++++++++. 07/10/2020 The patient presented today with Covid-like symptoms. He suffered from upper respiratory symptoms and nasal congestion. Due to concerns regarding possible Covid, the decision was made to continue with current therapy, and the patient was advised to be tested for COVID-19. Current measures are to be continued with respect to his lower extremities. Unna boots were reapplied, and will be changed twice weekly. Promogran is to be continued topically on the right lower extremity ulceration. Patient is to continue using his mechanical pneumatic compression p umps 2-3 times daily. He is to return in 1 week, assuming that he is asymptomatic and that Covid testing has been negative.
[2020-07-24 10:30] VITALS: BP 157/53; PULSE 84; RESP 22; TEMP 36.8; BMI 64.2
--- NOTE | 2020-07-24 12:31 | PCM.WC.HP ---
(1) Nonhealing ulcer of left lower extremity with fat layer exposed Status: Resolved Code(s): L97.922 - Non-pressure chronic ulcer of unspecified part of left lower leg with fat layer exposed Comment: x 2 anterior and posterior (2) Nonhealing ulcer of right lower extremity with fat layer exposed Status: Chronic Code(s): L97.912 - Non-pressure chronic ulcer of unspecified part of right lower leg with fat layer exposed (3) Decreased dorsalis pedis pulse Status: Chronic Code(s): R09.89 - Other specified symptoms and signs involving the circulatory and respiratory systems (4) Lymphedema of both lower extremities Status: Chronic Code(s): I89.0 - Lymphedema, not elsewhere classified (5) Pain, lower extremity Status: Chronic Qualifiers: Laterality: bilateral Qualified Code(s): M79.604 - Pain in right leg; M79.605 - Pain in left leg Code(s): M79.606 - Pain in leg, unspecified (6) Morbid obesity with BMI of 60.0-69.9, adult Status: Chronic Code(s): E66.01 - Morbid (severe) obesity due to excess calories; Z68.44 - Body mass index [BMI] 60.0-69.9, adult (7) Skin tear of left lower leg without complication Status: Resolved Qualifiers: Encounter type: subsequent encounter Qualified Code(s): S81.812D - Laceration without foreign body, left lower leg, subsequent encounter Code(s): S81.812A - Laceration without foreign body, left lower leg, initial encounter (8) Venous insufficiency (chronic) (peripheral) Status: Chronic Code(s): I87.2 - Venous insufficiency (chronic) (peripheral) (9) Swelling of lower extremity Status: Chronic Code(s): M79.89 - Other specified soft tissue disorders (10) Edema of both legs Status: Chronic Code(s): R60.0 - Localized edema (11) Ulcer of right lower leg Status: Chronic Qualifiers: Non-pressure ulcer stage: with fat layer exposed Code(s): L97.919 - Non-pressure chronic ulcer of unspecified part of right lower leg with unspecified severity (12) Venous stasis ulcer Status: Chronic Qualifiers: Venous stasis ulcer site: calf Laterality: right Non-pressure ulcer stage: with fat layer exposed Code(s): I83.009 - Varicose veins of unspecified lower extremity with ulcer of unspecified site; L97.909 - Non-pressure chronic ulcer of unspecified part of unspecified lower leg with unspecified severity (13) Dependent edema Status: Chronic Code(s): R60.9 - Edema, unspecified (14) Venous hypertension, chronic, with ulcer and inflammation Status: Chronic Qualifiers: Laterality: bilateral Code(s): I87.339 - Chronic venous hypertension (idiopathic) with ulcer and inflammation of unspecified lower extremity; L97.909 - Non-pressure chronic ulcer of unspecified part of unspecified lower leg with unspecified severity (15) Venous stasis dermatitis Status: Chronic Qualifiers: Laterality: bilateral Code(s): I87.2 - Venous insufficiency (chronic) (peripheral) (16) Diabetes mellitus Status: Chronic Qualifiers: Diabetes mellitus type: type 2 Code(s): E11.9 - Type 2 diabetes mellitus without complications (17) Gout Status: Chronic Code(s): M10.9 - Gout, unspecified (18) MASON (obstructive sleep apnea) Status: Chronic Code(s): G47.33 - Obstructive sleep apnea (adult) (pediatric) (19) Hypertension Status: Chronic Code(s): I10 - Essential (primary) hypertension History of Present Illness Date of Service: 07/24/20 Chief Complaint: Severe swelling, edema, and lymphedema of the lower extremities, with ulceration of the right distal lower extremity History of Wound: This is a 54-year-old morbidly obese white male who presented with chronic swelling, edema, and lymphedema in his lower extremities, and a recent ulceration on the right lateral calf. The patient has been treated at our facility in the past for similar medical problems. With respect to his current problems, he has been receiving care recently at a wound clinic in [place], [place]. However, the patient has become dissatisfied with the care he is receiving, and is seeking medical care with our facility. Patient states that the ulceration on the right lateral calf has been present for several months. He has noticed very little improvement. It appears as though debridements have been performed serially, and weekly wraps have been implemented using 3M 2 layer compression wraps. He has recently obtained mechanical pneumatic compression pumps as well. He has a history of MRSA, and is currently on a prophylactic dose of azithromycin 250 mg p.o. daily. Patient claims to sleep on a flat mattress at night. However, he is not active, and spends a good deal of each day in a sitting position. He denies a history of deep vein thrombosis. It appears as though a venous duplex examination has been recently performed in [place], [place], at [facility]. We will attempt to obtain these results. A noninvasive lower extremity arterial study has been performed in 2018, the results of which revealed no evidence of arterial occlusive disease in the lower extremities. The patient also indicates that he was hospitalized for 2 days at [facility] in [place], [place], in January 2020, which was for treatment relative to his lower extremity problems. Past Medical History Past Medical History: Chronic Problems Nonhealing ulcer of right lower extremity with fat layer exposed (Chronic) Decreased dorsalis pedis pulse (Chronic) Lymphedema of both lower extremities (Chronic) Pain, lower extremity (Chronic) Morbid obesity with BMI of 60.0-69.9, adult (Chronic) Venous insufficiency (chronic) (peripheral) (Chronic) Swelling of lower extremity (Chronic) Edema of both legs (Chronic) Ulcer of right lower leg (Chronic) Venous stasis ulcer (Chronic) Dependent edema (Chronic) Venous hypertension, chronic, with ulcer and inflammation (Chronic) Venous stasis dermatitis (Chronic) Diabetes mellitus (Chronic) Gout (Chronic) MASON (obstructive sleep apnea) (Chronic) Hypertension (Chronic) Surgical History: herniorrhaphy - Left inguinal Allergies/Adverse Reactions: Allergies shellfish derived Allergy (Verified 05/15/20 11:16) Food Allergy Home Medications: Ambulatory Orders Medication Instructions Recorded Aldactone 25 mg PO BID 05/06/18 Lasix 80 mg PO DAILY 05/06/18 Lisinopril 20 mg PO DAILY 09/16/18 Allopurinol 300 mg PO DAILY 05/15/20 Azithromycin 250 mg PO DAILY 05/15/20 - Family History Paternal - - The patient's father at the age of 68 with a history of renal failure. Patient's mother is living, age 74, and suffers from atrial fibrillation. Smoking Status: Former smoker Tobacco Use: Non-smoker Review of Systems Constitutional: Denies: Chills, Fever, Weight Change Eyes: Denies: Pain, Vision Change HEENT: Denies: Difficulty Hearing, Difficulty Swallowing, Sinus Congestion Cardiovascular: Denies: Chest Pain, Palpitations Respiratory: Denies: Cough, Shortness of Breath Gastrointestinal: Denies: Diarrhea, Nausea, Vomiting Genitourinary: Denies: Dysuria, Hematuria Endocrine: Denies: Heat/ Cold Intolerance, Polydipsia, Polyuria Hematologic/ Lymphatic: Denies: Easy Bruising, Easy Bleeding - Physical Exam Vital Signs Temp Pulse Resp BP 98.2 F 84 22 H 157/53 H 07/24/20 10:30 07/24/20 10:30 07/24/20 10:30 07/24/20 10:30 General: Alert, Oriented x3, Cooperative, No apparent distress, Well developed, Well nourished HEENT: Atraumatic, PERRLA, EOMI, Normocephalic Oral: Moist Mucosa Neck: No JVD Lungs: Normal air movement Abdomen: Non-Distended Extremities: No clubbing, No cyanosis, No Calf Tenderness, - - Severe swelling, edema, and lymphedema persist in both lower extremities. Additionally, chronic scaly dermatitis persists bilaterally as well. There are areas on the lateral calf bilaterally where there is denudation of the epidermis, possibly due to maceration. Addt'l Wound Findings: The ulceration on the right lateral calf persists as well. There is a large amount of bioburden and some nonviable tissue present. Dimensions are documented elsewhere. There is no sign of infection or cellulitis. Wound Measurements and Assessment WC - Nurse 1 - General Ulcer Measurement Start: 06/29/20 12:34 Freq: Status: Active Protocol: Activity Type Activity Date Activity User E-Sign Co-Sign Detail Recorded Client Recorded Date Recorded By Document 07/24/20 10:30 DL [id number] 07/24/20 10:46 DL 07/24/20 10:30 Wound Center Nurse 1 [Ulcer Assessment] #9 LLE Lat -Current Size (cm) - Length 6 -Current Size (cm) - Width 17 -Current Size (cm) - Depth 0.1 -Total Square Cm 102 -Photo Taken No -Exudate Amt Medium -Exudate Type Serosanguineous -Wound Margin Distinct, Outline Attached -Granulation Amt Medium (34-66%) -Granulation Quality Red -Necrosis Amt Medium (34-66%) -Necrotic Tissue Type Adherent Slough -Structure Exposed N/A -Texture (Meri-wound Skin Appearance) Localized Edema ,Scarring -Moisture (Meri-wound Skin Appearance Dry/Scaly ) -Color (Meri-wound Skin Appearance) Hemosiderin Staining -Temperature (Meri-wound Skin No Abnormality Appearance) (Pt Warm) -Tenderness on Palpation (Meri-wound No Skin Appearance) -Ulcer Cleansing Wound Cleanser -Foul Odor after Cleansing No -Anesthetic Used 4% Lidocaine Solution #8- RLE -Current Size (cm) - Length 12 -Current Size (cm) - Width 14.3 -Current Size (cm) - Depth 0.1 -Total Square Cm 171.6 -Photo Taken No -Exudate Amt Medium -Exudate Type Serosanguineous -Wound Margin Distinct, Outline Attached -Granulation Amt Medium (34-66%) -Necrosis Amt Medium (34-66%) -Necrotic Tissue Type Adherent Slough -Structure Exposed N/A -Texture (Meri-wound Skin Appearance) Localized Edema ,Scarring -Moisture (Meri-wound Skin Appearance Dry/Scaly ) -Color (Meri-wound Skin Appearance) Hemosiderin Staining -Temperature (Meri-wound Skin No Abnormality Appearance) (Pt Warm) -Tenderness on Palpation (Meri-wound No Skin Appearance) -Ulcer Cleansing Wound Cleanser -Foul Odor after Cleansing No -Anesthetic Used 4% Lidocaine Solution [Edema Assessment] -Right Calf (cm) 55.5 -Right Ankle (cm) 32.5 -Left Calf (cm) 57 -Left Ankle (cm) 33.5 WC - Nurse 2 - General Ulcer CM Notes Start: 06/29/20 12:34 Freq: Status: Active Protocol: Activity Type Activity Date Activity User E-Sign Co-Sign Detail Recorded Client Recorded Date Recorded By Document 07/24/20 12:18 PL [id number] 07/24/20 12:21 PL 07/24/20 12:18 Wound Center Nurse 2 [Procedure/Treatment] #9 LLE Lat -Procedure Performed No #8- RLE -Time 11:10 -Correct Patient Yes -Correct Side, Site, Position Yes -Correct Procedure Yes -Procedure Performed Yes -Type of Procedure Debridement -Clinical Debridement Subcutaneous -Tissue Removed Subcutaneous -Post Debridement (cm) - Length 12 -Post Debridement (cm) - Width 14.3 -Post Debridement (cm) - Depth 0.1 -Total Square (Post) (cm) 171.6 -Area of Debridement (cm) - Length 12 -Area of Debridement (cm) - Width 14.3 -Total Square (Area) (cm) 171.6 -Tunneling No -Undermining/Tunneling No -Circular Undermining No -Wound/Ulcer Outcome Not Healed -Ulcer Cleansing Rinsed/ Irrigated with Saline -Foul Odor after Cleansing No -Bioengineered Tissue No -Debridement - Subq, 1st 20sq cm Yes -Debridement, SubQ, ea addt'l 20sq cm 8 or part thereof [See Physician Procedure note for Specifics] Pain Scale: 0-10 Numeric [Pain] -Is Patient Pain Free? Yes WC - Nurse 3 - General Ulcer D/C NN Start: 06/29/20 12:34 Freq: Status: Active Protocol: Activity Type Activity Date Activity User E-Sign Co-Sign Detail Recorded Client Recorded Date Recorded By Document 07/24/20 11:34 DL [id number] 07/24/20 11:35 DL 07/24/20 11:34 Wound Care Nurse 3 [Wound Dressing] #9 LLE Lat -Ulcer Cleansing Wound Cleanser -Foul Odor after Cleansing No -Primary Dressing Applied NonAdherent Contact Layer -Other Dressing Xtrasorb -Primary Dressing Covered/Secured Dry Gauze & with Roll Gauze #8- RLE -Ulcer Cleansing Wound Cleanser -Foul Odor after Cleansing No -Primary Dressing Applied NonAdherent Contact Layer -Other Dressing Xtrasorb -Primary Dressing Covered/Secured Dry Gauze & with Roll Gauze [Compression Applied] BILATERAL -Lotion applied to leg before Yes compression wrap -Multi-Layered Wrap Application Multi-Layer Comp - Bilat ($ ) [Post Procedure Tolerated] -Treatment Response Procedure Tolerated Well Pain Scale: 0-10 Numeric [Pain] -Is Patient Pain Free? Yes WC - Visit Discharge [Visit Discharge Information] -Discharge Condition Stable -Ambulatory Status Ambulatory -Transportation Private Auto Musculoskeletal: No Muscle Wasting Neurological: Cranial nerves II-XII grossly intact, Neuro grossly intact Psych/Mental Status: Normal Affect, Appropriate, Alert and oriented to time, place, person, mood and affect Debridement Note Post-Debridement Measurements/Treatment NOLA - Nurse 2 - General Ulcer CM Notes Start: 06/29/20 12:34 Freq: Status: Active Protocol: Activity Type Activity Date Activity User E-Sign Co-Sign Detail Recorded Client Recorded Date Recorded By Document 12/29/20 12:18 PL [id number] 07/24/20 12:21 PL 07/24/20 12:18 Wound Center Nurse 2 #9 LLE Lat -Procedure Performed No #8- RLE -Time 11:10 -Correct Patient Yes -Correct Side, Site, Position Yes -Correct Procedure Yes -Procedure Performed Yes -Type of Procedure Debridement -Clinical Debridement Subcutaneous -Tissue Removed Subcutaneous -Post Debridement (cm) - Length 12 -Post Debridement (cm) - Width 14.3 -Post Debridement (cm) - Depth 0.1 -Total Square (Post) (cm) 171.6 -Area of Debridement (cm) - Length 12 -Area of Debridement (cm) - Width 14.3 -Total Square (Area) (cm) 171.6 -Tunneling No -Undermining/Tunneling No -Circular Undermining No -Wound/Ulcer Outcome Not Healed -Ulcer Cleansing Rinsed/ Irrigated with Saline -Foul Odor after Cleansing No -Bioengineered Tissue No -Debridement - Subq, 1st 20sq cm Yes -Debridement, SubQ, ea addt'l 20sq cm 8 or part thereof Pain Scale: 0-10 Numeric Is Patient Pain Free? Yes WC - Nurse 3 - General Ulcer D/C NN Start: 06/29/20 12:34 Freq: Status: Active Protocol: Activity Type Activity Date Activity User E-Sign Co-Sign Detail Recorded Client Recorded Date Recorded By Document 06/29/20 12:34 RB [id number] 06/29/20 12:37 RB Document 07/06/20 13:19 DL [id number] 07/06/20 13:23 DL Document 07/10/20 08:53 DL [id number] 07/10/20 08:58 DL Document 07/13/20 12:06 BMF [id number] 07/13/20 12:07 BMF Document 07/17/20 11:27 KR [id number] 07/17/20 11:27 KR Document 07/24/20 11:34 DL [id number] 07/24/20 11:35 DL 06/29/20 07/06/20 07/10/20 12:34 13:19 08:53 Vital Signs Temperature (97.8 F-99.1 F) 97.8 F 98.1 F 96.9 F L Temperature Source Temporal Temporal Temporal Pulse Rate (60-100) 78 82 74 Pulse Location Monitor Monitor Monitor Respiratory Rate (12-18) 18 20 H 20 H Respiratory rate source Observation Observation Observation Blood Pressure (90/60-120/80) 129/78 H 142/81 H 141/69 H Blood Pressure Mean (mm Hg) 95 101 93 Source Monitor Monitor Monitor Position Semi-Fowlers Blood Pressure Location Left Arm Pain Scale: 0-10 Numeric Is Patient Pain Free? Yes Yes Yes Wound Care Nurse 3 #9 LLE Lat -Ulcer Cleansing -Foul Odor after Cleansing -Primary Dressing Applied -Other Dressing -Primary Dressing Covered/Secured with #8- RLE -Ulcer Cleansing Wound Cleanser Wound Cleanser -Foul Odor after Cleansing No No -Primary Dressing Applied Promogran -Other Dressing promogran promogram -Primary Dressing Covered/Secured with Dry Gauze -Other Covering unna -Promogran 1 BILATERAL -Lotion applied to leg before compression wrap -Multi-Layered Wrap Application Unna Boot - Unna Boot - Unna Boot - Bilateral ($) Bilateral ($) Bilateral ($) -Unna Boots (Bilat) ($) 2 2 2 Treatment Response Procedure Procedure Procedure Tolerated Well Tolerated Well Tolerated Well WC - Visit Discharge Discharge Condition Stable Stable Stable Ambulatory Status Ambulatory Ambulatory Ambulatory Transportation Private Auto Private Auto Private Auto Accompanied by Medication Reconcilliation completed & No provided to patient/care provider Clinical Summary of Care Provided Yes 07/13/20 07/17/20 07/24/20 12:06 11:27 11:34 Vital Signs Temperature (97.8 F-99.1 F) Temperature Source Pulse Rate (60-100) Pulse Location Respiratory Rate (12-18) Respiratory rate source Blood Pressure (90/60-120/80) Blood Pressure Mean (mm Hg) Source Position Blood Pressure Location Pain Scale: 0-10 Numeric Is Patient Pain Free? Yes Yes Yes Wound Care Nurse 3 #9 LLE Lat -Ulcer Cleansing Wound Cleanser -Foul Odor after Cleansing No -Primary Dressing Applied NonAdherent Contact Layer -Other Dressing Xtrasorb -Primary Dressing Covered/Secured with Dry Gauze & Roll Gauze #8- RLE -Ulcer Cleansing soapy water Rinsed/ Wound Cleanser Irrigated with Saline -Foul Odor after Cleansing No No -Primary Dressing Applied Other NonAdherent Contact Layer -Other Dressing promogran Xtrasorb -Primary Dressing Covered/Secured with Other Dry Gauze & Roll Gauze -Other Covering unna boot -Promogran BILATERAL -Lotion applied to leg before Yes compression wrap -Multi-Layered Wrap Application Unna Boot - Unna Boot - Multi-Layer Bilateral ($) Bilateral ($) Comp - Bilat ($ ) -Unna Boots (Bilat) ($) 1 1 Treatment Response Procedure Procedure Tolerated Well Tolerated Well WC - Visit Discharge Discharge Condition Stable Stable Stable Ambulatory Status Ambulatory Ambulatory Ambulatory Transportation Private Auto Private Auto Private Auto Accompanied by Medication Reconcilliation completed & provided to patient/care provider Clinical Summary of Care Provided Laterality: Right - Lateral calf Type of Debridement: Excisional debridement Anesthesia Used: 5% Lidocaine Gel Depth: Down to and including healthy tissue, in the subcutaneous layer Percentage of wound debrided: 100 Instrument Used: 5mm curette Tissue Removed: Bioburden and nonviable tissue Severity: Fat Layer Exposed Amount of bleeding with debridement: Mild Bleeding Controlled with: Compression and gauze Patient tolerated procedure well Assessment/Plan Active Problems Nonhealing ulcer of right lower extremity with fat layer exposed (Chronic) Decreased dorsalis pedis pulse (Chronic) Lymphedema of both lower extremities (Chronic) Pain, lower extremity (Chronic) Morbid obesity with BMI of 60.0-69.9, adult (Chronic) Venous insufficiency (chronic) (peripheral) (Chronic) Swelling of lower extremity (Chronic) Edema of both legs (Chronic) Ulcer of right lower leg (Chronic) Venous stasis ulcer (Chronic) Dependent edema (Chronic) Venous hypertension, chronic, with ulcer and inflammation (Chronic) Venous stasis dermatitis (Chronic) Diabetes mellitus (Chronic) Gout (Chronic) MASON (obstructive sleep apnea) (Chronic) Hypertension (Chronic) Assessment: This is a 54-year-old morbidly obese diabetic white male with multiple medical problems. He presented with profound venous stasis changes in both lower extremities, as well as a small ulceration on the right lateral calf. He is morbidly obese, and relatively inactive. He spends large portions of each day in an idle sitting position. He had recently received care at a wound clinic in [place], [place]. His prior care involved serial debridements and the use of multilayer compression wraps. Routine laboratory studies have been obtained, the results of which are as follows: White blood count 5.7, hemoglobin 13.8, hematocrit 43.7, platelets 404,000, glucose 93, BUN 11, creatinine 0.97, total protein 7.8, calcium 9.1, AST 25, alkaline phosphatase 78, ALT 46, total bilirubin 0.40, sodium 139, potassium 4.3, chloride 104, serum prealbumin 26.9. A noninvasive lower extremity arterial study reveals no evidence of significant arterial occlusive disease in the lower extremities bilaterally. Plan: A lengthy discussion has been undertaken with the patient once again. Conservative treatment measures are to be continued. There is question as to the patient's likely level of compliance. The patient claims to be elevating his lower extremities as advised. He claims to be using his mechanical pneumatic compression pumps 2-3 times daily. However, his elicits a completely different story, indicative of the fact that the patient has not been compliant with recommended measures. This appears to be the reason why the patient has failed to demonstrate significant improvement. He has been advised to continue sleeping on a flat mattress at night. Leg elevation has been recommended during daytime hours as well. Leg elevation is to be to heart level, or higher. This is to be accomplished as much as possible. Prolonged idle sitting has been discouraged. Activity has been encouraged, though the patient's morbid obesity will likely preclude any significant increase or enhancement of the patient's activity level. We are to continue compression in both lower extremities using a multilayer Unna boot compression wrap bilaterally. We are to continue the use of Promogran topically to the ulceration on the right lateral calf. This will be changed twice weekly with changes of the compression wraps. We are to transition to the use of 3M 2 layer compression wraps bilaterally, changed twice weekly. This is due to concerns regarding exudation of fluid from the pores of the lower extremities, and suspected maceration. With respect to the denuded areas of epithelium in both lower extremities, we are to apply Adaptic and Xtrasorb to these areas with each change of the compression wrap. Patient will return in 1 week for reassessment. The patient has in his possession pneumatic mechanical compression pumps, and has been encouraged to use these 2 or 3 times daily. We are to request the patient's recent venous duplex examinations from [facility] in [place]. The patient had a dietary consult recently, though the documentation of the encounter has not yet been received. Significant weight loss is a primary objective. Optimization of the patient's glycemic control has been recommended. The patient is to follow-up in 1 week for reevaluation. Once again, a lack of patient compliance is suspected to be an issue in regard to the patient's failure to progress. The patient is not a smoker. Influenza vaccine was not administered today. The patient weighs 435 pounds. He stands 5 feet 9 inches tall. His BMI is 64.2. Weight loss has been recommended, in collaboration with the patient's primary care physician has been advised.
== END 2020-07-26 23:59 ==
LOC: WC 10:30
PROVIDERS: PCP Internal Medicine; Referring Provider Surgery; Visit Provider Surgery
DX: I83.018 Varicose veins of right lower extremity with ulcer other part of lower leg (principal); L97.212 Non-pressure chronic ulcer of right calf with fat layer exposed; I87.8 Other specified disorders of veins; I87.2 Venous insufficiency (chronic) (peripheral); M79.89 Other specified soft tissue disorders; R60.0 Localized edema; I89.0 Lymphedema, not elsewhere classified; M79.605 Pain in left leg; E11.9 Type 2 diabetes mellitus without complications; I10 Essential (primary) hypertension; M10.9 Gout, unspecified; G47.33 Obstructive sleep apnea (adult) (pediatric); Z91.19 Patient's noncompliance with other medical treatment and regimen; E66.01 Morbid (severe) obesity due to excess calories; Z68.44 Body mass index [BMI] 60.0-69.9, adult; Z79.899 Other long term (current) drug therapy; Z86.14 Personal history of Methicillin resistant Staphylococcus aureus infection; Z87.891 Personal history of nicotine dependence
CPT/HCPCS: 11042; 11045; 29580; 29581

== ENCOUNTER 2020-08-15 13:00 | Outpatient (RCR) | payer MEDICAID, SELFPAY ==
[2020-07-31 10:05] VITALS: BMI 64.2
== END 2020-08-26 23:59 ==
LOC: NS 13:00
PROVIDERS: PCP Internal Medicine; Visit Provider Surgery
DX: Z71.3 Dietary counseling and surveillance (principal); E66.01 Morbid (severe) obesity due to excess calories
CPT/HCPCS: 97803

== ENCOUNTER 2020-08-24 12:00 | Outpatient (RCR) | payer MEDICAID, SELFPAY ==
[2020-07-27 00:30] VITALS: BP 157/53; PULSE 84; RESP 22; TEMP 36.8
[2020-07-31 10:05] VITALS: BP 155/60; PULSE 80; RESP 18; TEMP 36.6; BMI 64.2
--- NOTE | 2020-07-31 10:44 | HP.PCM_ITS ---
(1) Nonhealing ulcer of left lower extremity with fat layer exposed Status: Resolved Code(s): L97.922 - Non-pressure chronic ulcer of unspecified part of left lower leg with fat layer exposed Comment: x 2 anterior and posterior (2) Nonhealing ulcer of right lower extremity with fat layer exposed Status: Chronic Code(s): L97.912 - Non-pressure chronic ulcer of unspecified part of right lower leg with fat layer exposed (3) Decreased dorsalis pedis pulse Status: Chronic Code(s): R09.89 - Other specified symptoms and signs involving the circulatory and respiratory systems (4) Lymphedema of both lower extremities Status: Chronic Code(s): I89.0 - Lymphedema, not elsewhere classified (5) Pain, lower extremity Status: Chronic Qualifiers: Laterality: bilateral Code(s): M79.606 - Pain in leg, unspecified (6) Morbid obesity with BMI of 60.0-69.9, adult Status: Chronic Code(s): E66.01 - Morbid (severe) obesity due to excess calories; Z68.44 - Body mass index [BMI] 60.0-69.9, adult (7) Skin tear of left lower leg without complication Status: Resolved Qualifiers: Code(s): S81.812A - Laceration without foreign body, left lower leg, initial encounter (8) Venous insufficiency (chronic) (peripheral) Status: Chronic Code(s): I87.2 - Venous insufficiency (chronic) (peripheral) (9) Swelling of lower extremity Status: Chronic Code(s): M79.89 - Other specified soft tissue disorders (10) Edema of both legs Status: Chronic Code(s): R60.0 - Localized edema (11) Ulcer of right lower leg Status: Chronic Qualifiers: Non-pressure ulcer stage: with fat layer exposed Code(s): L97.919 - Non-pressure chronic ulcer of unspecified part of right lower leg with unspecified severity (12) Venous stasis ulcer Status: Chronic Qualifiers: Venous stasis ulcer site: calf Varicose vein presence: without varicose veins Laterality: right Non-pressure ulcer stage: with fat layer exposed Qualified Code(s): I87.2 - Venous insufficiency (chronic) (peripheral); L97.212 - Non-pressure chronic ulcer of right calf with fat layer exposed Code(s): I83.009 - Varicose veins of unspecified lower extremity with ulcer of unspecified site; L97.909 - Non-pressure chronic ulcer of unspecified part of unspecified lower leg with unspecified severity (13) Dependent edema Status: Chronic Code(s): R60.9 - Edema, unspecified (14) Venous hypertension, chronic, with ulcer and inflammation Status: Chronic Qualifiers: Laterality: bilateral Code(s): I87.339 - Chronic venous hypertension (idiopathic) with ulcer and inflammation of unspecified lower extremity; L97.909 - Non-pressure chronic u lcer of unspecified part of unspecified lower leg with unspecified severity (15) Venous stasis dermatitis Status: Chronic Qualifiers: Laterality: bilateral Code(s): I87.2 - Venous insufficiency (chronic) (peripheral) (16) Diabetes mellitus Status: Chronic Code(s): E11.9 - Type 2 diabetes mellitus without complications (17) Gout Status: Chronic Code(s): M10.9 - Gout, unspecified (18) MASON (obstructive sleep apnea) Status: Chronic Code(s): G47.33 - Obstructive sleep apnea (adult) (pediatric) (19) Hypertension Status: Chronic Code(s): I10 - Essential (primary) hypertension History of Present Illness Date of Service: 07/31/20 Chief Complaint: Severe swelling, edema, and lymphedema of the lower extremities, with ulceration of the right distal lower extremity History of Wound: This is a 54-year-old morbidly obese white male who presented with chronic swelling, edema, and lymphedema in his lower extremities, and a recent ulceration on the right lateral calf. The patient has been treated at our facility in the past for similar medical problems. With respect to his current problems, he has been receiving care recently at a wound clinic in [place], [place]. However, the patient has become dissatisfied with the care he is receiving, and is seeking medical care with our facility. Patient states that the ulceration on the right lateral calf has been present for several months. He has noticed very little improvement. It appears as though debridements have been performed serially, and weekly wraps have been implement ed using 3M 2 layer compression wraps. He has recently obtained mechanical pneumatic compression pumps as well. He has a history of MRSA, and is currently on a prophylactic dose of azithromycin 250 mg p.o. daily. Patient claims to sleep on a flat mattress at night. However, he is not active, and spends a good deal of each day in a sitting position. He denies a history of deep vein thrombosis. It appears as though a venous duplex examination has been recently performed in [place], [place], at [facility]. We will attempt to obtain these results. A noninvasive lower extremity arterial study has been performed in 2018, the results of which revealed no evidence of arterial occlusive disease in the lower extremities. The patient also indicates that he was hospitalized for 2 days at [facility] in [place], [place], in January 2020, which was for treatment relative to his lower extremity problems. Past Medical History Past Medical History: Chronic Problems Nonhealing ulcer of right lower extremity with fat layer exposed (Chronic) Decreased dorsalis pedis pulse (Chronic) Lymphedema of both lower extremities (Chronic) Pain, lower extremity (Chronic) Morbid obesity with BMI of 60.0-69.9, adult (Chronic) Venous insufficiency (chronic) (peripheral) (Chronic) Swelling of lower extremity (Chronic) Edema of both legs (Chronic) Ulcer of right lower leg (Chronic) Venous stasis ulcer (Chronic) Dependent edema (Chronic) Venous hypertension, chronic, with ulcer and inflammation (Chronic) Venous stasis dermatitis (Chronic) Diabetes mellitus (Chronic) Gout (Chronic) MASON (obstructive sleep apnea) (Chronic) Hypertension (Chronic) Surgical History: herniorrhaphy - Left inguinal Allergies/Adverse Reactions: Allergies shellfish derived Allergy (Verified 05/15/20 11:16) Food Allergy Home Medications: Ambulatory Orders Medication Instructions Recorded Aldactone 25 mg PO BID 05/06/18 Lasix 80 mg PO DAILY 05/06/18 Lisinopril 20 mg PO DAILY 09/16/18 Allopurinol 300 mg PO DAILY 05/15/20 Azithromycin 250 mg PO DAILY 05/15/20 - Family History Paternal - - The patient's father at the age of 68 with a history of renal failure. Patient's mother is living, age 74, and suffers from atrial fibrillation. Smoking Status: Former smoker Tobacco Use: Non-smoker Review of Systems Constitutional: Denies: Chills, Fever, Weight Change Eyes: Denies: Pain, Vision Change HEENT: Denies: Difficulty Hearing, Difficulty Swallowing, Sinus Congestion Cardiovascular: Denies: Chest Pain, Palpitations Respiratory: Denies: Cough, Shortness of Breath Gastrointestinal: Denies: Diarrhea, Nausea, Vomiting Genitourinary: Denies: Dysuria, Hematuria Endocrine: Denies: Heat/ Cold Intolerance, Polydipsia, Polyuria Hematologic/ Lymphatic: Denies: Easy Bruising, Easy Bleeding - Physical Exam Vital Signs Temp Pulse Resp BP 97.8 F 80 18 155/60 H 07/31/20 10:05 07/31/20 10:05 07/31/20 10:05 07/31/20 10:05 General: Alert, Oriented x3, Cooperative, No apparent distress, Well developed, Well nourished, - - Patient is morbidly obese. HEENT: Atraumatic, PERRLA, EOMI, Normocephalic Oral: Moist Mucosa Neck: No JVD Lungs: Normal air movement Abdomen: Non-Distended, Obese Extremities: No clubbing, No cyanosis, No Calf Tenderness, - - Severe swelling, edema, and lymphedema persist in the patient's lower extremities bilaterally. Diffuse scaly dermatitis is noted bilaterally in the lower extremities below the knee. Lipodermatosclerosis and hyperpigmentation is also noted bilaterally below the knees. Addt'l Wound Findings: The ulceration on the right lateral calf appears to be healed. However, there is a large area of denuded epithelium, noted most prominently on the left lateral calf. There is no sign of infection or cellulitis. Wound Measurements and Assessment WC - Nurse 1 - General Ulcer Measurement Start: 07/31/20 10:04 Freq: Status: Active Protocol: Activity Type Activity Date Activity User E-Sign Co-Sign Detail Recorded Client Recorded Date Recorded By Document 07/31/20 10:05 [facility] [id number] 07/31/20 10:21 [facility] 07/31/20 10:05 [facility] Nurse 1 [Ulcer Assessment] #9 LLE Lat -Combined with other wound No -Current Size (cm) - Length 13.8 -Current Size (cm) - Width 18 -Current Size (cm) - Depth 0.1 -Total Square Cm 248.4 -Photo Taken No -Epithelialization None Present -Tunneling No -Undermining/Tunneling No -Circular Undermining No -Exudate Amt Large -Exudate Type Serosanguineous -Wound Margin Distinct, Outline Attached -Granulation Amt Medium (34-66%) -Granulation Quality Red -Slough/Fibrin Yes -Necrosis Amt Medium (34-66%) -Necrotic Tissue Type Adherent Slough -Texture (Meri-wound Skin Appearance) Assessed, Scarring -Moisture (Meri-wound Skin Appearance Assessed, ) Maceration, Weeping -Color (Meri-wound Skin Appearance) Assessed, Erythema, Hemosiderin Staining,Palor -Temperature (Meri-wound Skin No Abnormality Appearance) (Pt Warm) -Tenderness on Palpation (Meri-wound No Skin Appearance) -Ulcer Cleansing Wound Cleanser -Foul Odor after Cleansing No -Anesthetic Used 4% Lidocaine Solution #8- RLE -Combined with other wound No -Current Size (cm) - Length 5.2 -Current Size (cm) - Width 8 -Current Size (cm) - Depth 0.1 -Total Square Cm 41.6 -Photo Taken No -Epithelialization None Present -Tunneling No -Undermining/Tunneling No -Circular Undermining No -Exudate Amt Large -Exudate Type Serosanguineous -Wound Margin Flat & Intact -Granulation Amt Medium (34-66%) -Granulation Quality [place],Red -Slough/Fibrin Yes -Necrosis Amt Medium (34-66%) -Necrotic Tissue Type Adherent Slough -Texture (Meri-wound Skin Appearance) Assessed, Excoriation, Scarring -Moisture (Meri-wound Skin Appearance Assessed, ) Maceration, Weeping -Color (Meri-wound Skin Appearance) Assessed, Erythema, Hemosiderin Staining,Palor -Temperature (Meri-wound Skin No Abnormality Appearance) (Pt Warm) -Tenderness on Palpation (Meri-wound No Skin Appearance) -Ulcer Cleansing Wound Cleanser -Foul Odor after Cleansing No -Anesthetic Used 4% Lidocaine Solution [Edema Assessment] -Lower Limb Edema Present Yes -Right Calf (cm) 54.2 -Right Ankle (cm) 33.7 -Left Calf (cm) 52.5 -Left Ankle (cm) 32.8 Musculoskeletal: No Muscle Wasting Neurological: Cranial nerves II-XII grossly intact, Neuro grossly intact Psych/Mental Status: Normal Affect, Appropriate, Alert and oriented to time, place, person, mood and affect Debridement Note No debridement was completed today Assessment/Plan Assessment: This is a 54-year-old morbidly obese diabetic white male with mult iple medical problems. He presented with profound venous stasis changes in both lower extremities, as well as a small ulceration on the right lateral calf. He is morbidly obese, and relatively inactive. He spends large portions of each day in an idle sitting position. He had recently received care at a wound clinic in [place], [place]. His prior care involved serial debridements and the use of multilayer compression wraps. Routine laboratory studies have been obtained, the results of which are as follows: White blood count 5.7, hemoglobin 13.8, hematocrit 43.7, platelets 404,000, glucose 93, BUN 11, creatinine 0.97, total protein 7.8, calcium 9.1, AST 25, alkaline phosphatase 78, ALT 46, total bilirubin 0.40, sodium 139, potassium 4.3, chloride 104, serum prealbumin 26.9. A noninvasive lower extremity arterial study reveals no evidence of significant arterial occlusive disease in the lower extremities bilaterally. Plan: A lengthy discussion has been undertaken with the patient once again. Conservative treatment measures are to be continued. There is question as to the patient's level of compliance. The patient claims to be elevating his lower extremities as advised. He claims to be using his mechanical pneumatic compression pumps 2-3 times daily. However, his has related a completely different story, indicative of the fact that the patient has not been compliant with recommended measures. This appears to be the reason why the patient has failed to demonstrate significant improvement. He has been advised to continue sleeping on a flat mattress at night. Leg elevation has been recommended during daytime hours as well. Leg elevation is to be to heart level, or higher. This is to be accomplished as much as possible. Prolonged idle sitting has been discouraged. Activity has been encouraged, though the patient's morbid obesity likely precludes any significant increase or enhancement of the patient's activity level. We are to continue compression in both lower extremities using a 3M 2 layer compression wrap. Distressing skin lotion is to be applied topically to the intact skin with each change of the compression wrap. Compression wraps will be changed twice weekly. Adaptic and Xtrasorb are to be placed topically over the areas of denuded epithelium. Wraps and dressings will be changed twice weekly. Patient will return in 1 week for reassessment. The patient has in his possession pneumatic mechanical compression pumps, and has been encouraged to use these 2 or 3 times daily. We are to request the patient's recent venous duplex examinations from [facility] in [place]. The patient had a dietary consult recently, though the documentation of the encounter has not yet been received. Significant weight loss is a primary objective. Optimization of the patient's glycemic control has been recommended. The patient is to follow-up in 1 week for reevaluation. Once again, a lack of patient compliance is suspected to be an issue in regard to the patient's failure to progress. The patient is not a smoker. Influenza vaccine was not administered today. The patient weighs 435 pounds. He stands 5 feet 9 inches tall. His BMI is 64.2. Weight loss has been recommended, in collaboration with the patient's primary care physician has been advised. Total time: 29 minutes.
[2020-08-03 12:13] VITALS: BP 152/65; PULSE 74; RESP 18; TEMP 36.6; BMI 64.2
[2020-08-07 10:29] VITALS: BP 148/57; PULSE 84; TEMP 36.1; BMI 64.2
--- NOTE | 2020-08-07 11:54 | PCM.WC.HP ---
(1) Nonhealing ulcer of left lower extremity with fat layer exposed Status: Resolved Code(s): L97.922 - Non-pressure chronic ulcer of unspecified part of left lower leg with fat layer exposed Comment: x 2 anterior and posterior (2) Nonhealing ulcer of right lower extremity with fat layer exposed Status: Chronic Code(s): L97.912 - Non-pressure chronic ulcer of unspecified part of right lower leg with fat layer exposed (3) Decreased dorsalis pedis pulse Status: Chronic Code(s): R09.89 - Other specified symptoms and signs involving the circulatory and respiratory systems (4) Lymphedema of both lower extremities Status: Chronic Code(s): I89.0 - Lymphedema, not elsewhere classified (5) Pain, lower extremity Status: Chronic Qualifiers: Laterality: bilateral Code(s): M79.606 - Pain in leg, unspecified (6) Morbid obesity with BMI of 60.0-69.9, adult Status: Chronic Code(s): E66.01 - Morbid (severe) obesity due to excess calories; Z68.44 - Body mass index [BMI] 60.0-69.9, adult (7) Skin tear of left lower leg without complication Status: Resolved Qualifiers: Code(s): S81.812A - Laceration without foreign body, left lower leg, initial encounter (8) Venous insufficiency (chronic) (peripheral) Status: Chronic Code(s): I87.2 - Venous insufficiency (chronic) (peripheral) (9) Swelling of lower extremity Status: Chronic Code(s): M79.89 - Other specified soft tissue disorders (10) Edema of both legs Status: Chronic Code(s): R60.0 - Localized edema (11) Ulcer of right lower leg Status: Chronic Qualifiers: Non-pressure ulcer stage: with fat layer exposed Code(s): L97.919 - Non-pressure chronic ulcer of unspecified part of right lower leg with unspecified severity (12) Venous stasis ulcer Status: Chronic Qualifiers: Venous stasis ulcer site: calf Varicose vein presence: without varicose veins Laterality: right Non-pressure ulcer stage: with fat layer exposed Qualified Code(s): I87.2 - Venous insufficiency (chronic) (peripheral); L97.212 - Non-pressure chronic ulcer of right calf with fat layer exposed Code(s): I83.009 - Varicose veins of unspecified lower extremity with ulcer of unspecified site; L97.909 - Non-pressure chronic ulcer of unspecified part of unspecified lower leg with unspecified severity (13) Dependent edema Status: Chronic Code(s): R60.9 - Edema, unspecified (14) Venous hypertension, chronic, with ulcer and inflammation Status: Chronic Qualifiers: Laterality: bilateral Code(s): I87.339 - Chronic venous hypertension (idiopathic) with ulcer and inflammation of unspecified lower extremity; L97.909 - Non-pressure chronic ulcer of unspecified part of unspecified lower leg with unspecified severity (15) Venous stasis dermatitis Status: Chronic Qualifiers: Laterality: bilateral Code(s): I87.2 - Venous insufficiency (chronic) (peripheral) (16) Diabetes mellitus Status: Chronic Code(s): E11.9 - Type 2 diabetes mellitus without complications (17) Gout Status: Chronic Code(s): M10.9 - Gout, unspecified (18) MASON (obstructive sleep apnea) Status: Chronic Code(s): G47.33 - Obstructive sleep apnea (adult) (pediatric) (19) Hypertension Status: Chronic Code(s): I10 - Essential (primary) hypertension History of Present Illness Date of Service: 08/07/20 Chief Complaint: Severe swelling, edema, and lymphedema of the lower extremities, with ulceration of the right distal lower extremity History of Wound: This is a 54-year-old morbidly obese white male who presented with chronic swelling, edema, and lymphedema in his lower extremities, and a recent ulceration on the right lateral calf. The patient has been treated at our facility in the past for similar medical problems. With respect to his current problems, he has been receiving care recently at a wound clinic in [place], [place]. However, the patient has become dissatisfied with the care he is receiving, and is seeking medical care with our facility. Patient states that the ulceration on the right lateral calf has been present for several months. He has noticed very little improvement. It appears as though debridements have been performed serially, and weekly wraps have been implemented using 3M 2 layer compression wraps. He has recently obtained mechanical pneumatic compression pumps as well. He has a history of MRSA, and is currently on a prophylactic dose of azithromycin 250 mg p.o. daily. Patient claims to sleep on a flat mattress at night. However, he is not active, and spends a good deal of each day in a sitting position. He denies a history of deep vein thrombosis. It appears as though a venous duplex examination has been recently performed in [place], [place], at [facility]. We will attempt to obtain these results. A noninvasive lower extremity arterial study has been performed in 2018, the results of which revealed no evidence of arterial occlusive disease in the lower extremities. The patient also indicates that he was hospitalized for 2 days at [facility] in [place], [place], in January 2020, which was for treatment relative to his lower extremity problems. Past Medical History Past Medical History: Chronic Problems Nonhealing ulcer of right lower extremity with fat layer exposed (Chronic) Decreased dorsalis pedis pulse (Chronic) Lymphedema of both lower extremities (Chronic) Pain, lower extremity (Chronic) Morbid obesity with BMI of 60.0-69.9, adult (Chronic) Venous insufficiency (chronic) (peripheral) (Chronic) Swelling of lower extremity (Chronic) Edema of both legs (Chronic) Ulcer of right lower leg (Chronic) Venous stasis ulcer (Chronic) Dependent edema (Chronic) Venous hypertension, chronic, with ulcer and inflammation (Chronic) Venous stasis dermatitis (Chronic) Diabetes mellitus (Chronic) Gout (Chronic) MASON (obstructive sleep apnea) (Chronic) Hypertension (Chronic) Surgical History: herniorrhaphy - Left inguinal Allergies/Adverse Reactions: Allergies shellfish derived Allergy (Verified 05/15/20 11:16) Food Allergy Home Medications: Ambulatory Orders Medication Instructions Recorded Aldactone 25 mg PO BID 05/06/18 Lasix 80 mg PO DAILY 05/06/18 Lisinopril 20 mg PO DAILY 09/16/18 Allopurinol 300 mg PO DAILY 05/15/20 Azithromycin 250 mg PO DAILY 05/15/20 - Family History Paternal - - The patient's father at the age of 68 with a history of renal failure. Patient's mother is living, age 74, and suffers from atrial fibrillation. Smoking Status: Former smoker Tobacco Use: Non-smoker Review of Systems Constitutional: Denies: Chills, Fever, Weight Change Eyes: Denies: Pain, Vision Change HEENT: Denies: Difficulty Hearing, Difficulty Swallowing, Sinus Congestion Cardiovascular: Denies: Chest Pain, Palpitations Respiratory: Denies: Cough, Shortness of Breath Gastrointestinal: Denies: Diarrhea, Nausea, Vomiting Genitourinary: Denies: Dysuria, Hematuria Endocrine: Denies: Heat/ Cold Intolerance, Polydipsia, Polyuria Hematologic/ Lymphatic: Denies: Easy Bruising, Easy Bleeding - Physical Exam Vital Signs Temp Pulse Resp BP 97.0 F L 84 18 148/57 H 08/07/20 10:29 08/07/20 10:29 08/03/20 12:13 08/07/20 10:29 General: Alert, Oriented x3, Cooperative, No apparent distress, Well developed, Well nourished, - - The patient is morbidly obese. HEENT: Atraumatic, PERRLA, EOMI, Normocephalic Oral: Moist Mucosa Neck: No JVD Lungs: Normal air movement Abdomen: Non-Distended, Obese Extremities: No clubbing, No cyanosis, No Calf Tenderness, - - Severe swelling, edema, lymphedema persist in the patient's lower extremities bilaterally, though with slight improvement. There is significant scaly, erythematous dermatitis bilaterally in the distal lower extremities. Circumference measurements are documented elsewhere. Addt'l Wound Findings: There is an ulceration on the right lateral calf, which appears to be more superficial than previously noted, though not significantly changed in size. Dimensions are documented elsewhere. There is a moderate amount of bioburden. There is no sign of infection or cellulitis. On the left lateral calf, there is significant denudation of epithelium. Wound Measurements and Assessment WC - Nurse 1 - General Ulcer Measurement Start: 07/31/20 10:04 Freq: Status: Active Protocol: Activity Type Activity Date Activity User E-Sign Co-Sign Detail Recorded Client Recorded Date Recorded By Document 08/07/20 10:29 RUPA [id number] 08/07/20 10:35 RUPA 08/07/20 10:29 Wound Center Nurse 1 [Ulcer Assessment] #9 LLE Lat -Current Size (cm) - Length 3.5 -Current Size (cm) - Width 1.2 -Current Size (cm) - Depth 0.2 -Total Square Cm 4.20 -Exudate Amt Large -Exudate Type Serosanguineous -Wound Margin Distinct, Outline Attached -Granulation Amt Medium (34-66%) -Granulation Quality Red -Necrosis Amt Medium (34-66%) -Necrotic Tissue Type Adherent Slough -Texture (Meri-wound Skin Appearance) Assessed, Scarring -Moisture (Meri-wound Skin Appearance Assessed, ) Weeping,Dry/ Scaly -Color (Meri-wound Skin Appearance) Assessed, Hemosiderin Staining -Temperature (Meri-wound Skin No Abnormality Appearance) (Pt Warm) -Tenderness on Palpation (Meri-wound No Skin Appearance) -Ulcer Cleansing soap and water -Foul Odor after Cleansing No -Anesthetic Used 4% Lidocaine Solution #8- RLE -Current Size (cm) - Length 1.5 -Current Size (cm) - Width 1.1 -Current Size (cm) - Depth 0.1 -Total Square Cm 1.65 -Exudate Amt Small -Exudate Type Serosanguineous -Wound Margin Distinct, Outline Attached -Granulation Amt Small (1-33%) -Granulation Quality Red -Necrosis Amt Small (1-33%) -Necrotic Tissue Type Adherent Slough -Texture (Meri-wound Skin Appearance) Assessed, Scarring -Moisture (Meri-wound Skin Appearance Assessed,Dry/ ) Scaly -Color (Meri-wound Skin Appearance) Assessed, Mottled -Temperature (Meri-wound Skin No Abnormality Appearance) (Pt Warm) -Tenderness on Palpation (Meri-wound No Skin Appearance) -Ulcer Cleansing soap and water -Foul Odor after Cleansing No -Anesthetic Used 4% Lidocaine Solution [Edema Assessment] -Right Calf (cm) 52 -Right Ankle (cm) 32 -Left Calf (cm) 55 -Left Ankle (cm) 34 WC - Nurse 2 - General Ulcer CM Notes Start: 07/31/20 10:04 Freq: Status: Active Protocol: Activity Type Activity Date Activity User E-Sign Co-Sign Detail Recorded Client Recorded Date Recorded By Document 08/07/20 10:53 MW [id number] 08/07/20 10:57 MW 08/07/20 10:53 Wound Center Nurse 2 [Procedure/Treatment] #9 LLE Lat -Time 10:55 -Correct Patient Yes -Correct Side, Site, Position Yes -Correct Procedure Yes -Procedure Performed Yes -Type of Procedure Debridement -Clinical Debridement Subcutaneous -Tissue Removed Subcutaneous -Post Debridement (cm) - Length 3.6 -Post Debridement (cm) - Width 1.3 -Post Debridement (cm) - Depth 0.2 -Total Square (Post) (cm) 4.68 -Area of Debridement (cm) - Length 3.6 -Area of Debridement (cm) - Width 1.3 -Total Square (Area) (cm) 4.68 -Tunneling No -Undermining/Tunneling No -Circular Undermining No -Wound/Ulcer Outcome Not Healed -Ulcer Cleansing Rinsed/ Irrigated with Saline -Foul Odor after Cleansing No -Bioengineered Tissue No -Bleeding Controlled with Pressure -Offloading No -Treatment Response Procedure Tolerated Well -Debridement - Subq, 1st 20sq cm Yes #8- RLE -Time 10:55 -Correct Patient Yes -Correct Side, Site, Position Yes -Correct Procedure Yes -Procedure Performed Yes -Type of Procedure Debridement -Clinical Debridement Subcutaneous -Tissue Removed Subcutaneous -Post Debridement (cm) - Length 1.6 -Post Debridement (cm) - Width 1.2 -Post Debridement (cm) - Depth 0.1 -Total Square (Post) (cm) 1.92 -Area of Debridement (cm) - Length 1.6 -Area of Debridement (cm) - Width 1.2 -Total Square (Area) (cm) 1.92 -Tunneling No -Undermining/Tunneling No -Circular Undermining No -Wound/Ulcer Outcome Not Healed -Ulcer Cleansing Rinsed/ Irrigated with Saline -Foul Odor after Cleansing No -Bioengineered Tissue No -Bleeding Controlled with Pressure -Offloading No -Treatment Response Procedure Tolerated Well -Debridement - Subq, 1st 20sq cm No [See Physician Procedure note for Specifics] Pain Scale: 0-10 Numeric [Pain] -Is Patient Pain Free? Yes WC - Nurse 3 - General Ulcer D/C NN Start: 07/31/20 10:04 Freq: Status: Active Protocol: Activity Type Activity Date Activity User E-Sign Co-Sign Detail Recorded Client Recorded Date Recorded By Document 08/07/20 11:22 DL [id number] 08/07/20 11:24 DL 08/07/20 11:22 Wound Care Nurse 3 [Wound Dressing] #9 LLE Lat -Ulcer Cleansing Wound Cleanser -Foul Odor after Cleansing No -Other Dressing xeroform -Primary Dressing Covered/Secured Dry Gauze,Other with -Other Covering abd #8- RLE -Ulcer Cleansing Wound Cleanser -Foul Odor after Cleansing No -Primary Dressing Applied Promogran -Other Dressing abd -Promogran 1 [Compression Applied] BILATERAL -Multi-Layered Wrap Application Multi-Layer Comp - Bilat ($ ) [Post Procedure Tolerated] -Treatment Response Procedure Tolerated Well Pain Scale: 0-10 Numeric [Pain] -Is Patient Pain Free? Yes Musculoskeletal: No Muscle Wasting Neurological: Cranial nerves II-XII grossly intact, Neuro grossly intact Psych/Mental Status: Normal Affect, Appropriate, Alert and oriented to time, place, person, mood and affect Debridement Note Post-Debridement Measurements/Treatment WC - Nurse 2 - General Ulcer CM Notes Start: 07/31/20 10:04 Freq: Status: Active Protocol: Activity Type Activity Date Activity User E-Sign Co-Sign Detail Recorded Client Recorded Date Recorded By Document 07/31/20 12:02 PL [id number] 07/31/20 12:02 PL Document 08/07/20 10:53 MW [id number] 08/07/20 10:57 MW 07/31/20 08/07/20 12:02 10:53 Wound Center Nurse 2 #9 LLE Lat -Time 10:55 -Correct Patient Yes -Correct Side, Site, Position Yes -Correct Procedure Yes -Procedure Performed No Yes -Type of Procedure Debridement -Clinical Debridement Subcutaneous -Tissue Removed Subcutaneous -Post Debridement (cm) - Length 3.6 -Post Debridement (cm) - Width 1.3 -Post Debridement (cm) - Depth 0.2 -Total Square (Post) (cm) 4.68 -Area of Debridement (cm) - Length 3.6 -Area of Debridement (cm) - Width 1.3 -Total Square (Area) (cm) 4.68 -Tunneling No -Undermining/Tunneling No -Circular Undermining No -Wound/Ulcer Outcome Not Healed -Ulcer Cleansing Rinsed/ Irrigated with Saline -Foul Odor after Cleansing No -Bioengineered Tissue No -Bleeding Controlled with Pressure -Offloading No -Treatment Response Procedure Tolerated Well -Debridement - Subq, 1st 20sq cm Yes #8- RLE -Time 10:55 -Correct Patient Yes -Correct Side, Site, Position Yes -Correct Procedure Yes -Procedure Performed Yes -Type of Procedure Debridement -Clinical Debridement Subcutaneous -Tissue Removed Subcutaneous -Post Debridement (cm) - Length 1.6 -Post Debridement (cm) - Width 1.2 -Post Debridement (cm) - Depth 0.1 -Total Square (Post) (cm) 1.92 -Area of Debridement (cm) - Length 1.6 -Area of Debridement (cm) - Width 1.2 -Total Square (Area) (cm) 1.92 -Tunneling No -Undermining/Tunneling No -Circular Undermining No -Wound/Ulcer Outcome Healed- Not Healed Epithelialized -Ulcer Cleansing Rinsed/ Irrigated with Saline -Foul Odor after Cleansing No -Bioengineered Tissue No -Bleeding Controlled with Pressure -Offloading No -Treatment Response Procedure Tolerated Well -Debridement - Subq, 1st 20sq cm No Pain Scale: 0-10 Numeric Is Patient Pain Free? Yes Yes WC - Nurse 3 - General Ulcer D/C NN Start: 07/31/20 10:04 Freq: Status: Active Protocol: Activity Type Activity Date Activity User E-Sign Co-Sign Detail Recorded Client Recorded Date Recorded By Document 07/31/20 10:55 [facility] [id number] 07/31/20 10:57 BMF Document 08/03/20 12:13 RB [id number] 08/03/20 12:15 RB Document 08/07/20 11:22 DL [id number] 08/07/20 11:24 DL 07/31/20 08/03/20 08/07/20 10:55 12:13 11:22 Wound Care Nurse 3 #9 LLE Lat -Ulcer Cleansing Rinsed/ Wound Cleanser Wound Cleanser Irrigated with Saline -Foul Odor after Cleansing No No -Primary Dressing Applied NonAdherent NonAdherent Contact Layer, Contact Layer Other -Other Dressing xtrasorb x2 XTRASORB xeroform -Primary Dressing Covered/Secured with Dry Gauze,Other -Other Covering drsg by guillermina birch rn #8- RLE -Ulcer Cleansing Wound Cleanser Wound Cleanser -Foul Odor after Cleansing No -Primary Dressing Applied Other NonAdherent Promogran Contact Layer -Other Dressing 3m, drsg by guillermina birch rn -Promogran 1 BILATERAL -Lotion applied to leg before Yes compression wrap -Multi-Layered Wrap Application Multi-Layer Multi-Layer Multi-Layer Comp - Bilat ($ Comp - Bilat ($ Comp - Bilat ($ ) ) ) Left -Multi-Layered Wrap Application Multi-Layer Comp - Bilat ($ ) Treatment Response Procedure Procedure Procedure Tolerated Well Tolerated Well Tolerated Well Vital Signs Temperature (97.8 F-99.1 F) 98 F Temperature Source Temporal Pulse Rate (60-100) 74 Pulse Location Monitor Respiratory Rate (12-18) 18 Respiratory rate source Observation Blood Pressure (90/60-120/80) 152/65 H Blood Pressure Mean (mm Hg) 94 Source Monitor Position Semi-Fowlers Blood Pressure Location Left Arm Pain Scale: 0-10 Numeric Is Patient Pain Free? Yes Yes Yes WC - Visit Discharge Discharge Condition Stable Stable Ambulatory Status Ambulatory Ambulatory Transportation Private Auto Private Auto Medication Reconcilliation completed & No provided to patient/care provider Clinical Summary of Care Provided Yes Laterality: Right - Lateral calf Type of Debridement: Excisional debridement Anesthesia Used: 5% Lidocaine Gel Depth: Down to and including healthy tissue, in the subcutaneous layer Percentage of wound debrided: 100 Instrument Used: 5mm curette Severity: Fat Layer Exposed Amount of bleeding with debridement: Mild Bleeding Controlled with: Compression and gauze Patient tolerated procedure well Assessment/Plan Active Problems Nonhealing ulcer of right lower extremity with fat layer exposed (Chronic) Decreased dorsalis pedis pulse (Chronic) Lymphedema of both lower extremities (Chronic) Pain, lower extremity (Chronic) Morbid obesity with BMI of 60.0-69.9, adult (Chronic) Venous insufficiency (chronic) (peripheral) (Chronic) Swelling of lower extremity (Chronic) Edema of both legs (Chronic) Ulcer of right lower leg (Chronic) Venous stasis ulcer (Chronic) Dependent edema (Chronic) Venous hypertension, chronic, with ulcer and inflammation (Chronic) Venous stasis dermatitis (Chronic) Diabetes mellitus (Chronic) Gout (Chronic) MASON (obstructive sleep apnea) (Chronic) Hypertension (Chronic) Assessment: This is a 54-year-old morbidly obese diabetic white male with multiple medical problems. He presented with profound venous stasis changes in both lower extremities, as well as a small ulceration on the right lateral calf. He is morbidly obese, and relatively inactive. He spends large portions of each day in an idle sitting position. He had recently received care at a wound clinic in [place], [place]. His prior care involved serial debridements and the use of multilayer compression wraps. Routine laboratory studies have been obtained, the results of which are as follows: White blood count 5.7, hemoglobin 13.8, hematocrit 43.7, platelets 404,000, glucose 93, BUN 11, creatinine 0.97, total protein 7.8, calcium 9.1, AST 25, alkaline phosphatase 78, ALT 46, total bilirubin 0.40, sodium 139, potassium 4.3, chloride 104, serum prealbumin 26.9. A noninvasive lower extremity arterial study reveals no evidence of significant arterial occlusive disease in the lower extremities bilaterally. Plan: A lengthy discussion has been undertaken with the patient once again. Conservative treatment measures are to be continued. There is question as to the patient's level of compliance. The patient claims to be elevating his lower extremities as advised. He claims to be using his mechanical pneumatic compression pumps 2-3 times daily. However, his has previously related a completely different story, indicating that the patient has not been compliant with recommended measures. This appears to be the reason why the patient has failed to demonstrate significant improvement. He has been advised to continue sleeping on a flat mattress at night. Leg elevation has been recommended during daytime hours as well. Leg elevation is to be to heart level, or higher. This is to be accomplished as much as possible. Prolonged idle sitting has been discouraged. Activity has been encouraged, though the patient's morbid obesity likely precludes any significant increase or enhancement of the patient's activity level. We are to continue compression in both lower extremities using a 3M 2 layer compression wrap. These compression wraps will be changed twice weekly. Xeroform will be placed topically over the areas of denuded epithelium on the left lateral calf. Promogran will be applied to the small ulceration on the right lateral calf. The compression wraps and dressings will be changed twice weekly. Patient will return in 1 week for reassessment. The patient has in his possession pneumatic mechanical compression pumps, and has been encouraged to use these 2 or 3 times daily. We are to request the patient's recent venous duplex examinations from [facility] in [place]. The patient had a dietary consult recently, though the documentation of the encounter has not yet been received. Significant weight loss is a primary objective. Optimization of the patient's glycemic control has been recommended. The patient is to follow-up in 1 week for reevaluation. Once again, a lack of patient compliance is suspected to be an issue in regard to the patient's failure to progress. The patient is not a smoker. Influenza vaccine was not administered today. The patient weighs 435 pounds. He stands 5 feet 9 inches tall. His BMI is 64.2. Weight loss has been recommended, in collaboration with the patient's primary care physician has been advised. Total time: 29 minutes.
[2020-08-10 12:34] VITALS: BP 118/53; PULSE 80; RESP 18; TEMP 36.8; BMI 64.2
--- NOTE | 2020-08-10 12:36 | WC ---
left foot dorsal pt complains of tenderness small raised area noted skin intact gauze applied before 3m compression wrap
[2020-08-14 09:48] VITALS: BP 133/76; PULSE 75; TEMP 36.3; BMI 64.2
--- NOTE | 2020-08-14 10:36 | PCM.WC.HP ---
(1) Nonhealing ulcer of left lower extremity with fat layer exposed Status: Resolved Code(s): L97.922 - Non-pressure chronic ulcer of unspecified part of left lower leg with fat layer exposed Comment: x 2 anterior and posterior (2) Nonhealing ulcer of right lower extremity with fat layer exposed Status: Chronic Code(s): L97.912 - Non-pressure chronic ulcer of unspecified part of right lower leg with fat layer exposed (3) Decreased dorsalis pedis pulse Status: Chronic Code(s): R09.89 - Other specified symptoms and signs involving the circulatory and respiratory systems (4) Lymphedema of both lower extremities Status: Chronic Code(s): I89.0 - Lymphedema, not elsewhere classified (5) Pain, lower extremity Status: Chronic Qualifiers: Laterality: bilateral Code(s): M79.606 - Pain in leg, unspecified (6) Morbid obesity with BMI of 60.0-69.9, adult Status: Chronic Code(s): E66.01 - Morbid (severe) obesity due to excess calories; Z68.44 - Body mass index [BMI] 60.0-69.9, adult (7) Skin tear of left lower leg without complication Status: Resolved Qualifiers: Code(s): S81.812A - Laceration without foreign body, left lower leg, initial encounter (8) Venous insufficiency (chronic) (peripheral) Status: Chronic Code(s): I87.2 - Venous insufficiency (chronic) (peripheral) (9) Swelling of lower extremity Status: Chronic Code(s): M79.89 - Other specified soft tissue disorders (10) Edema of both legs Status: Chronic Code(s): R60.0 - Localized edema (11) Ulcer of right lower leg Status: Chronic Qualifiers: Non-pressure ulcer stage: with fat layer exposed Code(s): L97.919 - Non-pressure chronic ulcer of unspecified part of right lower leg with unspecified severity (12) Venous stasis ulcer Status: Chronic Qualifiers: Venous stasis ulcer site: calf Varicose vein presence: without varicose veins Laterality: right Non-pressure ulcer stage: with fat layer exposed Qualified Code(s): I87.2 - Venous insufficiency (chronic) (peripheral); L97.212 - Non-pressure chronic ulcer of right calf with fat layer exposed Code(s): I83.009 - Varicose veins of unspecified lower extremity with ulcer of unspecified site; L97.909 - Non-pressure chronic ulcer of unspecified part of unspecified lower leg with unspecified severity (13) Dependent edema Status: Chronic Code(s): R60.9 - Edema, unspecified (14) Venous hypertension, chronic, with ulcer and inflammation Status: Chronic Qualifiers: Laterality: bilateral Code(s): I87.339 - Chronic venous hypertension (idiopathic) with ulcer and inflammation of unspecified lower extremity; L97.909 - Non-pressure chronic ulcer of unspecified part of unspecified lower leg with unspecified severity (15) Venous stasis dermatitis Status: Chronic Qualifiers: Laterality: bilateral Code(s): I87.2 - Venous insufficiency (chronic) (peripheral) (16) Diabetes mellitus Status: Chronic Code(s): E11.9 - Type 2 diabetes mellitus without complications (17) Gout Status: Chronic Code(s): M10.9 - Gout, unspecified (18) MASON (obstructive sleep apnea) Status: Chronic Code(s): G47.33 - Obstructive sleep apnea (adult) (pediatric) (19) Hypertension Status: Chronic Code(s): I10 - Essential (primary) hypertension History of Present Illness Date of Service: 08/14/20 Chief Complaint: Severe swelling, edema, and lymphedema of the lower extremities, with ulceration of the right distal lower extremity History of Wound: This is a 54-year-old morbidly obese white male who presented with chronic swelling, edema, and lymphedema in his lower extremities, and a recent ulceration on the right lateral calf. The patient has been treated at our facility in the past for similar medical problems. With respect to his current problems, he has been receiving care recently at a wound clinic in [place], [place]. However, the patient has become dissatisfied with the care he is receiving, and is seeking medical care with our facility. Patient states that the ulceration on the right lateral calf has been present for several months. He has noticed very little improvement. It appears as though debridements have been performed serially, and weekly wraps have been implemented using 3M 2 layer compression wraps. He has recently obtained mechanical pneumatic compression pumps as well. He has a history of MRSA, and is currently on a prophylactic dose of azithromycin 250 mg p.o. daily. Patient claims to sleep on a flat mattress at night. However, he is not active, and spends a good deal of each day in a sitting position. He denies a history of deep vein thrombosis. It appears as though a venous duplex examination has been recently performed in [place], [place], at [facility]. We will attempt to obtain these results. A noninvasive lower extremity arterial study has been performed in 2018, the results of which revealed no evidence of arterial occlusive disease in the lower extremities. The patient also indicates that he was hospitalized for [address] [facility] in [place], [place], in January 2020, which was for treatment relative to his lower extremity problems. Past Medical History Past Medical History: Chronic Problems Nonhealing ulcer of right lower extremity with fat layer exposed (Chronic) Decreased dorsalis pedis pulse (Chronic) Lymphedema of both lower extremities (Chronic) Pain, lower extremity (Chronic) Morbid obesity with BMI of 60.0-69.9, adult (Chronic) Venous insufficiency (chronic) (peripheral) (Chronic) Swelling of lower extremity (Chronic) Edema of both legs (Chronic) Ulcer of right lower leg (Chronic) Venous stasis ulcer (Chronic) Dependent edema (Chronic) Venous hypertension, chronic, with ulcer and inflammation (Chronic) Venous stasis dermatitis (Chronic) Diabetes mellitus (Chronic) Gout (Chronic) MASON (obstructive sleep apnea) (Chronic) Hypertension (Chronic) Surgical History: herniorrhaphy - Left inguinal Allergies/Adverse Reactions: Allergies shellfish derived Allergy (Verified 05/15/20 11:16) Food Allergy Home Medications: Ambulatory Orders Medication Instructions Recorded Aldactone 25 mg PO BID 05/06/18 Lasix 80 mg PO DAILY 05/06/18 Lisinopril 20 mg PO DAILY 09/16/18 Allopurinol 300 mg PO DAILY 05/15/20 Azithromycin 250 mg PO DAILY 05/15/20 - Family History Paternal - - The patient's father at the age of 68 with a history of renal failure. Patient's mother is living, age 74, and suffers from atrial fibrillation. Smoking Status: Former smoker Tobacco Use: Non-smoker Review of Systems Constitutional: Denies: Chills, Fever, Weight Change Eyes: Denies: Pain, Vision Change HEENT: Denies: Difficulty Hearing, Difficulty Swallowing, Sinus Congestion Cardiovascular: Denies: Chest Pain, Palpitations Respiratory: Denies: Cough, Shortness of Breath Gastrointestinal: Denies: Diarrhea, Nausea, Vomiting Genitourinary: Denies: Dysuria, Hematuria Endocrine: Denies: Heat/ Cold Intolerance, Polydipsia, Polyuria Hematologic/ Lymphatic: Denies: Easy Bruising, Easy Bleeding - Physical Exam Vital Signs Temp Pulse Resp BP 97.3 F L 75 18 133/76 H 08/14/20 09:48 08/14/20 09:48 08/10/20 12:34 08/14/20 09:48 General: Alert, Oriented x3, Cooperative, No apparent distress, Well developed, Well nourished, - - Patient is morbidly obese. HEENT: Atraumatic, PERRLA, EOMI, Normocephalic Oral: Moist Mucosa Neck: No JVD Lungs: Normal air movement Abdomen: Non-Distended Extremities: No clubbing, No cyanosis, No Calf Tenderness, - - Severe swelling, edema, and lymphedema persist on the patient's lower extremities bilaterally. However, there appears to be mild improvement. Severe dermatitic changes also persist. Addt'l Wound Findings: There is an area of denuded epithelium which persists on the patient's left lateral calf. The open ulceration on the right lateral calf persists as well, though appears to be smaller in size. There is a moderate amount of bioburden. There is no sign of infection or cellulitis. Dimensions are documented elsewhere. Wound Measurements and Assessment WC - Nurse 1 - General Ulcer Measurement Start: 07/31/20 10:04 Freq: Status: Active Protocol: Activity Type Activity Date Activity User E-Sign Co-Sign Detail Recorded Client Recorded Date Recorded By Document 08/14/20 09:48 RUPA [id number] 08/14/20 10:00 KR 08/14/20 09:48 Wound Center Nurse 1 [Ulcer Assessment] #9 LLE Lat -Current Size (cm) - Length 9 -Current Size (cm) - Width 15 -Current Size (cm) - Depth 0.1 -Total Square Cm 135 -Exudate Amt Small -Exudate Type Serosanguineous -Wound Margin Distinct, Outline Attached -Granulation Amt Medium (34-66%) -Granulation Quality [place],Red -Necrosis Amt Medium (34-66%) -Necrotic Tissue Type Adherent Slough -Texture (Meri-wound Skin Appearance) Assessed, Scarring -Moisture (Meri-wound Skin Appearance Assessed,Dry/ ) Scaly -Color (Meri-wound Skin Appearance) No Abnormality, Assessed -Temperature (Meri-wound Skin No Abnormality Appearance) (Pt Warm) -Tenderness on Palpation (Meri-wound No Skin Appearance) -Ulcer Cleansing soap and water -Foul Odor after Cleansing No -Anesthetic Used 4% Lidocaine Solution #8- RLE -Current Size (cm) - Length 2 -Current Size (cm) - Width 1.5 -Current Size (cm) - Depth 0.1 -Total Square Cm 3.0 -Exudate Amt Small -Exudate Type Serosanguineous -Wound Margin Distinct, Outline Attached -Granulation Amt Small (1-33%) -Granulation Quality [place] -Necrosis Amt Small (1-33%) -Necrotic Tissue Type Adherent Slough -Texture (Meri-wound Skin Appearance) Assessed, Scarring -Moisture (Meri-wound Skin Appearance Assessed,Dry/ ) Scaly -Color (Meri-wound Skin Appearance) No Abnormality, Assessed -Temperature (Meri-wound Skin No Abnormality Appearance) (Pt Warm) -Tenderness on Palpation (Meri-wound No Skin Appearance) -Ulcer Cleansing soap and water -Foul Odor after Cleansing No -Anesthetic Used 4% Lidocaine Solution [Edema Assessment] -Right Calf (cm) 50 -Right Ankle (cm) 32.5 -Left Calf (cm) 49.5 -Left Ankle (cm) 33 WC - Nurse 2 - General Ulcer CM Notes Start: 07/31/20 10:04 Freq: Status: Active Protocol: Activity Type Activity Date Activity User E-Sign Co-Sign Detail Recorded Client Recorded Date Recorded By Document 08/14/20 10:23 RENITA [id number] 08/14/20 10:24 PL 08/14/20 10:23 Wound Center Nurse 2 [Procedure/Treatment] #9 LLE Lat -Procedure Performed No #8- RLE -Time 10:10 -Correct Patient Yes -Correct Side, Site, Position Yes -Correct Procedure Yes -Procedure Performed Yes -Type of Procedure Debridement -Clinical Debridement Subcutaneous -Tissue Removed Subcutaneous -Post Debridement (cm) - Length 2 -Post Debridement (cm) - Width 1.5 -Post Debridement (cm) - Depth 0.1 -Total Square (Post) (cm) 3.0 -Area of Debridement (cm) - Length 2 -Area of Debridement (cm) - Width 1.5 -Total Square (Area) (cm) 3.0 -Tunneling No -Undermining/Tunneling No -Circular Undermining No -Wound/Ulcer Outcome Not Healed -Ulcer Cleansing Rinsed/ Irrigated with Saline -Foul Odor after Cleansing No -Bioengineered Tissue No -Debridement - Subq, 1st 20sq cm Yes [See Physician Procedure note for Specifics] Pain Scale: 0-10 Numeric [Pain] -Is Patient Pain Free? Yes Musculoskeletal: No Muscle Wasting Neurological: Cranial nerves II-XII grossly intact, Neuro grossly intact Psych/Mental Status: Normal Affect, Appropriate, Alert and oriented to time, place, person, mood and affect Debridement Note Post-Debridement Measurements/Treatment WC - Nurse 2 - General Ulcer CM Notes Start: 07/31/20 10:04 Freq: Status: Active Protocol: Activity Type Activity Date Activity User E-Sign Co-Sign Detail Recorded Client Recorded Date Recorded By Document 07/31/20 12:02 PL [id number] 07/31/20 12:02 PL Document 08/07/20 10:53 MW [id number] 08/07/20 10:57 MW Document 08/14/20 10:23 PL [id number] 08/14/20 10:24 PL 07/31/20 08/07/20 08/14/20 12:02 10:53 10:23 Wound Center Nurse 2 #9 LLE Lat -Time 10:55 -Correct Patient Yes -Correct Side, Site, Position Yes -Correct Procedure Yes -Procedure Performed No Yes No -Type of Procedure Debridement -Clinical Debridement Subcutaneous -Tissue Removed Subcutaneous -Post Debridement (cm) - Length 3.6 -Post Debridement (cm) - Width 1.3 -Post Debridement (cm) - Depth 0.2 -Total Square (Post) (cm) 4.68 -Area of Debridement (cm) - Length 3.6 -Area of Debridement (cm) - Width 1.3 -Total Square (Area) (cm) 4.68 -Tunneling No -Undermining/Tunneling No -Circular Undermining No -Wound/Ulcer Outcome Not Healed -Ulcer Cleansing Rinsed/ Irrigated with Saline -Foul Odor after Cleansing No -Bioengineered Tissue No -Bleeding Controlled with Pressure -Offloading No -Treatment Response Procedure Tolerated Well -Debridement - Subq, 1st 20sq cm Yes #8- RLE -Time 10:55 10:10 -Correct Patient Yes Yes -Correct Side, Site, Position Yes Yes -Correct Procedure Yes Yes -Procedure Performed Yes Yes -Type of Procedure Debridement Debridement -Clinical Debridement Subcutaneous Subcutaneous -Tissue Removed Subcutaneous Subcutaneous -Post Debridement (cm) - Length 1.6 2 -Post Debridement (cm) - Width 1.2 1.5 -Post Debridement (cm) - Depth 0.1 0.1 -Total Square (Post) (cm) 1.92 3.0 -Area of Debridement (cm) - Length 1.6 2 -Area of Debridement (cm) - Width 1.2 1.5 -Total Square (Area) (cm) 1.92 3.0 -Tunneling No No -Undermining/Tunneling No No -Circular Undermining No No -Wound/Ulcer Outcome Healed- Not Healed Not Healed Epithelialized -Ulcer Cleansing Rinsed/ Rinsed/ Irrigated with Irrigated with Saline Saline -Foul Odor after Cleansing No No -Bioengineered Tissue No No -Bleeding Controlled with Pressure -Offloading No -Treatment Response Procedure Tolerated Well -Debridement - Subq, 1st 20sq cm No Yes Pain Scale: 0-10 Numeric Is Patient Pain Free? Yes Yes Yes WC - Nurse 3 - General Ulcer D/C NN Start: 07/31/20 10:04 Freq: Status: Active Protocol: Activity Type Activity Date Activity User E-Sign Co-Sign Detail Recorded Client Recorded Date Recorded By Document 07/31/20 10:55 [facility] [id number] 07/31/20 10:57 [facility] Document 08/03/20 12:13 RB [id number] 08/03/20 12:15 RB Document 08/07/20 11:22 DL [id number] 08/07/20 11:24 DL Document 08/10/20 12:34 RB [id number] 08/10/20 12:38 RB 07/31/20 08/03/20 08/07/20 10:55 12:13 11:22 Wound Care Nurse 3 #9 LLE Lat -Ulcer Cleansing Rinsed/ Wound Cleanser Wound Cleanser Irrigated with Saline -Foul Odor after Cleansing No No -Primary Dressing Applied NonAdherent NonAdherent Contact Layer, Contact Layer Other -Other Dressing xtrasorb x2 XTRASORB xeroform -Primary Dressing Covered/Secured with Dry Gauze,Other -Other Covering drsg by guillermina birch rn #8- RLE -Ulcer Cleansing Wound Cleanser Wound Cleanser -Foul Odor after Cleansing No -Primary Dressing Applied Other NonAdherent Promogran Contact Layer -Other Dressing fiorella, drsg by guillermina birch rn -Promogran 1 BILATERAL -Lotion applied to leg before Yes compression wrap -Multi-Layered Wrap Application Multi-Layer Multi-Layer Multi-Layer Comp - Bilat ($ Comp - Bilat ($ Comp - Bilat ($ ) ) ) Left -Multi-Layered Wrap Application Multi-Layer Comp - Bilat ($ ) Treatment Response Procedure Procedure Procedure Tolerated Well Tolerated Well Tolerated Well Vital Signs Temperature (97.8 F-99.1 F) 98 F Temperature Source Temporal Pulse Rate (60-100) 74 Pulse Location Monitor Respiratory Rate (12-18) 18 Respiratory rate source Observation Blood Pressure (90/60-120/80) 152/65 H Blood Pressure Mean (mm Hg) 94 Source Monitor Position Semi-Fowlers Blood Pressure Location Left Arm Pain Scale: 0-10 Numeric Is Patient Pain Free? Yes Yes Yes WC - Visit Discharge Discharge Condition Stable Stable Ambulatory Status Ambulatory Ambulatory Transportation Private Auto Private Auto Medication Reconcilliation completed & No provided to patient/care provider Clinical Summary of Care Provided Yes 08/10/20 12:34 Wound Care Nurse 3 #9 LLE Lat -Ulcer Cleansing -Foul Odor after Cleansing -Primary Dressing Applied -Other Dressing xeroform abd pads -Primary Dressing Covered/Secured with -Other Covering #8- RLE -Ulcer Cleansing -Foul Odor after Cleansing -Primary Dressing Applied -Other Dressing promogran, abd pads -Promogran BILATERAL -Lotion applied to leg before Yes compression wrap -Multi-Layered Wrap Application Multi-Layer Comp - Bilat ($ ) Left -Multi-Layered Wrap Application Treatment Response Procedure Tolerated Well Vital Signs Temperature (97.8 F-99.1 F) 98.3 F Temperature Source Temporal Pulse Rate (60-100) 80 Pulse Location Monitor Respiratory Rate (12-18) 18 Respiratory rate source Observation Blood Pressure (90/60-120/80) 118/53 L Blood Pressure Mean (mm Hg) 74 Source Monitor Position Semi-Fowlers Blood Pressure Location Left Arm Pain Scale: 0-10 Numeric Is Patient Pain Free? Yes WC - Visit Discharge Discharge Condition Stable Ambulatory Status Ambulatory Transportation Private Auto Medication Reconcilliation completed & No provided to patient/care provider Clinical Summary of Care Provided Yes Laterality: Right - Lateral calf Type of Debridement: Excisional debridement Anesthesia Used: 5% Lidocaine Gel Depth: Down to and including healthy tissue, in the subcutaneous layer Percentage of wound debrided: 100 Instrument Used: 5mm curette Tissue Removed: Bioburden Severity: Fat Layer Exposed Amount of bleeding with debridement: Mild Bleeding Controlled with: Compression and gauze Patient tolerated procedure well Assessment/Plan Active Problems Nonhealing ulcer of right lower extremity with fat layer exposed (Chronic) Decreased dorsalis pedis pulse (Chronic) Lymphedema of both lower extremities (Chronic) Pain, lower extremity (Chronic) Morbid obesity with BMI of 60.0-69.9, adult (Chronic) Venous insufficiency (chronic) (peripheral) (Chronic) Swelling of lower extremity (Chronic) Edema of both legs (Chronic) Ulcer of right lower leg (Chronic) Venous stasis ulcer (Chronic) Dependent edema (Chronic) Venous hypertension, chronic, with ulcer and inflammation (Chronic) Venous stasis dermatitis (Chronic) Diabetes mellitus (Chronic) Gout (Chronic) MASON (obstructive sleep apnea) (Chronic) Hypertension (Chronic) Assessment: This is a 54-year-old morbidly obese diabetic white male with multiple medical problems. He presented with profound venous stasis changes in both lower extremities, as well as a small ulceration on the right lateral calf. He is morbidly obese, and relatively inactive. He spends large portions of each day in an idle sitting position. He had recently received care at a wound clinic in [place], [place]. His prior care involved serial debridements and the use of multilayer compression wraps. Routine laboratory studies have been obtained, the results of which are as follows: White blood count 5.7, hemoglobin 13.8, hematocrit 43.7, platelets 404,000, glucose 93, BUN 11, creatinine 0.97, total protein 7.8, calcium 9.1, AST 25, alkaline phosphatase 78, ALT 46, total bilirubin 0.40, sodium 139, potassium 4.3, chloride 104, serum prealbumin 26.9. A noninvasive lower extremity arterial study reveals no evidence of significant arterial occlusive disease in the lower extremities bilaterally. Plan: A lengthy discussion has been undertaken with the patient once again. Conservative treatment measures are to be continued. There is question as to the patient's level of compliance. The patient claims to be elevating his lower extremities as advised. He claims to be using his mechanical pneumatic compression pumps 2-3 times daily. However, his has previously related a completely different story, indicating that the patient has not been compliant with recommended measures. This appears to be the reason why the patient has failed to demonstrate significant improvement. He has been advised to continue sleeping on a flat mattress at night. Leg elevation has been recommended during daytime hours as well. Leg elevation is to be to heart level, or higher. This is to be accomplished as much as possible. Prolonged idle sitting has been discouraged. Activity has been encouraged, though the patient's morbid obesity likely precludes any significant increase or enhancement of the patient's activity level. We are to continue compression in both lower extremities using a 3M 2 layer compression wrap. These compression wraps will be changed twice weekly. Xeroform will be placed topically over the areas of denuded epithelium on the left lateral calf. Promogran will be applied to the small ulceration on the right lateral calf. The compression wraps and dressings will be changed twice weekly. Patient will return in 1 week for reassessment. The patient has in his possession pneumatic mechanical compression pumps, and has been encouraged to use these 2 or 3 times daily. We are to request the patient's recent venous duplex examinations from [facility] in [place]. The patient had a dietary consult recently, though the documentation of the encounter has not yet been received. Significant weight loss is a primary objective. Optimization of the patient's glycemic control has been recommended. The patient is to follow-up in 1 week for reevaluation. Once again, a lack of patient compliance is suspected to be an issue in regard to the patient's failure to progress. The patient is not a smoker. Influenza vaccine was not administered today. The patient weighs 435 pounds. He stands 5 feet 9 inches tall. His BMI is 64.2. Weight loss has been recommended, in collaboration with the patient's primary care physician has been advised. Total time: 24 minutes.
[2020-08-17 11:28] VITALS: BP 162/77; PULSE 81; RESP 18; TEMP 36.2; BMI 64.2
[2020-08-21 09:31] VITALS: BP 150/70; PULSE 85; TEMP 36.3; BMI 64.2
--- NOTE | 2020-08-21 10:00 | HP.PCM_ITS ---
(1) Nonhealing ulcer of left lower extremity with fat layer exposed Status: Resolved Code(s): L97.922 - Non-pressure chronic ulcer of unspecified part of left lower leg with fat layer exposed Comment: x 2 anterior and posterior (2) Nonhealing ulcer of right lower extremity with fat layer exposed Status: Chronic Code(s): L97.912 - Non-pressure chronic ulcer of unspecified part of right lower leg with fat layer exposed (3) Decreased dorsalis pedis pulse Status: Chronic Code(s): R09.89 - Other specified symptoms and signs involving the circulatory and respiratory systems (4) Lymphedema of both lower extremities Status: Chronic Code(s): I89.0 - Lymphedema, not elsewhere classified (5) Pain, lower extremity Status: Chronic Qualifiers: Laterality: bilateral Code(s): M79.606 - Pain in leg, unspecified (6) Morbid obesity with BMI of 60.0-69.9, adult Status: Chronic Code(s): E66.01 - Morbid (severe) obesity due to excess calories; Z68.44 - Body mass index [BMI] 60.0-69.9, adult (7) Skin tear of left lower leg without complication Status: Resolved Qualifiers: Code(s): S81.812A - Laceration without foreign body, left lower leg, initial encounter (8) Venous insufficiency (chronic) (peripheral) Status: Chronic Code(s): I87.2 - Venous insufficiency (chronic) (peripheral) (9) Swelling of lower extremity Status: Chronic Code(s): M79.89 - Other specified soft tissue disorders (10) Edema of both legs Status: Chronic Code(s): R60.0 - Localized edema (11) Ulcer of right lower leg Status: Chronic Qualifiers: Non-pressure ulcer stage: with fat layer exposed Code(s): L97.919 - Non-pressure chronic ulcer of unspecified part of right lower leg with unspecified severity (12) Venous stasis ulcer Status: Chronic Qualifiers: Venous stasis ulcer site: calf Varicose vein presence: without varicose veins Laterality: right Non-pressure ulcer stage: with fat layer exposed Qualified Code(s): I87.2 - Venous insufficiency (chronic) (peripheral); L97.212 - Non-pressure chronic ulcer of right calf with fat layer exposed Code(s): I83.009 - Varicose veins of unspecified lower extremity with ulcer of unspecified site; L97.909 - Non-pressure chronic ulcer of unspecified part of unspecified lower leg with unspecified severity (13) Dependent edema Status: Chronic Code(s): R60.9 - Edema, unspecified (14) Venous hypertension, chronic, with ulcer and inflammation Status: Chronic Qualifiers: Laterality: bilateral Code(s): I87.339 - Chronic venous hypertension (idiopathic) with ulcer and inflammation of unspecified lower extremity; L97.909 - Non-pressure chronic u lcer of unspecified part of unspecified lower leg with unspecified severity (15) Venous stasis dermatitis Status: Chronic Qualifiers: Laterality: bilateral Code(s): I87.2 - Venous insufficiency (chronic) (peripheral) (16) Diabetes mellitus Status: Chronic Code(s): E11.9 - Type 2 diabetes mellitus without complications (17) Gout Status: Chronic Code(s): M10.9 - Gout, unspecified (18) MASON (obstructive sleep apnea) Status: Chronic Code(s): G47.33 - Obstructive sleep apnea (adult) (pediatric) (19) Hypertension Status: Chronic Code(s): I10 - Essential (primary) hypertension History of Present Illness Date of Service: 08/21/20 Chief Complaint: Severe swelling, edema, and lymphedema of the lower extremities, with ulceration of the right distal lower extremity History of Wound: This is a 54-year-old morbidly obese white male who presented with chronic swelling, edema, and lymphedema in his lower extremities, and a recent ulceration on the right lateral calf. The patient has been treated at our facility in the past for similar medical problems. With respect to his current problems, he has been receiving care recently at a wound clinic in [place], [place]. However, the patient has become dissatisfied with the care he is receiving, and is seeking medical care with our facility. Patient states that the ulceration on the right lateral calf has been present for several months. He has noticed very little improvement. It appears as though debridements have been performed serially, and weekly wraps have been implement ed using 3M 2 layer compression wraps. He has recently obtained mechanical pneumatic compression pumps as well. He has a history of MRSA, and is currently on a prophylactic dose of azithromycin 250 mg p.o. daily. Patient claims to sleep on a flat mattress at night. However, he is not active, and spends a good deal of each day in a sitting position. He denies a history of deep vein thrombosis. It appears as though a venous duplex examination has been recently performed in [place], [place], at [facility]. We will attempt to obtain these results. A noninvasive lower extremity arterial study has been performed in 2018, the results of which revealed no evidence of arterial occlusive disease in the lower extremities. The patient also indicates that he was hospitalized for 2 days at [facility] in [place], [place], in January 2020, which was for treatment relative to his lower extremity problems. Past Medical History Past Medical History: Chronic Problems Nonhealing ulcer of right lower extremity with fat layer exposed (Chronic) Decreased dorsalis pedis pulse (Chronic) Lymphedema of both lower extremities (Chronic) Pain, lower extremity (Chronic) Morbid obesity with BMI of 60.0-69.9, adult (Chronic) Venous insufficiency (chronic) (peripheral) (Chronic) Swelling of lower extremity (Chronic) Edema of both legs (Chronic) Ulcer of right lower leg (Chronic) Venous stasis ulcer (Chronic) Dependent edema (Chronic) Venous hypertension, chronic, with ulcer and inflammation (Chronic) Venous stasis dermatitis (Chronic) Diabetes mellitus (Chronic) Gout (Chronic) MASON (obstructive sleep apnea) (Chronic) Hypertension (Chronic) Surgical History: herniorrhaphy - Left inguinal Allergies/Adverse Reactions: Allergies shellfish derived Allergy (Verified 05/15/20 11:16) Food Allergy Home Medications: Ambulatory Orders Medication Instructions Recorded Aldactone 25 mg PO BID 05/06/18 Lasix 80 mg PO DAILY 05/06/18 Lisinopril 20 mg PO DAILY 09/16/18 Allopurinol 300 mg PO DAILY 05/15/20 Azithromycin 250 mg PO DAILY 05/15/20 - Family History Paternal - - The patient's father at the age of 68 with a history of renal failure. Patient's mother is living, age 74, and suffers from atrial fibrillation. Smoking Status: Former smoker Tobacco Use: Non-smoker Review of Systems Constitutional: Denies: Chills, Fever, Weight Change Eyes: Denies: Pain, Vision Change HEENT: Denies: Difficulty Hearing, Difficulty Swallowing, Sinus Congestion Cardiovascular: Denies: Chest Pain, Palpitations Respiratory: Denies: Cough, Shortness of Breath Gastrointestinal: Denies: Diarrhea, Nausea, Vomiting Genitourinary: Denies: Dysuria, Hematuria Endocrine: Denies: Heat/ Cold Intolerance, Polydipsia, Polyuria Hematologic/ Lymphatic: Denies: Easy Bruising, Easy Bleeding - Physical Exam Vital Signs Temp Pulse Resp BP 97.3 F L 85 18 150/70 H 08/21/20 09:31 08/21/20 09:31 08/17/20 11:28 08/21/20 09:31 General: Alert, Oriented x3, Cooperative, No apparent distress, Well developed, Well nourished, - - The patient is morbidly obese. HEENT: Atraumatic, PERRLA, EOMI, Normocephalic Oral: Moist Mucosa Neck: No JVD Lungs: Normal air movement Abdomen: Non-Distended, Obese Extremities: No clubbing, No cyanosis, No Calf Tenderness, - - Severe swelling, edema, and lymphedema persist in the patient's lower extremities bilaterally. However, it appears to be improving. Chronic, scaly dermatitis persists. Denudation of the epidermis on the left lateral calf persists, but is less in severity. Addt'l Wound Findings: The wound on the right lateral calf persists. There is a moderate amount of bioburden. There is no sign of infection or cellulitis. Dimensions are documen erin elsewhere. Wound Measurements and Assessment WC - Nurse 1 - General Ulcer Measurement Start: 07/31/20 10:04 Freq: Status: Active Protocol: Activity Type Activity Date Activity User E-Sign Co-Sign Detail Recorded Client Recorded Date Recorded By Document 08/21/20 09:31 RUPA [id number] 08/21/20 09:44 RUPA 08/21/20 09:31 Wound Center Nurse 1 [Ulcer Assessment] #9 LLE Lat -Current Size (cm) - Length 9 -Current Size (cm) - Width 7 -Current Size (cm) - Depth 0.1 -Total Square Cm 63 -Exudate Amt Small -Exudate Type Serosanguineous -Wound Margin Distinct, Outline Attached -Granulation Amt Medium (34-66%) -Granulation Quality [place] -Necrosis Amt Medium (34-66%) -Necrotic Tissue Type Adherent Slough -Texture (Meri-wound Skin Appearance) Assessed, Scarring -Moisture (Meri-wound Skin Appearance Assessed,Dry/ ) Scaly -Color (Meri-wound Skin Appearance) No Abnormality, Assessed -Temperature (Meri-wound Skin No Abnormality Appearance) (Pt Warm) -Tenderness on Palpation (Meri-wound No Skin Appearance) -Ulcer Cleansing soap and water -Foul Odor after Cleansing No -Anesthetic Used 4% Lidocaine Solution #8- RLE -Current Size (cm) - Length 0.9 -Current Size (cm) - Width 0.8 -Current Size (cm) - Depth 0.2 -Total Square Cm 0.72 -Exudate Amt Small -Exudate Type Serosanguineous -Wound Margin Distinct, Outline Attached -Granulation Amt Small (1-33%) -Granulation Quality [place] -Necrosis Amt Small (1-33%) -Necrotic Tissue Type Adherent Slough -Texture (Meri-wound Skin Appearance) Assessed, Scarring -Moisture (Meri-wound Skin Appearance Assessed,Dry/ ) Scaly -Color (Meri-wound Skin Appearance) No Abnormality, Assessed -Temperature (Meri-wound Skin No Abnormality Appearance) (Pt Warm) -Tenderness on Palpation (Meri-wound No Skin Appearance) -Ulcer Cleansing soap and water -Foul Odor after Cleansing No -Anesthetic Used 4% Lidocaine Solution [Edema Assessment] -Right Calf (cm) 52 -Right Ankle (cm) 35 -Left Calf (cm) 50 -Point of measurement (cm from the 33.5 medial instep) Musculoskeletal: No Muscle Wasting Neurological: Cranial nerves II-XII grossly intact, Neuro grossly intact Psych/Mental Status: Normal Affect, Appropriate, Alert and oriented to time, place, person, mood and affect Debridement Note Post-Debridement Measurements/Treatment WC - Nurse 2 - General Ulcer CM Notes Start: 07/31/20 10:04 Freq: Status: Active Protocol: Activity Type Activity Date Activity User E-Sign Co-Sign Detail Recorded Client Recorded Date Recorded By Document 07/31/20 12:02 PL [id number] 07/31/20 12:02 PL Document 08/07/20 10:53 MW [id number] 08/07/20 10:57 MW Document 08/14/20 10:23 PL [id number] 08/14/20 10:24 PL 07/31/20 08/07/20 08/14/20 12:02 10:53 10:23 Wound Center Nurse 2 #9 LLE Lat -Time 10:55 -Correct Patient Yes -Correct Side, Site, Position Yes -Correct Procedure Yes -Procedure Performed No Yes No -Type of Procedure Debridement -Clinical Debridement Subcutaneous -Tissue Removed Subcutaneous -Post Debridement (cm) - Length 3.6 -Post Debridement (cm) - Width 1.3 -Post Debridement (cm) - Depth 0.2 -Total Square (Post) (cm) 4.68 -Area of Debridement (cm) - Length 3.6 -Area of Debridement (cm) - Width 1.3 -Total Square (Area) (cm) 4.68 -Tunneling No -Undermining/Tunneling No -Circular Undermining No -Wound/Ulcer Outcome Not Healed -Ulcer Cleansing Rinsed/ Irrigated with Saline -Foul Odor after Cleansing No -Bioengineered Tissue No -Bleeding Controlled with Pressure -Offloading No -Treatment Response Procedure Tolerated Well -Debridement - Subq, 1st 20sq cm Yes #8- RLE -Time 10:55 10:10 -Correct Patient Yes Yes -Correct Side, Site, Position Yes Yes -Correct Procedure Yes Yes -Procedure Performed Yes Yes -Type of Procedure Debridement Debridement -Clinical Debridement Subcutaneous Subcutaneous -Tissue Removed Subcutaneous Subcutaneous -Post Debridement (cm) - Length 1.6 2 -Post Debridement (cm) - Width 1.2 1.5 -Post Debridement (cm) - Depth 0.1 0.1 -Total Square (Post) (cm) 1.92 3.0 -Area of Debridement (cm) - Length 1.6 2 -Area of Debridement (cm) - Width 1.2 1.5 -Total Square (Area) (cm) 1.92 3.0 -Tunneling No No -Undermining/Tunneling No No -Circular Undermining No No -Wound/Ulcer Outcome Healed- Not Healed Not Healed Epithelialized -Ulcer Cleansing Rinsed/ Rinsed/ Irrigated with Irrigated with Saline Saline -Foul Odor after Cleansing No No -Bioengineered Tissue No No -Bleeding Controlled with Pressure -Offloading No -Treatment Response Procedure Tolerated Well -Debridement - Subq, 1st 20sq cm No Yes Pain Scale: 0-10 Numeric Is Patient Pain Free? Yes Yes Yes WC - Nurse 3 - General Ulcer D/C NN Start: 07/31/20 10:04 Freq: Status: Active Protocol: Activity Type Activity Date Activity User E-Sign Co-Sign Detail Recorded Client Recorded Date Recorded By Document 07/31/20 10:55 BMF [id number] 07/31/20 10:57 BMF Document 08/03/20 12:13 RB [id number] 08/03/20 12:15 RB Document 08/07/20 11:22 DL [id number] 08/07/20 11:24 DL Document 08/10/20 12:34 RB [id number] 08/10/20 12:38 RB Document 08/14/20 10:35 KR [id number] 08/14/20 10:37 KR Document 08/17/20 11:28 RB [id number] 08/17/20 11:31 RB 07/31/20 08/03/20 08/07/20 10:55 12:13 11:22 Wound Care Nurse 3 #9 LLE Lat -Ulcer Cleansing Rinsed/ Wound Cleanser Wound Cleanser Irrigated with Saline -Foul Odor after Cleansing No No -Primary Dressing Applied NonAdherent NonAdherent Contact Layer, Contact Layer Other -Other Dressing xtrasorb x2 XTRASORB xeroform -Primary Dressing Covered/Secured with Dry Gauze,Other -Other Covering drsg by guillermina birch rn #8- RLE -Ulcer Cleansing Wound Cleanser Wound Cleanser -Foul Odor after Cleansing No -Primary Dressing Applied Other NonAdherent Promogran Contact Layer -Other Dressing 3m, drsg by guillermina birch rn -Primary Dressing Covered/Secured with -Promogran 1 BILATERAL -Lotion applied to leg before Yes compression wrap -Multi-Layered Wrap Application Multi-Layer Multi-Layer Multi-Layer Comp - Bilat ($ Comp - Bilat ($ Comp - Bilat ($ ) ) ) Left -Multi-Layered Wrap Application Multi-Layer Comp - Bilat ($ ) Treatment Response Procedure Procedure Procedure Tolerated Well Tolerated Well Tolerated Well Vital Signs Temperature (97.8 F-99.1 F) 98 F Temperature Source Temporal Pulse Rate (60-100) 74 Pulse Location Monitor Respiratory Rate (12-18) 18 Respiratory rate source Observation Blood Pressure (90/60-120/80) 152/65 H Blood Pressure Mean (mm Hg) 94 Source Monitor Position Semi-Fowlers Blood Pressure Location Left Arm Pain Scale: 0-10 Numeric Is Patient Pain Free? Yes Yes Yes WC - Visit Discharge Discharge Condition Stable Stable Ambulatory Status Ambulatory Ambulatory Transportation Private Auto Private Auto Medication Reconcilliation completed & No provided to patient/care provider Clinical Summary of Care Provided Yes 08/10/20 08/14/20 08/17/20 12:34 10:35 11:28 Wound Care Nurse 3 #9 LLE Lat -Ulcer Cleansing Rinsed/ Irrigated with Saline -Foul Odor after Cleansing -Primary Dressing Applied Other -Other Dressing xeroform abd xeroform xeroform pads -Primary Dressing Covered/Secured with Dry Gauze, Secured with Tape -Other Covering abd #8- RLE -Ulcer Cleansing -Foul Odor after Cleansing -Primary Dressing Applied Promogran,Other Promogran -Other Dressing promogran, abd xeroform abd pads -Primary Dressing Covered/Secured with Dry Gauze, Secured with Tape -Promogran 1 1 BILATERAL -Lotion applied to leg before Yes compression wrap -Multi-Layered Wrap Application Multi-Layer Multi-Layer Multi-Layer Comp - Bilat ($ Comp - Bilat ($ Comp - Bilat ($ ) ) ) Left -Multi-Layered Wrap Application Treatment Response Procedure Procedure Tolerated Well Tolerated Well Vital Signs Temperature (97.8 F-99.1 F) 98.3 F 97.1 F L Temperature Source Temporal Temporal Pulse Rate (60-100) 80 81 Pulse Location Monitor Monitor Respiratory Rate (12-18) 18 18 Respiratory rate source Observation Observation Blood Pressure (90/60-120/80) 118/53 L 162/77 H Blood Pressure Mean (mm Hg) 74 105 Source Monitor Monitor Position Semi-Fowlers Semi-Fowlers Blood Pressure Location Left Arm Left Arm Pain Scale: 0-10 Numeric Is Patient Pain Free? Yes Yes Yes WC - Visit Discharge Discharge Condition Stable Stable Stable Ambulatory Status Ambulatory Ambulatory Ambulatory Transportation Private Auto Private Auto Private Auto Medication Reconcilliation completed & No No provided to patient/care provider Clinical Summary of Care Provided Yes Yes Laterality: Right - Calf Type of Debridement: Excisional debridement Anesthesia Used: 5% Lidocaine Gel Depth: Down to and including healthy tissue, in the subcutaneous layer Percentage of wound debrided: 100 Instrument Used: 5mm curette Tissue Removed: Bioburden Severity: Fat Layer Exposed Amount of bleeding with debridement: Mild Bleeding Controlled with: Compression and gauze Patient tolerated procedure well Assessment/Plan Active Problems Nonhealing ulcer of right lower extremity with fat layer exposed (Chronic) Decreased dorsalis pedis pulse (Chronic) Lymphedema of both lower extremities (Chronic) Pain, lower extremity (Chronic) Morbid obesity with BMI of 60.0-69.9, adult (Chronic) Venous insufficiency (chronic) (peripheral) (Chronic) Swelling of lower extremity (Chronic) Edema of both legs (Chronic) Ulcer of right lower leg (Chronic) Venous stasis ulcer (Chronic) Dependent edema (Chronic) Venous hypertension, chronic, with ulcer and inflammation (Chronic) Venous stasis dermatitis (Chronic) Diabetes mellitus (Chronic) Gout (Chronic) MASON (obstructive sleep apnea) (Chronic) Hypertension (Chronic) Assessment: This is a 54-year-old morbidly obese diabetic white male with multiple medical problems. He presented with profound venous stasis changes in both lower extremities, as well as a small ulceration on the right lateral calf. He is morbidly obese, and relatively inactive. He spends large portions of each day in an idle sitting position. He had recently received care at a wound clinic in [place], [place]. His prior care involved serial debridements and the use of multilayer compression wraps. Routine laboratory studies have been obtained, the results of which are as follows: White blood count 5.7, hemoglobin 13.8, hematocrit 43.7, platelets 404,000, glucose 93, BUN 11, creatinine 0.97, total protein 7.8, calcium 9.1, AST 25, alkaline phosphatase 78, ALT 46, total bilirubin 0.40, sodium 139, potassium 4.3, chloride 104, serum prealbumin 26.9. A noninvasive lower extremity arterial study reveals no evidence of significant arterial occlusive disease in the lower extremities bilaterally. Plan: A lengthy discussion has been undertaken with the patient once again. Conservative treatment measures are to be continued. There is question as to the patient's level of compliance. The patient claims to be elevating his lower extremities as advised. He claims to be using his mechanical pneumatic compression pumps 2-3 times daily. However, his has previously related a completely different story, indicating that the patient has not been compliant with recommended measures. This appears to be the reason why the patient has failed to demonstrate significant improvement. He has been advised to continue sleeping on a flat mattress at night. Leg elevation has been recommended during daytime hours as well. Leg elevation is to be to heart level, or higher. This is to be accomplished as much as possible. Prolonged idle sitting has been discouraged. Activity has been encouraged, though the patient's morbid obesity likely precludes any significant increase or enhancement of the patient's activity level. We are to continue compression in both lower extremities using a 3M 2 layer compression wrap. These compression wraps will be changed twice weekly. Xeroform will be placed topically over the areas of denuded epithelium on the left lateral calf. Promogran will be applied to the small ulceration on the right lateral calf. The compression wraps and dressings will be changed twice weekly. Patient will return in 1 week for reassessment. The patient has in his possession pneumatic mechanical compression pumps, and has been encouraged to use these 2 or 3 times daily. We are to request the patient's recent venous duplex examinations from [facility] in [place]. The patient had a dietary consult recently, though the documentation of the encounter has not yet been received. Significant weight loss is a primary objective. Optimization of the patient's glycemic control has been recommended. Efforts at weight loss have also been recommended. The patient is to follow-up in 1 week for reevaluation. Once again, a lack of patient compliance is suspected to be an issue in regard to the patient's failure to progress. The patient is not a smoker. Influenza vaccine was not administered today. The patient weighs 435 pounds. He stands 5 feet 9 inches tall. His BMI is 64.2. Weight loss has been recommended, in collaboration with the patient's primary care physician has been advised. Total time: 22 minutes.
[2020-08-24 12:07] VITALS: BP 123/57; PULSE 72; TEMP 36.4; BMI 64.2
== END 2020-08-26 23:59 ==
LOC: WC 12:00
PROVIDERS: PCP Internal Medicine; Referring Provider Surgery; Visit Provider Surgery
DX: I83.018 Varicose veins of right lower extremity with ulcer other part of lower leg (principal); L97.212 Non-pressure chronic ulcer of right calf with fat layer exposed; I83.222 Varicose veins of left lower extremity with both ulcer of calf and inflammation; I89.0 Lymphedema, not elsewhere classified; M79.89 Other specified soft tissue disorders; R60.0 Localized edema; E11.9 Type 2 diabetes mellitus without complications; I10 Essential (primary) hypertension; M10.9 Gout, unspecified; G47.33 Obstructive sleep apnea (adult) (pediatric); E66.01 Morbid (severe) obesity due to excess calories; Z68.44 Body mass index [BMI] 60.0-69.9, adult; Z79.899 Other long term (current) drug therapy; Z86.14 Personal history of Methicillin resistant Staphylococcus aureus infection; Z87.891 Personal history of nicotine dependence
CPT/HCPCS: 11042; 29581; 99212; G0463

== ENCOUNTER 2020-09-05 14:08 | Outpatient (RCR) | payer MEDICAID, SELFPAY ==
[2020-09-04 11:06] VITALS: BMI 64.2
== END 2020-09-23 23:59 ==
LOC: NS 14:08
PROVIDERS: PCP Internal Medicine; Visit Provider Surgery
DX: Z71.3 Dietary counseling and surveillance (principal); E66.01 Morbid (severe) obesity due to excess calories
CPT/HCPCS: 97803

== ENCOUNTER 2020-09-21 12:00 | Outpatient (RCR) | payer MEDICAID, SELFPAY ==
[2020-08-27 00:28] VITALS: BP 123/57; PULSE 72; RESP 18; TEMP 36.4
[2020-09-04 11:06] VITALS: BP 148/59; PULSE 82; RESP 20; TEMP 36; BMI 64.2
--- NOTE | 2020-09-04 11:32 | HP.PCM_ITS ---
(1) Nonhealing ulcer of left lower extremity with fat layer exposed Status: Resolved Code(s): L97.922 - Non-pressure chronic ulcer of unspecified part of left lower leg with fat layer exposed Comment: x 2 anterior and posterior (2) Nonhealing ulcer of right lower extremity with fat layer exposed Status: Chronic Code(s): L97.912 - Non-pressure chronic ulcer of unspecified part of right lower leg with fat layer exposed (3) Decreased dorsalis pedis pulse Status: Chronic Code(s): R09.89 - Other specified symptoms and signs involving the circulatory and respiratory systems (4) Lymphedema of both lower extremities Status: Chronic Code(s): I89.0 - Lymphedema, not elsewhere classified (5) Pain, lower extremity Status: Chronic Qualifiers: Laterality: unspecified laterality Qualified Code(s): M79.606 - Pain in leg, unspecified Code(s): M79.606 - Pain in leg, unspecified (6) Morbid obesity with BMI of 60.0-69.9, adult Status: Chronic Code(s): E66.01 - Morbid (severe) obesity due to excess calories; Z68.44 - Body mass index [BMI] 60.0-69.9, adult (7) Skin tear of left lower leg without complication Status: Resolved Qualifiers: Code(s): S81.812A - Laceration without foreign body, left lower leg, initial encounter (8) Venous insufficiency (chronic) (peripheral) Status: Chronic Code(s): I87.2 - Venous insufficiency (chronic) (peripheral) (9) Swelling of lower extremity Status: Chronic Code(s): M79.89 - Other specified soft tissue disorders (10) Edema of both legs Status: Chronic Code(s): R60.0 - Localized edema (11) Ulcer of right lower leg Status: Chronic Qualifiers: Non-pressure ulcer stage: with fat layer exposed Code(s): L97.919 - Non-pressure chronic ulcer of unspecified part of right lower leg with unspecified severity (12) Venous stasis ulcer Status: Chronic Qualifiers: Venous stasis ulcer site: calf Varicose vein presence: without varicose veins Laterality: left Non-pressure ulcer stage: with fat layer exposed Qualified Code(s): I87.2 - Venous insufficiency (chronic) (peripheral); L97.222 - Non-pressure chronic ulcer of left calf with fat layer exposed Code(s): I83.009 - Varicose veins of unspecified lower extremity with ulcer of unspecified site; L97.909 - Non-pressure chronic ulcer of unspecified part of unspecified lower leg with unspecified severity (13) Dependent edema Status: Chronic Code(s): R60.9 - Edema, unspecified (14) Venous hypertension, chronic, with ulcer and inflammation Status: Chronic Qualifiers: Laterality: left Qualified Code(s): I87.332 - Chronic venous hypertension (idiopathic) with ulcer and inflammation of left lower extremity; L97.929 - Non- pressure chronic ulcer of unspecified part of left lower leg with unspecified severity Code(s): I87.339 - Chronic venous hypertension (idiopathic) with ulcer and inflammation of unspecified lower extremity; L97.909 - Non-pressure chronic ulcer of unspecified part of unspecified lower leg with unspecified severity (15) Venous stasis dermatitis Status: Chronic Qualifiers: Laterality: bilateral Code(s): I87.2 - Venous insufficiency (chronic) (peripheral) (16) Diabetes mellitus Status: Chronic Qualifiers: Diabetes mellitus type: type 2 Code(s): E11.9 - Type 2 diabetes mellitus without complications (17) Gout Status: Chronic Code(s): M10.9 - Gout, unspecified (18) MASON (obstructive sleep apnea) Status: Chronic Code(s): G47.33 - Obstructive sleep apnea (adult) (pediatric) (19) Hypertension Status: Chronic Code(s): I10 - Essential (primary) hypertension History of Present Illness Date of Service: 09/04/20 Chief Complaint: Severe swelling, edema, and lymphedema of the lower extremities, with ulceration of the right distal lower extremity History of Wound: This is a 54-year-old morbidly obese white male who presented with chronic swelling, edema, and lymphedema in his lower extremities, and a recent ulceration on the right lateral calf. The patient has been treated at our facility in the past for similar medical problems. With respect to his current problems, he has been receiving care recently at a wound clinic in [place], [place]. However, the patient has become dissatisfied with the care he is receiving, and is seeking medical care with our facility. Patient states that the ulceration on the right lateral calf has been present for several months. He has noticed very little improvement. It appears as though debridements have been performed serially, and weekly wraps have been implemented using 3M 2 layer compression wraps. He has recently obtained mechanical pneumatic compression pumps as well. He has a history of MRSA, and is currently on a prophylactic dose of azithromycin 250 mg p.o. daily. Patient claims to sleep on a flat mattress at night. However, he is not active, and spends a good deal of each day in a sitting position. He denies a history of deep vein thrombosis. It appears as though a venous duplex examination has been recently performed in [place], [place], at [facility]. We will attempt to obtain these results. A noninvasive lower extremity arterial study has been performed in 2018, the results of which revealed no evidence of arterial occlusive disease in the lower extremities. The patient also indicates that he was hospitalized for 2 days at [facility] in [place], [place], in January 2020, which was for treatment relative to his lower extremity problems. Past Medical History Past Medical History: Chronic Problems Nonhealing ulcer of right lower extremity with fat layer exposed (Chronic) Decreased dorsalis pedis pulse (Chronic) Lymphedema of both lower extremities (Chronic) Pain, lower extremity (Chronic) Morbid obesity with BMI of 60.0-69.9, adult (Chronic) Venous insufficiency (chronic) (peripheral) (Chronic) Swelling of lower extremity (Chronic) Edema of both legs (Chronic) Ulcer of right lower leg (Chronic) Venous stasis ulcer (Chronic) Dependent edema (Chronic) Venous hypertension, chronic, with ulcer and inflammation (Chronic) Venous stasis dermatitis (Chronic) Diabetes mellitus (Chronic) Gout (Chronic) MASON (obstructive sleep apnea) (Chronic) Hypertension (Chronic) Surgical History: herniorrhaphy - Left inguinal Allergies/Adverse Reactions: Allergies shellfish derived Allergy (Verified 05/15/20 11:16) Food Allergy Home Medications: Ambulatory Orders Medication Instructions Recorded Aldactone 25 mg PO BID 05/06/18 Lasix 80 mg PO DAILY 05/06/18 Lisinopril 20 mg PO DAILY 09/16/18 Allopurinol 300 mg PO DAILY 05/15/20 Azithromycin 250 mg PO DAILY 05/15/20 - Family History Paternal - - The patient's father at the age of 68 with a history of renal failure. Patient's mother is living, age 74, and suffers from atrial fibrillation. Smoking Status: Former smoker Tobacco Use: Non-smoker Review of Systems Constitutional: Denies: Chills, Fever, Weight Change Eyes: Denies: Pain, Vision Change HEENT: Denies: Difficulty Hearing, Difficulty Swallowing, Sinus Congestion Cardiovascular: Denies: Chest Pain, Palpitations Respiratory: Denies: Cough, Shortness of Breath Gastrointestinal: Denies: Diarrhea, Nausea, Vomiting Genitourinary: Denies: Dysuria, Hematuria Endocrine: Denies: Heat/ Cold Intolerance, Polydipsia, Polyuria Hematologic/ Lymphatic: Denies: Easy Bruising, Easy Bleeding - Physical Exam Vital Signs Temp Pulse Resp BP 96.8 F L 82 20 H 148/59 H 09/04/20 11:06 09/04/20 11:06 09/04/20 11:06 09/04/20 11:06 General: Alert, Oriented x3, Cooperative, No apparent distress, Well developed, Well nourished, - - The patient is morbidly obese. HEENT: Atraumatic, PERRLA, EOMI, Normocephalic Oral: Moist Mucosa Neck: No JVD Lungs: Normal air movement Abdomen: Non-Distended, - - Morbidly obese Extremities: No clubbing, No cyanosis, No Calf Tenderness Addt'l Wound Findings: Severe swelling, edema, and lymphedema noted in the patient's lower extremities bilaterally. Diffuse, scaly, venous dermatitis is noted bilaterally below the knees. The ulceration on the right lateral calf persists. Dimensions are documented elsewhere. There is a moderate amount of bioburden. There is no sign of infection or cellulitis. Large areas of denuded skin are noted on the l eft lateral calf. The left lower extremity is more swollen and edematous than the right. Wound Measurements and Assessment WC - Nurse 1 - General Ulcer Measurement Start: 09/04/20 11:06 Freq: Status: Active Protocol: Activity Type Activity Date Activity User E-Sign Co-Sign Detail Recorded Client Recorded Date Recorded By Document 09/04/20 11:06 MW [id number] 09/04/20 11:14 MW 09/04/20 11:06 Wound Center Nurse 1 [Ulcer Assessment] #9 LLE Lat -Combined with other wound No -Current Size (cm) - Length 10.5 -Current Size (cm) - Width 12.0 -Current Size (cm) - Depth 0.1 -Total Square Cm 126.00 -Photo Taken No -Epithelialization None Present -Tunneling No -Undermining/Tunneling No -Circular Undermining No -Exudate Amt Large -Exudate Type Serosanguineous -Wound Margin Flat & Intact -Granulation Amt Small (1-33%) -Granulation Quality [place] -Slough/Fibrin Yes -Necrosis Amt Large (67-100%) -Necrotic Tissue Type Adherent Slough -Structure Exposed N/A -Texture (Meri-wound Skin Appearance) Assessed, Localized Edema -Moisture (Meri-wound Skin Appearance Assessed, ) Maceration -Color (Meri-wound Skin Appearance) Assessed, Hemosiderin Staining,Rubor -Temperature (Meri-wound Skin No Abnormality Appearance) (Pt Warm) -Tenderness on Palpation (Meri-wound Yes Skin Appearance) -Ulcer Cleansing soap and water -Foul Odor after Cleansing No #8- RLE -Combined with other wound No -Current Size (cm) - Length 0.1 -Current Size (cm) - Width 0.1 -Current Size (cm) - Depth 0.1 -Total Square Cm 0.01 -Photo Taken No -Epithelialization None Present -Tunneling No -Undermining/Tunneling No -Circular Undermining No -Exudate Amt Medium -Exudate Type Serosanguineous -Wound Margin Flat & Intact -Granulation Amt None Present (0 %) -Granulation Quality N/A -Slough/Fibrin Yes -Necrosis Amt Large (67-100%) -Necrotic Tissue Type Adherent Slough -Structure Exposed N/A -Texture (Meri-wound Skin Appearance) Assessed, Localized Edema -Moisture (Meri-wound Skin Appearance Assessed, ) Maceration,Dry/ Scaly -Color (Meri-wound Skin Appearance) Assessed, Hemosiderin Staining,Rubor -Temperature (Meri-wound Skin No Abnormality Appearance) (Pt Warm) -Tenderness on Palpation (Meri-wound Yes Skin Appearance) -Ulcer Cleansing Rinsed/ Irrigated with Saline -Foul Odor after Cleansing No -Anesthetic Used 4% Lidocaine Solution [Edema Assessment] -Lower Limb Edema Present Yes -Right Calf (cm) 52.5 -Right Ankle (cm) 33.0 -Left Calf (cm) 59.0 -Left Ankle (cm) 32.5 Musculoskeletal: No Muscle Wasting Neurological: Cranial nerves II-XII grossly intact, Neuro grossly intact Psych/Mental Status: Normal Affect, Appropriate, Alert and oriented to time, place, person, mood and affect Debridement Note Laterality: Right - Right lateral calf Type of Debridement: Excisional debridement Anesthesia Used: 5% Lidocaine Gel Depth: Down to and including healthy tissue, in the subcutaneous layer Percentage of wound debrided: 100 Instrument Used: 5mm curette Tissue Removed: Bioburden Severity: Fat Layer Exposed Amount of bleeding with debridement: Mild Bleeding Controlled with: Compression and gauze Patient tolerated procedure well Assessment/Plan Assessment: This is a 54-year-old morbidly obese diabetic white male with multiple medical problems. He presented with profound venous stasis changes in both lower extremities, as well as a small ulceration on the right lateral calf. He is morbidly obese, and relatively inactive. He spends large portions of each day in an idle sitting position. He had recently received care at a wound clinic in [place], [place]. His prior care involved serial debridements and the use of multilayer compression wraps. Routine laboratory studies have been obtained, the results of which are as follows: White blood count 5.7, hemoglobin 13.8, hematocrit 43.7, platelets 404,000, glucose 93, BUN 11, creatinine 0.97, total protein 7.8, calcium 9.1, AST 25, alkaline phosphatase 78, ALT 46, total bilirubin 0.40, sodium 139, potassium 4.3, chloride 104, serum prealbumin 26.9. A noninvasive lower extremity arterial study reveals no evidence of significant arterial occlusive disease in the lower extremities bilaterally. Plan: A lengthy discussion has been undertaken with the patient once again. Conservative treatment measures are to be continued. There is question as to the patient's level of compliance. The patient claims to be elevating his lower extremities as advised. He claims to be using his mechanical pneumatic compression pumps 2-3 times daily. However, his has previously related a completely different story, indicating that the patient has not been compliant with recommended measures. This appears to be the reason why the patient has failed to demonstrate significant improvement. He has been advised to continue sleeping on a flat mattress at night. Leg elevation has been recommended during daytime hours as well. Leg elevation is to be to heart level, or higher. This is to be accomplished as much as possible. Prolonged idle sitting has been discouraged. Activity has been encouraged, though the patient's morbid obesity likely precludes any significant increase or enhancement of the patient's activity level. We are to continue compression in both lower extremities using a 3M 2 layer compression wrap. These compression wraps will be changed twice weekly. Xeroform will be placed topically over the areas of denuded epithelium on the left lateral calf. Promogran will be applied to the small ulceration on the right lateral calf. The compression wraps and dressings will be changed twice weekly. Patient will return in 2 weeks for reassessment. The patient has in his possession pneumatic mechanical compression pumps, and has been encouraged to use these 2 or 3 times daily. Significant weight loss is a primary objective, though the patient is unlikely to meet this goal. Optimization of the patient's glycemic control has been recommended. Once again, a lack of patient compliance is suspected to be an issue in regard to the patient's failure to progress. The patient is not a smoker. Influenza vaccine was not administered today. The patient weighs 435 pounds. He stands 5 feet 9 inches tall. His BMI is 64.2. Weight loss has been recommended, in collaboration with the patient's primary care physician has been advised. Total time: 25 minutes.
[2020-09-07 11:11] VITALS: BP 137/64; PULSE 77; RESP 18; TEMP 36.4; BMI 64.2
[2020-09-18 11:07] VITALS: BP 135/78; PULSE 81; RESP 20; TEMP 36.3; BMI 64.2
--- NOTE | 2020-09-18 12:16 | HP.PCM_ITS ---
(1) Nonhealing ulcer of left lower extremity with fat layer exposed Status: Resolved Code(s): L97.922 - Non-pressure chronic ulcer of unspecified part of left lower leg with fat layer exposed Comment: x 2 anterior and posterior (2) Nonhealing ulcer of right lower extremity with fat layer exposed Status: Chronic Code(s): L97.912 - Non-pressure chronic ulcer of unspecified part of right lower leg with fat layer exposed (3) Decreased dorsalis pedis pulse Status: Chronic Code(s): R09.89 - Other specified symptoms and signs involving the circulatory and respiratory systems (4) Lymphedema of both lower extremities Status: Chronic Code(s): I89.0 - Lymphedema, not elsewhere classified (5) Pain, lower extremity Status: Chronic Qualifiers: Laterality: unspecified laterality Qualified Code(s): M79.606 - Pain in leg, unspecified Code(s): M79.606 - Pain in leg, unspecified (6) Morbid obesity with BMI of 60.0-69.9, adult Status: Chronic Code(s): E66.01 - Morbid (severe) obesity due to excess calories; Z68.44 - Body mass index [BMI] 60.0-69.9, adult (7) Skin tear of left lower leg without complication Status: Resolved Qualifiers: Code(s): S81.812A - Laceration without foreign body, left lower leg, initial encounter (8) Venous insufficiency (chronic) (peripheral) Status: Chronic Code(s): I87.2 - Venous insufficiency (chronic) (peripheral) (9) Swelling of lower extremity Status: Chronic Code(s): M79.89 - Other specified soft tissue disorders (10) Edema of both legs Status: Chronic Code(s): R60.0 - Localized edema (11) Ulcer of right lower leg Status: Chronic Qualifiers: Non-pressure ulcer stage: with fat layer exposed Code(s): L97.919 - Non-pressure chronic ulcer of unspecified part of right lower leg with unspecified severity (12) Venous stasis ulcer Status: Chronic Qualifiers: Venous stasis ulcer site: calf Varicose vein presence: without varicose veins Laterality: left Non-pressure ulcer stage: with fat layer exposed Qualified Code(s): I87.2 - Venous insufficiency (chronic) (peripheral); L97.222 - Non-pressure chronic ulcer of left calf with fat layer exposed Code(s): I83.009 - Varicose veins of unspecified lower extremity with ulcer of unspecified site; L97.909 - Non-pressure chronic ulcer of unspecified part of unspecified lower leg with unspecified severity (13) Dependent edema Status: Chronic Code(s): R60.9 - Edema, unspecified (14) Venous hypertension, chronic, with ulcer and inflammation Status: Chronic Qualifiers: Laterality: left Qualified Code(s): I87.332 - Chronic venous hypertension (idiopathic) with ulcer and inflammation of left lower extremity; L97.929 - Non- pressure chronic ulcer of unspecified part of left lower leg with unspecified severity Code(s): I87.339 - Chronic venous hypertension (idiopathic) with ulcer and inflammation of unspecified lower extremity; L97.909 - Non-pressure chronic ulcer of unspecified part of unspecified lower leg with unspecified severity (15) Venous stasis dermatitis Status: Chronic Qualifiers: Laterality: bilateral Code(s): I87.2 - Venous insufficiency (chronic) (peripheral) (16) Diabetes mellitus Status: Chronic Qualifiers: Diabetes mellitus type: type 2 Code(s): E11.9 - Type 2 diabetes mellitus without complications (17) Gout Status: Chronic Code(s): M10.9 - Gout, unspecified (18) MASON (obstructive sleep apnea) Status: Chronic Code(s): G47.33 - Obstructive sleep apnea (adult) (pediatric) (19) Hypertension Status: Chronic Code(s): I10 - Essential (primary) hypertension History of Present Illness Date of Service: 09/18/20 Chief Complaint: Severe swelling, edema, and lymphedema of the lower extremities, with ulceration of the right distal lower extremity History of Wound: This is a 54-year-old morbidly obese white male who presented with chronic swelling, edema, and lymphedema in his lower extremities, and a recent ulceration on the right lateral calf. The patient has been treated at our facility in the past for similar medical problems. With respect to his current problems, he has been receiving care recently at a wound clinic in [place], [place]. However, the patient has become dissatisfied with the care he is receiving, and is seeking medical care with our facility. Patient states that the ulceration on the right lateral calf has been present for several months. He has noticed very little improvement. It appears as though debridements have been performed serially, and weekly wraps have been implemented using 3M 2 layer compression wraps. He has recently obtained mechanical pneumatic compression pumps as well. He has a history of MRSA, and is currently on a prophylactic dose of azithromycin 250 mg p.o. daily. Patient claims to sleep on a flat mattress at night. However, he is not active, and spends a good deal of each day in a sitting position. He denies a history of deep vein thrombosis. It appears as though a venous duplex examination has been recently performed in [place], [place], at [facility]. We will attempt to obtain these results. A noninvasive lower extremity arterial study has been performed in 2018, the results of which revealed no evidence of arterial occlusive disease in the lower extremities. The patient also indicates that he was hospitalized for 2 days at [facility] in [place], [place], in January 2020, which was for treatment relative to his lower extremity problems. Past Medical History Past Medical History: Chronic Problems Nonhealing ulcer of right lower extremity with fat layer exposed (Chronic) Decreased dorsalis pedis pulse (Chronic) Lymphedema of both lower extremities (Chronic) Pain, lower extremity (Chronic) Morbid obesity with BMI of 60.0-69.9, adult (Chronic) Venous insufficiency (chronic) (peripheral) (Chronic) Swelling of lower extremity (Chronic) Edema of both legs (Chronic) Ulcer of right lower leg (Chronic) Venous stasis ulcer (Chronic) Dependent edema (Chronic) Venous hypertension, chronic, with ulcer and inflammation (Chronic) Venous stasis dermatitis (Chronic) Diabetes mellitus (Chronic) Gout (Chronic) MASON (obstructive sleep apnea) (Chronic) Hypertension (Chronic) Surgical History: herniorrhaphy - Left inguinal Allergies/Adverse Reactions: Allergies shellfish derived Allergy (Verified 05/15/20 11:16) Food Allergy Home Medications: Ambulatory Orders Medication Instructions Recorded Aldactone 25 mg PO BID 05/06/18 Lasix 80 mg PO DAILY 05/06/18 Lisinopril 20 mg PO DAILY 09/16/18 Allopurinol 300 mg PO DAILY 05/15/20 Azithromycin 250 mg PO DAILY 05/15/20 - Family History Paternal - - The patient's father at the age of 68 with a history of renal failure. Patient's mother is living, age 74, and suffers from atrial fibrillation. Smoking Status: Former smoker Tobacco Use: Non-smoker Review of Systems Constitutional: Denies: Chills, Fever, Weight Change Eyes: Denies: Pain, Vision Change HEENT: Denies: Difficulty Hearing, Difficulty Swallowing, Sinus Congestion Cardiovascular: Denies: Chest Pain, Palpitations Respiratory: Denies: Cough, Shortness of Breath Gastrointestinal: Denies: Diarrhea, Nausea, Vomiting Genitourinary: Denies: Dysuria, Hematuria Endocrine: Denies: Heat/ Cold Intolerance, Polydipsia, Polyuria Hematologic/ Lymphatic: Denies: Easy Bruising, Easy Bleeding - Physical Exam Vital Signs Temp Pulse Resp BP 97.3 F L 81 20 H 135/78 H 09/18/20 11:07 09/18/20 11:07 09/18/20 11:07 09/18/20 11:07 General: Alert, Oriented x3, Cooperative, No apparent distress, Well developed, Well nourished, - - The patient is morbidly obese. HEENT: Atraumatic, PERRLA, EOMI, Normocephalic Oral: Moist Mucosa Neck: No JVD Lungs: Normal air movement Abdomen: Non-Distended, Obese Extremities: No clubbing, No cyanosis, No Calf Tenderness, - - Severe swelling, edema, and lymphedema persist in the patient's lower extremities bilaterally. Chronic scaly dermatitis is noted bilaterally in the gaiter areas. Addt'l Wound Findings: Areas of epithelial denudation are noted on the left anterolateral calf. These have been rather chronic in nature. The ulceration on the right lateral calf persists. It appears to be smaller in size and of less depth. Dimensions are documented elsewhere. There is a moderate amount of bioburden. There is no sign of infection or cellulitis. Wound Measurements and Assessment WC - Nurse 1 - General Ulcer Measurement Start: 09/04/20 11:06 Freq: Status: Active Protocol: Activity Type Activity Date Activity User E-Sign Co-Sign Detail Recorded Client Recorded Date Recorded By Document 09/18/20 11:07 MW [id number] 09/18/20 11:15 MW 09/18/20 11:07 Wound Center Nurse 1 [Ulcer Assessment] #9 LLE Lat -Combined with other wound No -Current Size (cm) - Length 16.2 -Current Size (cm) - Width 18.5 -Current Size (cm) - Depth 0.1 -Total Square Cm 299.70 -Photo Taken No -Epithelialization None Present -Tunneling No -Undermining/Tunneling No -Circular Undermining No -Exudate Amt Large -Exudate Type Serosanguineous -Wound Margin Flat & Intact -Granulation Amt Medium (34-66%) -Granulation Quality [place] -Slough/Fibrin Yes -Necrosis Amt None Present (0 %) -Structure Exposed N/A -Texture (Meri-wound Skin Appearance) Assessed, Localized Edema -Moisture (Meri-wound Skin Appearance Assessed, ) Maceration,Dry/ Scaly -Color (Meri-wound Skin Appearance) Assessed, Hemosiderin Staining -Temperature (Meri-wound Skin No Abnormality Appearance) (Pt Warm) -Tenderness on Palpation (Meri-wound Yes Skin Appearance) -Ulcer Cleansing soap and water -Foul Odor after Cleansing No -Anesthetic Used 4% Lidocaine Solution #8- RLE -Combined with other wound No -Current Size (cm) - Length 4.0 -Current Size (cm) - Width 9.0 -Current Size (cm) - Depth 0.2 -Total Square Cm 36.00 -Photo Taken No -Epithelialization None Present -Tunneling No -Undermining/Tunneling No -Circular Undermining No -Wound Margin Flat & Intact -Granulation Amt None Present (0 %) -Granulation Quality N/A -Slough/Fibrin Yes -Necrosis Amt Large (67-100%) -Necrotic Tissue Type Adherent Slough -Structure Exposed N/A -Texture (Meri-wound Skin Appearance) Assessed, Localized Edema -Moisture (Meri-wound Skin Appearance Assessed, ) Maceration,Dry/ Scaly -Color (Meri-wound Skin Appearance) Assessed, Hemosiderin Staining -Temperature (Meri-wound Skin No Abnormality Appearance) (Pt Warm) -Tenderness on Palpation (Meri-wound Yes Skin Appearance) -Ulcer Cleansing soap and water -Foul Odor after Cleansing No -Anesthetic Used 4% Lidocaine Solution [Edema Assessment] -Lower Limb Edema Present Yes -Right Calf (cm) 64.4 -Right Ankle (cm) 34.4 -Left Calf (cm) 51.0 -Left Ankle (cm) 31.8 WC - Nurse 3 - General Ulcer D/C NN Start: 09/04/20 11:06 Freq: Status: Active Protocol: Activity Type Activity Date Activity User E-Sign Co-Sign Detail Recorded Client Recorded Date Recorded By Document 09/18/20 11:41 MW [id number] 09/18/20 11:42 MW 09/18/20 11:41 Wound Care Nurse 3 [Wound Dressing] #8- RLE -Ulcer Cleansing Rinsed/ Irrigated with Saline -Foul Odor after Cleansing No -Negative Pressure Wound Therapy N/A -Other Dressing promogran -Other Covering ABD Pad [Compression Applied] Bilateral -Lotion applied to leg before No compression wrap -Multi-Layered Wrap Application Unna Boot - Bilateral ($) -Unna Boots (Bilat) ($) 1 [Post Procedure Tolerated] -Treatment Response Procedure Tolerated Well Pain Scale: 0-10 Numeric [Pain] -Is Patient Pain Free? Yes Teaching: Wound Center [Wound Center Education] (Items with an * have Printed Materials Available- Please identify what is given to patient under the Teaching materials given to patient and caregiver Section. Dressing Your Wound -Person Taught Patient -Teaching Method Discussion, Demonstration -Response to teaching Verbalize understanding WC - Visit Discharge [Visit Discharge Information] -Discharge Condition Stable -Ambulatory Status Ambulatory -Transportation Private Auto -Accompanied by self -Medication Reconcilliation completed No & provided to patient/care provider -Clinical Summary of Care Provided Yes Musculoskeletal: No Muscle Wasting Neurological: Cranial nerves II-XII grossly intact, Neuro grossly intact Psych/Mental Status: Normal Affect, Appropriate, Alert and oriented to time, place, person, mood and affect Debridement Note Post-Debridement Measurements/Treatment WC - Nurse 3 - General Ulcer D/C NN Start: 09/04/20 11:06 Freq: Status: Active Protocol: Activity Type Activity Date Activity User E-Sign Co-Sign Detail Recorded Client Recorded Date Recorded By Document 09/04/20 11:56 MW [id number] 09/04/20 11:58 MW Document 09/07/20 11:32 MS [id number] 09/07/20 11:34 MS Document 09/18/20 11:41 MW [id number] 09/18/20 11:42 MW 09/04/20 09/07/20 09/18/20 11:56 11:32 11:41 Wound Care Nurse 3 #9 LLE Lat -Ulcer Cleansing Rinsed/ Wound Cleanser Irrigated with Saline -Foul Odor after Cleansing No -Negative Pressure Wound Therapy N/A -Other Dressing xeroform abd -Primary Dressing Covered/Secured with Dry Gauze & Dry Gauze,Dry Roll Gauze, Gauze & Roll Secured with Gauze Tape -Other Covering abd pad #8- RLE -Ulcer Cleansing Wound Cleanser Rinsed/ Irrigated with Saline -Foul Odor after Cleansing No No -Negative Pressure Wound Therapy N/A N/A -Primary Dressing Applied Promogran Promogran -Other Dressing abd promogran -Primary Dressing Covered/Secured with Dry Gauze & Roll Gauze, Secured with Tape -Other Covering abd pad ABD Pad -Promogran 1 1 Bilateral -Lotion applied to leg before No compression wrap -Multi-Layered Wrap Application Multi-Layer Unna Boot - Comp - Bilat ($ Bilateral ($) ) -Unna Boots (Bilat) ($) 1 Right -Lotion applied to leg before Yes compression wrap -Multi-Layered Wrap Application Multi-Layer Comp - Bilat ($ ) Left -Lotion applied to leg before Yes compression wrap Treatment Response Procedure Procedure Tolerated Well Tolerated Well Pain Scale: 0-10 Numeric Is Patient Pain Free? Yes Yes Yes Teaching: Wound Center Dressing Your Wound -Person Taught Patient Patient -Teaching Method Discussion, Discussion, Demonstration Demonstration -Response to teaching Verbalize Verbalize understanding understanding WC - Visit Discharge Discharge Condition Stable Stable Stable Ambulatory Status Ambulatory Ambulatory Ambulatory Transportation Private Auto Private Auto Private Auto Accompanied by self self Medication Reconcilliation completed & No No No provided to patient/care provider Clinical Summary of Care Provided Yes Yes Yes Laterality: Right - Lateral calf Type of Debridement: Excisional debridement Anesthesia Used: 5% Lidocaine Gel Depth: Down to and including healthy tissue, in the subcutaneous layer Percentage of wound debrided: 100 Instrument Used: 3mm curette Tissue Removed: Bioburden Severity: Fat Layer Exposed Amount of bleeding with debridement: Mild Bleeding Controlled with: Compression and gauze Patient tolerated procedure well Assessment/Plan Active Problems Nonhealing ulcer of right lower extremity with fat layer exposed (Chronic) Decreased dorsalis pedis pulse (Chronic) Lymphedema of both lower extremities (Chronic) Pain, lower extremity (Chronic) Morbid obesity with BMI of 60.0-69.9, adult (Chronic) Venous insufficiency (chronic) (peripheral) (Chronic) Swelling of lower extremity (Chronic) Edema of both legs (Chronic) Ulcer of right lower leg (Chronic) Venous stasis ulcer (Chronic) Dependent edema (Chronic) Venous hypertension, chronic, with ulcer and inflammation (Chronic) Venous stasis dermatitis (Chronic) Diabetes mellitus (Chronic) Gout (Chronic) MASON (obstructive sleep apnea) (Chronic) Hypertension (Chronic) Assessment: This is a 54-year-old morbidly obese diabetic white male with multiple medical problems. He presented with profound venous stasis changes in both lower extremities, as well as a small ulceration on the right lateral calf. He is morbidly obese, and relatively inactive. He spends large portions of each day in an idle sitting position. He had recently received care at a wound clinic in [place], [place]. His prior care involved serial debridements and the use of multilayer compression wraps. Routine laboratory studies have been obtained, the results of which are as follows: White blood count 5.7, hemoglobin 13.8, hematocrit 43.7, platelets 404,000, glucose 93, BUN 11, creatinine 0.97, total protein 7.8, calcium 9.1, AST 25, alkaline phosphatase 78, ALT 46, total bilirubin 0.40, sodium 139, potassium 4.3, chloride 104, serum prealbumin 26.9. A noninvasive lower extremity arterial study reveals no evidence of significant arterial occlusive disease in the lower extremities bilaterally. Plan: A lengthy discussion has been undertaken with the patient once again. Conservative treatment measures are to be continued. There is question as to the patient's level of compliance. The patient claims to be elevating his lower extremities as advised. He claims to be using his mechanical pneumatic compression pumps 2-3 times daily. However, his has previously related a completely different story, indicating that the patient has not been compliant with recommended measures. This appears to be the reason why the patient has failed to demonstrate significant improvement. He has been advised to continue sleeping on a flat mattress at night. Leg elevation has been recommended during daytime hours as well. Leg elevation is to be to heart level, or higher. This is to be accomplished as much as possible. Prolonged idle sitting has been discouraged. Activity has been encouraged, though the patient's morbid obesity likely precludes any significant increase or enhancement of the patient's activity level. We are to continue compression in both lower extremities using Unna boots bilaterally, instead of the Unna boots will be implemented for a week or 2, to determine whether there has been any beneficial effect on the scaly dermatitis. Promogran will be applied to the small ulceration on the right lateral calf. The compression wraps and dressings will be changed twice weekly. Patient will return in 1 week for reassessment. The patient has in his possession pneumatic mechanical compression pumps, and has been encouraged to use these 2 or 3 times daily. Significant weight loss is a primary objective, though the patient is unlikely to meet this goal. Optimization of the patient's glycemic control has been recommended. Once again, a lack of patient compliance is suspected to be an issue in regard to the patient's failure to progress. The patient is not a smoker. Influenza vaccine was not administered today. The patient weighs 435 pounds. He stands 5 feet 9 inches tall. His BMI is 64.2. Weight loss has been recommended, in collaboration with the patient's primary care physician has been advised. Total time: 28 minutes.
[2020-09-21 11:55] VITALS: BP 113/55; PULSE 70; TEMP 35.9; BMI 64.2
== END 2020-09-23 23:59 ==
LOC: WC 12:00
PROVIDERS: PCP Internal Medicine; Referring Provider Surgery; Visit Provider Surgery
DX: L97.212 Non-pressure chronic ulcer of right calf with fat layer exposed (principal); I89.0 Lymphedema, not elsewhere classified; M79.89 Other specified soft tissue disorders; R60.0 Localized edema; I87.2 Venous insufficiency (chronic) (peripheral); E11.9 Type 2 diabetes mellitus without complications; I10 Essential (primary) hypertension; M10.9 Gout, unspecified; G47.33 Obstructive sleep apnea (adult) (pediatric); E66.01 Morbid (severe) obesity due to excess calories; Z68.44 Body mass index [BMI] 60.0-69.9, adult; Z79.899 Other long term (current) drug therapy; Z86.14 Personal history of Methicillin resistant Staphylococcus aureus infection; Z87.891 Personal history of nicotine dependence
CPT/HCPCS: 11042; 29580; 29581

== ENCOUNTER 2020-10-17 12:00 | Outpatient (RCR) | payer MEDICAID, SELFPAY ==
[2020-09-25 10:56] VITALS: BMI 64.2
== END 2020-10-24 23:59 ==
LOC: NS 12:00
PROVIDERS: PCP Internal Medicine; Visit Provider Surgery
DX: Z71.3 Dietary counseling and surveillance (principal); E66.01 Morbid (severe) obesity due to excess calories
CPT/HCPCS: 97803

== ENCOUNTER 2020-10-23 11:30 | Outpatient (RCR) | payer MEDICAID, SELFPAY ==
[2020-09-24 00:25] VITALS: BP 113/55; PULSE 70; RESP 20; TEMP 35.9
[2020-09-25 10:56] VITALS: BP 142/46; PULSE 74; RESP 22; TEMP 36.4; BMI 64.2
--- NOTE | 2020-09-25 13:36 | HP.PCM_ITS ---
(1) Nonhealing ulcer of left lower extremity with fat layer exposed Status: Resolved Code(s): L97.922 - Non-pressure chronic ulcer of unspecified part of left lower leg with fat layer exposed Comment: x 2 anterior and posterior (2) Nonhealing ulcer of right lower extremity with fat layer exposed Status: Chronic Code(s): L97.912 - Non-pressure chronic ulcer of unspecified part of right lower leg with fat layer exposed (3) Decreased dorsalis pedis pulse Status: Chronic Code(s): R09.89 - Other specified symptoms and signs involving the circulatory and respiratory systems (4) Lymphedema of both lower extremities Status: Chronic Code(s): I89.0 - Lymphedema, not elsewhere classified (5) Pain, lower extremity Status: Chronic Qualifiers: Code(s): M79.606 - Pain in leg, unspecified (6) Morbid obesity with BMI of 60.0-69.9, adult Status: Chronic Code(s): E66.01 - Morbid (severe) obesity due to excess calories; Z68.44 - Body mass index [BMI] 60.0-69.9, adult (7) Skin tear of left lower leg without complication Status: Resolved Qualifiers: Code(s): S81.812A - Laceration without foreign body, left lower leg, initial encounter (8) Venous insufficiency (chronic) (peripheral) Status: Chronic Code(s): I87.2 - Venous insufficiency (chronic) (peripheral) (9) Swelling of lower extremity Status: Chronic Code(s): M79.89 - Other specified soft tissue disorders (10) Edema of both legs Status: Chronic Code(s): R60.0 - Localized edema (11) Ulcer of right lower leg Status: Chronic Qualifiers: Code(s): L97.919 - Non-pressure chronic ulcer of unspecified part of right lower leg with unspecified severity (12) Venous stasis ulcer Status: Chronic Qualifiers: Code(s): I83.009 - Varicose veins of unspecified lower extremity with ulcer of unspecified site; L97.909 - Non-pressure chronic ulcer of unspecified part of unspecified lower leg with unspecified severity (13) Dependent edema Status: Chronic Code(s): R60.9 - Edema, unspecified (14) Venous hypertension, chronic, with ulcer and inflammation Status: Chronic Qualifiers: Code(s): I87.339 - Chronic venous hypertension (idiopathic) with ulcer and inflammation of unspecified lower extremity; L97.909 - Non-pressure chronic ulc er of unspecified part of unspecified lower leg with unspecified severity (15) Venous stasis dermatitis Status: Chronic Qualifiers: Code(s): I87.2 - Venous insufficiency (chronic) (peripheral) (16) Diabetes mellitus Status: Chronic Code(s): E11.9 - Type 2 diabetes mellitus without complications (17) Gout Status: Chronic Code(s): M10.9 - Gout, unspecified (18) MASON (obstructive sleep apnea) Status: Chronic Code(s): G47.33 - Obstructive sleep apnea (adult) (pediatric) (19) Hypertension Status: Chronic Code(s): I10 - Essential (primary) hypertension History of Present Illness Date of Service: 09/25/20 Chief Complaint: Severe swelling, edema, and lymphedema of the lower extremities, with ulceration of the right distal lower extremity History of Wound: This is a 54-year-old morbidly obese white male who presented with chronic swelling, edema, and lymphedema in his lower extremities, and a recent ulceration on the right lateral calf. The patient has been treated at our facility in the past for similar medical problems. With respect to his current problems, he has been receiving care recently at a wound clinic in [place], [place]. However, the patient has become dissatisfied with the care he is receiving, and is seeking medical care with our facility. Patient states that the ulceration on the right lateral calf has been present for several m onths. He has noticed very little improvement. It appears as though debridements have been performed serially, and weekly wraps have been implemented using 3M 2 layer compression wraps. He has recently obtained mechanical pneumatic compression pumps as well. He has a history of MRSA, and is currently on a prophylactic dose of azithromycin 250 mg p.o. daily. Patient claims to sleep on a flat mattress at night. However, he is not active, and spends a good deal of each day in a sitting position. He denies a history of deep vein thrombosis. It appears as though a venous duplex examination has been recently performed in [place], [place], at [facility]. We will attempt to obtain these results. A noninvasive lower extremity arterial study has been performed in 2018, the results of which revealed no evidence of arterial occlusive disease in the lower extremities. The patient also indicates that he was hospitalized for 2 days at [facility] in [place], [place], in January 2020, which was for treatment relative to his lower extremity problems. Past Medical History Past Medical History: Chronic Problems Nonhealing ulcer of right lower extremity with fat layer exposed (Chronic) Decreased dorsalis pedis pulse (Chronic) Lymphedema of both lower extremities (Chronic) Pain, lower extremity (Chronic) Morbid obesity with BMI of 60.0-69.9, adult (Chronic) Venous insufficiency (chronic) (peripheral) (Chronic) Swelling of lower extremity (Chronic) Edema of both legs (Chronic) Ulcer of right lower leg (Chronic) Venous stasis ulcer (Chronic) Dependent edema (Chronic) Venous hypertension, chronic, with ulcer and inflammation (Chronic) Venous stasis dermatitis (Chronic) Diabetes mellitus (Chronic) Gout (Chronic) MASON (obstructive sleep apnea) (Chronic) Hypertension (Chronic) Surgical History: herniorrhaphy - Left inguinal Allergies/Adverse Reactions: Allergies shellfish derived Allergy (Verified 05/15/20 11:16) Food Allergy Home Medications: Ambulatory Orders Medication Instructions Recorded Aldactone 25 mg PO BID 05/06/18 Lasix 80 mg PO DAILY 05/06/18 Lisinopril 20 mg PO DAILY 09/16/18 Allopurinol 300 mg PO DAILY 05/15/20 Azithromycin 250 mg PO DAILY 05/15/20 - Family History Paternal - - The patient's father at the age of 68 with a history of renal failure. Patient's mother is living, age 74, and suffers from atrial fibrillation. Smoking Status: Former smoker Tobacco Use: Non-smoker Review of Systems Constitutional: Denies: Chills, Fever, Weight Change Eyes: Denies: Pain, Vision Change HEENT: Denies: Difficulty Hearing, Difficulty Swallowing, Sinus Congestion Cardiovascular: Denies: Chest Pain, Palpitations Respiratory: Denies: Cough, Shortness of Breath Gastrointestinal: Denies: Diarrhea, Nausea, Vomiting Genitourinary: Denies: Dysuria, Hematuria Endocrine: Denies: Heat/ Cold Intolerance, Polydipsia, Polyuria Hematologic/ Lymphatic: Denies: Easy Bruising, Easy Bleeding - Physical Exam Vital Signs Temp Pulse Resp BP 97.5 F L 74 22 H 142/46 H 09/25/20 10:56 09/25/20 10:56 09/25/20 10:56 09/25/20 10:56 General: Alert, Oriented x3, Cooperative, No apparent distress, Well developed, Well nourished HEENT: Atraumatic, PERRLA, EOMI, Normocephalic Oral: Moist Mucosa Neck: No JVD Lungs: Normal air movement Abdomen: Non-Distended Extremities: No clubbing, No cyanosis, No Calf Tenderness, - - Severe swelling and edema persist in both lower extremities. Severe scaly dermatitic changes also persist bilaterally. The ulceration on the right lateral calf persists, though slightly smaller in size. There is a moderate amount of bioburden. There is no sign of infection or cellulitis. Addt'l Wound Findings: Dimensions of the right lateral calf wound are documented elsewhere. Wound Measurements and Assessment WC - Nurse 1 - General Ulcer Measurement Start: 09/25/20 10:56 Freq: Status: Active Protocol: Activity Type Activity Date Activity User E-Sign Co-Sign Detail Recorded Client Recorded Date Recorded By Document 09/25/20 10:56 MW [id number] 09/25/20 11:08 MW 09/25/20 10:56 Wound Center Nurse 1 [Ulcer Assessment] #9 LLE Lat -Combined with other wound No -Current Size (cm) - Length 17.0 -Current Size (cm) - Width 15.0 -Current Size (cm) - Depth 0.1 -Total Square Cm 255.00 -Photo Taken No -Epithelialization None Present -Tunneling No -Undermining/Tunneling No -Circular Undermining No -Exudate Amt Large -Exudate Type Serosanguineous -Wound Margin Flat & Intact -Granulation Amt Large (67-100%) -Granulation Quality [place] -Slough/Fibrin Yes -Necrosis Amt Small (1-33%) -Necrotic Tissue Type Adherent Slough -Structure Exposed N/A -Texture (Meri-wound Skin Appearance) Assessed, Localized Edema ,Scarring -Moisture (Meri-wound Skin Appearance Assessed, ) Maceration -Color (Meri-wound Skin Appearance) Assessed, Hemosiderin Staining,Rubor -Temperature (Meri-wound Skin No Abnormality Appearance) (Pt Warm) -Tenderness on Palpation (Meri-wound Yes Skin Appearance) -Ulcer Cleansing SOAP AND WATER -Foul Odor after Cleansing No -Anesthetic Used 4% Lidocaine Solution #8- RLE -Combined with other wound No -Current Size (cm) - Length 6.0 -Current Size (cm) - Width 6.0 -Current Size (cm) - Depth 0.1 -Total Square Cm 36.00 -Photo Taken No -Epithelialization None Present -Tunneling No -Undermining/Tunneling No -Circular Undermining No -Exudate Amt Large -Exudate Type Serosanguineous -Wound Margin Flat & Intact -Granulation Amt Large (67-100%) -Granulation Quality [place] -Slough/Fibrin Yes -Necrosis Amt Small (1-33%) -Necrotic Tissue Type Adherent Slough -Structure Exposed N/A -Texture (Meri-wound Skin Appearance) Assessed, Localized Edema ,Scarring -Moisture (Meri-wound Skin Appearance Assessed, ) Maceration -Color (Meri-wound Skin Appearance) Assessed, Hemosiderin Staining,Rubor -Temperature (Meri-wound Skin No Abnormality Appearance) (Pt Warm) -Tenderness on Palpation (Meri-wound Yes Skin Appearance) -Ulcer Cleansing SOAP AND WATER -Foul Odor after Cleansing No -Anesthetic Used 4% Lidocaine Solution [Edema Assessment] -Lower Limb Edema Present Yes -Right Calf (cm) 58.5 -Right Ankle (cm) 35.5 -Left Calf (cm) 61.5 -Left Ankle (cm) 33.4 Musculoskeletal: No Muscle Wasting Neurological: Cranial nerves II-XII grossly intact, Neuro grossly intact Psych/Mental Status: Normal Affect, Appropriate, Alert and oriented to time, place, person, mood and affect Debridement Note Laterality: Right - Lateral calf Type of Debridement: Excisional debridement Anesthesia Used: 5% Lidocaine Gel Depth: Down to and including healthy tissue, in the subcutaneous layer Percentage of wound debrided: 100 Instrument Used: 5mm curette Tissue Removed: Bioburden Severity: Fat Layer Exposed Amount of bleeding with debridement: Mild Bleeding Controlled with: Compression and gauze Patient tolerated procedure well Assessment/Plan Assessment: This is a 54-year-old morbidly obese diabetic white male with multiple medical problems. He presented with profound venous stasis changes in both lower extremities, as well as a small ulceration on the right lateral calf. He is morbidly obese, and relatively inactive. He spends large portions of each day in an idle sitting position. He had recently received care at a wound clinic in [place], [place]. His prior care involved serial debridements and the use of multilayer compression wraps. Routine laboratory studies have been obtained, the results of which are as follows: White blood count 5.7, hemoglobin 13.8, hematocrit 43.7, platelets 404,000, glucose 93, BUN 11, creatinine 0.97, total protein 7.8, calcium 9.1, AST 25, alkaline phosphatase 78, ALT 46, total bilirubin 0.40, sodium 139, potassium 4.3, chloride 104, serum prealbumin 26.9. A noninvasive lower extremity arterial study reveals no evidence of significant arterial occlusive disease in the lower extremities bilaterally. Plan: A lengthy discussion has been undertaken with the patient once again. Conservative treatment measures are to be continued. There is question as to the patient's level of compliance. The patient claims to be elevating his lower extremities as advised. He claims to be using his mechanical pneumatic compression pumps 2-3 times daily. However, his has previously related a completely different story, indicating that the patient has not been compliant with recommended measures. This appears to be the reason why the patient has failed to demonstrate significant improvement. He has been advised to continue sleeping on a flat mattress at night. Leg elevation has been recommended during daytime hours as well. Leg elevation is to be to heart level, or higher. This is to be accomplished as much as possible. Prolonged idle sitting has been discouraged. Activity has been encouraged, though the patient's morbid obesity likely precludes any significant increase or enhancement of the patient's activity level. We are to continue compression in both lower extremities using [place] boots bilaterally, which will be changed twice weekly. Promogran will be applied to the small ulceration on the right lateral calf. The compression wraps and dressings will be changed twice weekly. Patient will return in 1 week for reassessment. The patient has in his possession pneumatic mechanical compressi on pumps, and has been encouraged to use these 2 or 3 times daily. Significant weight loss is a primary objective, though the patient is unlikely to meet this goal. Optimization of the patient's glycemic control has been recommended. Once again, a lack of patient compliance is suspected to be an issue in regard to the patient's failure to progress. The patient is not a smoker. Influenza vaccine was not administered today. The patient weighs 435 pounds. He stands 5 feet 9 inches tall. His BMI is 64.2. Weight loss has been recommended, in collaboration with the patient's primary care physician has been advised. Total time: 26 minutes.
[2020-09-28 12:55] VITALS: BP 147/69; PULSE 68; RESP 20; TEMP 36.2; BMI 64.2
[2020-10-02 11:05] VITALS: BP 142/67; PULSE 80; RESP 22; TEMP 37.2; BMI 64.2
--- NOTE | 2020-10-02 11:38 | HP.PCM_ITS ---
(1) Nonhealing ulcer of left lower extremity with fat layer exposed Status: Resolved Code(s): L97.922 - Non-pressure chronic ulcer of unspecified part of left lower leg with fat layer exposed Comment: x 2 anterior and posterior (2) Nonhealing ulcer of right lower extremity with fat layer exposed Status: Chronic Code(s): L97.912 - Non-pressure chronic ulcer of unspecified part of right lower leg with fat layer exposed (3) Decreased dorsalis pedis pulse Status: Chronic Code(s): R09.89 - Other specified symptoms and signs involving the circulatory and respiratory systems (4) Lymphedema of both lower extremities Status: Chronic Code(s): I89.0 - Lymphedema, not elsewhere classified (5) Pain, lower extremity Status: Chronic Qualifiers: Code(s): M79.606 - Pain in leg, unspecified (6) Morbid obesity with BMI of 60.0-69.9, adult Status: Chronic Code(s): E66.01 - Morbid (severe) obesity due to excess calories; Z68.44 - Body mass index [BMI] 60.0-69.9, adult (7) Skin tear of left lower leg without complication Status: Resolved Qualifiers: Code(s): S81.812A - Laceration without foreign body, left lower leg, initial encounter (8) Venous insufficiency (chronic) (peripheral) Status: Chronic Code(s): I87.2 - Venous insufficiency (chronic) (peripheral) (9) Swelling of lower extremity Status: Chronic Code(s): M79.89 - Other specified soft tissue disorders (10) Edema of both legs Status: Chronic Code(s): R60.0 - Localized edema (11) Ulcer of right lower leg Status: Chronic Qualifiers: Code(s): L97.919 - Non-pressure chronic ulcer of unspecified part of right lower leg with unspecified severity (12) Venous stasis ulcer Status: Chronic Qualifiers: Code(s): I83.009 - Varicose veins of unspecified lower extremity with ulcer of unspecified site; L97.909 - Non-pressure chronic ulcer of unspecified part of unspecified lower leg with unspecified severity (13) Dependent edema Status: Chronic Code(s): R60.9 - Edema, unspecified (14) Venous hypertension, chronic, with ulcer and inflammation Status: Chronic Qualifiers: Code(s): I87.339 - Chronic venous hypertension (idiopathic) with ulcer and inflammation of unspecified lower extremity; L97.909 - Non-pressure chronic ulc er of unspecified part of unspecified lower leg with unspecified severity (15) Venous stasis dermatitis Status: Chronic Qualifiers: Code(s): I87.2 - Venous insufficiency (chronic) (peripheral) (16) Diabetes mellitus Status: Chronic Code(s): E11.9 - Type 2 diabetes mellitus without complications (17) Gout Status: Chronic Code(s): M10.9 - Gout, unspecified (18) MASON (obstructive sleep apnea) Status: Chronic Code(s): G47.33 - Obstructive sleep apnea (adult) (pediatric) (19) Hypertension Status: Chronic Code(s): I10 - Essential (primary) hypertension History of Present Illness Date of Service: 10/02/20 Chief Complaint: Severe swelling, edema, and lymphedema of the lower extremities, with ulceration of the right distal lower extremity History of Wound: This is a 54-year-old morbidly obese white male who presented with chronic swelling, edema, and lymphedema in his lower extremities, and a recent ulceration on the right lateral calf. The patient has been treated at our facility in the past for similar medical problems. With respect to his current problems, he has been receiving care recently at a wound clinic in [place], [place]. However, the patient has become dissatisfied with the care he is receiving, and is seeking medical care with our facility. Patient states that the ulceration on the right lateral calf has been present for several m onths. He has noticed very little improvement. It appears as though debridements have been performed serially, and weekly wraps have been implemented using 3M 2 layer compression wraps. He has recently obtained mechanical pneumatic compression pumps as well. He has a history of MRSA, and is currently on a prophylactic dose of azithromycin 250 mg p.o. daily. Patient claims to sleep on a flat mattress at night. However, he is not active, and spends a good deal of each day in a sitting position. He denies a history of deep vein thrombosis. It appears as though a venous duplex examination has been recently performed in [place], [place], at [facility]. We will attempt to obtain these results. A noninvasive lower extremity arterial study has been performed in 2018, the results of which revealed no evidence of arterial occlusive disease in the lower extremities. The patient also indicates that he was hospitalized for 2 days at [facility] in [place], [place], in January 2020, which was for treatment relative to his lower extremity problems. Past Medical History Past Medical History: Chronic Problems Nonhealing ulcer of right lower extremity with fat layer exposed (Chronic) Decreased dorsalis pedis pulse (Chronic) Lymphedema of both lower extremities (Chronic) Pain, lower extremity (Chronic) Morbid obesity with BMI of 60.0-69.9, adult (Chronic) Venous insufficiency (chronic) (peripheral) (Chronic) Swelling of lower extremity (Chronic) Edema of both legs (Chronic) Ulcer of right lower leg (Chronic) Venous stasis ulcer (Chronic) Dependent edema (Chronic) Venous hypertension, chronic, with ulcer and inflammation (Chronic) Venous stasis dermatitis (Chronic) Diabetes mellitus (Chronic) Gout (Chronic) MASON (obstructive sleep apnea) (Chronic) Hypertension (Chronic) Surgical History: herniorrhaphy - Left inguinal Allergies/Adverse Reactions: Allergies shellfish derived Allergy (Verified 05/15/20 11:16) Food Allergy Home Medications: Ambulatory Orders Medication Instructions Recorded Aldactone 25 mg PO BID 05/06/18 Lasix 80 mg PO DAILY 05/06/18 Lisinopril 20 mg PO DAILY 09/16/18 Allopurinol 300 mg PO DAILY 05/15/20 Azithromycin 250 mg PO DAILY 05/15/20 - Family History Paternal - - The patient's father at the age of 68 with a history of renal failure. Patient's mother is living, age 74, and suffers from atrial fibrillation. Smoking Status: Former smoker Tobacco Use: Non-smoker Review of Systems Constitutional: Denies: Chills, Fever, Weight Change Eyes: Denies: Pain, Vision Change HEENT: Denies: Difficulty Hearing, Difficulty Swallowing, Sinus Congestion Cardiovascular: Denies: Chest Pain, Palpitations Respiratory: Denies: Cough, Shortness of Breath Gastrointestinal: Denies: Diarrhea, Nausea, Vomiting Genitourinary: Denies: Dysuria, Hematuria Endocrine: Denies: Heat/ Cold Intolerance, Polydipsia, Polyuria Hematologic/ Lymphatic: Denies: Easy Bruising, Easy Bleeding - Physical Exam Vital Signs Temp Pulse Resp BP 98.9 F 80 22 H 142/67 H 10/02/20 11:05 10/02/20 11:05 10/02/20 11:05 10/02/20 11:05 General: Alert, Oriented x3, Cooperative, No apparent distress, Well developed, Well nourished, - - Patient is morbidly obese HEENT: Atraumatic, PERRLA, EOMI, Normocephalic Oral: Moist Mucosa Neck: No JVD Lungs: Normal air movement Abdomen: Non-Distended, Obese Extremities: No clubbing, No cyanosis, No Calf Tenderness, - - Severe swelling and edema persist in the patient's lower extremities bilaterally. Severe scaly dermatitic changes also persist bilaterally. Addt'l Wound Findings: The ulceration on the right lateral calf persists. It is little changed in size or appearance. Dimensions are documented elsewhere. There is no sign of infection or cellulitis. There is a moderate amount of bioburden. Wound Measurements and Assessment WC - Nurse 1 - General Ulcer Measurement Start: 09/25/20 10:56 Freq: Status: Active Protocol: Activity Type Activity Date Activity User E-Sign Co-Sign Detail Recorded Client Recorded Date Recorded By Document 10/02/20 11:05 MW [id number] 10/02/20 11:19 MW 10/02/20 11:05 Wound Center Nurse 1 [Ulcer Assessment] #9 LLE Lat -Combined with other wound No -Current Size (cm) - Length 11.0 -Current Size (cm) - Width 13.0 -Current Size (cm) - Depth 0.1 -Total Square Cm 143.00 -Photo Taken No -Epithelialization None Present -Tunneling No -Undermining/Tunneling No -Circular Undermining No -Exudate Amt Large -Exudate Type Serosanguineous -Wound Margin Flat & Intact -Granulation Amt Medium (34-66%) -Granulation Quality [place] -Slough/Fibrin Yes -Necrosis Amt Medium (34-66%) -Necrotic Tissue Type Adherent Slough -Structure Exposed N/A -Texture (Meri-wound Skin Appearance) Assessed, Localized Edema -Moisture (Meri-wound Skin Appearance Assessed, ) Maceration,Dry/ Scaly -Color (Meri-wound Skin Appearance) Assessed, Hemosiderin Staining -Temperature (Meri-wound Skin No Abnormality Appearance) (Pt Warm) -Tenderness on Palpation (Meri-wound Yes Skin Appearance) -Ulcer Cleansing soap and water -Foul Odor after Cleansing No -Anesthetic Used 4% Lidocaine Solution #8- RLE -Combined with other wound No -Current Size (cm) - Length 0.9 -Current Size (cm) - Width 0.9 -Current Size (cm) - Depth 0.3 -Total Square Cm 0.81 -Photo Taken No -Epithelialization None Present -Tunneling No -Undermining/Tunneling No -Circular Undermining No -Exudate Amt Large -Exudate Type Serous -Wound Margin Flat & Intact -Granulation Amt None Present (0 %) -Granulation Quality N/A -Slough/Fibrin Yes -Necrosis Amt Large (67-100%) -Necrotic Tissue Type Adherent Slough -Structure Exposed N/A -Texture (Meri-wound Skin Appearance) Assessed, Localized Edema -Moisture (Meri-wound Skin Appearance Assessed, ) Maceration,Dry/ Scaly -Color (Meri-wound Skin Appearance) Assessed, Hemosiderin Staining -Temperature (Meri-wound Skin No Abnormality Appearance) (Pt Warm) -Tenderness on Palpation (Meri-wound Yes Skin Appearance) -Ulcer Cleansing soap and water -Foul Odor after Cleansing No -Anesthetic Used 4% Lidocaine Solution [Edema Assessment] -Lower Limb Edema Present Yes -Right Calf (cm) 57.0 -Right Ankle (cm) 35.2 -Left Calf (cm) 57.0 -Left Ankle (cm) 31.5 Musculoskeletal: No Muscle Wasting Neurological: Cranial nerves II-XII grossly intact, Neuro grossly intact Psych/Mental Status: Normal Affect, Appropriate, Alert and oriented to time, place, person, mood and affect Debridement Note Post-Debridement Measurements/Treatment WC - Nurse 2 - General Ulcer CM Notes Start: 09/25/20 10:56 Freq: Status: Active Protocol: Activity Type Activity Date Activity User E-Sign Co-Sign Detail Recorded Client Recorded Date Recorded By Document 09/25/20 14:25 PL [id number] 09/25/20 14:34 PL 09/25/20 14:25 Wound Center Nurse 2 #9 LLE Lat -Procedure Performed No #8- RLE -Time 11:30 -Correct Patient Yes -Correct Side, Site, Position Yes -Correct Procedure Yes -Procedure Performed Yes -Type of Procedure Debridement -Clinical Debridement Subcutaneous -Tissue Removed Subcutaneous -Post Debridement (cm) - Length 6.0 -Post Debridement (cm) - Width 6.0 -Post Debridement (cm) - Depth 0.1 -Total Square (Post) (cm) 36.00 -Area of Debridement (cm) - Length 2.0 -Area of Debridement (cm) - Width 2.0 -Total Square (Area) (cm) 4.00 -Tunneling No -Undermining/Tunneling No -Circular Undermining No -Wound/Ulcer Outcome Not Healed -Ulcer Cleansing Rinsed/ Irrigated with Saline -Foul Odor after Cleansing No -Bioengineered Tissue No -Debridement - Subq, 1st 20sq cm Yes WC - Nurse 3 - General Ulcer D/C NN Start: 09/25/20 10:56 Freq: Status: Active Protocol: Activity Type Activity Date Activity User E-Sign Co-Sign Detail Recorded Client Recorded Date Recorded By Document 09/25/20 14:25 PL [id number] 09/25/20 14:34 PL Document 09/28/20 12:55 DL [id number] 09/28/20 13:00 DL 09/25/20 09/28/20 14:25 12:55 Pain Scale: 0-10 Numeric Is Patient Pain Free? Yes Wound Care Nurse 3 #8- RLE -Ulcer Cleansing Rinsed/ Wound Cleanser Irrigated with Saline -Foul Odor after Cleansing No No -Primary Dressing Applied Promogran -Other Dressing promogran -Primary Dressing Covered/Secured with Dry Gauze -Other Covering unna boot -Promogran 1 Bilateral -Multi-Layered Wrap Application Unna Boot - Unna Boot - Bilateral ($) Bilateral ($) -Compression Wrap Unna Boot ($) ( single) -Unna Boots (Bilat) ($) 2 2 Treatment Response Procedure Tolerated Well Vital Signs Temperature (97.8 F-99.1 F) 97.2 F L Temperature Source Temporal Pulse Rate (60-100) 68 Pulse Location Monitor Respiratory Rate (12-18) 20 H Respiratory rate source Observation Blood Pressure (90/60-120/80) 147/69 H Blood Pressure Mean (mm Hg) 95 Source Monitor WC - Visit Discharge Discharge Condition Stable Stable Ambulatory Status Ambulatory Ambulatory Transportation Private Auto Private Auto Laterality: Right - Lateral calf Type of Debridement: Excisional debridement Anesthesia Used: 5% Lidocaine Gel Depth: Down to and including healthy tissue, in the subcutaneous layer Percentage of wound debrided: 100 Instrument Used: 5mm curette Tissue Removed: Bioburden Severity: Fat Layer Exposed Amount of bleeding with debridement: Mild Bleeding Controlled with: Compression and gauze Patient tolerated procedure well Assessment/Plan Active Problems Nonhealing ulcer of right lower extremity with fat layer exposed (Chronic) Decreased dorsalis pedis pulse (Chronic) Lymphedema of both lower extremities (Chronic) Pain, lower extremity (Chronic) Morbid obesity with BMI of 60.0-69.9, adult (Chronic) Venous insufficiency (chronic) (peripheral) (Chronic) Swelling of lower extremity (Chronic) Edema of both legs (Chronic) Ulcer of right lower leg (Chronic) Venous stasis ulcer (Chronic) Dependent edema (Chronic) Venous hypertension, chronic, with ulcer and inflammation (Chronic) Venous stasis dermatitis (Chronic) Diabetes mellitus (Chronic) Gout (Chronic) MASON (obstructive sleep apnea) (Chronic) Hypertension (Chronic) Assessment: This is a 54-year-old morbidly obese diabetic white male with multiple medical problems. He presented with profound venous stasis changes in both lower extremities, as well as a small ulceration on the right lateral calf. He is morbidly obese, and relatively inactive. He spends large portions of each day in an idle sitting position. He had recently received care at a wound clinic in [place], [place]. His prior care involved serial debridements and the use of multilayer compression wraps. Routine laboratory studies have been obtained, the results of which are as follows: White blood count 5.7, hemoglobin 13.8, hematocrit 43.7, platelets 404,000, glucose 93, BUN 11, creatinine 0.97, total protein 7.8, calcium 9.1, AST 25, alkaline phosphatase 78, ALT 46, total bilirubin 0.40, sodium 139, potassium 4.3, chloride 104, serum prealbumin 26.9. A noninvasive lower extremity arterial study reveals no evidence of significant arterial occlusive disease in the lower extremities bilaterally. Plan: A lengthy discussion has been undertaken with the patient once again. Conservative treatment measures are to be continued. There is question as to the patient's level of compliance. He is also morbidly obese. These are both factors which appear to be preventing significant progress in the healing of his wound and improvement of his venous stasis. The patient claims to be elevating his lower extremities as advised. He claims to be using his mechanical pneumatic compression pumps 2-3 times daily. However, his has previously related a completely different story, indicating that the patient has not been compliant with recommended measures. This appears to be the reason why the patient has failed to demonstrate significant improvement. He has been advised to continue sleeping on a flat mattress at night. Leg elevation has been recommended during daytime hours as well. Leg elevation is to be to heart level, or higher. This is to be accomplished as much as possible. Prolonged idle sitting has been discouraged. Activity has been encouraged, though the patient's morbid obesity likely precludes any significant increase or enhancement of the patient's activity level. We are to continue compression in both lower extremities using Unna boots bilaterally, which will be changed twice weekly. Promogran will be applied to the small ulceration on the right lateral calf. The compression wraps and dressings will be changed twice weekly. Patient will return in 2 weeks for reassessment. The patient has in his possession pneumatic mechanical compression pumps, and has been encouraged to use these 2 or 3 times daily. Significant weight loss is a primary objective, though the patient is unlikely to meet this goal. Optimization of the patient's glycemic control has been recommended. Once again, a lack of patient compliance is suspected to be an issue in regard to the patient's failure to progress. The patient is not a smoker. Influenza vaccine was not administered today. The patient weighs 435 pounds. He stands 5 feet 9 inches tall. His BMI is 64.2. Weight loss has been recommended, in collaboration with the patient's primary care physician has been advised. Total time: 27 minutes.
[2020-10-05 11:41] VITALS: BP 145/66; PULSE 70; RESP 16; TEMP 36.2; BMI 64.2
[2020-10-12 11:46] VITALS: BP 164/83; PULSE 80; RESP 16; TEMP 36.6; BMI 64.2
[2020-10-16 10:50] VITALS: RESP 18; TEMP 36.6; BMI 64.2
--- NOTE | 2020-10-16 12:03 | HP.PCM_ITS ---
(1) Nonhealing ulcer of left lower extremity with fat layer exposed Status: Resolved Code(s): L97.922 - Non-pressure chronic ulcer of unspecified part of left lower leg with fat layer exposed Comment: x 2 anterior and posterior (2) Nonhealing ulcer of right lower extremity with fat layer exposed Status: Chronic Code(s): L97.912 - Non-pressure chronic ulcer of unspecified part of right lower leg with fat layer exposed (3) Decreased dorsalis pedis pulse Status: Chronic Code(s): R09.89 - Other specified symptoms and signs involving the circulatory and respiratory systems (4) Lymphedema of both lower extremities Status: Chronic Code(s): I89.0 - Lymphedema, not elsewhere classified (5) Pain, lower extremity Status: Chronic Qualifiers: Code(s): M79.606 - Pain in leg, unspecified (6) Morbid obesity with BMI of 60.0-69.9, adult Status: Chronic Code(s): E66.01 - Morbid (severe) obesity due to excess calories; Z68.44 - Body mass index [BMI] 60.0-69.9, adult (7) Skin tear of left lower leg without complication Status: Resolved Qualifiers: Code(s): S81.812A - Laceration without foreign body, left lower leg, initial encounter (8) Venous insufficiency (chronic) (peripheral) Status: Chronic Code(s): I87.2 - Venous insufficiency (chronic) (peripheral) (9) Swelling of lower extremity Status: Chronic Code(s): M79.89 - Other specified soft tissue disorders (10) Edema of both legs Status: Chronic Code(s): R60.0 - Localized edema (11) Ulcer of right lower leg Status: Chronic Qualifiers: Code(s): L97.919 - Non-pressure chronic ulcer of unspecified part of right lower leg with unspecified severity (12) Venous stasis ulcer Status: Chronic Qualifiers: Code(s): I83.009 - Varicose veins of unspecified lower extremity with ulcer of unspecified site; L97.909 - Non-pressure chronic ulcer of unspecified part of unspecified lower leg with unspecified severity (13) Dependent edema Status: Chronic Code(s): R60.9 - Edema, unspecified (14) Venous hypertension, chronic, with ulcer and inflammation Status: Chronic Qualifiers: Code(s): I87.339 - Chronic venous hypertension (idiopathic) with ulcer and inflammation of unspecified lower extremity; L97.909 - Non-pressure chronic ulc er of unspecified part of unspecified lower leg with unspecified severity (15) Venous stasis dermatitis Status: Chronic Qualifiers: Code(s): I87.2 - Venous insufficiency (chronic) (peripheral) (16) Diabetes mellitus Status: Chronic Code(s): E11.9 - Type 2 diabetes mellitus without complications (17) Gout Status: Chronic Code(s): M10.9 - Gout, unspecified (18) MASON (obstructive sleep apnea) Status: Chronic Code(s): G47.33 - Obstructive sleep apnea (adult) (pediatric) (19) Hypertension Status: Chronic Code(s): I10 - Essential (primary) hypertension History of Present Illness Date of Service: 10/16/20 Chief Complaint: Severe swelling, edema, and lymphedema of the lower extremities, with ulceration of the right distal lower extremity History of Wound: This is a 54-year-old morbidly obese white male who presented with chronic swelling, edema, and lymphedema in his lower extremities, and a recent ulceration on the right lateral calf. The patient has been treated at our facility in the past for similar medical problems. With respect to his current problems, he has been receiving care recently at a wound clinic in [place], [place]. However, the patient has become dissatisfied with the care he is receiving, and is seeking medical care with our facility. Patient states that the ulceration on the right lateral calf has been present for several m onths. He has noticed very little improvement. It appears as though debridements have been performed serially, and weekly wraps have been implemented using 3M 2 layer compression wraps. He has recently obtained mechanical pneumatic compression pumps as well. He has a history of MRSA, and is currently on a prophylactic dose of azithromycin 250 mg p.o. daily. Patient claims to sleep on a flat mattress at night. However, he is not active, and spends a good deal of each day in a sitting position. He denies a history of deep vein thrombosis. It appears as though a venous duplex examination has been recently performed in [place], [place], at [facility]. We will attempt to obtain these results. A noninvasive lower extremity arterial study has been performed in 2018, the results of which revealed no evidence of arterial occlusive disease in the lower extremities. The patient also indicates that he was hospitalized for 2 days at [facility] in [place], [place], in January 2020, which was for treatment relative to his lower extremity problems. Past Medical History Past Medical History: Chronic Problems Nonhealing ulcer of right lower extremity with fat layer exposed (Chronic) Decreased dorsalis pedis pulse (Chronic) Lymphedema of both lower extremities (Chronic) Pain, lower extremity (Chronic) Morbid obesity with BMI of 60.0-69.9, adult (Chronic) Venous insufficiency (chronic) (peripheral) (Chronic) Swelling of lower extremity (Chronic) Edema of both legs (Chronic) Ulcer of right lower leg (Chronic) Venous stasis ulcer (Chronic) Dependent edema (Chronic) Venous hypertension, chronic, with ulcer and inflammation (Chronic) Venous stasis dermatitis (Chronic) Diabetes mellitus (Chronic) Gout (Chronic) MASON (obstructive sleep apnea) (Chronic) Hypertension (Chronic) Surgical History: herniorrhaphy - Left inguinal Allergies/Adverse Reactions: Allergies shellfish derived Allergy (Verified 05/15/20 11:16) Food Allergy Home Medications: Ambulatory Orders Medication Instructions Recorded Aldactone 25 mg PO BID 05/06/18 Lasix 80 mg PO DAILY 05/06/18 Lisinopril 20 mg PO DAILY 09/16/18 Allopurinol 300 mg PO DAILY 05/15/20 Azithromycin 250 mg PO DAILY 05/15/20 - Family History Paternal - - The patient's father at the age of 68 with a history of renal failure. Patient's mother is living, age 74, and suffers from atrial fibrillation. Smoking Status: Former smoker Tobacco Use: Non-smoker Review of Systems Constitutional: Denies: Chills, Fever, Weight Change Eyes: Denies: Pain, Vision Change HEENT: Denies: Difficulty Hearing, Difficulty Swallowing, Sinus Congestion Cardiovascular: Denies: Chest Pain, Palpitations Respiratory: Denies: Cough, Shortness of Breath Gastrointestinal: Denies: Diarrhea, Nausea, Vomiting Genitourinary: Denies: Dysuria, Hematuria Endocrine: Denies: Heat/ Cold Intolerance, Polydipsia, Polyuria Hematologic/ Lymphatic: Denies: Easy Bruising, Easy Bleeding - Physical Exam Vital Signs Temp Pulse Resp BP 97.8 F 80 18 164/83 H 10/16/20 10:50 10/12/20 11:46 10/16/20 10:50 10/12/20 11:46 General: Alert, Oriented x3, Cooperative, No apparent distress, Well developed, Well nourished, - - Patient is morbidly obese. HEENT: Atraumatic, PERRLA, EOMI, Normocephalic Oral: Moist Mucosa Neck: No JVD Lungs: Normal air movement Abdomen: Non-Distended Extremities: No clubbing, No cyanosis, No Calf Tenderness, - - Profound skin changes persist in the patient's lower extremities bilaterally. Severe swelling, edema, and lymphedema persist as well. Addt'l Wound Findings: The ulceration on the right lateral calf persists. Dimensions are documented elsewhere. There is no significant change in appearance. There is a moderate amount of bioburden. There is no sign of infection or cellulitis. Wound Measurements and Assessment WC - Nurse 1 - General Ulcer Measurement Start: 09/25/20 10:56 Freq: Status: Active Protocol: Activity Type Activity Date Activity User E-Sign Co-Sign Detail Recorded Client Recorded Date Recorded By Document 10/16/20 10:50 [facility] [id number] 10/16/20 11:04 [facility] 10/16/20 10:50 Wound Center Nurse 1 [Ulcer Assessment] #9 LLE Lat -Combined with other wound No -Current Size (cm) - Length 11.8 -Current Size (cm) - Width 14.5 -Current Size (cm) - Depth 0.1 -Total Square Cm 171.10 -Photo Taken No -Epithelialization None Present -Tunneling No -Undermining/Tunneling No -Circular Undermining No -Exudate Amt Medium -Exudate Type Serosanguineous -Wound Margin Flat & Intact -Granulation Amt Medium (34-66%) -Granulation Quality [place] -Slough/Fibrin Yes -Necrosis Amt Medium (34-66%) -Necrotic Tissue Type Adherent Slough -Texture (Meri-wound Skin Appearance) Assessed, Scarring -Moisture (Meri-wound Skin Appearance Assessed, ) Maceration, Weeping -Color (Meri-wound Skin Appearance) Assessed, Hemosiderin Staining,Palor -Temperature (Meri-wound Skin No Abnormality Appearance) (Pt Warm) -Tenderness on Palpation (Meri-wound No Skin Appearance) -Ulcer Cleansing soapy water -Foul Odor after Cleansing No -Anesthetic Used 4% Lidocaine Solution #8- RLE -Combined with other wound No -Current Size (cm) - Length 0.7 -Current Size (cm) - Width 0.7 -Current Size (cm) - Depth 0.3 -Total Square Cm 0.49 -Photo Taken No -Epithelialization None Present -Tunneling No -Undermining/Tunneling No -Circular Undermining No -Exudate Amt Medium -Exudate Type Serosanguineous -Wound Margin Distinct, Outline Attached -Granulation Amt Medium (34-66%) -Granulation Quality [place] -Slough/Fibrin Yes -Necrosis Amt Medium (34-66%) -Necrotic Tissue Type Adherent Slough -Texture (Meri-wound Skin Appearance) Assessed, Scarring -Moisture (Meri-wound Skin Appearance Assessed, ) Maceration,Dry/ Scaly -Color (Meri-wound Skin Appearance) Assessed, Hemosiderin Staining,Palor -Temperature (Meri-wound Skin No Abnormality Appearance) (Pt Warm) -Tenderness on Palpation (Meri-wound No Skin Appearance) -Ulcer Cleansing soapy water -Foul Odor after Cleansing No -Anesthetic Used 5% Lidocaine Gel [Edema Assessment] -Lower Limb Edema Present Yes -Right Calf (cm) 56.3 -Right Ankle (cm) 35.5 -Left Calf (cm) 54.6 -Left Ankle (cm) 33.5 - Nurse 3 - General Ulcer D/C NN Start: 09/25/20 10:56 Freq: Status: Active Protocol: Activity Type Activity Date Activity User E-Sign Co-Sign Detail Recorded Client Recorded Date Recorded By Document 10/16/20 11:53 RUPA [id number] 10/16/20 11:54 RUPA 10/16/20 11:53 Wound Care Nurse 3 [Wound Dressing] #9 LLE Lat -Ulcer Cleansing Rinsed/ Irrigated with Saline -Primary Dressing Covered/Secured Dry Gauze with #8- RLE -Ulcer Cleansing Rinsed/ Irrigated with Saline -Foul Odor after Cleansing No -Primary Dressing Covered/Secured Dry Gauze with [Compression Applied] Bilateral -Multi-Layered Wrap Application Unna Boot - Bilateral ($) -Unna Boots (Bilat) ($) 2 Pain Scale: 0-10 Numeric [Pain] -Is Patient Pain Free? Yes - Visit Discharge [Visit Discharge Information] -Discharge Condition Stable -Ambulatory Status Ambulatory -Transportation Private Auto Neurological: Cranial nerves II-XII grossly intact, Neuro grossly intact Psych/Mental Status: Normal Affect, Appropriate, Alert and oriented to time, place, person, mood and affect Debridement Note Post-Debridement Measurements/Treatment WC - Nurse 2 - General Ulcer CM Notes Start: 09/25/20 10:56 Freq: Status: Active Protocol: Activity Type Activity Date Activity User E-Sign Co-Sign Detail Recorded Client Recorded Date Recorded By Document 09/25/20 14:25 PL [id number] 09/25/20 14:34 PL Document 10/02/20 13:09 PL [id number] 10/02/20 13:11 PL 09/25/20 10/02/20 14:25 13:09 Wound Center Nurse 2 #9 LLE Lat -Time 11:30 -Correct Patient Yes -Correct Side, Site, Position Yes -Correct Procedure Yes -Procedure Performed No Yes -Type of Procedure Debridement -Clinical Debridement Subcutaneous -Tissue Removed Subcutaneous -Post Debridement (cm) - Length 11 -Post Debridement (cm) - Width 13 -Post Debridement (cm) - Depth 0.1 -Total Square (Post) (cm) 143 -Area of Debridement (cm) - Length 11 -Area of Debridement (cm) - Width 13 -Total Square (Area) (cm) 143 -Tunneling No -Undermining/Tunneling No -Circular Undermining No -Wound/Ulcer Outcome Not Healed -Ulcer Cleansing Rinsed/ Irrigated with Saline -Foul Odor after Cleansing No -Bioengineered Tissue No -Bleeding Controlled with Pressure -Treatment Response Procedure Tolerated Well -Debridement - Subq, 1st 20sq cm Yes -Debridement, SubQ, ea addt'l 20sq cm 7 or part thereof #8- RLE -Time 11:30 11:30 -Correct Patient Yes Yes -Correct Side, Site, Position Yes Yes -Correct Procedure Yes Yes -Procedure Performed Yes Yes -Type of Procedure Debridement Debridement -Clinical Debridement Subcutaneous Subcutaneous -Tissue Removed Subcutaneous Subcutaneous -Post Debridement (cm) - Length 6.0 0.9 -Post Debridement (cm) - Width 6.0 0.9 -Post Debridement (cm) - Depth 0.1 0.3 -Total Square (Post) (cm) 36.00 0.81 -Area of Debridement (cm) - Length 2.0 0.9 -Area of Debridement (cm) - Width 2.0 0.9 -Total Square (Area) (cm) 4.00 0.81 -Tunneling No No -Undermining/Tunneling No No -Circular Undermining No No -Wound/Ulcer Outcome Not Healed Not Healed -Ulcer Cleansing Rinsed/ Rinsed/ Irrigated with Irrigated with Saline Saline -Foul Odor after Cleansing No No -Bioengineered Tissue No No -Debridement - Subq, 1st 20sq cm Yes No Pain Scale: 0-10 Numeric Is Patient Pain Free? Yes WC - Nurse 3 - General Ulcer D/C NN Start: 09/25/20 10:56 Freq: Status: Active Protocol: Activity Type Activity Date Activity User E-Sign Co-Sign Detail Recorded Client Recorded Date Recorded By Document 09/25/20 14:25 PL [id number] 09/25/20 14:34 PL Document 09/28/20 12:55 DL [id number] 09/28/20 13:00 DL Document 10/02/20 11:47 BMF [id number] 10/02/20 11:51 BMF Document 10/05/20 11:28 MS [id number] 10/05/20 11:30 MS Document 10/09/20 10:30 PL [id number] 10/10/20 07:04 PL Document 10/12/20 11:46 BMF [id number] 10/12/20 11:47 BMF Document 10/16/20 11:53 KR [id number] 10/16/20 11:54 KR 09/25/20 09/28/20 10/02/20 14:25 12:55 11:47 Pain Scale: 0-10 Numeric Is Patient Pain Free? Yes Yes Wound Care Nurse 3 #9 LLE Lat -Ulcer Cleansing -Primary Dressing Applied -Other Dressing wendie gaytan rn -Primary Dressing Covered/Secured with -Promogran #8- RLE -Ulcer Cleansing Rinsed/ Wound Cleanser Rinsed/ Irrigated with Irrigated with Saline Saline -Foul Odor after Cleansing No No No -Primary Dressing Applied Promogran -Other Dressing promogran unna boot, promogran -Primary Dressing Covered/Secured with Dry Gauze Other -Other Covering unna boot abd -Promogran 1 Bilateral -Multi-Layered Wrap Application Unna Boot - Unna Boot - Unna Boot - Bilateral ($) Bilateral ($) Bilateral ($) -Compression Wrap Unna Boot ($) ( single) -Unna Boots (Bilat) ($) 2 2 1 Treatment Response Procedure Procedure Tolerated Well Tolerated Well Vital Signs Temperature (97.8 F-99.1 F) 97.2 F L Temperature Source Temporal Pulse Rate (60-100) 68 Pulse Location Monitor Respiratory Rate (12-18) 20 H Respiratory rate source Observation Oxygen Delivery Method Blood Pressure (90/60-120/80) 147/69 H Blood Pressure Mean (mm Hg) 95 Source Monitor Position Blood Pressure Location WC - Visit Discharge Discharge Condition Stable Stable Stable Ambulatory Status Ambulatory Ambulatory Ambulatory Transportation Private Auto Private Auto Private Auto Medication Reconcilliation completed & provided to patient/care provider Clinical Summary of Care Provided 10/05/20 10/09/20 10/12/20 11:28 10:30 11:46 Pain Scale: 0-10 Numeric Is Patient Pain Free? Yes Yes Wound Care Nurse 3 #9 LLE Lat -Ulcer Cleansing Wound Cleanser -Primary Dressing Applied Promogran -Other Dressing -Primary Dressing Covered/Secured with Dry Gauze -Promogran 1 #8- RLE -Ulcer Cleansing Wound Cleanser -Foul Odor after Cleansing -Primary Dressing Applied -Other Dressing promogran -Primary Dressing Covered/Secured with Dry Gauze -Other Covering -Promogran Bilateral -Multi-Layered Wrap Application Unna Boot - Unna Boot - Unna Boot - Bilateral ($) Bilateral ($) Bilateral ($) -Compression Wrap -Unna Boots (Bilat) ($) 2 2 1 Treatment Response Procedure Tolerated Well Vital Signs Temperature (97.8 F-99.1 F) 97.9 F Temperature Source Temporal Pulse Rate (60-100) 80 Pulse Location Monitor Respiratory Rate (12-18) 16 Respiratory rate source Observation Oxygen Delivery Method Room Air Blood Pressure (90/60-120/80) 164/83 H Blood Pressure Mean (mm Hg) 110 Source Monitor Position Sitting Blood Pressure Location Left Forearm WC - Visit Discharge Discharge Condition Stable Stable Ambulatory Status Ambulatory Ambulatory Transportation Private Auto Private Auto Medication Reconcilliation completed & No provided to patient/care provider Clinical Summary of Care Provided Yes 10/16/20 11:53 Pain Scale: 0-10 Numeric Is Patient Pain Free? Yes Wound Care Nurse 3 #9 LLE Lat -Ulcer Cleansing Rinsed/ Irrigated with Saline -Primary Dressing Applied -Other Dressing -Primary Dressing Covered/Secured with Dry Gauze -Promogran #8- RLE -Ulcer Cleansing Rinsed/ Irrigated with Saline -Foul Odor after Cleansing No -Primary Dressing Applied -Other Dressing -Primary Dressing Covered/Secured with Dry Gauze -Other Covering -Promogran Bilateral -Multi-Layered Wrap Application Unna Boot - Bilateral ($) -Compression Wrap -Unna Boots (Bilat) ($) 2 Treatment Response Vital Signs Temperature (97.8 F-99.1 F) Temperature Source Pulse Rate (60-100) Pulse Location Respiratory Rate (12-18) Respiratory rate source Oxygen Delivery Method Blood Pressure (90/60-120/80) Blood Pressure Mean (mm Hg) Source Position Blood Pressure Location WC - Visit Discharge Discharge Condition Stable Ambulatory Status Ambulatory Transportation Private Auto Medication Reconcilliation completed & provided to patient/care provider Clinical Summary of Care Provided Laterality: Right - Lateral calf Type of Debridement: Excisional debridement Anesthesia Used: 5% Lidocaine Gel Depth: Down to and including healthy tissue, in the subcutaneous layer Percentage of wound debrided: 100 Instrument Used: 3mm curette Tissue Removed: Bioburden Severity: Fat Layer Exposed Amount of bleeding with debridement: Mild Bleeding Controlled with: Compression and gauze Patient tolerated procedure well Assessment/Plan Active Problems Nonhealing ulcer of right lower extremity with fat layer exposed (Chronic) Decreased dorsalis pedis pulse (Chronic) Lymphedema of both lower extremities (Chronic) Pain, lower extremity (Chronic) Morbid obesity with BMI of 60.0-69.9, adult (Chronic) Venous insufficiency (chronic) (peripheral) (Chronic) Swelling of lower extremity (Chronic) Edema of both legs (Chronic) Ulcer of right lower leg (Chronic) Venous stasis ulcer (Chronic) Dependent edema (Chronic) Venous hypertension, chronic, with ulcer and inflammation (Chronic) Venous stasis dermatitis (Chronic) Diabetes mellitus (Chronic) Gout (Chronic) MASON (obstructive sleep apnea) (Chronic) Hypertension (Chronic) Assessment: This is a 54-year-old morbidly obese diabetic white male with multiple medical problems. He presented with profound venous stasis changes in both lower extremities, as well as a small ulceration on the right lateral calf. He is morbidly obese, and relatively inactive. He spends large portions of each day in an idle sitting position. He had recently received care at a wound clinic in [place], [place]. His prior care involved serial debridements and the use of multilayer compression wraps. Routine laboratory studies have been obtained, the results of which are as follows: White blood count 5.7, hemoglobin 13.8, hematocrit 43.7, platelets 404,000, glucose 93, BUN 11, creatinine 0.97, total protein 7.8, calcium 9.1, AST 25, alkaline phosphatase 78, ALT 46, total bilirubin 0.40, sodium 139, potassium 4.3, chloride 104, serum prealbumin 26.9. A noninvasive lower extremity arterial study reveals no evidence of significant arterial occlusive disease in the lower extremities bilaterally. Plan: A lengthy discussion has been undertaken with the patient once again. Conservative treatment measures are to be continued. There is question as to the patient's level of compliance. He is also morbidly obese. These are both factors which appear to be preventing significant progress in the healing of his wound and improvement of his venous stasis. The patient claims to be elevating his lower extremities as advised. He claims to be using his mechanical pneumatic compression pumps 2-3 times daily. However, his has previously related a completely different story, indicating that the patient has not been compliant with recommended measures. This appears to be the reason why the patient has failed to demonstrate significant improvement. He has been advised to continue sleeping on a flat mattress at night. Leg elevation has been recommended during daytime hours as well. Leg elevation is to be to heart level, or higher. This is to be accomplished as much as possible. Prolonged idle sitting has been discouraged. Activity has been encouraged, though the patient's morbid obesity likely precludes any significant increase or enhancement of the patient's activity level. We are to continue compression in both lower extremities using Unna boots bilaterally, which will be changed twice weekly. Promogran will be applied to the small ulceration on the right lateral calf. The compression wraps and dressings will be changed twice weekly. Patient will return in 4 weeks for reassessment. The patient has in his possession pneumatic mechanical compression pumps, and has been encouraged to use these 2 or 3 times daily. Significant weight loss is a primary objective, though the patient is unlikely to meet this goal. Optimization of the patient's glycemic control has been recommended. Once again, a lack of patient compliance is suspected to be an issue in regard to the patient's failure to progress. Unfortunately, due to a combination of factors, which include morbid obesity, a failure to lose weight, inactivity, noncompliance, etc., the patient's prognosis for wound healing and management of his lower extremity swelling and skin changes is felt to be poor. The patient is not a smoker. Influenza vaccine was not administered today. The patient weighs 435 pounds. He stands 5 feet 9 inches tall. His BMI is 64.2. Weight loss has been recommended, in collabo ration with the patient's primary care physician has been advised. Total time: 29 minutes.
[2020-10-19 11:27] VITALS: BP 133/69; PULSE 77; TEMP 36.1; BMI 64.2
[2020-10-23 11:48] VITALS: BP 135/63; PULSE 68; TEMP 36.4; BMI 64.2
== END 2020-10-24 23:59 ==
LOC: WC 11:30
PROVIDERS: PCP Internal Medicine; Referring Provider Surgery; Visit Provider Surgery
DX: I87.331 Chronic venous hypertension (idiopathic) with ulcer and inflammation of right lower extremity (principal); L97.212 Non-pressure chronic ulcer of right calf with fat layer exposed; I87.2 Venous insufficiency (chronic) (peripheral); E11.9 Type 2 diabetes mellitus without complications; I89.0 Lymphedema, not elsewhere classified; I10 Essential (primary) hypertension; M10.9 Gout, unspecified; G47.33 Obstructive sleep apnea (adult) (pediatric); E66.01 Morbid (severe) obesity due to excess calories; Z68.44 Body mass index [BMI] 60.0-69.9, adult; Z86.14 Personal history of Methicillin resistant Staphylococcus aureus infection; Z87.891 Personal history of nicotine dependence
CPT/HCPCS: 11042; 11045; 29580; 29581; 99213; G0463

== ENCOUNTER 2020-11-07 13:55 | Outpatient (RCR) | payer MEDICAID, SELFPAY ==
[2020-11-06 11:24] VITALS: BMI 64.2
== END 2020-11-07 23:59 | disposition home or self-care (01) ==
LOC: NS 13:55
PROVIDERS: PCP Internal Medicine; Visit Provider Surgery
DX: Z71.3 Dietary counseling and surveillance (principal); E66.01 Morbid (severe) obesity due to excess calories
CPT/HCPCS: 97803

== ENCOUNTER 2020-11-23 11:15 | Outpatient (RCR) | payer MEDICAID, SELFPAY ==
[2020-10-25 00:36] VITALS: BP 135/63; PULSE 68; RESP 18; TEMP 36.4
[2020-10-26 12:08] VITALS: BP 145/62; PULSE 58; RESP 22; TEMP 36.4; BMI 64.2
[2020-10-30 11:48] VITALS: BP 132/62; PULSE 68; RESP 20; TEMP 36.7; BMI 64.2
[2020-11-02 11:44] VITALS: BP 148/86; PULSE 82; RESP 17; TEMP 36.1; BMI 64.2
[2020-11-06 11:24] VITALS: BP 128/55; PULSE 78; RESP 18; TEMP 36.8; BMI 64.2
[2020-11-09 09:13] VITALS: BP 116/55; PULSE 68; RESP 22; TEMP 36.8; BMI 64.2
[2020-11-13 10:41] VITALS: BP 131/66; PULSE 82; TEMP 36.2; BMI 64.2
--- NOTE | 2020-11-13 11:36 | PCM.WC.HP ---
(1) Nonhealing ulcer of left lower extremity with fat layer exposed Status: Resolved Code(s): L97.922 - Non-pressure chronic ulcer of unspecified part of left lower leg with fat layer exposed Comment: x 2 anterior and posterior (2) Nonhealing ulcer of right lower extremity with fat layer exposed Status: Chronic Code(s): L97.912 - Non-pressure chronic ulcer of unspecified part of right lower leg with fat layer exposed (3) Decreased dorsalis pedis pulse Status: Chronic Code(s): R09.89 - Other specified symptoms and signs involving the circulatory and respiratory systems (4) Lymphedema of both lower extremities Status: Chronic Code(s): I89.0 - Lymphedema, not elsewhere classified (5) Pain, lower extremity Status: Chronic Qualifiers: Code(s): M79.606 - Pain in leg, unspecified (6) Morbid obesity with BMI of 60.0-69.9, adult Status: Chronic Code(s): E66.01 - Morbid (severe) obesity due to excess calories; Z68.44 - Body mass index [BMI] 60.0-69.9, adult (7) Skin tear of left lower leg without complication Status: Resolved Qualifiers: Code(s): S81.812A - Laceration without foreign body, left lower leg, initial encounter (8) Venous insufficiency (chronic) (peripheral) Status: Chronic Code(s): I87.2 - Venous insufficiency (chronic) (peripheral) (9) Swelling of lower extremity Status: Chronic Code(s): M79.89 - Other specified soft tissue disorders (10) Edema of both legs Status: Chronic Code(s): R60.0 - Localized edema (11) Ulcer of right lower leg Status: Chronic Qualifiers: Code(s): L97.919 - Non-pressure chronic ulcer of unspecified part of right lower leg with unspecified severity (12) Venous stasis ulcer Status: Chronic Qualifiers: Code(s): I83.009 - Varicose veins of unspecified lower extremity with ulcer of unspecified site; L97.909 - Non-pressure chronic ulcer of unspecified part of unspecified lower leg with unspecified severity (13) Dependent edema Status: Chronic Code(s): R60.9 - Edema, unspecified (14) Venous hypertension, chronic, with ulcer and inflammation Status: Chronic Qualifiers: Code(s): I87.339 - Chronic venous hypertension (idiopathic) with ulcer and inflammation of unspecified lower extremity; L97.909 - Non-pressure chronic ulcer of unspecified part of unspecified lower leg with unspecified severity (15) Venous stasis dermatitis Status: Chronic Qualifiers: Code(s): I87.2 - Venous insufficiency (chronic) (peripheral) (16) Diabetes mellitus Status: Chronic Code(s): E11.9 - Type 2 diabetes mellitus without complications (17) Gout Status: Chronic Code(s): M10.9 - Gout, unspecified (18) MASON (obstructive sleep apnea) Status: Chronic Code(s): G47.33 - Obstructive sleep apnea (adult) (pediatric) (19) Hypertension Status: Chronic Code(s): I10 - Essential (primary) hypertension History of Present Illness Date of Service: 11/13/20 Chief Complaint: Severe swelling, edema, and lymphedema of the lower extremities, with ulceration of the right distal lower extremity History of Wound: This is a 54-year-old morbidly obese white male who presented with chronic swelling, edema, and lymphedema in his lower extremities, and a recent ulceration on the right lateral calf. The patient has been treated at our facility in the past for similar medical problems. With respect to his current problems, he has been receiving care recently at a wound clinic in [place], [place]. However, the patient has become dissatisfied with the care he is receiving, and is seeking medical care with our facility. Patient states that the ulceration on the right lateral calf has been present for several months. He has noticed very little improvement. It appears as though debridements have been performed serially, and weekly wraps have been implemented using 3M 2 layer compression wraps. He has recently obtained mechanical pneumatic compression pumps as well. He has a history of MRSA, and is currently on a prophylactic dose of azithromycin 250 mg p.o. daily. Patient claims to sleep on a flat mattress at night. However, he is not active, and spends a good deal of each day in a sitting position. He denies a history of deep vein thrombosis. It appears as though a venous duplex examination has been recently performed in [place], [place], at [facility]. We will attempt to obtain these results. A noninvasive lower extremity arterial study has been performed in 2018, the results of which revealed no evidence of arterial occlusive disease in the lower extremities. The patient also indicates that he was hospitalized for 2 days at [facility] in [place], [place], in January 2020, which was for treatment relative to his lower extremity problems. Past Medical History Past Medical History: Chronic Problems Nonhealing ulcer of right lower extremity with fat layer exposed (Chronic) Decreased dorsalis pedis pulse (Chronic) Lymphedema of both lower extremities (Chronic) Pain, lower extremity (Chronic) Morbid obesity with BMI of 60.0-69.9, adult (Chronic) Venous insufficiency (chronic) (peripheral) (Chronic) Swelling of lower extremity (Chronic) Edema of both legs (Chronic) Ulcer of right lower leg (Chronic) Venous stasis ulcer (Chronic) Dependent edema (Chronic) Venous hypertension, chronic, with ulcer and inflammation (Chronic) Venous stasis dermatitis (Chronic) Diabetes mellitus (Chronic) Gout (Chronic) MASON (obstructive sleep apnea) (Chronic) Hypertension (Chronic) Surgical History: herniorrhaphy - Left inguinal Allergies/Adverse Reactions: Allergies shellfish derived Allergy (Verified 05/15/20 11:16) Food Allergy Home Medications: Ambulatory Orders Medication Instructions Recorded Aldactone 25 mg PO BID 05/06/18 Lasix 80 mg PO DAILY 05/06/18 Lisinopril 20 mg PO DAILY 09/16/18 Allopurinol 300 mg PO DAILY 05/15/20 Azithromycin 250 mg PO DAILY 05/15/20 - Family History Paternal - - The patient's father at the age of 68 with a history of renal failure. Patient's mother is living, age 74, and suffers from atrial fibrillation. Smoking Status: Former smoker Tobacco Use: Non-smoker Review of Systems Constitutional: Denies: Chills, Fever, Weight Change Eyes: Denies: Pain, Vision Change HEENT: Denies: Difficulty Hearing, Difficulty Swallowing, Sinus Congestion Cardiovascular: Denies: Chest Pain, Palpitations Respiratory: Denies: Cough, Shortness of Breath Gastrointestinal: Denies: Diarrhea, Nausea, Vomiting Genitourinary: Denies: Dysuria, Hematuria Endocrine: Denies: Heat/ Cold Intolerance, Polydipsia, Polyuria Hematologic/ Lymphatic: Denies: Easy Bruising, Easy Bleeding - Physical Exam Vital Signs Temp Pulse Resp BP 97.2 F L 82 22 H 131/66 H 11/13/20 10:41 11/13/20 10:41 11/09/20 09:13 11/13/20 10:41 General: Alert, Oriented x3, Cooperative, No apparent distress, Well developed, Well nourished, - - The patient is morbidly obese. HEENT: Atraumatic, PERRLA, EOMI, Normocephalic Oral: Moist Mucosa Neck: No JVD Lungs: Normal air movement Abdomen: Non-Distended, - - The patient is morbidly obese. Extremities: No clubbing, No cyanosis, No edema, No Calf Tenderness, - - Severe swelling and edema persist in the patient's lower extremities bilaterally. In addition, there are skin changes of inflammatory erythema and venous dermatitis bilaterally. Addt'l Wound Findings: The ulceration on the right lateral calf persists. There is a moderate amount of bioburden. There is no sign of infection or cellulitis. Dimensions are documented elsewhere. Wound Measurements and Assessment WC - Nurse 1 - General Ulcer Measurement Start: 10/26/20 12:08 Freq: Status: Active Protocol: Activity Type Activity Date Activity User E-Sign Co-Sign Detail Recorded Client Recorded Date Recorded By Document 11/13/20 10:41 RUPA [id number] 11/13/20 10:55 RUPA 11/13/20 10:41 Wound Center Nurse 1 [Ulcer Assessment] #9 LLE Lat -Current Size (cm) - Length 9 -Current Size (cm) - Width 16 -Current Size (cm) - Depth 0.1 -Total Square Cm 144 -Exudate Amt Medium -Exudate Type Serosanguineous -Wound Margin Distinct, Outline Attached -Granulation Amt Large (67-100%) -Granulation Quality Red -Necrosis Amt None Present (0 %) -Texture (Meri-wound Skin Appearance) Assessed, Scarring -Moisture (Meri-wound Skin Appearance No Abnormality, ) Assessed -Color (Meri-wound Skin Appearance) No Abnormality, Assessed -Temperature (Meri-wound Skin No Abnormality Appearance) (Pt Warm) -Tenderness on Palpation (Meri-wound No Skin Appearance) -Ulcer Cleansing soap and water -Foul Odor after Cleansing No -Anesthetic Used 4% Lidocaine Solution #8- RLE -Current Size (cm) - Length 9 -Current Size (cm) - Width 11 -Current Size (cm) - Depth 0.2 -Total Square Cm 99 -Exudate Amt Medium -Exudate Type Serosanguineous -Wound Margin Distinct, Outline Attached -Granulation Amt Medium (34-66%) -Granulation Quality Red -Necrosis Amt None Present (0 %) -Texture (Meri-wound Skin Appearance) Assessed, Scarring -Moisture (Meri-wound Skin Appearance No Abnormality, ) Assessed -Color (Meri-wound Skin Appearance) No Abnormality, Assessed -Temperature (Meri-wound Skin No Abnormality Appearance) (Pt Warm) -Tenderness on Palpation (Meri-wound No Skin Appearance) -Ulcer Cleansing soap and water -Foul Odor after Cleansing No -Anesthetic Used 4% Lidocaine Solution [Edema Assessment] -Right Calf (cm) 50 -Right Ankle (cm) 37 -Left Calf (cm) 49 -Left Ankle (cm) 36 WC - Nurse 3 - General Ulcer D/C NN Start: 10/26/20 12:08 Freq: Status: Active Protocol: Activity Type Activity Date Activity User E-Sign Co-Sign Detail Recorded Client Recorded Date Recorded By Document 11/13/20 11:29 MS [id number] 11/13/20 11:30 MS 11/13/20 11:29 Wound Care Nurse 3 [Wound Dressing] #9 LLE Lat -Ulcer Cleansing Rinsed/ Irrigated with Saline -Foul Odor after Cleansing No #8- RLE -Primary Dressing Applied Promogran -Other Dressing pt own -Promogran 2 [Compression Applied] Bilateral Unna -Multi-Layered Wrap Application Unna Boot - Bilateral ($) -Unna Boots (Bilat) ($) 2 -Stockings Yes Musculoskeletal: No Muscle Wasting Neurological: Cranial nerves II-XII grossly intact, Neuro grossly intact Psych/Mental Status: Normal Affect, Appropriate, Alert and oriented to time, place, person, mood and affect Debridement Note Post-Debridement Measurements/Treatment - Nurse 3 - General Ulcer D/C NN Start: 10/26/20 12:08 Freq: Status: Active Protocol: Activity Type Activity Date Activity User E-Sign Co-Sign Detail Recorded Client Recorded Date Recorded By Document 10/26/20 12:09 MW [id number] 10/26/20 12:13 MW Document 10/30/20 11:48 MW [id number] 10/30/20 11:51 MW Document 11/02/20 11:44 MS [id number] 11/02/20 11:46 MS Document 11/06/20 11:24 BMF [id number] 11/06/20 11:29 BMF Document 11/09/20 09:13 DL [id number] 11/09/20 09:42 DL Document 11/13/20 11:29 MS [id number] 11/13/20 11:30 MS 10/26/20 10/30/20 11/02/20 12:09 11:48 11:44 Wound Care Nurse 3 #9 LLE Lat -Ulcer Cleansing soap and water soap and water -Foul Odor after Cleansing No No -Negative Pressure Wound Therapy N/A N/A -Other Dressing unna boot -Primary Dressing Covered/Secured with -Other Covering UNNA BOOT #8- RLE -Ulcer Cleansing soap and water soap and water -Foul Odor after Cleansing No -Negative Pressure Wound Therapy N/A N/A -Primary Dressing Applied Promogran Ema Matter -Other Dressing unna boot -Primary Dressing Covered/Secured with -Other Covering UNNA BOOT -Promogran -Promogran Ema Matter 1 Bilateral Unna -Lotion applied to leg before No compression wrap -Multi-Layered Wrap Application Unna Boot - Unna Boot - Unna Boot - Bilateral ($) Bilateral ($) Bilateral ($) -Unna Boots (Bilat) ($) 2 2 2 -Stockings Treatment Response Procedure Procedure Tolerated Well Tolerated Well Vital Signs Temperature (97.8 F-99.1 F) 98.0 F 96.9 F L Temperature Source Temporal Temporal Pulse Rate (60-100) 68 82 Pulse Location Monitor Monitor Respiratory Rate (12-18) 20 H 17 Respiratory rate source Observation Observation Oxygen Delivery Method Room Air Blood Pressure (90/60-120/80) 132/62 H 148/86 H Blood Pressure Mean (mm Hg) 85 106 Source Monitor Monitor Position Sitting Sitting Blood Pressure Location Left Arm Right Arm Pain Scale: 0-10 Numeric Is Patient Pain Free? Yes Yes Teaching: Wound Center Dressing Your Wound -Person Taught Patient -Teaching Method Discussion, Demonstration -Response to teaching Verbalize understanding WC - Visit Discharge Discharge Condition Stable Stable Stable Ambulatory Status Ambulatory Ambulatory Ambulatory Transportation Private Auto Private Auto Accompanied by self self Medication Reconcilliation completed & No No No provided to patient/care provider Clinical Summary of Care Provided Yes Yes Yes 11/06/20 11/09/20 11/13/20 11:24 09:13 11:29 Wound Care Nurse 3 #9 LLE Lat -Ulcer Cleansing Wound Cleanser Rinsed/ Irrigated with Saline -Foul Odor after Cleansing No No -Negative Pressure Wound Therapy -Other Dressing hydrALOCK -Primary Dressing Covered/Secured with Other -Other Covering SUPER ABSORBENT DRSG #8- RLE -Ulcer Cleansing Wound Cleanser -Foul Odor after Cleansing No -Negative Pressure Wound Therapy -Primary Dressing Applied Other Promogran Promogran -Other Dressing PROMOGRAN Hydralock pt own -Primary Dressing Covered/Secured with Other Dry Gauze -Other Covering SUPER ABSORBENT DRSG -Promogran 1 2 -Promogran Ema Matter Bilateral Unna -Lotion applied to leg before compression wrap -Multi-Layered Wrap Application Unna Boot - Unna Boot - Unna Boot - Bilateral ($) Bilateral ($) Bilateral ($) -Unna Boots (Bilat) ($) 2 2 2 -Stockings Yes Treatment Response Procedure Procedure Tolerated Well Tolerated Well Vital Signs Temperature (97.8 F-99.1 F) 98.2 F 98.3 F Temperature Source Temporal Temporal Pulse Rate (60-100) 78 68 Pulse Location Monitor Monitor Respiratory Rate (12-18) 18 22 H Respiratory rate source Observation Observation Oxygen Delivery Method Room Air Blood Pressure (90/60-120/80) 128/55 H 116/55 L Blood Pressure Mean (mm Hg) 79 75 Source Monitor Monitor Position Sitting Blood Pressure Location Left Forearm Pain Scale: 0-10 Numeric Is Patient Pain Free? Yes Yes Teaching: Wound Center Dressing Your Wound -Person Taught -Teaching Method -Response to teaching WC - Visit Discharge Discharge Condition Stable Stable Ambulatory Status Ambulatory Ambulatory Transportation Private Auto Private Auto Accompanied by Medication Reconcilliation completed & provided to patient/care provider Clinical Summary of Care Provided Laterality: Right - Lateral calf Type of Debridement: Excisional debridement Anesthesia Used: 5% Lidocaine Gel Depth: Down to and including healthy tissue, in the subcutaneous layer Percentage of wound debrided: 100 Instrument Used: 3mm curette Severity: Fat Layer Exposed Amount of bleeding with debridement: Mild Bleeding Controlled with: Compression and gauze Patient tolerated procedure well Assessment/Plan Assessment: This is a 54-year-old morbidly obese diabetic white male with multiple medical problems. He presented with profound venous stasis changes in both lower extremities, as well as a small ulceration on the right lateral calf. He is morbidly obese, and relatively inactive. He spends large portions of each day in an idle sitting position. He had recently received care at a wound clinic in [place], [place]. His prior care involved serial debridements and the use of multilayer compression wraps. Routine laboratory studies have been obtained, the results of which are as follows: White blood count 5.7, hemoglobin 13.8, hematocrit 43.7, platelets 404,000, glucose 93, BUN 11, creatinine 0.97, total protein 7.8, calcium 9.1, AST 25, alkaline phosphatase 78, ALT 46, total bilirubin 0.40, sodium 139, potassium 4.3, chloride 104, serum prealbumin 26.9. A noninvasive lower extremity arterial study reveals no evidence of significant arterial occlusive disease in the lower extremities bilaterally. Plan: A lengthy discussion has been undertaken with the patient once again. Conservative treatment measures are to be continued. There is question as to the patient's level of compliance. He is also morbidly obese. These are both factors which appear to be preventing significant progress in the healing of his wound and improvement of his venous stasis. The patient claims to be elevating his lower extremities as advised. He claims to be using his mechanical pneumatic compression pumps 2-3 times daily. However, his has previously related a completely different story, indicating that the patient has not been compliant with recommended measures. This appears to be the reason why the patient has failed to demonstrate significant improvement. He has been advised to continue sleeping on a flat mattress at night. Leg elevation has been recommended during daytime hours as well. Leg elevation is to be to heart level, or higher. This is to be accomplished as much as possible. Prolonged idle sitting has been discouraged. Activity has been encouraged, though the patient's morbid obesity likely precludes any significant increase or enhancement of the patient's activity level. We are to continue compression in both lower extremities using Unna boots bilaterally, which will be changed twice weekly. Promogran will be applied to the small ulceration on the right lateral calf. The compression wraps and dressings will be changed twice weekly. Patient will return in 3 weeks for reassessment. The patient has in his possession pneumatic mechanical compression pumps, and has been encouraged to use these 2 or 3 times daily. Significant weight loss is a primary objective, though the patient is unlikely to meet this goal. He has been urged to lose weight voluntarily. He has expressed the desire, though achievement of this goal would appear somewhat unlikely by means of diet modification and exercise. The patient has expressed his preference to pursue weight loss on a voluntary basis, and we are to initiate measurement of his weight with each visit. We have discussed the option of consultation with a bariatric specialist, and the patient has flatly refused. Optimization of the patient's glycemic control has been recommended. Once again, a lack of patient compliance is suspected to be an issue in regard to the patient's failure to progress. Unfortunately, due to a combination of factors, which include morbid obesity, a failure to lose weight, inactivity, noncompliance, etc., the patient's prognosis for wound healing and management of his lower extremity swelling and skin changes is felt to be poor. The patient is not a smoker. Influenza vaccine was not administered today. The patient weighs 435 pounds. He stands 5 feet 9 inches tall. His BMI is 64.2. Weight loss has been recommended, in collaboration with the patient's primary care physician has been advised. Total time: 28 minutes.
[2020-11-16 12:09] VITALS: BP 135/67; PULSE 70; RESP 16; TEMP 36.2; BMI 64.2
[2020-11-20 11:57] VITALS: BP 143/73; PULSE 96; RESP 16; TEMP 36.2; BMI 64.2
[2020-11-23 11:40] VITALS: BP 151/77; PULSE 74; RESP 18; TEMP 35.8; BMI 64.2
== END 2020-11-23 23:59 ==
LOC: WC 11:15
PROVIDERS: PCP Internal Medicine; Referring Provider Surgery; Visit Provider Surgery
DX: I87.331 Chronic venous hypertension (idiopathic) with ulcer and inflammation of right lower extremity (principal); L97.212 Non-pressure chronic ulcer of right calf with fat layer exposed; I87.2 Venous insufficiency (chronic) (peripheral); Z91.19 Patient's noncompliance with other medical treatment and regimen; E11.9 Type 2 diabetes mellitus without complications; I10 Essential (primary) hypertension; M10.9 Gout, unspecified; R60.0 Localized edema; I89.0 Lymphedema, not elsewhere classified; G47.33 Obstructive sleep apnea (adult) (pediatric); E66.01 Morbid (severe) obesity due to excess calories; Z68.44 Body mass index [BMI] 60.0-69.9, adult; Z79.899 Other long term (current) drug therapy; Z87.891 Personal history of nicotine dependence; Z86.14 Personal history of Methicillin resistant Staphylococcus aureus infection
CPT/HCPCS: 11042; 29580; 99213; G0463

== ENCOUNTER 2020-12-21 11:00 | Outpatient (RCR) | payer MEDICAID, SELFPAY ==
[2020-11-24 00:37] VITALS: BP 151/77; PULSE 74; RESP 18; TEMP 35.8
[2020-11-27 11:46] VITALS: BP 149/90; PULSE 74; RESP 22; TEMP 36.8; BMI 64.2
[2020-11-30 12:10] VITALS: BP 139/69; PULSE 78; TEMP 36.3; BMI 64.2
[2020-12-04 11:11] VITALS: BP 142/76; PULSE 82; TEMP 36.8; BMI 64.2
--- NOTE | 2020-12-04 12:27 | HP.PCM_ITS ---
History of Present Illness Date of Service: 12/04/20 Chief Complaint: Severe swelling, edema, and lymphedema of the lower extre mities, with ulceration of the right distal lower extremity History of Wound: This is a 54-year-old morbidly obese white male who presented with chronic swelling, edema, and lymphedema in his lower extremities, and a recent ulceration on the right lateral calf. The patient has been treated at our facility in the past for similar medical problems. With respect to his cur rent problems, he has been receiving care recently at a wound clinic in [place], [place]. However, the patient has become dissatisfied with the care he is receiving, and is seeking medical care with our facility. Patient states that the ulceration on the right lateral calf has been present for several months. He has noticed very little improvement. It appears as though debridements have been performed serially, and weekly wraps have been implemented using 3M 2 layer compression wraps. He has recently obtained mechanical pneumatic compression pumps as well. He has a history of MRSA, and is currently on a prophylactic dose of azithromycin 250 mg p.o. daily. Patient claims to sleep on a flat mattress at night. However, he is not active, and spends a good deal of each day in a sitting position. He denies a history of deep vein thrombosis. It appears as though a venous duplex examination has been recently performed in [place], [place], at [facility]. We will attempt to obtain these results. A noninvasive lower extremity arterial study has been performed in 2018, the results of which revealed no evidence of arterial occlusive disease in the lower extremities. The patient also indicates that he was hospitalized for 2 days at [facility] in [place], [place], in January 2020, which was for treatment relative to his lower extremity problems. [facility] Home Medications Aldactone 25 mg PO BID 05/06/18 [History Last Taken Unknown] Lasix 80 mg PO DAILY 05/06/18 [History Last Taken Unknown] lisinopril 20 mg PO DAILY 09/16/18 [History Last Taken Unknown] allopurinol 300 mg PO DAILY 05/15/20 [History Last Taken Unknown] azithromycin 250 mg PO DAILY 05/15/20 [History Last Taken Unknown] Allergy/AdvReac Type Severity Reaction Status Date / Time shellfish derived Allergy Food Verified 05/15/20 11:16 Allergy Social History Smoking Status: Former smoker Vital Signs Vital Signs Vital Signs: 12/04/20 11:11 Temperature 98.3 F Temperature Source Temporal Pulse Rate 82 Blood Pressure 142/76 H Blood Pressure Mean 98 Blood Pressure Source Monitor Blood Pressure Position Semi-Fowlers Blood Pressure Location Right Arm Physical Exam Const alert, oriented x3, no apparent distress and well nourished Constitutional Narrative: The patient is morbidly obese. General Appearance: cooperative, comfortable and well developed Orientation / Consciousness: awake, oriented to person, oriented to place and oriented to time HEENT normocephalic, EAC's normal and moist oral mucous membranes Head and Scalp: atraumatic External Ear: external ears normal Eyes PERRL and EOMs intact bilaterally Neck General: trachea midline Resp normal respiratory effort and no use of accessory muscles Effort and Inspection: able to speak in complete sentences GI Inspection: pannus present and other Other Details: The patient is morbidly obese Extremity no calf tenderness Extremity Narrative: Swelling and edema are noted bilaterally in the lower extremities. There appears to have been very mild improvement since last evaluated. Areas of epithelial denudation are noted in the distal left lower extremity, involving a small area. There is a large area of denudation in the distal right lower extremity. There is no sign of infection or cellulitis. Severe chronic skin changes are noted, namely a scaly dermatitis. The ulceration on the anterolateral aspect of the right calf persists. Dimensions are documented elsewhere. There is a moderate amount of bioburden. General Extremity: edema bilateral; Negative for clubbing or cyanosis Skin Wound Narrative: The wound on the anterolateral aspect of the right calf persists. There is no sign of infection or cellulitis. Dimensions are documented elsewhere. There is a moderate amount of bioburden. Neuro CN's II-XII intact bilaterally Speech: speech normal Psych mental status grossly normal Appearance: grossly normal and appropriate Attitude: calm Activity / Motor Behavior: appropriate eye contact Speech: normal speech Thought Process: normal thought process Thought Content: normal thought content Attention / Concentration: attention grossly intact Debridement Note Debridement Note Post-Debridement Measurements and Additional Note: Post-Debridement Measurements/Treatment NOLA - Nurse 1 - General Ulcer Assessment Start: 11/27/20 11:46 Freq: Status: Active Protocol: JUAN MANUEL Activity Type Activity Date Activity User E-Sign Co-Sign Detail Recorded Client Recorded Date Recorded By Document 11/27/20 11:46 [facility] [id number] 11/27/20 11:52 [facility] Document 11/30/20 12:10 [id number] 11/30/20 12:11 Document 12/04/20 11:11 [id number] 12/04/20 11:19 KR 11/27/20 11/30/20 12/04/20 11:46 12:10 11:11 - Today's Visit Information Type of service Nurse-only Nurse-only Follow-up Visit Visit Visit (Physician/DIE MOUNTER ) Arrival Mode Ambulatory Ambulatory Ambulatory Transfer Assistance None Patient Identification Verified (Name & Yes Yes ) Patient Requires Transmission-Based No Precautions Safety Precautions NA Height and Weight Body Mass Index (BMI) 64.2 64.2 64.2 BMI Classification Obese Obese Obese Vital Signs Temperature (97.8 F-99.1 F) 98.2 F 97.3 F L 98.3 F Temperature Source Temporal Temporal Temporal Pulse Rate (60-100) 74 78 82 Pulse Location Monitor Monitor Monitor Respiratory Rate (12-18) 22 H Respiratory rate source Observation Blood Pressure (90/60-120/80) 149/90 H 139/69 H 142/76 H Blood Pressure Mean 109 92 98 Source Monitor Monitor Monitor Position Semi-Fowlers Semi-Fowlers Blood Pressure Location Left Arm Right Arm History Since Last Visit- (Skip if this is Patient's initial visit) Have you changed medications since your No No No last visit? Any new allergies or adverse reactions No No No Had a fall/change in ADL's that may No No No increase risk of falls Signs or symptoms of abuse and/or No No neglect since last visit Have you been in the hospital since your No No No last visit? Has dressing in place as prescribed Yes Yes Yes Has compression in place as prescribed Yes Yes Yes Has offloadiing in place as prescribed N/A N/A N/A Experienced any changes in pain level or No No No management Left Footwear Regular Shoe Regular Shoe Right Footwear Regular Shoe Regular Shoe Pain Scale: 0-10 Numeric Is Patient Pain Free? Yes Yes Yes - Nurse 1 - General Ulcer Measurement Start: 11/27/20 11:46 Freq: Status: Active Protocol: Activity Type Activity Date Activity User E-Sign Co-Sign Detail Recorded Client Recorded Date Recorded By Document 11/27/20 11:46 [facility] [id number] 11/27/20 11:52 BMF Document 11/30/20 12:10 KR [id number] 11/30/20 12:11 KR Document 12/04/20 11:11 KR [id number] 12/04/20 11:19 KR 11/27/20 11/30/20 12/04/20 11:46 12:10 11:11 Wound Center Nurse 1 #9 LLE Lat -Exudate Amt Medium -Exudate Type Serosanguineous -Granulation Quality Red -Texture (Meri-wound Skin Appearance) Friable -Moisture (Meri-wound Skin Appearance) Dry/Scaly -Color (Meri-wound Skin Appearance) Hemosiderin Staining -Temperature (Meri-wound Skin No Abnormality Appearance) (Pt Warm) -Ulcer Cleansing Wound Cleanser -Foul Odor after Cleansing No #8- RLE -Current Size (cm) - Length 0.9 -Current Size (cm) - Width 1 -Current Size (cm) - Depth 0.2 -Total Square Cm 0.9 -Photo Taken No -Exudate Amt Medium Small -Exudate Type Serosanguineous Serosanguineous -Wound Margin Distinct, Outline Attached -Granulation Amt Small (1-33%) -Granulation Quality Red -Necrosis Amt Small (1-33%) -Texture (Meri-wound Skin Appearance) Excoriation Assessed, Scarring -Moisture (Meri-wound Skin Appearance) Weeping Assessed, Weeping -Color (Meri-wound Skin Appearance) Hemosiderin No Abnormality, Staining Assessed -Temperature (Meri-wound Skin No Abnormality No Abnormality Appearance) (Pt Warm) (Pt Warm) -Tenderness on Palpation (Meri-wound No No Skin Appearance) -Ulcer Cleansing Wound Cleanser Rinsed/ Irrigated with Saline -Foul Odor after Cleansing No No -Anesthetic Used 4% Lidocaine Solution Right Calf (cm) 60 59 Right Ankle (cm) 34.4 39 Left Calf (cm) 56 59.1 Left Ankle (cm) 32.4 34.2 WC - Nurse 3 - General Ulcer D/C NN Start: 11/27/20 11:46 Freq: Status: Active Protocol: Activity Type Activity Date Activity User E-Sign Co-Sign Detail Recorded Client Recorded Date Recorded By Document 11/27/20 11:46 BMF [id number] 11/27/20 11:52 BMF Edit Result 11/27/20 11:46 BMF (1) [id number] 11/28/20 15:31 PL Document 11/30/20 12:12 KR [id number] 11/30/20 12:12 KR Document 12/04/20 11:49 KR [id number] 12/04/20 11:58 KR (1) Bilateral - Multi-Layered Wrap Application => Unna Boot - => Bilateral ($) - Unna Boots (Bilat) ($) => 2 Left - Compression Wrap Unna Boot ($) ( => single) => Right - Compression Wrap Unna Boot ($) ( => single) => 11/27/20 11/30/20 12/04/20 11:46 12:12 11:49 Vital Signs Temperature (97.8 F-99.1 F) 98.2 F Temperature Source Temporal Pulse Rate (60-100) 74 Pulse Location Monitor Respiratory Rate (12-18) 22 H Respiratory rate source Observation Blood Pressure (90/60-120/80) 149/90 H Blood Pressure Mean 109 Source Monitor Pain Scale: 0-10 Numeric Is Patient Pain Free? Yes Yes Yes Wound Care Nurse 3 #9 LLE Lat -Ulcer Cleansing Wound Cleanser -Foul Odor after Cleansing No -Other Dressing SUPER [id number] PADS -Other Covering PROMOGRAN #8- RLE -Ulcer Cleansing Wound Cleanser Rinsed/ Irrigated with Saline -Foul Odor after Cleansing No -Other Dressing SUPER ABSORBANT PADS Bilateral -Multi-Layered Wrap Application Unna Boot - Unna Boot - Unna Boot - Bilateral ($) Bilateral ($) Bilateral ($) -Unna Boots (Bilat) ($) 2 2 2 WC - Visit Discharge Discharge Condition Stable Stable Stable Ambulatory Status Ambulatory Ambulatory Ambulatory Transportation Private Auto Private Auto Private Auto Notes: NURSE VISIT TODAY Wound debrided: Harish-lateral calf Laterality: Right Type of Debridement: Excisional debridement Anesthesia Used: 5% Lidocaine Gel Depth: Down to and including healthy tissue and in the subcutaneous layer Percentage of wound debrided: 100 Instrument Used: 5mm curette Tissue Removed: Bioburden Severity: Fat Layer Exposed Amount of bleeding with debridement: Mild Bleeding Controlled with: Compression and gauze Patient tolerated procedure: Patient tolerated procedure well Assessment & Plan Assessment/Plan (1) Nonhealing ulcer of right lower extremity with fat layer exposed: (2) Lymphedema of both lower extremities: (3) Pain, lower extremity: (4) Morbid obesity with BMI of 60.0-69.9, adult: (5) Venous insufficiency (chronic) (peripheral): (6) Swelling of lower extremity: (7) Edema of both legs: (8) Ulcer of right lower leg: (9) Venous stasis ulcer: QUALIFIERS: Qualified Code(s): L97.222 - Non-pressure chronic ulcer of left calf with fat layer exposed (10) Dependent edema: (11) Venous hypertension, chronic, with ulcer and inflammation: QUALIFIERS: Qualified Code(s): L97.929 - Non-pressure chronic ulcer of unspecified part of left lower leg with unspecified severity (12) Venous stasis dermatitis: (13) Diabetes mellitus: (14) Gout: (15) MASON (obstructive sleep apnea): (16) Hypertension: PLAN: A lengthy discussion has been undertaken with the patient once again. Conservative treatment measures are to be continued. There is question as to the patient's level of compliance. He is also morbidly obese. These are both factors which appear to be preventing significant progress in the healing of his wound and improvement of his venous stasis. The patient claims to be elevating his lower extremities as advised. He claims to be using his mechanical pneumatic compression pumps 2-3 times daily. However, his has previously related a completely different story, indicating that the patient has not been compliant with recommended measures. This appears to be the reason why the patient has failed to demonstrate significant improvement. He has been advised to continue sleeping on a flat mattress at night. Leg elevation has been recommended during daytime hours as well. Leg elevation is to be to heart level, or higher. This is to be accomplished as much as possible. Prolonged idle sitting has been discouraged. Activity has been encouraged, though the patient's morbid obesity likely precludes any significant increase or enhancement of the patient's activity level. We are to continue compression in both lower extremities using Unna boots bilaterally, which will be changed twice weekly. Promogran will be applied to the small ulceration on the right lateral calf. The compression wraps and dressings will be changed twice weekly. Patient will return in 3 weeks for reassessment. The patient has in his possession pneumatic mechanical compression pumps, and has been encouraged to use these 2 or 3 times daily. Significant weight loss is a primary objective, though the patient is unlikely to meet this goal. He has been urged to lose weight voluntarily. He has expressed the desire, though achievement of this goal would appear somewhat unlikely by means of diet modification and exercise. The patient has expressed his preference to pursue weight loss on a voluntary basis, and we are to initiate measurement of his weight with each visit. We have discussed the option of consultation with a bariatric specialist, and the patient has flatly refused. Optimization of the patient's glycemic control has been recommended. Once again, a lack of patient compliance is suspected to be an issue in regard to the patient's failure to progress. Unfortunately, due to a combination of factors, which include morbid obesity, a failure to lose weight, inactivity, noncompliance, etc., the patient's prognosis for wound healing and management of his lower extremity swelling and skin changes is felt to be poor. The patient is not a smoker. Influenza vaccine was not administered today. The patient weighs 435 pounds. He stands 5 feet 9 inches tall. His BMI is 64.2. Weight loss has been recommended, in collaboration with the patient's primary care physician has been advised. Total time: 29 minutes.
[2020-12-07 11:47] VITALS: PULSE 75; RESP 18; TEMP 36.4
[2020-12-11 11:19] VITALS: BP 140/69; PULSE 77; TEMP 36.9; BMI 64.2
[2020-12-14 12:00] VITALS: BP 135/64; PULSE 64; RESP 18; TEMP 36.5
[2020-12-18 11:41] VITALS: BP 148/74; PULSE 78; RESP 18; TEMP 36.9
[2020-12-21 11:33] VITALS: BP 146/71; PULSE 71; RESP 18; TEMP 37
== END 2020-12-24 23:59 ==
LOC: WC 11:00
PROVIDERS: PCP Internal Medicine; Referring Provider Surgery; Visit Provider Surgery
DX: I87.333 Chronic venous hypertension (idiopathic) with ulcer and inflammation of bilateral lower extremity (principal); L97.212 Non-pressure chronic ulcer of right calf with fat layer exposed; L97.222 Non-pressure chronic ulcer of left calf with fat layer exposed; I87.2 Venous insufficiency (chronic) (peripheral); M79.89 Other specified soft tissue disorders; I89.0 Lymphedema, not elsewhere classified; R60.0 Localized edema; Z91.19 Patient's noncompliance with other medical treatment and regimen; E11.9 Type 2 diabetes mellitus without complications; I10 Essential (primary) hypertension; M10.9 Gout, unspecified; G47.33 Obstructive sleep apnea (adult) (pediatric); E66.01 Morbid (severe) obesity due to excess calories; Z68.44 Body mass index [BMI] 60.0-69.9, adult; Z79.899 Other long term (current) drug therapy; Z87.891 Personal history of nicotine dependence; Z86.14 Personal history of Methicillin resistant Staphylococcus aureus infection
CPT/HCPCS: 11042; 29580; 99213; G0463

== ENCOUNTER 2021-01-15 10:30 | Outpatient (RCR) | payer MEDICAID, SELFPAY ==
[2020-12-11 11:19] VITALS: BMI 64.2
[2020-12-25 00:23] VITALS: BP 146/71; PULSE 71; RESP 18; TEMP 37
[2020-12-25 11:15] VITALS: BP 140/71; PULSE 81; TEMP 36.4; BMI 64.2
--- NOTE | 2020-12-25 11:39 | PCM.WC.HP ---
History of Present Illness Date of Service: 12/25/20 Chief Complaint: Severe swelling, edema, and lymphedema of the lower extremities, with ulceration of the right distal lower extremity History of Wound: This is a 55-year-old morbidly obese white male who presented with chronic swelling, edema, and lymphedema in his lower extremities, and a recent ulceration on the right lateral calf. The patient has been treated at our facility in the past for similar medical problems. He has been receiving care at a wound clinic in [place], [place]. However, the patient had become dissatisfied with the care he was receiving, and sought medical care with our facility. Patient stated that the ulceration on the right lateral calf had been present for several months. He noticed very little improvement. It appears as though debridements had been performed serially, and weekly wraps had been implemented using 3M 2 layer compression wraps. He had recently obtained mechanical pneumatic compression pumps as well. He has a history of MRSA, and was on a prophylactic dose of azithromycin 250 mg p.o. daily. The patient claims to sleep on a flat mattress at night. However, he is not active, and spends a good deal of each day in a sitting position. He denies a history of deep vein thrombosis. It appears as though a venous duplex examination had been recently performed in [place], [place], at [facility]. We were to attempt to obtain these results. A noninvasive lower extremity arterial study was performed in 2017, the results of which revealed no evidence of arterial occlusive disease in the lower extremities. The patient also indicated that he was hospitalized for 2 days at [facility] in [place], [place], in January 2020, which was for treatment relative to his lower extremity problems. [facility] Home Medications Aldactone 25 mg PO BID 05/06/18 [History Last Taken Unknown] Lasix 80 mg PO DAILY 05/06/18 [History Last Taken Unknown] lisinopril 20 mg PO DAILY 09/16/18 [History Last Taken Unknown] allopurinol 300 mg PO DAILY 05/15/20 [History Last Taken Unknown] azithromycin 250 mg PO DAILY 05/15/20 [History Last Taken Unknown] Allergy/AdvReac Type Severity Reaction Status Date / Time shellfish derived Allergy Food Verified 05/15/20 11:16 Allergy Social History Smoking Status: Former smoker Vital Signs Vital Signs Vital Signs: 12/25/20 00:23 12/25/20 11:15 Temperature 98.6 F 97.5 F L Temperature Source Temporal Pulse Rate 71 81 Respiratory Rate 18 Blood Pressure 146/71 H 140/71 H Blood Pressure Mean 96 94 Blood Pressure Source Monitor Blood Pressure Position Semi-Fowlers Blood Pressure Location Left Arm Right Arm Weight Weight: 447 lb 7.46 oz Body Mass Index (BMI) 64.2 Physical Exam Const alert, oriented x3, no apparent distress and well nourished Constitutional Narrative: The patient is morbidly obese. General Appearance: cooperative, comfortable and well developed Orientation / Consciousness: awake, oriented to person, oriented to place and oriented to time HEENT normocephalic and head/scalp atraumatic Head and Scalp: normal to inspection, normocephalic and atraumatic External Ear: external ears normal Eyes PERRL and EOMs intact bilaterally Resp normal respiratory effort and no use of accessory muscles Effort and Inspection: able to speak in complete sentences Extremity no calf tenderness Extremity Narrative: Both lower extremities are massively edematous. There is swelling, edema, and lymphedema. There are diffuse, chronic changes of dermatitis, related to the longstanding swelling and edema. There is an area of denudation of epithelium on the right leyla-lateral calf. General Extremity: Negative for clubbing or cyanosis Skin Wound Narrative: The wound on the right lateral calf persists. There is a moderate amount of bioburden. There is no sign of infection or cellulitis. Dimensions are documented elsewhere. Neuro oriented x3, CN's II-XII intact bilaterally and moves all extremities Sensorium / Orientation: awake, alert, oriented to person, oriented to place and oriented to time Psych Appearance: grossly normal, appropriate and unkempt Attitude: calm Activity / Motor Behavior: appropriate eye contact Speech: normal speech Attention / Concentration: attention grossly intact Debridement Note Debridement Note Post-Debridement Measurements and Additional Note: Post-Debridement Measurements/Treatment - Nurse 1 - General Ulcer Assessment Start: 12/25/20 11:14 Freq: Status: Active Protocol: [email or web address] Activity Type Activity Date Activity User E-Sign Co-Sign Detail Recorded Client Recorded Date Recorded By Document 12/25/20 11:15 RUPA [id number] 12/25/20 11:22 RUPA 12/25/20 11:15 - Today's Visit Information Type of service Follow-up Visit (Physician/CHILD CARE SPECIALIST ) Arrival Mode Ambulatory Patient Identification Verified (Name & Yes ) Height and Weight Body Mass Index (BMI) 64.2 BMI Classification Obese Vital Signs Temperature (97.8 F-99.1 F) 97.5 F L Temperature Source Temporal Pulse Rate (60-100) 81 Pulse Location Monitor Blood Pressure (90/60-120/80) 140/71 H Blood Pressure Mean 94 Source Monitor Position Semi-Fowlers Blood Pressure Location Right Arm History Since Last Visit- (Skip if this is Patient's initial visit) Have you changed medications since your No last visit? Any new allergies or adverse reactions No Had a fall/change in ADL's that may No increase risk of falls Signs or symptoms of abuse and/or No neglect since last visit Have you been in the hospital since your No last visit? Has dressing in place as prescribed Yes Has compression in place as prescribed Yes Has offloadiing in place as prescribed N/A Experienced any changes in pain level or No management Left Footwear Regular Shoe Right Footwear Regular Shoe Pain Scale: 0-10 Numeric Is Patient Pain Free? Yes - Nurse 1 - General Ulcer Measurement Start: 12/25/20 11:14 Freq: Status: Active Protocol: Activity Type Activity Date Activity User E-Sign Co-Sign Detail Recorded Client Recorded Date Recorded By Document 12/25/20 11:15 RUPA [id number] 12/25/20 11:22 RUPA 12/25/20 11:15 Wound Center Nurse 1 #9 LLE Lat -Current Size (cm) - Length 0.2 -Current Size (cm) - Width 0.2 -Current Size (cm) - Depth 0.2 -Total Square Cm 0.04 -Exudate Amt Small -Exudate Type Serosanguineous -Wound Margin Distinct, Outline Attached -Granulation Amt Small (1-33%) -Granulation Quality Ault -Necrosis Amt Small (1-33%) -Necrotic Tissue Type Adherent Slough -Texture (Meri-wound Skin Appearance) Assessed, Scarring -Moisture (Meri-wound Skin Appearance) No Abnormality, Assessed -Color (Meri-wound Skin Appearance) No Abnormality, Assessed -Temperature (Meri-wound Skin No Abnormality Appearance) (Pt Warm) -Tenderness on Palpation (Meri-wound No Skin Appearance) -Ulcer Cleansing Rinsed/ Irrigated with Saline -Foul Odor after Cleansing No -Anesthetic Used 4% Lidocaine Solution Right Calf (cm) 50 Right Ankle (cm) 39 Left Calf (cm) 48 Left Ankle (cm) 35 Wound debrided: Right lateral calf Laterality: Right Type of Debridement: Excisional debridement Anesthesia Used: 5% Lidocaine Gel Depth: Down to and including healthy tissue and in the subcutaneous layer Percentage of wound debrided: 100 Instrument Used: 5mm curette Tissue Removed: Bioburden Severity: Fat Layer Exposed Amount of bleeding with debridement: Mild Bleeding Controlled with: Compression and gauze Patient tolerated procedure: Patient tolerated procedure well Assessment/Plan Assessment/Plan (1) Nonhealing ulcer of right lower extremity with fat layer exposed: CODE(S): L97.912 - Non-pressure chronic ulcer of unspecified part of right lower leg with fat layer exposed (2) Lymphedema of both lower extremities: CODE(S): I89.0 - Lymphedema, not elsewhere classified (3) Morbid obesity with BMI of 60.0-69.9, adult: CODE(S): E66.01 - Morbid (severe) obesity due to excess calories; Z68.44 - Body mass index [BMI] 60.0-69.9, adult (4) Venous insufficiency (chronic) (peripheral): CODE(S): I87.2 - Venous insufficiency (chronic) (peripheral) (5) Swelling of lower extremity: CODE(S): M79.89 - Other specified soft tissue disorders (6) Edema of both legs: CODE(S): R60.0 - Localized edema (7) Ulcer of right lower leg: CODE(S): L97.919 - Non-pressure chronic ulcer of unspecified part of right lower leg with unspecified severity (8) Venous stasis ulcer: CODE(S): I83.009 - Varicose veins of unspecified lower extremity with ulcer of unspecified site; L97.909 - Non-pressure chronic ulcer of unspecified part of unspecified lower leg with unspecified severity QUALIFIERS: Qualified Code(s): L97.222 - Non-pressure chronic ulcer of left calf with fat layer exposed (9) Dependent edema: CODE(S): R60.9 - Edema, unspecified (10) Venous hypertension, chronic, with ulcer and inflammation: CODE(S): I87.339 - Chronic venous hypertension (idiopathic) with ulcer and inflammation of unspecified lower extremity; L97.909 - Non-pressure chronic ulcer of unspecified part of unspecified lower leg with unspecified severity QUALIFIERS: Qualified Code(s): L97.929 - Non-pressure chronic ulcer of unspecified part of left lower leg with unspecified severity (11) Venous stasis dermatitis: CODE(S): I87.2 - Venous insufficiency (chronic) (peripheral) (12) Diabetes mellitus: CODE(S): E11.9 - Type 2 diabetes mellitus without complications (13) Gout: CODE(S): M10.9 - Gout, unspecified (14) MASON (obstructive sleep apnea): CODE(S): G47.33 - Obstructive sleep apnea (adult) (pediatric) (15) Hypertension: CODE(S): I10 - Essential (primary) hypertension PLAN: A lengthy discussion has been undertaken with the patient once again. Conservative treatment measures are to be continued. There is question as to the patient's level of compliance. He is also morbidly obese. These are both factors which appear to be preventing significant progress in the healing of his wound and improvement of his venous stasis. The patient claims to be elevating his lower extremities as advised. He claims to be using his mechanical pneumatic compression pumps 2-3 times daily. However, his has previously related a completely different story, indicating that the patient has not been compliant with recommended measures. This appears to be the reason why the patient has failed to demonstrate significant improvement. In fact, the patient admits to elevating his lower extremities less than 2 to 3 hours/day, which is far less than that which has been recommended. He has been advised to continue sleeping on a flat mattress at night. Leg elevation has been recommended during daytime hours as well. Leg elevation is to be to heart level, or higher. This is to be accomplished as much as possible, and for longer periods each day than the patient is currently implementing. Prolonged idle sitting has been discouraged. Activity has been encouraged, though the patient's morbid obesity likely precludes any significant increase or enhancement of the patient's activity level. We are to continue compression in both lower extremities. We are transitioning to the use of Profore multilayer compression wraps bilaterally. These will be changed weekly. Promogran will be applied to the small ulceration on the right lateral calf. Patient will return in 3 weeks for reassessment. The patient has in his possession pneumatic mechanical compression pumps, and has been encouraged to use these 2 or 3 times daily. Significant weight loss is a primary objective, though the patient is unlikely to meet this goal. He has been urged to lose weight voluntarily. He has expressed the desire, though achievement of this goal would appear somewhat unlikely by means of diet modification and exercise. The patient has expressed his preference to pursue weight loss on a voluntary basis. We have discussed the option of consultation with a bariatric specialist, and the patient has flatly refused. Optimization of the patient's glycemic control has been recommended. Once again, a lack of patient compliance is suspected to be an issue in regard to the patient's failure to progress. Unfortunately, due to a combination of factors, which include morbid obesity, a failure to lose weight, inactivity, noncompliance, etc., the patient's prognosis for wound healing and management of his lower extremity swelling and skin changes is felt to be poor. The patient is not a smoker. Influenza vaccine was not administered today. The patient weighs 435 pounds. He stands 5 feet 9 inches tall. His BMI is 64.2. Weight loss has been recommended, in collaboration with the patient's primary care physician has been advised. Total time: 29 minutes.
[2021-01-01 12:02] VITALS: BP 138/76; PULSE 74; RESP 24; TEMP 36.6; BMI 64.2
[2021-01-04 11:52] VITALS: BP 134/69; PULSE 72; RESP 24; TEMP 36.7
[2021-01-08 11:53] VITALS: BP 132/78; PULSE 79; BMI 64.2
[2021-01-15 10:31] VITALS: BP 110/74; PULSE 127; TEMP 36.6; BMI 64.2
--- NOTE | 2021-01-15 12:17 | HP.PCM_ITS ---
History of Present Illness Date of Service: 01/15/21 Chief Complaint: Severe swelling, edema, and lymphedema of the lower extre mities, with ulceration of the right distal lower extremity History of Wound: This is a 55-year-old morbidly obese white male who presented with chronic swelling, edema, and lymphedema in his lower extremities, and a recent ulceration on the right lateral calf. The patient has been treated at our facility in the past for similar medical problems. He has been receiving c are at a wound clinic in [place], [place]. However, the patient had become dissatisfied with the care he was receiving, and sought medical care with our facility. Patient stated that the ulceration on the right lateral calf had been present for several months. He noticed very little improvement. It appears as though debridements had been performed serially, and weekly wraps had been implemented using 3M 2 layer compression wraps. He had recently obtained mechanical pneumatic compression pumps as well. He has a history of MRSA, and was on a prophylactic dose of azithromycin 250 mg p.o. daily. The patient claims to sleep on a flat mattress at night. However, he is not active, and spends a good deal of each day in a sitting position. He denies a history of deep vein thrombosis. It appears as though a venous duplex examination had been recently performed in [place], [place], at [facility]. We were to attempt to obtain these results. A noninvasive lower extremity arterial study was performed in 2017, the results of which revealed no evidence of arterial occlusive disease in the lower extremities. The patient also indicated that he was hospitalized for 2 days at [facility] in [place], [place], in January 2020, which was for treatment relative to his lower extremity problems. [facility] Home Medications Aldactone 25 mg PO BID 05/06/18 [History Last Taken Unknown] Lasix 80 mg PO DAILY 05/06/18 [History Last Taken Unknown] lisinopril 20 mg PO DAILY 09/16/18 [History Last Taken Unknown] allopurinol 300 mg PO DAILY 05/15/20 [History Last Taken Unknown] azithromycin 250 mg PO DAILY 05/15/20 [History Last Taken Unknown] Allergy/AdvReac Type Severity Reaction Status Date / Time shellfish derived Allergy Food Verified 05/15/20 11:16 Allergy Social History Smoking Status: Former smoker Vital Signs Vital Signs Vital Signs: 01/15/21 10:31 Temperature 97.8 F Temperature Source Temporal Pulse Rate 127 H Blood Pressure 110/74 Blood Pressure Mean 86 Blood Pressure Source Monitor Blood Pressure Position Sitting Blood Pressure Location Left Arm Weight Weight: 441 lb 10.877 oz Body Mass Index (BMI) 64.2 Physical Exam Const alert, oriented x3 and no apparent distress Constitutional Narrative: The patient is morbidly obese General Appearance: cooperative, comfortable and well developed Orientation / Consciousness: awake, oriented to person, oriented to place and oriented to time Nutritional Appearance: morbidly obese HEENT normocephalic and head/scalp atraumatic Head and Scalp: normal to inspection, normocephalic and atraumatic External Ear: external ears normal Eyes PERRL and EOMs intact bilaterally General Eye: normal appearance of both eyes Resp normal respiratory effort, normal air movement, no retractions and no use of accessory muscles Effort and Inspection: able to speak in complete sentences Extremity no calf tenderness Extremity Narrative: Severe swelling, edema, and lymphedema are noted in the patient's lower extremities bilaterally. Severe skin changes are also noted bilaterally, which include areas of hypertrophic dermatitis, as well as areas of epithelial denudation. Scattered areas of hyperpigmentation are also noted. General Extremity: Negative for clubbing or cyanosis Skin Wound Narrative: Scattered areas of excoriation and epithelial denudation are noted bilaterally in the lower extremities. Neuro oriented x3, CN's II-XII intact bilaterally and moves all extremities Psych Appearance: grossly normal and appropriate Attitude: calm and engaged Activity / Motor Behavior: appropriate eye contact Speech: normal speech Mood & Affect: euthymic mood Thought Process: normal thought process Debridement Note Debridement Note Post-Debridement Measurements and Additional Note: Post-Debridement Measurements/Treatment WC - Nurse 1 - General Ulcer Assessment Start: 12/25/20 11:14 Freq: Status: Active Protocol: JUAN MANUEL Activity Type Activity Date Activity User E-Sign Co-Sign Detail Recorded Client Recorded Date Recorded By Document 12/25/20 11:15 KR [id number] 12/25/20 11:22 KR Document 01/01/21 12:02 DL [id number] 01/01/21 12:28 DL Document 01/04/21 11:52 DL [id number] 01/04/21 12:14 DL Document 01/08/21 11:53 KR [id number] 01/08/21 11:54 KR Document 01/15/21 10:31 KR [id number] 01/15/21 10:42 KR 12/25/20 01/01/21 01/04/21 11:15 12:02 11:52 - Today's Visit Information Type of service Follow-up Visit Nurse-only Nurse-only (Physician/COKE LOADER Visit Visit ) Arrival Mode Ambulatory Ambulatory Ambulatory Transfer Assistance None None Patient Identification Verified (Name & Yes Yes ) Patient Requires Transmission-Based No No Precautions Weight 441 lb 10.877 oz Weight in Pounds 441.7 lbs Height and Weight Body Mass Index (BMI) 64.2 64.2 BMI Classification Obese Obese Vital Signs Temperature (97.8 F-99.1 F) 97.5 F L 97.9 F 98.1 F Temperature Source Temporal Temporal Temporal Pulse Rate (60-100) 81 74 72 Pulse Location Monitor Monitor Monitor Respiratory Rate (12-18) 24 H 24 H Respiratory rate source Observation Observation Blood Pressure (90/60-120/80) 140/71 H 138/76 H 134/69 H Blood Pressure Mean 94 96 90 Source Monitor Monitor Position Semi-Fowlers Blood Pressure Location Right Arm History Since Last Visit- (Skip if this is Patient's initial visit) Have you changed medications since your No No No last visit? Any new allergies or adverse reactions No No No Had a fall/change in ADL's that may No No No increase risk of falls Signs or symptoms of abuse and/or No No No neglect since last visit Have you been in the hospital since your No No No last visit? Has dressing in place as prescribed Yes Yes Yes Has compression in place as prescribed Yes Yes Yes Has offloadiing in place as prescribed N/A N/A N/A Experienced any changes in pain level or No No No management Left Footwear Regular Shoe Right Footwear Regular Shoe Pain Scale: 0-10 Numeric Is Patient Pain Free? Yes Yes Yes 01/08/21 01/15/21 11:53 10:31 - Today's Visit Information Type of service Nurse-only Follow-up Visit Visit (Physician/COKE LOADER ) Arrival Mode Ambulatory Ambulatory Transfer Assistance Patient Identification Verified (Name & Yes Yes ) Patient Requires Transmission-Based Precautions Weight Weight in Pounds Height and Weight Body Mass Index (BMI) 64.2 64.2 BMI Classification Obese Obese Vital Signs Temperature (97.8 F-99.1 F) 97.8 F Temperature Source Temporal Pulse Rate (60-100) 79 127 H Pulse Location Monitor Monitor Respiratory Rate (12-18) Respiratory rate source Blood Pressure (90/60-120/80) 132/78 H 110/74 Blood Pressure Mean 96 86 Source Monitor Monitor Position Semi-Fowlers Sitting Blood Pressure Location Right Arm Left Arm History Since Last Visit- (Skip if this is Patient's initial visit) Have you changed medications since your No No last visit? Any new allergies or adverse reactions No No Had a fall/change in ADL's that may No No increase risk of falls Signs or symptoms of abuse and/or No No neglect since last visit Have you been in the hospital since your No No last visit? Has dressing in place as prescribed Yes Yes Has compression in place as prescribed Yes Yes Has offloadiing in place as prescribed N/A N/A Experienced any changes in pain level or No No management Left Footwear Regular Shoe Regular Shoe Right Footwear Regular Shoe Regular Shoe Pain Scale: 0-10 Numeric Is Patient Pain Free? Yes Yes WC - Nurse 1 - General Ulcer Measurement Start: 12/25/20 11:14 Freq: Status: Active Protocol: Activity Type Activity Date Activity User E-Sign Co-Sign Detail Recorded Client Recorded Date Recorded By Document 12/25/20 11:15 KR [id number] 12/25/20 11:22 KR Document 01/01/21 12:02 DL [id number] 01/01/21 12:28 DL Document 01/04/21 11:52 DL [id number] 01/04/21 12:14 DL Document 01/15/21 10:31 KR [id number] 01/15/21 10:42 KR 12/25/20 01/01/21 01/04/21 11:15 12:02 11:52 Wound Center Nurse 1 #9 LLE Lat -Current Size (cm) - Length 0.2 -Current Size (cm) - Width 0.2 -Current Size (cm) - Depth 0.2 -Total Square Cm 0.04 -Photo Taken No -Exudate Amt Small Large Large -Exudate Type Serosanguineous Serosanguineous Serosanguineous -Wound Margin Distinct, Indistinct, Non Indistinct, Non Outline -Visible -Visible Attached -Granulation Amt Small (1-33%) -Granulation Quality Carlock -Necrosis Amt Small (1-33%) -Necrotic Tissue Type Adherent Slough -Texture (Meri-wound Skin Appearance) Assessed, Excoriation, Excoriation, Scarring Scarring Scarring -Moisture (Meri-wound Skin Appearance) No Abnormality, Maceration, Weeping Assessed Weeping -Color (Meri-wound Skin Appearance) No Abnormality, Hemosiderin Hemosiderin Assessed Staining Staining -Temperature (Meri-wound Skin No Abnormality No Abnormality No Abnormality Appearance) (Pt Warm) (Pt Warm) (Pt Warm) -Tenderness on Palpation (Meri-wound No No No Skin Appearance) -Ulcer Cleansing Rinsed/ Wound Cleanser Wound Cleanser Irrigated with Saline -Foul Odor after Cleansing No No No -Anesthetic Used 4% Lidocaine Solution #8- RLE -Current Size (cm) - Length -Current Size (cm) - Width -Current Size (cm) - Depth -Total Square Cm -Photo Taken No No -Exudate Amt Large Large -Exudate Type Serosanguineous Serosanguineous -Wound Margin Indistinct, Non Indistinct, Non -Visible -Visible -Granulation Amt -Granulation Quality -Necrosis Amt -Necrotic Tissue Type -Texture (Meri-wound Skin Appearance) Excoriation, Excoriation, Scarring Scarring -Moisture (Meri-wound Skin Appearance) Maceration Weeping -Color (Meri-wound Skin Appearance) Hemosiderin Hemosiderin Staining Staining -Temperature (Meri-wound Skin No Abnormality No Abnormality Appearance) (Pt Warm) (Pt Warm) -Tenderness on Palpation (Meri-wound No Skin Appearance) -Ulcer Cleansing Wound Cleanser Wound Cleanser -Foul Odor after Cleansing No Yes -Anesthetic Used Right Calf (cm) 50 58.5 Right Ankle (cm) 39 34 Left Calf (cm) 48 63.3 Left Ankle (cm) 35 33 01/15/21 10:31 Wound Center Nurse 1 #9 LLE Lat -Current Size (cm) - Length -Current Size (cm) - Width -Current Size (cm) - Depth -Total Square Cm -Photo Taken -Exudate Amt -Exudate Type -Wound Margin -Granulation Amt -Granulation Quality -Necrosis Amt -Necrotic Tissue Type -Texture (Meri-wound Skin Appearance) -Moisture (Meri-wound Skin Appearance) -Color (Meri-wound Skin Appearance) -Temperature (Meri-wound Skin Appearance) -Tenderness on Palpation (Meri-wound Skin Appearance) -Ulcer Cleansing -Foul Odor after Cleansing -Anesthetic Used #8- RLE -Current Size (cm) - Length 9.5 -Current Size (cm) - Width 11.5 -Current Size (cm) - Depth 0.1 -Total Square Cm 109.25 -Photo Taken -Exudate Amt Large -Exudate Type Serosanguineous -Wound Margin Distinct, Outline Attached -Granulation Amt Medium (34-66%) -Granulation Quality Red -Necrosis Amt Medium (34-66%) -Necrotic Tissue Type Adherent Slough -Texture (Meri-wound Skin Appearance) Assessed, Scarring -Moisture (Meri-wound Skin Appearance) No Abnormality, Assessed -Color (Meri-wound Skin Appearance) No Abnormality, Assessed -Temperature (Meri-wound Skin No Abnormality Appearance) (Pt Warm) -Tenderness on Palpation (Meri-wound No Skin Appearance) -Ulcer Cleansing Rinsed/ Irrigated with Saline -Foul Odor after Cleansing No -Anesthetic Used 4% Lidocaine Solution Right Calf (cm) 63 Right Ankle (cm) 33.4 Left Calf (cm) 60.5 Left Ankle (cm) 31.5 WC - Nurse 2 - General Ulcer CM Notes Start: 12/25/20 11:14 Freq: Status: Active Protocol: Activity Type Activity Date Activity User E-Sign Co-Sign Detail Recorded Client Recorded Date Recorded By Document 12/25/20 12:50 PL [id number] 12/25/20 12:53 PL 12/25/20 12:50 Wound Center Nurse 2 #9 LLE Lat -Time 11:30 -Correct Patient Yes -Correct Side, Site, Position Yes -Correct Procedure Yes -Procedure Performed Yes -Type of Procedure Debridement -Clinical Debridement Subcutaneous -Tissue Removed Subcutaneous -Post Debridement (cm) - Length 0.2 -Post Debridement (cm) - Width 0.2 -Post Debridement (cm) - Depth 0.2 -Total Square (Post) (cm) 0.04 -Area of Debridement (cm) - Length 0.2 -Area of Debridement (cm) - Width 0.2 -Total Square (Area) (cm) 0.04 -Tunneling No -Undermining/Tunneling No -Circular Undermining No -Wound/Ulcer Outcome Not Healed -Ulcer Cleansing Rinsed/ Irrigated with Saline -Foul Odor after Cleansing No -Bioengineered Tissue No -Debridement - Subq, 1st 20sq cm Yes #8- RLE -Procedure Performed No WC - Nurse 3 - General Ulcer D/C NN Start: 12/25/20 11:14 Freq: Status: Active Protocol: Activity Type Activity Date Activity User E-Sign Co-Sign Detail Recorded Client Recorded Date Recorded By Document 12/25/20 12:50 PL [id number] 12/25/20 12:53 PL Edit Result 12/25/20 12:50 PL (1) [id number] 12/26/20 07:15 PL Document 01/01/21 12:02 DL [id number] 01/01/21 12:28 DL Edit Result 01/01/21 12:02 DL (2) [id number] 01/02/21 16:20 PL Document 01/08/21 11:53 KR [id number] 01/08/21 11:54 KR Edit Result 01/08/21 11:53 KR (3) [id number] 01/08/21 17:42 PL Document 01/15/21 11:15 KR [id number] 01/15/21 11:16 KR (1) Bilateral - Multi-Layered Wrap Application => Multi-Layer Comp - => Bilat ($) - Other => PROFORE Right - Multi-Layered Wrap Application Profore => Left - Multi-Layered Wrap Application Profore => (2) Bilateral - Multi-Layered Wrap Application => Multi-Layer Comp - => Bilat ($) (3) Bilateral - Multi-Layered Wrap Application Profore => Multi-Layer Comp - => Bilat ($) 12/25/20 01/01/21 01/08/21 12:50 12:02 11:53 Pain Scale: 0-10 Numeric Is Patient Pain Free? Yes Yes Wound Care Nurse 3 #9 LLE Lat -Ulcer Cleansing Rinsed/ Wound Cleanser Irrigated with Saline -Foul Odor after Cleansing No No -Other Dressing Kerlix, Webril, ABD/Kerlix/ Giancarlo Wrap, Undercasting/ Coban Giancarlo/Coban -Primary Dressing Covered/Secured with Secured with Secured with Tape Tape #8- RLE -Ulcer Cleansing Rinsed/ Wound Cleanser Irrigated with Saline -Foul Odor after Cleansing No No -Other Dressing Kerlix, Webril, Abd/Kerlix/ Giancarlo Wrap, Undercasting/ Coban Giancarlo/Coban -Primary Dressing Covered/Secured with Secured with Tape Bilateral -Multi-Layered Wrap Application Multi-Layer Multi-Layer Multi-Layer Comp - Bilat ($ Comp - Bilat ($ Comp - Bilat ($ ) ) ) -Compression Wrap -Other PROFORE Treatment Response Procedure Tolerated Well Vital Signs Temperature (97.8 F-99.1 F) 97.9 F Temperature Source Temporal Pulse Rate (60-100) 74 79 Pulse Location Monitor Monitor Respiratory Rate (12-18) 24 H Respiratory rate source Observation Blood Pressure (90/60-120/80) 138/76 H 132/78 H Blood Pressure Mean 96 96 Source Monitor Position Semi-Fowlers Blood Pressure Location Right Arm WC - Visit Discharge Discharge Condition Stable Stable Ambulatory Status Ambulatory Ambulatory Transportation Private Auto Private Auto Notes: Pt scheduled for [place] on of this week d/t drainage and wraps falling down to soon. 01/15/21 11:15 Pain Scale: 0-10 Numeric Is Patient Pain Free? Yes Wound Care Nurse 3 #9 LLE Lat -Ulcer Cleansing -Foul Odor after Cleansing -Other Dressing -Primary Dressing Covered/Secured with Dry Gauze & Roll Gauze, Secured with Tape #8- RLE -Ulcer Cleansing -Foul Odor after Cleansing -Other Dressing -Primary Dressing Covered/Secured with Bilateral -Multi-Layered Wrap Application -Compression Wrap Surepress ($) -Other Treatment Response Vital Signs Temperature (97.8 F-99.1 F) Temperature Source Pulse Rate (60-100) Pulse Location Respiratory Rate (12-18) Respiratory rate source Blood Pressure (90/60-120/80) Blood Pressure Mean Source Position Blood Pressure Location WC - Visit Discharge Discharge Condition Stable Ambulatory Status Ambulatory Transportation Private Auto Notes: No debridement was completed: No debridement was completed today Assessment/Plan Assessment/Plan (1) Nonhealing ulcer of left lower extremity with fat layer exposed: CODE(S): L97.922 - Non-pressure chronic ulcer of unspecified part of left lower leg with fat layer exposed (2) Nonhealing ulcer of right lower extremity with fat layer exposed: CODE(S): L97.912 - Non-pressure chronic ulcer of unspecified part of right lower leg with fat layer exposed (3) Lymphedema of both lower extremities: CODE(S): I89.0 - Lymphedema, not elsewhere classified (4) Pain, lower extremity: CODE(S): M79.606 - Pain in leg, unspecified (5) Morbid obesity with BMI of 60.0-69.9, adult: CODE(S): E66.01 - Morbid (severe) obesity due to excess calories; Z68.44 - Body mass index [BMI] 60.0-69.9, adult (6) Skin tear of left lower leg without complication: CODE(S): S81.812A - Laceration without foreign body, left lower leg, initial encounter (7) Venous insufficiency (chronic) (peripheral): CODE(S): I87.2 - Venous insufficiency (chronic) (peripheral) (8) Swelling of lower extremity: CODE(S): M79.89 - Other specified soft tissue disorders (9) Edema of both legs: CODE(S): R60.0 - Localized edema (10) Ulcer of right lower leg: CODE(S): L97.919 - Non-pressure chronic ulcer of unspecified part of right lower leg with unspecified severity (11) Venous stasis ulcer: CODE(S): I83.009 - Varicose veins of unspecified lower extremity with ulcer of unspecified site; L97.909 - Non-pressure chronic ulcer of unspecified part of unspecified lower leg with unspecified severity QUALIFIERS: Qualified Code(s): L97.222 - Non-pressure chronic ulcer of left calf with fat layer exposed (12) Dependent edema: CODE(S): R60.9 - Edema, unspecified (13) Venous hypertension, chronic, with ulcer and inflammation: CODE(S): I87.339 - Chronic venous hypertension (idiopathic) with ulcer and inflammation of unspecified lower extremity; L97.909 - Non-pressure chronic ulcer of unspecified part of unspecified lower leg with unspecified severity QUALIFIERS: Qualified Code(s): L97.929 - Non-pressure chronic ulcer of unspecified part of left lower leg with unspecified severity (14) Venous stasis dermatitis: CODE(S): I87.2 - Venous insufficiency (chronic) (peripheral) (15) Diabetes mellitus: CODE(S): E11.9 - Type 2 diabetes mellitus without complications (16) Gout: CODE(S): M10.9 - Gout, unspecified (17) MASON (obstructive sleep apnea): CODE(S): G47.33 - Obstructive sleep apnea (adult) (pediatric) (18) Hypertension: CODE(S): I10 - Essential (primary) hypertension PLAN: A lengthy discussion has been undertaken with the patient once again. Conservative treatment measures are to be continued. There is question as to the patient's level of compliance. He is also morbidly obese. These are both factors which appear to be preventing significant progress in the healing of his wound and improvement of his venous stasis. The patient claims to be elevating his lower extremities as advised. He claims to be using his mechanical pneumatic compression pumps 2-3 times daily. However, his has previously related a completely different story, indicating that the patient has not been compliant with recommended measures. This appears to be the reason why the patient has failed to demonstrate significant improvement. In fact, the patient admits to elevating his lower extremities less than 2 to 3 hours/day, which is far less than that which has been recommended. He has been advised to continue sleeping on a flat mattress at night. Leg elevation has been recommended during daytime hours as well. Leg elevation is to be to heart level, or higher. This is to be accomplished as much as possible, and for longer periods each day than the patient is currently implementing. Prolonged idle sitting has been discouraged. Activity has been encouraged, though the patient's morbid obesity likely precludes any significant increase or enhancement of the patient's activity level. Among the current problems, the patient's Profore dressings have been remaining in place for a week at a time and are becoming saturated with exudative drainage from the patient's lower extremities. Therefore, we are to transition to the use of an absorbent dressing such as Xtrasorb, with compression to the lower extremities by means of SurePress wraps. The dressings and wraps will be changed daily. We are to recruit the assistance of the patient's , and have asked that the patient's attend the patient's next visit to the wound center for instruction in the appropriate means of application. We will also request home health nursing care for assistance as well. The patient is to continue with weekly nursing visits to [facility], with medical reassessment in 3 weeks as to his progress with the described treatment measures. Promogran will be applied to the small ulceration on the right lateral calf. Patient will return in 3 weeks for reassessment. The patient has in his possession pneumatic mechanical compression pumps, and has been encouraged to use these 2 or 3 times daily. Significant weight loss is a primary objective, though the patient is unlikely to meet this goal. He has been urged to lose weight voluntarily. He has expressed the desire, though achievement of this goal would appear somewhat unlikely by means of diet modification and exercise. The patient has expressed his preference to pursue weight loss on a voluntary basis. He has previously undergone dietary consultation, which has yielded no significant weight loss. We have discussed the option of consultation with a bariatric specialist, and the patient has flatly refused to consider any type of surgical intervention in this regard. Optimization of the patient's glycemic control has been recomme nded. Once again, a lack of patient compliance is suspected to be an issue in regard to the patient's failure to progress. Unfortunately, due to a combination of factors, which include morbid obesity, a failure to lose weight, inactivity, noncompliance, etc., the patient's prognosis for wound healing and management of his lower extremity swelling and skin changes is felt to be poor. The patient is not a smoker. Influenza vaccine was not administered today. The patient weighs 435 pounds. He stands 5 feet 9 inches tall. His BMI is 64.2. Weight loss has been recommended, and collaboration with the patient's primary care physician has been advised. Total time: 29 minutes.
== END 2021-01-23 23:59 ==
LOC: WC 10:30
PROVIDERS: PCP Internal Medicine; Referring Provider Surgery; Visit Provider Surgery
DX: I87.333 Chronic venous hypertension (idiopathic) with ulcer and inflammation of bilateral lower extremity (principal); L97.212 Non-pressure chronic ulcer of right calf with fat layer exposed; L97.222 Non-pressure chronic ulcer of left calf with fat layer exposed; I89.0 Lymphedema, not elsewhere classified; I10 Essential (primary) hypertension; M10.9 Gout, unspecified; G47.33 Obstructive sleep apnea (adult) (pediatric); E66.01 Morbid (severe) obesity due to excess calories; Z68.44 Body mass index [BMI] 60.0-69.9, adult; Z79.899 Other long term (current) drug therapy; Z86.14 Personal history of Methicillin resistant Staphylococcus aureus infection; Z87.891 Personal history of nicotine dependence
CPT/HCPCS: 11042; 29581; 99213; G0463

== ENCOUNTER 2021-02-05 11:00 | Outpatient (RCR) | payer MEDICAID, SELFPAY ==
[2021-01-24 00:20] VITALS: BP 110/74; PULSE 127; RESP 24; TEMP 36.6
[2021-01-25 09:53] VITALS: BP 128/71; PULSE 103; RESP 18; TEMP 36.3; BMI 64.2
[2021-02-05 11:19] VITALS: BP 137/66; PULSE 71; RESP 20; TEMP 36.8; BMI 64.2
--- NOTE | 2021-02-05 12:40 | HP.PCM_ITS ---
History of Present Illness Date of Service: 02/05/21 Chief Complaint: Severe swelling, edema, and lymphedema of the lower extre mities, with ulceration of the right distal lower extremity History of Wound: This is a 55-year-old morbidly obese white male who presented with chronic swelling, edema, and lymphedema in his lower extremities, and a recent ulceration on the right lateral calf. The patient has been treated at our facility in the past for similar medical problems. He has been receiving c are at a wound clinic in [place], [place]. However, the patient had become dissatisfied with the care he was receiving, and sought medical care with our facility. Patient stated that the ulceration on the right lateral calf had been present for several months. He noticed very little improvement. It appears as though debridements had been performed serially, and weekly wraps had been implemented using 3M 2 layer compression wraps. He had recently obtained mechanical pneumatic compression pumps as well. He has a history of MRSA, and was on a prophylactic dose of azithromycin 250 mg p.o. daily. The patient claims to sleep on a flat mattress at night. However, he is not active, and spends a good deal of each day in a sitting position. He denies a history of deep vein thrombosis. It appears as though a venous duplex examination had been recently performed in [place], [place], at [facility] We were to attempt to obtain these results. A noninvasive lower extremity arterial study was performed in 2017, the results of which revealed no evidence of arterial occlusive disease in the lower extremities. The patient also indicated that he was hospitalized for 2 days at [facility] in [place], [place], in January 2020, which was for treatment relative to his lower extremity problems. [facility] Home Medications Aldactone 25 mg PO BID 05/06/18 [History Last Taken Unknown] Lasix 80 mg PO DAILY 05/06/18 [History Last Taken Unknown] lisinopril 20 mg PO DAILY 09/16/18 [History Last Taken Unknown] allopurinol 300 mg PO DAILY 05/15/20 [History Last Taken Unknown] azithromycin 250 mg PO DAILY 05/15/20 [History Last Taken Unknown] Allergy/AdvReac Type Severity Reaction Status Date / Time shellfish derived Allergy Food Verified 05/15/20 11:16 Allergy Social History Smoking Status: Former smoker Vital Signs Vital Signs Vital Signs: 02/05/21 11:19 Temperature 98.3 F Temperature Source Temporal Pulse Rate 71 Respiratory Rate 20 H Blood Pressure 137/66 H Blood Pressure Mean 89 Blood Pressure Source Monitor Weight Weight: 441 lb 10.877 oz Body Mass Index (BMI) 64.2 Physical Exam Narrative The patient is morbidly obese. Const alert, oriented x3, no apparent distress and well nourished General Appearance: cooperative, comfortable and well developed Orientation / Consciousness: awake, oriented to person, oriented to place and oriented to time HEENT normocephalic and head/scalp atraumatic Head and Scalp: normal to inspection, normocephalic and atraumatic External Ear: external ears normal Eyes PERRL and EOMs intact bilaterally General Eye: normal appearance of both eyes Resp normal respiratory effort, normal air movement, no retractions and no use of accessory muscles Effort and Inspection: able to speak in complete sentences GI GI Narrative: The patient is morbidly obese with a very large abdominal girth. Inspection: pannus present Extremity no calf tenderness Extremity Narrative: Moderate swelling and edema are noted in the patient's lower extremities. There is diffuse venous stasis dermatitis with areas of epidermal denudation and excoriation. There has been very little improvement in the patient's status in many weeks. General Extremity: Negative for clubbing or cyanosis Neuro oriented x3 and CN's II-XII intact bilaterally Speech: speech normal Psych Appearance: grossly normal and appropriate Attitude: calm Activity / Motor Behavior: appropriate eye contact Speech: normal speech Mood & Affect: euthymic mood Thought Process: normal thought process Thought Content: normal thought content Attention / Concentration: attention grossly intact Debridement Note Debridement Note Post-Debridement Measurements and Additional Note: Post-Debridement Measurements/Treatment - Nurse 1 - General Ulcer Assessment Start: 01/25/21 09:53 Freq: Status: Active Protocol: JUAN MANUEL Activity Type Activity Date Activity User E-Sign Co-Sign Detail Recorded Client Recorded Date Recorded By Document 01/25/21 09:53 RB [id number] 01/25/21 09:56 RB Document 02/05/21 11:19 DL [id number] 02/05/21 11:34 DL 01/25/21 02/05/21 09:53 11:19 - Today's Visit Information Type of service Nurse-only Follow-up Visit Visit (Physician/[employer] ) Arrival Mode Ambulatory Ambulatory Transfer Assistance None None Patient Identification Verified (Name & Yes Yes ) Patient Requires Transmission-Based No No Precautions Height and Weight Body Mass Index (BMI) 64.2 64.2 BMI Classification Obese Obese Vital Signs Temperature (97.8 F-99.1 F) 97.3 F L 98.3 F Temperature Source Temporal Temporal Pulse Rate (60-100) 103 H 71 Pulse Location Monitor Monitor Respiratory Rate (12-18) 18 20 H Respiratory rate source Observation Observation Blood Pressure (90/60-120/80) 128/71 H 137/66 H Blood Pressure Mean 90 89 Source Monitor Monitor Position Semi-Fowlers Blood Pressure Location Left Arm History Since Last Visit- (Skip if this is Patient's initial visit) Have you changed medications since your No No last visit? Any new allergies or adverse reactions No No Had a fall/change in ADL's that may No No increase risk of falls Signs or symptoms of abuse and/or No No neglect since last visit Have you been in the hospital since your No No last visit? Has dressing in place as prescribed Yes Yes Has compression in place as prescribed Yes Yes Has offloadiing in place as prescribed No N/A Experienced any changes in pain level or No No management Left Footwear Regular Shoe Right Footwear Regular Shoe Pain Scale: 0-10 Numeric Is Patient Pain Free? Yes WC - Nurse 1 - General Ulcer Measurement Start: 01/25/21 09:53 Freq: Status: Active Protocol: Activity Type Activity Date Activity User E-Sign Co-Sign Detail Recorded Client Recorded Date Recorded By Document 01/25/21 09:53 RB [id number] 01/25/21 09:56 RB Document 02/05/21 11:19 DL [id number] 02/05/21 11:34 DL 01/25/21 02/05/21 09:53 11:19 #9 LLE Lat -Current Size (cm) - Length 16 -Current Size (cm) - Width 18 -Current Size (cm) - Depth 0.1 -Total Square Cm 288 -Photo Taken No -Exudate Amt Large -Exudate Type Serosanguineous -Wound Margin Indistinct, Non -Visible -Granulation Amt Large (67-100%) -Granulation Quality Red -Necrosis Amt Small (1-33%) -Necrotic Tissue Type Adherent Slough -Structure Exposed N/A -Texture (Meri-wound Skin Appearance) Excoriation, Localized Edema -Moisture (Meri-wound Skin Appearance) Weeping -Color (Meri-wound Skin Appearance) Hemosiderin Staining -Temperature (Meri-wound Skin No Abnormality Appearance) (Pt Warm) -Tenderness on Palpation (Meri-wound No Skin Appearance) -Ulcer Cleansing Wound Cleanser -Foul Odor after Cleansing No -Anesthetic Used 4% Lidocaine Solution #8- RLE -Current Size (cm) - Length 15 -Current Size (cm) - Width 22 -Current Size (cm) - Depth 0.1 -Total Square Cm 330 -Photo Taken No -Exudate Amt Large -Exudate Type Serosanguineous -Wound Margin Indistinct, Non -Visible -Granulation Amt Large (67-100%) -Granulation Quality Red -Necrosis Amt Small (1-33%) -Necrotic Tissue Type Adherent Slough -Structure Exposed N/A -Texture (Meri-wound Skin Appearance) Localized Edema ,Scarring -Moisture (Meri-wound Skin Appearance) Weeping -Color (Meri-wound Skin Appearance) Hemosiderin Staining -Temperature (Meri-wound Skin No Abnormality Appearance) (Pt Warm) -Tenderness on Palpation (Meri-wound No Skin Appearance) -Ulcer Cleansing Wound Cleanser -Foul Odor after Cleansing No -Anesthetic Used 4% Lidocaine Solution Wound Center Nurse 1 Lower Limb Edema Present Yes Right Calf (cm) 64 63.5 Right Ankle (cm) 33.4 36 Left Calf (cm) 62.5 61 Left Ankle (cm) 31.5 34 WC - Nurse 3 - General Ulcer D/C NN Start: 01/25/21 09:53 Freq: Status: Active Protocol: Activity Type Activity Date Activity User E-Sign Co-Sign Detail Recorded Client Recorded Date Recorded By Document 01/25/21 09:53 RB [id number] 01/25/21 09:56 RB 01/25/21 09:53 Vital Signs Temperature (97.8 F-99.1 F) 97.3 F L Temperature Source Temporal Pulse Rate (60-100) 103 H Pulse Location Monitor Respiratory Rate (12-18) 18 Respiratory rate source Observation Blood Pressure (90/60-120/80) 128/71 H Blood Pressure Mean 90 Source Monitor Position Semi-Fowlers Blood Pressure Location Left Arm Wound Care Nurse 3 #9 LLE Lat -Ulcer Cleansing Wound Cleanser -Other Dressing xtrasorb -Primary Dressing Covered/Secured with Dry Gauze & Roll Gauze, Secured with Tape #8- RLE -Ulcer Cleansing Wound Cleanser -Other Dressing xtrasorb -Primary Dressing Covered/Secured with Dry Gauze & Roll Gauze, Secured with Tape Right -Compression Wrap Surepress ($) left -Compression Wrap Surepress ($) Treatment Response Procedure Tolerated Well WC - Visit Discharge Discharge Condition Stable Ambulatory Status Ambulatory Transportation Private Auto Medication Reconcilliation completed & No provided to patient/care provider Clinical Summary of Care Provided Yes No debridement was completed: No debridement was completed today Assessment/Plan Assessment/Plan (1) Venous stasis dermatitis: CODE(S): I87.2 - Venous insufficiency (chronic) (peripheral) (2) Venous hypertension, chronic, with ulcer and inflammation: CODE(S): I87.339 - Chronic venous hypertension (idiopathic) with ulcer and inflammation of unspecified lower extremity; L97.909 - Non-pressure chronic ulcer of unspecified part of unspecified lower leg with unspecified severity QUALIFIERS: Qualified Code(s): L97.929 - Non-pressure chronic ulcer of unspecified part of left lower leg with unspecified severity (3) Venous stasis ulcer: CODE(S): I83.009 - Varicose veins of unspecified lower extremity with ulcer of unspecified site; L97.909 - Non-pressure chronic ulcer of unspecified part of unspecified lower leg with unspecified severity QUALIFIERS: Qualified Code(s): L97.222 - Non-pressure chronic ulcer of left calf with fat layer exposed (4) Swelling of lower extremity: CODE(S): M79.89 - Other specified soft tissue disorders (5) Venous insufficiency (chronic) (peripheral): CODE(S): I87.2 - Venous insufficiency (chronic) (peripheral) (6) Lymphedema of both lower extremities: CODE(S): I89.0 - Lymphedema, not elsewhere classified (7) Decreased dorsalis pedis pulse: CODE(S): R09.89 - Other specified symptoms and signs involving the circulatory and respiratory systems (8) Pain, lower extremity: CODE(S): M79.606 - Pain in leg, unspecified (9) Morbid obesity with BMI of 60.0-69.9, adult: CODE(S): E66.01 - Morbid (severe) obesity due to excess calories; Z68.44 - Body mass index [BMI] 60.0-69.9, adult (10) Edema of both legs: CODE(S): R60.0 - Localized edema (11) Ulcer of right lower leg: CODE(S): L97.919 - Non-pressure chronic ulcer of unspecified part of right lower leg with unspecified severity (12) Dependent edema: CODE(S): R60.9 - Edema, unspecified (13) Diabetes mellitus: CODE(S): E11.9 - Type 2 diabetes mellitus without complications (14) Gout: CODE(S): M10.9 - Gout, unspecified (15) MASON (obstructive sleep apnea): CODE(S): G47.33 - Obstructive sleep apnea (adult) (pediatric) (16) Hypertension: CODE(S): I10 - Essential (primary) hypertension (17) Nonhealing ulcer of right lower extremity with fat layer exposed: CODE(S): L97.912 - Non-pressure chronic ulcer of unspecified part of right lower leg with fat layer exposed PLAN: A lengthy discussion has been undertaken with the patient once again. Conservative treatment measures are to be continued. There is question as to the patient's level of compliance. He is also morbidly obese. These are both factors which appear to be preventing significant progress in the healing of his wound and improvement of his venous stasis. The patient claims to be elevating his lower extremities as advised. He claims to be using his mechanical pneumatic compression pumps 2-3 times daily. However, his has previously related a completely different story, indicating that the patient has not been compliant with recommended measures. This appears to be the reason why the patient has failed to demonstrate significant improvement. In fact, the patient admits to elevating his lower extremities less than 2 to 3 hours/day, which is far less than that which has been recommended. He has been advised to continue sleeping on a flat mattress at night. Leg elevation has been recommended during daytime hours as well. Leg elevation is to be to heart level, or higher. This is to be accomplished as much as possible, and for longer periods each day than the patient is currently implementing. Prolonged idle sitting has been discouraged. Activity has been encouraged, though the patient's morbid obesity likely precludes any significant increase or enhancement of the patient's activity level. Among the current problems, the patient's Profore dressings have been remaining in place for a week at a time and are becoming saturated with exudative drainage from the patient's lower extremities. Therefore, we have transitioned to the use of an absorbent dressing such as Xtrasorb, with compression to the lower extremities by means of SurePress wraps. The dressings and wraps will be changed daily. It has been believe that home health nursing was providing daily assistance in the patient's home. However, at the patient's current visit he informs that home health nursing providers have not presented to his home, as had been expected. We are to redouble the efforts to recruit home health nursing care for daily home visits. The patient is to continue with [facility], with medical reassessment in 2-3 weeks as to his progress with the described treatment measures. Promogran will be applied to the small ulceration on the right lateral calf. The patient has in his possession pneumatic mechanical compression pumps, and has been encouraged to use these 2 or 3 times daily. Significant weight loss is a primary objective, though the patient is unlikely to meet this goal. He has been urged to lose weight voluntarily. He has expressed the desire, though achievement of this goal would appear somewhat unlikely by means of diet modification and exercise. The patient has expressed his preference to pursue weight loss on a voluntary basis. He has previously undergone dietary consultation, which has yielded no significant weight loss. We have discussed the [facility], and the patient has flatly refused to consider any type of surgical intervention in this regard. Optimization of the patient's glycemic control has been recommended. Once again, a lack of patient compliance is suspected to be an issue in regard to the patient's failure to progress. Unfortunately, due to a combination of factors, which include morbid obesity, a failure to lose weight, inactivity, noncompliance, etc., the patient's prognosis for wound healing and management of his lower extremity swelling and skin changes is felt to be poor. It is hoped that the implementation of home health nursing care will result in demonstrable improvement, though this is yet to be seen. The patient is not a smoker. Influenza vaccine was not administered today. The patient weighs 435 pounds. He stands 5 feet 9 inches tall. His BMI is 64.2. Weight loss has been recommended, and collaboration with the patient's primary care physician has been advised. Total time: 28 minutes.
== END 2021-02-23 23:59 ==
LOC: WC 11:00
PROVIDERS: PCP Internal Medicine; Referring Provider Surgery; Visit Provider Surgery
DX: I87.331 Chronic venous hypertension (idiopathic) with ulcer and inflammation of right lower extremity (principal); L97.212 Non-pressure chronic ulcer of right calf with fat layer exposed; I87.2 Venous insufficiency (chronic) (peripheral); M79.89 Other specified soft tissue disorders; R60.0 Localized edema; I89.0 Lymphedema, not elsewhere classified; E11.9 Type 2 diabetes mellitus without complications; I10 Essential (primary) hypertension; M10.9 Gout, unspecified; G47.33 Obstructive sleep apnea (adult) (pediatric); E66.01 Morbid (severe) obesity due to excess calories; Z68.44 Body mass index [BMI] 60.0-69.9, adult; Z79.899 Other long term (current) drug therapy; Z86.14 Personal history of Methicillin resistant Staphylococcus aureus infection; Z87.891 Personal history of nicotine dependence; Z91.19 Patient's noncompliance with other medical treatment and regimen
CPT/HCPCS: 99212; 99213; G0463